=== PATIENT | male | born 1960 | race African-American/Black ===

== ENCOUNTER 2019-05-27 11:55 | Inpatient (IN) | payer MEDICAID ==
[2019-05-27] VITALS (11 sets, daily range): BP systolic 77–121; BP diastolic 50–73
[~2019-05-27] VITALS: Ht 167.6 cm; Wt 67.1 kg
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
--- NOTE | 2019-05-27 12:00 | NUR ---
ERMD AT BEDSIDE EVALUATING PT
[2019-05-27] MEDS ORDERED: DEXAMETHASONE 10 MG/ML VIAL IVP ONE (12:05)
[2019-05-27] MEDS ORDERED: ALBUTEROL 0.083% 2.5 MG/3 ML NEBU INH ONE (12:05)
--- NOTE | 2019-05-27 12:30 | NUR ---
XRAY AT BEDSIDE
[2019-05-27 13:01] LABS: BASOPHILS % (AUTO) 0.1 % (0.0-2.0); EOSINOPHILS # (AUTO) 0.4 K/uL (0-0.4); EOSINOPHILS % (AUTO) 2.3 % (0.0-4.0); HEMATOCRIT 22.3 % (36-52); LYMPHOCYTES # (AUTO) 0.5 K/uL (2.0-11.5); LYMPHOCYTES % (AUTO) 2.9 % (20.5-51.1); MEAN CORPUSCULAR HEMOGLOBIN 29 pg (27-31); MEAN CORPUSCULAR HGB CONC 31 g/dL (33-37); MEAN CORPUSCULAR VOLUME 94.6 fL (80-94); MONOCYTES # (AUTO) 0.6 K/uL (0.8-1.0); MONOCYTES % (AUTO) 3.3 % (1.7-9.3); NEUTROPHILS # (AUTO) 16.2 K/uL (1.8-7.7); NEUTROPHILS % (AUTO) 91.4 % (42.2-75.2); PLATELET COUNT (AUTO) 508 K/uL (140-450); RED BLOOD CELL COUNT(AUTO) 2.35 MIL/uL (4.20-6.10); RED CELL DISTRIBUTION WIDTH 17.6 % (11.6-13.7); WHITE BLOOD COUNT (AUTO) 17.7 K/uL (4.8-10.8)
[2019-05-27 13:03] LABS: APPEARANCE,URINE BLOODY (CLEAR); BILIRUBIN,URINE 1+ (NEGATIVE); BLOOD, URINE 3+ (NEGATIVE); COLOR,URINE RED (YELLOW); LEUKOCYTE ESTERASE ,URINE 2+ (NEGATIVE); NITRITE, URINE POSITIVE (NEGATIVE); UGLUCOSE NEGATIVE (NEGATIVE)
[2019-05-27 13:11] LABS: HEMOGLOBIN 6.8 g/dL (12.0-18.0)
[2019-05-27 13:12] LABS: PROTHROMBIN TIME 9.2 secs (10.8-13.4)
[2019-05-27 13:22] LABS: ALBUMIN 2.1 g/dL (3.4-5.0); ANION GAP 4.3 (8-16); CARBON DIOXIDE 39.3 mmol/L (21-32); CREATININE 0.7 mg/dL (0.7-1.3); POTASSIUM 3.6 mmol/L (3.5-5.1); TOTAL BILIRUBIN 0.1 mg/dL (0.0-1.0)
[2019-05-27 13:29] LABS: RBC,URINE TOO NUMEROUS TO COUN /HPF (0-5)
[2019-05-27] MEDS ORDERED: ONDANSETRON 4 MG/2 ML VIAL IVP PRN (13:55)
[2019-05-27] MEDS ORDERED: HYDROcodone/APAP 7.5/325 MG 1 TAB PO PRN (13:55)
[2019-05-27] MEDS ORDERED: ACETAMINOPHEN 325 MG TAB PO PRN (13:55)
[2019-05-27] MEDS ORDERED: VANCOMYCIN PER PHARMACY MC PRN (14:00)
[2019-05-27] MEDS ORDERED: NACL 0.9% 1,000 ML IV ONE (14:25)
--- NOTE | 2019-05-27 14:25 | NUR ---
PHOTOS OF WOUNDS TAKEN
[2019-05-27] MEDS ORDERED: ALBUTEROL SULFATE/IPRATROPIU 3 ML SOL IH PRN (14:35)
[2019-05-27] MEDS ORDERED: PIPERACILLIN/TAZOBACTAM 3.375 GM in DEXTROSE 5% 50 ML IV SCH (14:40)
--- NOTE | 2019-05-27 14:50 | NUR ---
PT ADMITTED TO ICU FROM ER. REPORT RECEIVED FROM STEPHANIE LEWIS AT BEDSIDE. PT IS AAOX2, COOPERATIVE, FOLLOWS COMMANDS AND MOUTH WORDS. AT BEDSIDE. AFEBRILE. DENIES PAIN. NORMAL SINUS RHYTHM ON MONITOR. S1 +S2 HEARD. PT IS TRACH TO VENT: SIMV VC FIO2 25%, TV 475, PEEP 5, RR 20. LUNGS SOUND COARSE BILATERALLY. BREATHING EVEN AND UNLABORED. ABDOMEN SOFT, FLAT, NONTENDER W/ ACTIVE BOWEL SOUNDS. GT AND COLOSTOMY IN PLACE. PICC LINE TO LEFT UPPER ARM PATENT AND INTACT. BARR CATH IN PLACE DRAINING BLOODY URINE TO GRAVITY. SKIN IS DRY AND WARM TO TOUCH BUT NON INTACT. MULTIPLE WOUNDS IN PLACE (SEE WOUND ASSESSMENT). HOB 30 DEGREES, BED IN LOWEST POSITION AND CALL LIGHT WITHIN REACH. NO SIGNS OF DISTRESS NOTED AT THIS TIME. WILL CONTINUE OT MONITOR.
--- NOTE | 2019-05-27 14:52 | NUR ---
Patient will be admitted to care of DR. BYRD. Admited to ICU. Will go to room 2. Belongings list completed. Report to STEPHANIE GUAJARDO.
[2019-05-27 15:21] LABS: FREE T4 (FREE THYROXINE) 0.93 ng/dL (0.76-1.46); MAGNESIUM 2.2 mg/dL (1.8-2.4); PHOSPHORUS 5.4 mg/dL (2.5-4.9); THYROID STIMULATING HORMONE 1.96 uIU/mL (0.34-3.74)
[2019-05-27] MEDS: VANCOMYCIN 1,000 MG in DEXTROSE 5% 250 ML IV SCH (16:00)
[2019-05-27] MEDS ORDERED: LOV40I SUBQ (16:42)
[2019-05-27] MEDS ORDERED: MULT-1640 GT (16:42)
[2019-05-27] MEDS ORDERED: ZINC220C12 GT (16:42)
[2019-05-27] MEDS ORDERED: HYDR-5122 GT (16:42)
[2019-05-27] MEDS ORDERED: ASCO500T45 GT (16:42)
[2019-05-27] MEDS ORDERED: DOCU-299 GT (16:42)
[2019-05-27] MEDS ORDERED: PRO5 GT (16:42)
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
--- NOTE | 2019-05-27 17:50 | NUR ---
PT SEEN BY DR. BRADFORD. WILL FOLLOW UP ON ORDERS.
--- NOTE | 2019-05-27 18:30 | NUR ---
RESIDENT PHYSICIAN DR. NUNEZ IN THE UNIT, AWARE OF PT'S LOW BP. NO NEW ORDER AT THIS TIME.
--- NOTE | 2019-05-27 18:31 | NUR ---
SPOKE WITH DR BRADFORD AFTER REPEAT ABG, PT TRENDING IN CORRECT DIRECTION, CONTINUE WITH CURRENT SETTING AND REPEAT ABG IN THE AM, WILL INDORSE TO NOC.
[2019-05-27] MEDS ORDERED: CALCIUM ACETATE 667 MG TAB PO SCH (18:40)
[2019-05-27] MEDS: NACL 0.9% 1,000 ML IV SCH (18:44)
[2019-05-27] MEDS: PIPERACILLIN/TAZOBACTAM 3.375 GM in DEXTROSE 5% 50 ML IV SCH (18:49)
--- NOTE | 2019-05-27 19:18 | NUR ---
REPORT GIVEN TO BENCH PATTERNMAKER METAL RN FOR CONTINUITY OF CARE. PT IS IN STABLE CONDITION.
--- NOTE | 2019-05-27 19:20 | NUR ---
RECEIVED REPORT FROM AM SHIFT.PT ALERT AND ORIENTED X2. ABLE TO VERBALIZE NEEDS. RESPONDS TO VERBAL AND TACTILE STIMULI. TRACH TO VENT. SIMV 20 VT 475 FIO2 23 PEEP 5. SR ON MONITOR. G TUBE PATENT. F/C IN PLACE. KAMLA/ RED URINE PRESENT. MULTIPLE WOUNDS THROUGHOUT BACK. QUADRIPELIGIC. NO SIGNS OF ACUTE DISTRESS AT THIS TIME. BED IN LOWEST POSITION. WILL CONTINUE TO MONITOR.
[2019-05-27] MEDS: ALBUTEROL SULFATE/IPRATROPIU 3 ML SOL IH SCH (19:21)
[2019-05-27] MEDS: ACETAMINOPHEN 325 MG TAB PO SCH ×2 (20:00→21:33)
[2019-05-27] MEDS ORDERED: DOCUSATE SODIUM 100 MG GELCAP PO SCH ×2 (21:00)
--- NOTE | 2019-05-27 21:15 | NUR ---
STARTED BLOOD TRANSFUSION AT THIS TIME. TO INFUSE 1 UNIT PRBC.
[2019-05-27] MEDS: DOCUSATE 100 MG/10 ML UDC GT SCH (21:34)
[2019-05-27] MEDS: MIDODRINE 5 MG TAB GT SCH (22:23)
[2019-05-28] VITALS (14 sets, daily range): BP systolic 88–146; BP diastolic 56–81
--- NOTE | 2019-05-28 00:10 | NUR ---
BLOOD TRANSFUSION COMPLETE AT THIS TIME. NO SIGNS OF ACUTE DISTRESS NOTED.
[2019-05-28] MEDS: ACETAMINOPHEN 325 MG TAB PO SCH (00:16)
--- NOTE | 2019-05-28 00:17 | NUR ---
NPO AT THIS TIME
[2019-05-28] MEDS: PIPERACILLIN/TAZOBACTAM 3.375 GM in DEXTROSE 5% 50 ML IV SCH ×4 (00:39→18:14)
[2019-05-28] MEDS: THERAHONEY GEL 42.5 GM TP SCH ×2 (00:40→13:47)
[2019-05-28] MEDS: Z-GUARD PASTE TP SCH ×2 (00:40→17:20)
[2019-05-28 03:43] LABS: MAGNESIUM 1.8 mg/dL (1.8-2.4); PHOSPHORUS 2.6 mg/dL (2.5-4.9)
[2019-05-28 03:44] LABS: ANION GAP 8.4 (8-16); CREATININE 0.6 mg/dL (0.7-1.3); POTASSIUM 3.4 mmol/L (3.5-5.1); TOTAL BILIRUBIN 0.4 mg/dL (0.0-1.0)
[2019-05-28 03:45] LABS: CHOL/HDL RATIO 3.1 (1-4.5)
--- NOTE | 2019-05-28 03:45 | NUR ---
DR. NUNEZ AT BEDSIDE AT THIS TIME UPDATED ON PTS CURRENT CONDITION. NOTIFIED OF JOHANN RED URINE OUTPUT
--- NOTE | 2019-05-28 04:30 | NUR ---
AM CARE PROVIDED AT THIS TIME. PT TURNED AND REPOSITIONED
[2019-05-28 04:36] LABS: BASOPHILS % (AUTO) 0.3 % (0.0-2.0); EOSINOPHILS # (AUTO) 0.3 K/uL (0-0.4); EOSINOPHILS % (AUTO) 1.7 % (0.0-4.0); HEMATOCRIT 25.4 % (36-52); HEMOGLOBIN 8.3 g/dL (12.0-18.0); LYMPHOCYTES # (AUTO) 0.9 K/uL (2.0-11.5); LYMPHOCYTES % (AUTO) 5.9 % (20.5-51.1); MEAN CORPUSCULAR HEMOGLOBIN 30 pg (27-31); MEAN CORPUSCULAR HGB CONC 33 g/dL (33-37); MEAN CORPUSCULAR VOLUME 91.2 fL (80-94); MONOCYTES # (AUTO) 0.4 K/uL (0.8-1.0); MONOCYTES % (AUTO) 2.4 % (1.7-9.3); NEUTROPHILS % (AUTO) 89.7 % (42.2-75.2); PLATELET COUNT (AUTO) 489 K/uL (140-450); RED BLOOD CELL COUNT(AUTO) 2.78 MIL/uL (4.20-6.10); RED CELL DISTRIBUTION WIDTH 17.4 % (11.6-13.7); WHITE BLOOD COUNT (AUTO) 15.7 K/uL (4.8-10.8)
[2019-05-28] MEDS: MIDODRINE 5 MG TAB GT SCH ×3 (05:31→20:10)
[2019-05-28] MEDS: NACL 0.9% 1,000 ML IV SCH ×2 (05:31→14:10)
[2019-05-28] MEDS: VANCOMYCIN 1,000 MG in DEXTROSE 5% 250 ML IV SCH ×2 (05:31→22:45)
[2019-05-28] MEDS: ALBUTEROL SULFATE/IPRATROPIU 3 ML SOL IH SCH ×3 (06:48→19:36)
--- NOTE | 2019-05-28 07:14 | NUR ---
ENDORSED CARE TO INCOMING SHIFT FOR CONTINUITY OF CARE.
--- NOTE | 2019-05-28 07:30 | NUR ---
REPORT RECEIVED FROM CASINO DEALER RN AT BEDSIDE. PT IS AAOX3, FOLLOWS COMMANDS AND MOUTH WORDS. AFEBRILE. DENIES PAIN. NORMAL SINUS RHYTHM ON MONITOR. S1 +S2 HEARD. PT IS TRACH TO VENT: A/C VC FIO2 25%, TV 475, PEEP 5, RR 20. LUNGS SOUND CLEAR BILATERALLY. BREATHING EVEN AND UNLABORED. ABDOMEN SOFT, FLAT, NONTENDER W/ ACTIVE BOWEL SOUNDS. GT AND COLOSTOMY IN PLACE. PERIPHERAL IV G18 TO RIGHT EJ ASYMPTOMATIC, PATENT AND INTACT W/ GOOD BLOOD RETURN. BARR CATH IN PLACE DRAINING URINE TO GRAVITY, HEMATURIA NOTED. SKIN IS DRY AND WARM TO TOUCH BUT NON INTACT. MULTIPLE WOUNDS IN PLACE (SEE WOUND ASSESSMENT). HOB 30 DEGREES, BED IN LOWEST POSITION AND CALL LIGHT WITHIN REACH. NO SIGNS OF DISTRESS NOTED AT THIS TIME. WILL CONTINUE OT MONITOR.
--- NOTE | 2019-05-28 07:48 | NUR ---
DR. BYRD AND RESIDENT GROUP IN TO SEE PT. DR. MARTINEZ MADE AWARE OF K 3.4. WILL FOLLOW UP ON ORDERS.
--- NOTE | 2019-05-28 08:21 | NUR ---
PATIENT HAS BEEN SCREENED AND CATEGORIZED HIGH NUTRITION RISK. PATIENT WILL BE SEEN WITHIN 1-2 DAYS OF ADMISSION. 05/28/19-05/29/[address]
--- NOTE | 2019-05-28 08:25 | NUR ---
PT AWAKE AND ALERT REFUSED ABG RN AWARE
[2019-05-28] MEDS: MULTIVITAMIN/MINERALS 15 ML UDBTL GT SCH (08:30)
[2019-05-28] MEDS: PANTOPRAZOLE 40 MG INJ VIAL IVP SCH (08:30)
[2019-05-28] MEDS: DOCUSATE 100 MG/10 ML UDC GT SCH ×2 (08:30→20:10)
[2019-05-28] MEDS: ZINC SULF 220 MG CAP GT SCH (08:30)
[2019-05-28] MEDS: ASCORBIC ACID 500 MG/5 ML ORASYR GT SCH (08:30)
[2019-05-28] MEDS ORDERED: POTASSIUM CHLORIDE 20% 40 MEQ/15 ML UDC GT SCH (08:30)
--- NOTE | 2019-05-28 08:40 | NUR ---
PT IS NPO AFTER MIDNIGHT. PER JOE BLACK TO GIVE GT MEDS. MEDICATIONS ADMINISTERED ORDERED. PT TOLERATED WELL.
[2019-05-28] MEDS ORDERED: NON-FORMULARY ITEM (Multivitamin-Min/Iron/FA/Vit K (Multi-Day Plus Minerals Tablet) 1 TAB) GT SCH (09:00)
[2019-05-28] MEDS ORDERED: ENOXAPARIN 40 MG/0.4 ML SYR SUBQ SCH (09:00)
--- NOTE | 2019-05-28 11:30 | NUR ---
PT TRANSFERRED TO OR BY SURGICAL TEAM FOR WOUND DEBRIDEMENT. NO SIGNS OF DISTRESS NOTED.
[2019-05-28] MEDS ORDERED: KETAMINE 500 MG/5 ML VIAL ONE (11:31)
[2019-05-28] MEDS ORDERED: LIDOCAINE 1% 500 MG/50 ML VIAL ONE (11:39)
[2019-05-28] MEDS ORDERED: BUPIVACAINE-MPF 0.25% 30 ML VIAL INJ ONE (11:40)
--- NOTE | 2019-05-28 12:00 | NUR ---
PT STILL IN OR FOR WOUND DEBRIDEMENT. SBAR REPORT GIVEN TO STEPHANIE LUX AT [facility].
--- NOTE | 2019-05-28 12:20 | NUR ---
TRANSFERRED PATIENT FROM [facility] FOR DEBRIDEMENT TO LEFT SHOULDER TO [facility]-A AMBU BAY TO TRACHEOSTOMY TUBE WITH SUPPLEMENTAL OXYGEN E-TANK AT 1 5 LPM BAG DEPRESSION EVERY 6 SECONDS TOLERATED TRANSFER WELL WITH INCIDENT SATURATION 100% HR 85
--- NOTE | 2019-05-28 12:35 | NUR ---
PATIENT ARRIVED UNIT AFTER DEBRIDEMENT PROCEDURE FROM OR ACCOMPANIED BY OR NURSE KEANU. PATIENT AWAKE AND RESTING ON BED AT THIS TIME. PATIENT IS AAOX3 TO NAME, PLACE, AND TIME. RESPIRATION EVEN AND UNLABORED ON TRACH TO VENT, FIO2 25%, VT 475 ML, RR 20/MIN, FLOW 40/MIN, PEE 5. DENIED PAIN AND SOB. NO SIGNS OF DISTRESS NOTED. APPLIED TELE MONITOR ON PATIENT. IV ON REJ 18G, CLEAN AND INTACT, INFUSING PER MD ORDER. MULTIPLE WOUNDS BACK AND BUTTOCK AREAS. COLOSTOMY BAG IN PLACE. BARR CATHETER IN PLACE AND DRAINING YELLOW URINE. G-TUBE IN PLACE, AND NOT FEEDING AT THIS TIME. ORIENTED PATIENT TO THE ROOM, AND DEMONSTRATED TO PATIENT HOW TO USE THE CALL LIGHT FOR ANY ASSISTANCE AND PATIENT MOUTH THE WORD "OK." SAFETY MEASURES IN PLACE. BED IN LOW POSITION AND CALL LIGHT WITHIN REACH. BED ALARM ACTIVATED AND WOUND BED ON.
--- NOTE | 2019-05-28 12:52 | NUR ---
ADMINISTERED ZOSYN VIA IVPB PER MD ORDER, PATIENT AWAKE AND RESTING ON BED. OR NURSE KEANU IS BY BEDSIDE AND MONITORING PATIENT. NO SIGNS OF DISTRESS NOTED. SAFETY MEASURES IN PLACE. BED IN LOW POSITION AND CALL LIGHT WITHIN REACH. BED ALARM ACTIVATED AND WOUND BED IS ON.
--- NOTE | 2019-05-28 13:37 | NUR ---
RESTING COMFORTABLY NO NO APPARENT SOB NOTED GOOD CHEST RISE DEEP TRACHEAL SUCTION FOR THICK PALE YELLOW SECRETIONS AIRWAY PATENT
--- NOTE | 2019-05-28 13:46 | NUR ---
05/28/19 RD INITIAL ASSESSMENT COMPLETED PLEASE REFER TO NUTRITION ASSESSMENT UNDER CARE ACTIVITY FOR ESTIMATED NUTRITIONAL NEEDS. 1. WHEN MEDICALLY STABLE CONSIDER TUBE FEEDING WITH OSMOLITE 1.5 AT 55 ML/HR X 24HR WITH PROSOURCE BID -THIS WILL PROVIDE 2100 KCAL AND 112 GM OF PROTEIN WHICH MEETS 100% OF ESTIMATED NEEDS 2. CONSIDER FREE WATER FLUSH 165 ML Q4H 3. CONTINUE VITAMIN C FOR WOUND HEALING 4. RD TO FOLLOW-UP 2-3 DAYS, HIGH RISK TANO BONDS RD
--- NOTE | 2019-05-28 13:47 | NUR ---
CHECKED BP PRIOR TO ADMINISTER MED, BP 101/63, PULSE 73. ADMINISTERED MED PER MD ORDER VIA G-TUBE, FLUSHED BEFORE AND AFTER MED ADMINISTERED, PATIENT TOLERATED WELL. PATIENT AWAKE AND RESTING ON BED AT THIS TIME. TRACH TO VENT, SPO2 AT 100%. DENIED PAIN AND SOB. NO SIGNS OF DISTRESS NOTED. SAFETY MEASURES IN PLACE. BED IN LOW POSITION AND CALL LIGHT WITHIN REACH. WOUND BED ACTIVATED.
--- NOTE | 2019-05-28 13:59 | NUR ---
WITH THE ASSIST FROM DAVID. PERFORMED WOUND CARE. CLEANSED WOUNDS WITH WOUND PLEXIGLAS FORMER AND PAD DRY. PACKED WOUND WITH THERAHONEY GEL AND ADAPTIC DRESSING. APPLIED Z-GUARD ON LINDA AREA AND BONY AREA ON BACK. PATIENT TOLERATED WELL. WOUND EDUCATION PROVIDED TO PATIENT, AND PATIENT MOUTH "OK." NO SIGNS OF DISTRESS NOTED. TELE MONITOR ATTACHED. SAFETY MEASURES IN PLACE. BED IN LOW POSITION AND CALL LIGHT WITHIN REACH.
--- NOTE | 2019-05-28 14:48 | NUR ---
RECEIVED A CALL FROM LAB AND WAS TOLD BY DUMP MOTOR OPERATOR OSEI THAT VANCO TROUGH 19.1. CALLED PHARMACY AND SPOKE TOP PHARMACIST KIRAN, PER KIRAN 19.1 IS HIGH FOR PATIENT AND HE STATED TO HOLD VANCOMYCIN 1600 DOSE AND HE WILL ADMINISTER THE VANCO. WILL NOT ADMINISTER 1600 VANCOMYCIN.
--- NOTE | 2019-05-28 15:00 | NUR ---
STARTED G-TUBE FEEDING, PATIENT TOLERATED WELL. PATIENT AWAKE AND RESTING ON BED AT THIS TIME. RESPIRATION EVEN AND UNLABORED ON TRACH TO VENT, SPO2 AT 99% AT THIS TIME. PATIENT DENIED PAIN AND SOB. NO SIGNS OF DISTRESS NOTED. BARR DRAINING YELLOW URINE WITH GRAVITY. TELE MONITOR ATTACHED. BED IN LOW POSITION AND CALL LIGHT WITHIN REACH. WOUND BED ACTIVATED.
--- NOTE | 2019-05-28 15:59 | NUR ---
STABLE NO PULMONARY DISTRESS NOTED GOOD CHEST RISE AIRWAY PATENT JOSE J/RN AND BASE BRANDER AT BEDSIDE FOR PATIENT PHYSICAL HYGIENE AND REPOSITION
--- NOTE | 2019-05-28 16:25 | NUR ---
PATIENT IS RESTING ON BED AT THIS TIME. AROUSABLE TO VOICE. RESPIRATION EVEN AND UNLABORED ON TRACH TO VENT. DENIED PAIN AND SOB. NO SIGNS OF DISTRESS NOTED. SAFETY MEASURES IN PLACE. TELE MONITOR ATTACHED. BED IN LOW POSITION AND CALL LIGHT WITHIN REACH.
--- NOTE | 2019-05-28 17:18 | NUR ---
PATIENT AWAKE AND RESTING ON BED. AND GRANDSON BY BEDSIDE. NO SIGNS OF DISTRESS NOTED. TELE MONITOR ATTACHED. SAFETY MEASURES IN PLACE. BED IN LOW POSITION AND CALL LIGHT WITHIN REACH.
--- NOTE | 2019-05-28 18:14 | NUR ---
ADMINISTERED ZOSYN VIA IVPB PER MD ORDER, PATIENT AWAKE AND RESTING ON BED AT THIS TIME. DENIED PAIN AND SOB. RESPIRATION EVEN AND UNLABORED ON TRACH TO VENT, SPO2 98% AT THIS TIME. NO SIGNS OF DISTRESS NOTED. SAFETY MEASURES IN PLACE. TELE MONITOR ATTACHED.
--- NOTE | 2019-05-28 19:09 | NUR ---
ENDORSED PATIENT AT BEDSIDE TO DISPLAY MANAGER NURSE FOR CONTINUITY OF CARE. PATIENT IS RESTING ON BED AT THIS TIME. RT IS BY BEDSIDE. NO SIGNS OF DISTRESS NOTED. PATIENT IS IN STABLE CONDITION. SAFETY MEASURES IN PLACE. BED IN LOW POSITION AND CALL LIGHT WITHIN REACH. TELE MONITOR ATTACHED.
--- NOTE | 2019-05-28 19:10 | NUR ---
REPORT RECEIVED FROM AM NURSE AT BEDSIDE. PT IN STABLE CONDITION. AAOX1-2. INTRODUCED SELF TO PT. BOARD UPDATED. NO COMPLAINTS OF PAIN. NO SOB ON TRACH TO VENT. AFEBRILE. PT IS BEDBOUND AND QUADRAPLEGIC. PT HAS BARR. PT IS ON GTUBE FEEDINGS OSMOLITE 1.5@55ML/HR WITH 165ML H2O FLUSH Q4H. IV SITE R EJ 18G RUNNING NS@100ML/HR PATENT AND INTACT. SKIN IS WARM, DRY, AND NOT INTACT DUE TO MULTIPLE WOUNDS AND ULCERS. BED LOCKED IN LOW POSITION. CALL MCINTYRE WITHIN REACH. BED ALARM ON. SAFETY PRECAUTION IN PLACE. ALL NEEDS MET AT THIS TIME.
--- NOTE | 2019-05-28 19:37 | NUR ---
RECEIVED TRACH PT WITH A SHILEY XLT 6 TRACH ON VENT. SETTINGS AC/VC 20, VT 475, PEEP 5 AND FIO2 25%. PT IS AWAKE AT THIS TIME NOT IN ANY DISTRESS. TRACH IS SECURE WITH A PATENT AIRWAY. VENT IS PLUGGED INTO A RED OUTLET WITH ALARMS ON AND FUNCTIONING. AMBU BAG AT BEDSIDE. WILL CONTINUE TO MONITOR.
--- NOTE | 2019-05-28 20:10 | NUR ---
PROATAMINE AND COLACE GIVEN THROUGH GTUBE. PT TOLERATED WELL. PT HAD 0ML OF RESIDUAL THROUGH GTUBE.
--- NOTE | 2019-05-28 21:00 | NUR ---
PHARMACY CALLED TO DOUBLE CHECK IF VANCO IS OK TO GIVE. PHARMACY CONFIRMED DOSE HAS ALREADY BEEN ADJUSTED.
--- NOTE | 2019-05-28 22:45 | NUR ---
KATIE MORELOS AND RUNNING. PT TOLERATING WELL.
[2019-05-29] VITALS: BP 138/95
[2019-05-29] MEDS: PIPERACILLIN/TAZOBACTAM 3.375 GM in DEXTROSE 5% 50 ML IV SCH ×5 (00:10→23:46)
--- NOTE | 2019-05-29 00:10 | NUR ---
PASCUAL HUNG AND RUNNING. PT TOLERATING WELL.
[2019-05-29] MEDS: NACL 0.9% 1,000 ML IV SCH ×3 (00:14→23:08)
--- NOTE | 2019-05-29 01:30 | NUR ---
PT SLEEPING COMFORTABLY BUT AROUSABLE. NO S/S OF DISTRESS NOTED. FLACC 0. NO SOB TRACH TO VENT. AFEBRILE. WILL CONTINUE TO MONITOR.
--- NOTE | 2019-05-29 02:55 | NUR ---
PT SLEEPING COMFORTABLY BUT AROUSABLE. NO S/S OF DISTRESS NOTED. WILL CONTINUE TO MONITOR.
[2019-05-29 04:00] VITALS: BP 88/57
[2019-05-29] MEDS: MIDODRINE 5 MG TAB GT SCH ×3 (04:10→20:13)
--- NOTE | 2019-05-29 04:10 | NUR ---
MIDODRINE GIVEN THROUGH GTUBE. PT TOLERATED WELL. PT TOLERATING FEEDING WELL WITH 0ML RESIDUAL.
--- NOTE | 2019-05-29 05:07 | NUR ---
PASCUAL HUNG AND RUNNING. PT TOLERATING WELL.
--- NOTE | 2019-05-29 06:50 | NUR ---
PT AWAKE AND ALERT IN BED BUT ATTEMPTING TO SLEEP. NO S/S OF DISTRESS NOTED. PT IN STABLE CONDITION.
--- NOTE | 2019-05-29 07:25 | NUR ---
RECEIVED PATIENT FROM NIGHT NURSE. PATIENT IS AAO X2. TRACH TO VENT IN HIGH HAMM WITH BED LOW. TRACH SECURED IN PLACE. VENT SETTINGS; FI02 28%, VT475, RR20, PEEP 5. PATIENT AWAKE AND IN NO DISTRESS. NO COMPLAINTS OF PAIN. SKIN WARM DRY AND INTACT. REVIEWED PLAN OF CARE. REINFORCEMENT NEEDED. CALL MCINTYRE WITHIN REACH. SAFETY PRECAUTIONS IN PLACE. ALL NEEDS MET AT THIS TIME. WILL CONTINUE TO MONITOR.
[2019-05-29] MEDS: ALBUTEROL SULFATE/IPRATROPIU 3 ML SOL IH SCH ×3 (07:38→19:31)
[2019-05-29 08:00] VITALS: BP 124/79
[2019-05-29] MEDS: MULTIVITAMIN/MINERALS 15 ML UDBTL GT SCH (09:00)
[2019-05-29] MEDS: Z-GUARD PASTE TP SCH (09:00)
[2019-05-29] MEDS: ZINC SULF 220 MG CAP GT SCH (10:06)
[2019-05-29] MEDS: ASCORBIC ACID 500 MG/5 ML ORASYR GT SCH (10:06)
[2019-05-29] MEDS: DOCUSATE 100 MG/10 ML UDC GT SCH ×2 (10:06→20:12)
[2019-05-29] MEDS: PANTOPRAZOLE 40 MG INJ VIAL IVP SCH (10:08)
[2019-05-29 10:13] LABS: BASOPHILS # (AUTO) 0.1 K/uL (0.00-0.22); BASOPHILS % (AUTO) 0.5 % (0.0-2.0); EOSINOPHILS # (AUTO) 0.1 K/uL (0-0.4); EOSINOPHILS % (AUTO) 1.1 % (0.0-4.0); HEMATOCRIT 24.9 % (36-52); LYMPHOCYTES # (AUTO) 0.8 K/uL (2.0-11.5); LYMPHOCYTES % (AUTO) 6.7 % (20.5-51.1); MEAN CORPUSCULAR HEMOGLOBIN 29 pg (27-31); MEAN CORPUSCULAR HGB CONC 32 g/dL (33-37); MEAN CORPUSCULAR VOLUME 89.5 fL (80-94); MONOCYTES # (AUTO) 0.8 K/uL (0.8-1.0); MONOCYTES % (AUTO) 6.5 % (1.7-9.3); NEUTROPHILS # (AUTO) 9.9 K/uL (1.8-7.7); NEUTROPHILS % (AUTO) 85.2 % (42.2-75.2); PLATELET COUNT (AUTO) 431 K/uL (140-450); RED BLOOD CELL COUNT(AUTO) 2.79 MIL/uL (4.20-6.10); RED CELL DISTRIBUTION WIDTH 17.3 % (11.6-13.7); WHITE BLOOD COUNT (AUTO) 11.6 K/uL (4.8-10.8)
--- NOTE | 2019-05-29 11:23 | NUR ---
MEDICATIONS GIVEN PER ORDER. TOLERATED WELL. PATIENT REPOSITIONED. WOUNDS CLEANSED AND DRESSING CHANGED. PATIENT IN NO DISTRESS. WILL CONTINUE TO MONITOR.
--- NOTE | 2019-05-29 11:48 | NUR ---
WOUND ASSESSMENT TO RIGHT SHOULDER S/P DEBRIDEMENT AND CHANGE OF SKIN CONDITION TO RIGHT HEEL ASSESSED WITH PRIMARY RN. -RIGHT SHOULDER PRESSURE ULCER STAGE 4, MUSCLE OBSERVED WITH 1T6A9LD UNDERMINING BETWEEN 10-12 O'CLOCK 1CM, WOUND BED 100% GRANULATING TISSUE, MODERATE AMOUNT OF SANGUINOUS DRAINAGE, NO ODOR, WOUND EDGE WELL DEFINED, LINDA WOUND SKIN INTACT WITH SURROUNDING REDNESS OBSERVED. -RIGHT HEEL ON TOP OF HEALING SCAR/REMODELING STAGE UPON ADMISSION WITH PARTIAL THICKNESS SKIN LOSS 2X2CM SUPERFICIAL DEPTH WOUND BED 100% PINK, MOIST NO ODOR, POSSIBLE FROM FRICTION. RECOMMENDATIONS: -CLEANSE RIGHT SHOULDER WITH WOUND CARE SOLUTION. PAT DRY, PACK WOUND BED WITH THERAHONEY GEL WITH ADAPTIC DRESSING AND COVER WITH DRY DRESSING QOD AND PRN IF SOILING -CLEANSE RIGHT HEEL WITH WOUND CARE SOLUTION. PAT DRY, APPLY THERAHONEY GEL WITH FOAM DRESSING AND SECURE WITH TAPE QOD AND PRN IF SOILING -HEEL RAISERS TO BILATERAL HEELS, OFFLOAD HEELS AT ALL TIMES ABOVE RECOMMENDATIONS DISCUSSED WITH PRIMARY RN Addendum: 05/29/19 at 1220 by Jenny Krishnan RN (Grace) PAGED TO DR MARTINEZ [phone] Addendum: 05/29/19 at 1450 by Jenny Krishnan RN (Grace) PLACE A CALL TO ADILENE,, R/T RIGHT HEEL AND RIGHT SHOULDER, MESSAGE LEFT FOR HER TO CALL BACK TO ME OR TALK TO JEANNA RAMACHANDRAN RN
[2019-05-29 12:00] VITALS: BP 85/55
--- NOTE | 2019-05-29 12:04 | NUR ---
PT IN BED NOT IN ANY DISTRESS AT THIS TIME. TOLERATING VENT SETTINGS WELL. WILL CONTINUE TO MONITOR.
[2019-05-29 12:27] LABS: MAGNESIUM 1.5 mg/dL (1.8-2.4); PHOSPHORUS 2.2 mg/dL (2.5-4.9)
[2019-05-29] MEDS: THERAHONEY GEL 42.5 GM TP SCH ×2 (12:30→13:36)
[2019-05-29 13:24] LABS: CARBON DIOXIDE 33.7 mmol/L (21-32); POTASSIUM 2.7 mmol/L (3.5-5.1)
[2019-05-29 13:25] LABS: CREATININE 0.6 mg/dL (0.7-1.3)
[2019-05-29] MEDS ORDERED: POTASSIUM CHLORIDE 20% 40 MEQ/15 ML UDC GT SCH (14:00)
[2019-05-29] MEDS ORDERED: fentaNYL 0.05 MG/ML VIAL ONE (15:27)
[2019-05-29] MEDS ORDERED: diphenhydrAMINE 50 MG/ML VIAL ONE (15:27)
[2019-05-29] MEDS ORDERED: MIDAZOLAM 2 MG/2 ML VIAL ONE (15:27)
--- NOTE | 2019-05-29 15:46 | NUR ---
DR NARANJO AT BEDSIDE GETTING READY TO PERFORM EGD. WILL CONTINUE TO MONITOR.
[2019-05-29 16:00] VITALS: BP 94/64
[2019-05-29] MEDS: KCL 20 MEQ/WATER INJ PREMIX 100 ML IV SCH ×2 (16:14→18:19)
--- NOTE | 2019-05-29 16:34 | NUR ---
MEDICATIONS ADMINISTERED PER ORDER. PATIENT TOLERATED WELL AND IS IN NO DISTRESS. WILL CONTINUE TO MONITOR
[2019-05-29] MEDS ORDERED: MIDAZOLAM 2 MG/2 ML VIAL IVP ONE (16:45)
[2019-05-29] MEDS ORDERED: fentaNYL 0.05 MG/ML VIAL IVP ONE (16:45)
--- NOTE | 2019-05-29 17:59 | NUR ---
PT REMAINS ON DOCUMENTED VENT SETTINGS. TRACH IS SECURE WITH A PATENT AIRWAY. PT NOT IN ANY DISTRESS AT THIS TIME. VENT ALARMS REMAIN ON AND FUNCTIONING.
[2019-05-29] MEDS: VANCOMYCIN 1,000 MG in DEXTROSE 5% 250 ML IV SCH (18:06)
--- NOTE | 2019-05-29 19:16 | NUR ---
GAVE REPORT TO COLLECTION DEVELOPMENT LIBRARIAN NURSE FOR CONTINUITY OF CARE. PATIENT IN STABLE CONDITION.
--- NOTE | 2019-05-29 19:20 | NUR ---
RECEIVED REPORT FROM JEANNA BROWN DAYSHIFT NURSE AT BEDSIDE FOR CONTINUITY OF CARE, PT IN STABLE CONDITION.
[2019-05-29 20:00] VITALS: BP 92/58
--- NOTE | 2019-05-29 20:00 | NUR ---
PT IS AOX3 AWAKE AND ALERT ON A WOUND BED AND IS TRACH TO VENT PT. HIS RESPIRATIONS ARE EVEN AND UNLABORED WITH CURRENT VENT SETTINGS. PT HAS HEEL PROTECTORS ON. BARR CATHETER INTACT NO S/S FO BLEEDING NOTED. PT DRAINED 600MLS OF LIGHT YELLOW URINE. PT ALSO HAS AN ILEOSTOMY THAT DRAINED 50MLS OF DARK LIQUID FECES NO S/S OF BLOOD IN FECAL MATTER. PT ALSO HAS G TUBE THAT IS RUNNING OSMOLITE 1.5, NO RESIDUAL NOTED. PT HAS R EJ 18G RUNNING N/S AT 100MLS/HR. PT REMAINS ON VANCOMYCIN AND ZOSYN IV ABT, NO ADVERSE EFFECTS OF MEDICATION NOTED. LUNGS NOTED WITH RHONCHI, PT DECLINES TO BE SUCTIONS AT THIS TIME. ALL FALLS PRECAUTIONS IN PLACE AND CALL MCINTYRE IN REACH.
--- NOTE | 2019-05-29 20:36 | NUR ---
PATIENT ON DOCUMENTED SETTINGS. TRACH DRY, PATENT AND SECURE. BAGMASK AT BEDSIDE. ALARMS ON AND AUDIBLE. VENT PLUGGED INTO RED OUTLET. TREATMENT GIVEN WITH NO ADVERSE REACTION. VITALS STABLE. BREATH SOUNDS COARSE. PT REFUSED SUCTION AT THIS TIME. WILL CONTINUE TO MONITOR.
--- NOTE | 2019-05-29 21:00 | NUR ---
PT TURNED AND REPOSITIONED ON WOUND BED. DRESSINGS INTACT SOME DRAINAGE NOTED. PT ALSO GIVEN DUE MEDS OF COLACE AND MIDODRINE VIA GT NO RESIDUAL NOTED V/S FOLLOWS: T 97.9 P 96 R 18 B/P 96/58 02 98% WITH CURRENT VENT SETTINGS. PT SUCTIONED AND MOUTH CARE PROVIDED. ALL FALLS PRECAUTIONS IN PLACE.
--- NOTE | 2019-05-29 21:40 | NUR ---
RECEIVED CALL FORM KAREN IN LAB THAT PT IS POSITIVE FOR PSEUDOMONAS AERUGINOSA AND ACINETOBACTER BAUMANNII/HAEMOL IN SPUTUM. PT PLACED ON CONTACT PRECAUTIONS, RESIDENT MD DR NUNEZ MADE AWARE, NO NEW ORDERS NOTED. MD NUNEZ ALSO MADE AWARE THAT PT MAG LEVEL IS LOW AT 1.5 MD NUNEZ ORDERED A MAG RIDER.
[2019-05-29] MEDS ORDERED: MAG SULF 2000 MG/WATER PREMIX 50 ML IV SCH (22:30)
--- NOTE | 2019-05-29 22:30 | NUR ---
MAG DENIS MORELOS AND IS RUNNING AT 25MLS/HR ORDERED.
[2019-05-30] VITALS: BP 96/58
--- NOTE | 2019-05-30 00:11 | NUR ---
PT IN BED, ALL FALLS AND CONTACT PRECAUTIONS IN PLACE. PT IS AWAKE AND HAS NO C/O VOICED AT THIS TIME. V/S FOLLOWS T 98.9 P 100 R 18 B/P 92/58 02 96% WITH ALL CURRENT VENT SETTINGS. PASCUAL MORELOS AND IS RUNNING ORDERED.
[2019-05-30] MEDS: HYDROcodone/APAP 5/325 MG 1 TAB TAB GT PRN ×2 (02:04→15:36)
--- NOTE | 2019-05-30 02:10 | NUR ---
PT WOUND DRESSINGS ON SACRAL AND BUTTOCKS AREA DUE TO DRESSINGS BEING SOILED WITH DRAINAGE. PT GIVEN 1 TAB NORCO FOR SEVERE PAIN IN BACK, VIA GT, PT TURNED AND REPOSITIONED. N/S RUNNING VIA 18G EJ AT 100 MLS/HR PT BREATHING EVEN AND UNLABORED WITH ALL VENT SETTINGS. BARR CATHETER AND OSTOMY IN PLACE. PT SUCTIONED AND ORAL CARE PROVIDED.
--- NOTE | 2019-05-30 04:00 | NUR ---
PT IN BED V/S A FOLLOWS T 98.8 P 102 R 20 B/P 114/74 02 100%.
--- NOTE | 2019-05-30 04:30 | NUR ---
PT TURNED AND RE-POSITIONED IN BED NO S/S OF PAIN OR DISTRESS NOTED BED LOW AND ALL CONTACT AND FALL PRECAUTIONS IN PLACE.
[2019-05-30] MEDS: MIDODRINE 5 MG TAB GT SCH ×3 (04:57→20:39)
[2019-05-30] MEDS: MORPHINE SULFATE 2 MG/ML SYR IVP PRN (05:23)
[2019-05-30] MEDS: PIPERACILLIN/TAZOBACTAM 3.375 GM in DEXTROSE 5% 50 ML IV SCH ×3 (05:29→17:28)
--- NOTE | 2019-05-30 05:30 | NUR ---
SPOKE WITH DR. NUNEZ DUE TO PT SAYING HE IS IN PAIN THAT THE NORCO WAS NOT EFFECTIVE,SPOKE WITH Cirilo GUPTA, WHOM ADDED ANOTHER ORDER FOR SEVERE PAIN (1 MG). TOOK OUT 2MG/1ML VIAL, ASSIGNED NURSE FORGOT TO WASTE 1[facility]. SPOKE WITH CO-WORKER REGARDING WASTING 1MG OF MORPHINE, CO WORKER IRON THOUGHT THAT A NEW VIAL NEEDED TO BE WITHDRAWN AND WASTED AT [facility] INSTEAD OF ORIGINAL VIAL. THIS MIXED UP THE COUNT AND THE [facility] WOULD NOT LET ME RETURN ONE OF THE VIALS WITHOUT THE COUNT BEING OFF. RETURNED THE SECOND VIAL UNUSED BUT THE COUNT IS 1 VIAL HIGHER, [facility]GE [facility] IS AWARE. THE 1/2 THE ORIGINAL VIAL WAS WASTED WITH CO-WORKER ARMAAN Sousa IN SHORT PT WAS GIVEN 1MG/MLS OF MORPHINE FOR SEVERE PAIN.
[2019-05-30 06:00] VITALS: BP 114/74
--- NOTE | 2019-05-30 06:20 | NUR ---
REC'D PT ON [employer] VENT SETTING AC 20 VT 475 PEEP 5 FIO2 28% ALARMS ON AND AUDIBLE AND AMBU BAG IS AT HOB AND VENT IS PLUGGED INTO RED OUTLET, I\L TX GIVEN WITH DUONEB 3ML WITH NO ADVERSE REACTION POST TX B\S ARE RHONCHI BILATERALLY, PT AROUND TRACH THICK YELLOW SECRETIONS, PT IS TRACH WITH SHILEY XLT 6 AND SKIN INTEGRITY IS INTACT. Addendum: 05/30/19 at 0657 by Roopa [place] 0632
[2019-05-30] MEDS: NACL 0.9% 1,000 ML IV SCH ×2 (06:25→16:28)
[2019-05-30] MEDS: ALBUTEROL SULFATE/IPRATROPIU 3 ML SOL IH SCH ×3 (06:32→19:11)
--- NOTE | 2019-05-30 07:20 | NUR ---
RECEIVED PATIENT FROM NIGHT NURSE. PATIENT IS AAO X3. TRACH TO VENT IN FOWLERS WITH BED LOW. TRACH SECURED IN PLACE. VENT SETTINGS; FI02 28%, VT475, RR20, PEEP 5. PATIENT AWAKE AND IN NO DISTRESS. NO COMPLAINTS OF PAIN. SKIN WARM AND DRY. REVIEWED PLAN OF CARE. REINFORCEMENT NEEDED. CALL MCINTYRE WITHIN REACH. SAFETY PRECAUTIONS IN PLACE. ALL NEEDS MET AT THIS TIME. WILL CONTINUE TO MONITOR.
[2019-05-30 08:22] LABS: BASOPHILS # (AUTO) 0.1 K/uL (0.00-0.22); BASOPHILS % (AUTO) 0.6 % (0.0-2.0); EOSINOPHILS # (AUTO) 0.2 K/uL (0-0.4); EOSINOPHILS % (AUTO) 1.2 % (0.0-4.0); HEMATOCRIT 23.5 % (36-52); HEMOGLOBIN 7.4 g/dL (12.0-18.0); LYMPHOCYTES # (AUTO) 0.9 K/uL (2.0-11.5); LYMPHOCYTES % (AUTO) 5.4 % (20.5-51.1); MEAN CORPUSCULAR HEMOGLOBIN 29 pg (27-31); MEAN CORPUSCULAR HGB CONC 32 g/dL (33-37); MEAN CORPUSCULAR VOLUME 90.2 fL (80-94); MONOCYTES % (AUTO) 6.4 % (1.7-9.3); NEUTROPHILS # (AUTO) 13.8 K/uL (1.8-7.7); NEUTROPHILS % (AUTO) 86.4 % (42.2-75.2); PLATELET COUNT (AUTO) 412 K/uL (140-450); RED CELL DISTRIBUTION WIDTH 17.5 % (11.6-13.7); WHITE BLOOD COUNT (AUTO) 15.9 K/uL (4.8-10.8)
[2019-05-30 08:47] LABS: ANION GAP 9.4 (8-16); CARBON DIOXIDE 30.5 mmol/L (21-32); CREATININE 0.5 mg/dL (0.7-1.3)
[2019-05-30 09:12] LABS: MAGNESIUM 1.6 mg/dL (1.8-2.4); PHOSPHORUS 2.5 mg/dL (2.5-4.9)
[2019-05-30] MEDS: PANTOPRAZOLE 40 MG INJ VIAL IVP SCH (09:15)
[2019-05-30] MEDS: DOCUSATE 100 MG/10 ML UDC GT SCH ×2 (09:17→20:39)
[2019-05-30] MEDS: MULTIVITAMIN/MINERALS 15 ML UDBTL GT SCH (09:17)
[2019-05-30] MEDS: ZINC SULF 220 MG CAP GT SCH (09:17)
[2019-05-30] MEDS: ASCORBIC ACID 500 MG/5 ML ORASYR GT SCH (09:17)
[2019-05-30 09:26] LABS: POTASSIUM 2.9 mmol/L (3.5-5.1)
[2019-05-30] MEDS: Z-GUARD PASTE TP SCH (09:48)
--- NOTE | 2019-05-30 09:53 | NUR ---
MEDICATIONS ADMINISTERED PER ORDER. PATIENT TOLERATED WELL AND IS IN NO DISTRESS. SAFETY MEASURES IN PLACE. WILL CONTINUE TO MONITOR.
[2019-05-30] MEDS ORDERED: MAG SULF 2000 MG/WATER PREMIX 50 ML IV SCH (10:15)
--- NOTE | 2019-05-30 11:18 | NUR ---
MEDICATIONS ADMINISTERED PER ORDER. PATIENT TOLERATED WELL AND IS IN NO DISTRESS. SAFETY MEASURES IN PLACE. WILL CONTINUE TO MONITOR.
[2019-05-30 12:00] VITALS: BP 96/63
[2019-05-30] MEDS ORDERED: POTASSIUM CHLORIDE 40 MEQ, LIDOCAINE MPF 1% - 5 mL VIAL 25 MG in NACL 0.9% 250 ML IV SCH (12:30)
[2019-05-30] MEDS: VANCOMYCIN 1,000 MG in DEXTROSE 5% 250 ML IV SCH (13:01)
[2019-05-30] MEDS: THERAHONEY GEL 42.5 GM TP SCH ×2 (13:25→14:32)
--- NOTE | 2019-05-30 13:29 | NUR ---
MEDICATIONS ADMINISTERED PER ORDER. PATIENT TOLERATED WELL AND IN NO DISTRESS. SAFETY MEASURES IN PLACE. WILL CONTINUE TO MONITOR
--- NOTE | 2019-05-30 15:18 | NUR ---
PROVIDED ORAL SUCTION. PATIENT ASLEEP AROUSABLE TO SPEECH. IN NO DISCOMFORT. SAFETY MEASURES IN PLACE. WILL CONTINUE TO MONITOR.
[2019-05-30 16:00] VITALS: BP 104/66
--- NOTE | 2019-05-30 16:49 | NUR ---
Rubber Vulcanizing Machine Operator Note: I called and spoke with patient's Cari Schulz . She stated she would like patient to return to [facility] upon discharge. She reported she is very pleased with the care patient has received both at [facility] and [facility]. She told me [facility] nursing staff has provided excellent wound care.
--- NOTE | 2019-05-30 17:28 | NUR ---
MEDICATIONS ADMINISTERED PER ORDER. PATIENT TOLERATED WELL AND IS IN NO DISTRESS. WILL CONTINUE TO MONITOR.
--- NOTE | 2019-05-30 19:19 | NUR ---
Received pt stable on vent support at documented settings, suctioned small amounts of thin clear white secretions, hhn tx given, tolerated well, no resp distress or SOB noted at this time, Shiley 6 XLT secured/patent/midline, alarms set and audible, ambu bag at bedside, vent plugged into red outlet, ventilator wiped down, cont pulse ox on, will cont to monitor.
--- NOTE | 2019-05-30 19:20 | NUR ---
GAVE REPORT TO NIGHT NURSE FOR CONTINUITY OF CARE. PATIENT IN STABLE CONDITION
--- NOTE | 2019-05-30 19:20 | NUR ---
RECEIVED REPORT FORM JEANNA RN DAYSHIFT NURSE AND LANE BROWN DAYSHIFT NURSE AT BEDSIDE FOR CONTINUITY OF CARE, PT IN STABLE CONDITION.
--- NOTE | 2019-05-30 19:54 | NUR ---
PT ON WOUND BED RESTING WITH EYES CLOSED BUT AROUSABLE TO NAME. NO S/S OF PAIN OR DISTRESS NOTED. ORAL SUCTION PROVIDED TO PT. HOB UP 35 DEGREES. R IJ INTACT AND RUNNING N/S AT 100MLS/HR. TUBE FEEDING OSMOLITE RUNNING AT 55MLS/HR ORDERED. COLOSTOMY BAG AND BARR CATHETER INTACT. PT HAS HEEL PROTECTORS ON AND IS RESTING EVEN AND UNLABORED ON CURRENT TACH TO VENT SETTINGS. ALL FALLS AND CONTACT PRECAUTIONS IN PLACE. V/S FOLLOWS T 98.1 P 98 R 20 B/P 99/59 02 98% WITH ALL CURRENT VENT SETTINGS.
[2019-05-30 20:00] VITALS: BP 99/59
--- NOTE | 2019-05-30 21:00 | NUR ---
PT GIVEN SCHEDULED COLACE AND MIDODRINE VIA GT. GT FEEDING WELL TOLERATED, NO RESIDUAL NOTED. ORAL CARE AND SUCTIONING PROVIDED TO PT AT BEDSIDE.
--- NOTE | 2019-05-30 22:00 | NUR ---
PT PROVIDED BED BATH, WAS TURNED, CHANGED AND REPOSITIONED. 1000MLS OF LIGHT YELLOW URINE DRAINED FORM BARR CATHETER AND 150 MLS OF LIQUID SOMMERS STOOL DRAINED FORM OSTOMY BAG. IV SITE ON R IJ INTACT AND CONTINUE TO RUN NS AT 100MLS/HR. ORAL CARE AND SUCTIONING PROVIDED TO PT. G TUBE FEEDING OSMOLITE CONTINUES TO RUN AT 55MLS/HR. ALL FALLS AND CONTACT PRECAUTIONS IN PLACE.
[2019-05-31] VITALS: BP 90/57
--- NOTE | 2019-05-31 00:10 | NUR ---
PT SLEEPING NO S/S OF PAIN OR DISTRESS NOTED. NIDIAN HUNG AND IS RUNNING AT 100MLS/HR ORDERED. V/S FOLLOWS T 97.6 P 101 R 18 B/P 90/57 02 98% ON ROOM AIR.
[2019-05-31] MEDS: PIPERACILLIN/TAZOBACTAM 3.375 GM in DEXTROSE 5% 50 ML IV SCH ×3 (00:47→11:31)
[2019-05-31] MEDS: NACL 0.9% 1,000 ML IV SCH ×4 (02:31→22:49)
[2019-05-31 04:00] VITALS: BP 87/55
--- NOTE | 2019-05-31 04:00 | NUR ---
PT ON WOUND BED , HE WAS TURNED AND REPOSITIONED, SACRAL AND RIGHT AND LEFT BUTTOCK WOUNDS WERE CHANGED. IV SITE INTACT AND RUNNING N/S AT 100MLS/HR. V/S FOLLOWS T 97.6 P 101 R 20 B/P 90/57 02 95% ON ROOM AIR.
[2019-05-31] MEDS: HYDROcodone/APAP 5/325 MG 1 TAB TAB GT PRN ×2 (04:40→13:31)
[2019-05-31] MEDS: MIDODRINE 5 MG TAB GT SCH ×3 (04:40→20:43)
[2019-05-31] MEDS: VANCOMYCIN 1,000 MG in DEXTROSE 5% 250 ML IV SCH (04:45)
--- NOTE | 2019-05-31 04:45 | NUR ---
PT GIVEN NORCO VIA GT FOR 7/10 PAIN POST WOUND DRESSINGS.
--- NOTE | 2019-05-31 05:00 | NUR ---
PT GIVEN ORDERED MIDODRINE FOR LOW B/P. PHARMACY CALLED TROUGH 18.8 PER PHARMACY OK TO GIVE. VANCOMYCIN HUNG AND RUNNING AT 165 ORDERED. ALL CONTACT AND FALLS PRECAUTIONS IN PLACE.
[2019-05-31] MEDS: ALBUTEROL SULFATE/IPRATROPIU 3 ML SOL IH SCH ×3 (06:16→19:06)
--- NOTE | 2019-05-31 06:16 | NUR ---
RECEIVED PT ON CARESCAPE ON DOCUMENTED SETTINGS , ALARMS ARE ON AND AUDIBLE, PTS TRACH SHILEY 6 XLT I SECURE, PT IN HF ASLEEP, BS CLEAR, HHN GIVEN I\L WITH 3 MG DUONEB, BMV HOB, VENT PLUGGED INTO RED OUTLET, CONT. POX IN PLACE WILL CONTINUE TO MONITOR
[2019-05-31 06:24] LABS: BASOPHILS # (AUTO) 0.1 K/uL (0.00-0.22); BASOPHILS % (AUTO) 0.4 % (0.0-2.0); EOSINOPHILS # (AUTO) 0.3 K/uL (0-0.4); EOSINOPHILS % (AUTO) 1.8 % (0.0-4.0); HEMATOCRIT 23.1 % (36-52); HEMOGLOBIN 7.3 g/dL (12.0-18.0); LYMPHOCYTES # (AUTO) 0.9 K/uL (2.0-11.5); MEAN CORPUSCULAR HEMOGLOBIN 29 pg (27-31); MEAN CORPUSCULAR HGB CONC 32 g/dL (33-37); MONOCYTES # (AUTO) 1.1 K/uL (0.8-1.0); MONOCYTES % (AUTO) 6.1 % (1.7-9.3); NEUTROPHILS # (AUTO) 15.7 K/uL (1.8-7.7); PLATELET COUNT (AUTO) 388 K/uL (140-450); RED BLOOD CELL COUNT(AUTO) 2.54 MIL/uL (4.20-6.10); RED CELL DISTRIBUTION WIDTH 17.8 % (11.6-13.7); WHITE BLOOD COUNT (AUTO) 18.2 K/uL (4.8-10.8)
--- NOTE | 2019-05-31 06:30 | NUR ---
PASCUAL HUNG ORDERED . ALL FALLS AND CONTACT PRECAUTIONS IN PLACE.
[2019-05-31 07:24] LABS: LYMPHOCYTES % (AUTO) 5.2 % (20.5-51.1); NEUTROPHILS % (AUTO) 86.5 % (42.2-75.2)
[2019-05-31 07:43] LABS: ANION GAP 10.3 (8-16); CARBON DIOXIDE 30.3 mmol/L (21-32); CREATININE 0.5 mg/dL (0.7-1.3)
[2019-05-31 07:49] LABS: POTASSIUM 2.6 mmol/L (3.5-5.1)
[2019-05-31 07:52] LABS: MAGNESIUM 1.6 mg/dL (1.8-2.4); PHOSPHORUS 2.5 mg/dL (2.5-4.9)
[2019-05-31 08:00] VITALS: BP 99/61
[2019-05-31] MEDS: PANTOPRAZOLE 40 MG INJ VIAL IVP SCH (09:29)
[2019-05-31] MEDS: Z-GUARD PASTE TP SCH (09:30)
--- NOTE | 2019-05-31 09:31 | NUR ---
MEDICATION ADMINISTERED PER ORDER. PATIENT TOLERATED WELL AND IS IN NO DISTRESS. SAFETY MEASURES IN PLACE. WILL CONTINUE TO MONITOR.
[2019-05-31] MEDS: MULTIVITAMIN/MINERALS 15 ML UDBTL GT SCH (10:24)
[2019-05-31] MEDS: DOCUSATE 100 MG/10 ML UDC GT SCH ×2 (10:25→20:43)
[2019-05-31] MEDS: ZINC SULF 220 MG CAP GT SCH (10:25)
[2019-05-31] MEDS: ASCORBIC ACID 500 MG/5 ML ORASYR GT SCH (10:25)
[2019-05-31] MEDS ORDERED: MAG SULF 2000 MG/WATER PREMIX 100 ML IV SCH (10:30)
[2019-05-31] MEDS ORDERED: POTASSIUM CHLORIDE 10 MEQ TABER PO SCH (10:30)
[2019-05-31] MEDS ORDERED: POTASSIUM CHLORIDE 20% 40 MEQ/15 ML UDC PO SCH (10:40)
--- NOTE | 2019-05-31 11:33 | NUR ---
MEDICATIONS ADMINISTERED PER ORDER. PATIENT TOLERATED WELL AND IN NO DISTRESS. ORAL SUCTIONING PERFORMED. SAFETY MEASURES IN PLACE. WILL CONTINUE TO MONITOR.
[2019-05-31 12:00] VITALS: BP 96/56
--- NOTE | 2019-05-31 12:24 | NUR ---
05/31/19 RD FOLLOW UP COMPLETED PLEASE REFER TO NUTRITION ASSESSMENT UNDER CARE ACTIVITY FOR ESTIMATED NUTRITIONAL NEEDS. 1. CONTINUE G-TUBE FEEDINGS OSMOLITE 1.5 @ GOAL RATE 55 ML/HR WITH 165 ML FWF Q4H ORDERED AND TOLERATED. 3. RD TO FOLLOW-UP 2-3 DAYS, HIGH RISK FELIBERTO HAWKINS, RD
--- NOTE | 2019-05-31 12:36 | NUR ---
MEDICATION ADMINISTERED PER ORDER. PERFORMED TRACH SUCTIONING. SMALL AMOUNT OF WHITE SPUTUM SUCTIONED. WILL CONTINUE TO MONITOR.
[2019-05-31] MEDS: MEROPENEM 1,000 MG in NACL 0.9% 100 ML IV SCH ×2 (13:32→20:43)
[2019-05-31] MEDS ORDERED: NACL 0.9% IV SCH (14:00)
[2019-05-31] MEDS ORDERED: COLISTIMETHATE SODIUM IV SCH (14:00)
--- NOTE | 2019-05-31 14:18 | NUR ---
MEDICATION ADMINISTERED PER ORDER. PATIENT SLEEPING AND IN NO DISTRESS. WILL CONTINUE TO MONITOR.
[2019-05-31] MEDS: THERAHONEY GEL 42.5 GM TP SCH ×2 (14:25→14:32)
[2019-05-31 16:00] VITALS: BP 94/58
[2019-05-31] MEDS ORDERED: POTASSIUM CHLORIDE 40 MEQ, LIDOCAINE MPF 1% - 5 mL VIAL 25 MG in NACL 0.9% 250 ML IV SCH (18:00)
--- NOTE | 2019-05-31 18:01 | NUR ---
MEDICATIONS ADMINISTERED PER ORDER. PATIENT SLEEPING. SAFETY MEASURES IN PLACE. WILL CONTINUE TO MONITOR.
--- NOTE | 2019-05-31 19:15 | NUR ---
GAVE REPORT TO NIGHT NURSE FOR CONTINUITY OF CARE. PATIENT IN STABLE CONDITION
--- NOTE | 2019-05-31 19:20 | NUR ---
Received endorsement from AM shift RN; patient A/Ox3, able to make needs known by simple commands, bedbound. No SOB or distress noted, on trach to vent. Settings FiO2 100%, VT 475, Rate 20, Flow 45, PEEP 5, PMax 60. On contact precautions for Pseudomonas Aeruginosa, MDRO/ASSOCIATE PROGRAMMER wounds; observed and maintained. Iv site on right EJ, double lumen, running IVF at 100mL/hr. G-tube in place, Osmolite 1.5 running at 55mL/hr, water flush 165mL every 4 hours. Skin non-intact. Finley in place, ileostomy in place. Bed in the lowest position, call light within reach. Initial assessment done. Will continue to monitor. Addendum: 06/01/19 at 0238 by Luciano Gaxiola RN FiO2 28%
[2019-05-31 20:00] VITALS: BP 103/60
--- NOTE | 2019-05-31 20:40 | NUR ---
Vitals taken, no distress noted.
--- NOTE | 2019-05-31 21:50 | NUR ---
Due meds given, tolerated well.
[2019-05-31] MEDS: COLISTIMETHATE SODIUM 150 MG in NACL 0.9% 100 ML IV SCH (23:00)
[2019-06-01] VITALS (14 sets, daily range): BP systolic 91–125; BP diastolic 51–74
--- NOTE | 2019-06-01 00:21 | NUR ---
Vitals taken; patient refused wound care and picture taking of wounds at this time; stated he wants it done in the AM.
[2019-06-01] MEDS: MORPHINE SULFATE 2 MG/ML SYR IVP PRN ×2 (00:32→14:57)
--- NOTE | 2019-06-01 02:40 | NUR ---
Rounds done; patient asleep, eyes closed, visible chest rise and fall noted.
[2019-06-01] MEDS: MIDODRINE 5 MG TAB GT SCH ×3 (04:06→20:45)
[2019-06-01] MEDS: MEROPENEM 1,000 MG in NACL 0.9% 100 ML IV SCH ×3 (04:07→20:46)
--- NOTE | 2019-06-01 04:40 | NUR ---
Checks made; patient asleep, visible chest rise and fall noted.
[2019-06-01 06:04] LABS: BASOPHILS # (AUTO) 0.1 K/uL (0.00-0.22); BASOPHILS % (AUTO) 0.4 % (0.0-2.0); EOSINOPHILS # (AUTO) 0.6 K/uL (0-0.4); EOSINOPHILS % (AUTO) 3.9 % (0.0-4.0); HEMATOCRIT 25.2 % (36-52); HEMOGLOBIN 7.9 g/dL (12.0-18.0); LYMPHOCYTES % (AUTO) 6.3 % (20.5-51.1); MEAN CORPUSCULAR HEMOGLOBIN 29 pg (27-31); MEAN CORPUSCULAR HGB CONC 31 g/dL (33-37); MEAN CORPUSCULAR VOLUME 91.6 fL (80-94); MONOCYTES % (AUTO) 5.9 % (1.7-9.3); NEUTROPHILS # (AUTO) 13.4 K/uL (1.8-7.7); NEUTROPHILS % (AUTO) 83.5 % (42.2-75.2); PLATELET COUNT (AUTO) 377 K/uL (140-450); RED BLOOD CELL COUNT(AUTO) 2.75 MIL/uL (4.20-6.10); RED CELL DISTRIBUTION WIDTH 17.9 % (11.6-13.7)
--- NOTE | 2019-06-01 06:05 | NUR ---
Vitals stable, due meds given, repositioned. Will endorse to AM shift RN for continuity of care.
[2019-06-01] MEDS: ALBUTEROL SULFATE/IPRATROPIU 3 ML SOL IH SCH ×3 (06:22→18:56)
--- NOTE | 2019-06-01 06:22 | NUR ---
REC'D PT ON CARESCAPE VENT SETTINGS AC 20 VT 475 PEEP 5 FIO2 28% ALARMS ON AND AUDIBLE AND AMBU BAG AT SIDE OF VENT AND VENT IS PLUGGED INTO RED OUTLET, I\L TX GIVEN WITH DUONEB 3ML WITH NO ADVERSE REACTION POST TX, B\S ARE RHONCHI BILATERALLY, SXN PT SMALL AMT OF CLEAR THICK SECRETIONS AND SXN AROUNG STOMA WITH LARGE AMT OF THICK CLEAR SECRETIONS, PT IS TRACH WITH SHILEY XLT 6, PT IS RESTING
[2019-06-01 06:33] LABS: MAGNESIUM 1.6 mg/dL (1.8-2.4); PHOSPHORUS 2.1 mg/dL (2.5-4.9)
--- NOTE | 2019-06-01 07:16 | NUR ---
RECEIVED REPORT FROM STUDIO MANAGER NURSE. PATIENT LYING DOWN IN BED SLEEPING, AROUSABLE BY VOICE. NO DISTRESS NOTED. DENIES ANY PAIN. FLACC 0. RESPIRATIONS EVEN, UNLABORED, ON TRACH TO VENT WITH VENT SETTINGS:FIO2:28%, VT 475, RATE:20, FLOW:45, PEEP:5, PMAX 60 WITH O2 SAT AT 98%. BARR CATH IN PLACE DRAINING CLEAR YELLOW URINE. ILLEOSTOMY IN PLACE, PATENT. RIGHT EJ IV SITE NOTED, INFUSING IVF PER MD ORDERS. GTUBE SITE IN PLACE, PATENT, AND INFUSING FEEDING PER MD ORDERS. REVIEWED PLAN OF CARE WITH PATIENT. PATIENT VERBALIZED UNDERSTANDING. SAFETY MEASURES IN PLACE, CALL LIGHT WITHIN REACH. WILL CONTINUE TO MONITOR.
[2019-06-01 08:46] LABS: POTASSIUM 3.1 mmol/L (3.5-5.1)
[2019-06-01 08:47] LABS: ANION GAP 12.7 (8-16); CARBON DIOXIDE 30.4 mmol/L (21-32); CREATININE 0.6 mg/dL (0.7-1.3)
[2019-06-01] MEDS: ZINC SULF 220 MG CAP GT SCH (09:00)
[2019-06-01] MEDS: MULTIVITAMIN/MINERALS 15 ML UDBTL GT SCH (09:00)
[2019-06-01] MEDS: DOCUSATE 100 MG/10 ML UDC GT SCH ×2 (09:00→20:46)
[2019-06-01] MEDS: NACL 0.9% 1,000 ML IV SCH ×3 (09:00→23:41)
[2019-06-01] MEDS: PANTOPRAZOLE 40 MG INJ VIAL IVP SCH (09:00)
[2019-06-01] MEDS: Z-GUARD PASTE TP SCH (09:01)
[2019-06-01] MEDS: ASCORBIC ACID 500 MG/5 ML ORASYR GT SCH (09:02)
--- NOTE | 2019-06-01 09:15 | NUR ---
PATIENT LYING DOWN IN BED SLEEPING, AROUSABLE BY VOICE. NO DISTRESS NOTED. DENIES ANY PAIN. SCHEDULED MEDICATIONS DUE GIVEN. WILL CONTINUE TO MONITOR.
[2019-06-01] MEDS ORDERED: MAG SULF 2000 MG/WATER PREMIX 50 ML IV ONE (09:20)
[2019-06-01] MEDS: MAGNESIUM SULFATE 1GM in DEXTROSE 5% 100 ML PREMIX IV SCH ×2 (10:23→11:40)
--- NOTE | 2019-06-01 10:26 | NUR ---
FAXED ALL THE PAPER WORK [place] [facility] [place]ED [place]. SPOKE WITH CAITLYN HOLLIS NOTIFIED HER PT HAS A DC ORDER CM TO FOLLOW
--- NOTE | 2019-06-01 10:36 | NUR ---
PATIENT LYING DOWN IN BED WATCHING TV. NO DISTRESS NOTED. DENIES ANY PAIN. SCHEDULED MEDICATIONS DUE GIVEN. WILL CONTINUE TO MONITOR.
[2019-06-01] MEDS ORDERED: MERO1PDS2 IV ×2 (11:26→11:40)
[2019-06-01] MEDS ORDERED: ZGUARD TP (11:26)
[2019-06-01] MEDS ORDERED: COLI150P4 IJ ×2 (11:26→11:40)
[2019-06-01] MEDS ORDERED: LACT10CA1 PO (11:26)
--- NOTE | 2019-06-01 11:34 | NUR ---
PER CAITLYN PT CAN GO TO ROOM 20A AND ARRANGED TRANSPORT WITH [facility] BLS METAL PATTERN MAKER TIME IS 1500 NOTIFIED JEANNA BROWN
[2019-06-01] MEDS ORDERED: POTASSIUM CHLORIDE 10 MEQ TABER PO SCH (12:00)
[2019-06-01] MEDS ORDERED: POTASSIUM CHLORIDE 20% 40 MEQ/15 ML UDC PO SCH (12:00)
--- NOTE | 2019-06-01 12:00 | NUR ---
PATIENT SITTING IN BED WATCHING TV. COMPLAINED OF ITCHING AROUND BACK OF NECK NEAR TRACH COLLAR. LIGHTLY SCRATCHED AND APPLIED LOTION. ITCHING STOPPED PER PATIENT. WILL CONTINUE TO MONITOR.
[2019-06-01] MEDS: COLISTIMETHATE SODIUM 150 MG in NACL 0.9% 100 ML IV SCH ×2 (12:38→23:41)
[2019-06-01] MEDS: HYDROcodone/APAP 5/325 MG 1 TAB TAB GT PRN (12:48)
--- NOTE | 2019-06-01 13:00 | NUR ---
PATIENT VENT HIGH PRESSURE ALARM SOUNDING OFF. OFFERED SUCTION TO PATIENT, HOWEVER, PATIENT REFUSED AT THIS TIME AND REQUESTED A BREATHING TREATMENT INSTEAD. CALLED RESPIRATORY THERAPIST ALINA RESPIRATORY THERAPIST ON HER WAY.
--- NOTE | 2019-06-01 13:34 | NUR ---
1334 PATIENT'S VENT ALARM, HIGH PRESSURE SOUNDING. PATIENT FOUND TO BE DESATURATING AND HEART RATE DECREASING, BECOMING DIAPHORETIC, AND UNRESPONSIVE, PULSES PRESENT. CODE BLUE WAS CALLED. CODE BLUE TEAM AT BEDSIDE. V/S CHECKED, GLUCOSE CHECKED. 1335 PATIENT O2 SAT STARTED TO INCREASE AND STARTED TO BECOME RESPONSIVE, SMILING AGAIN. PATIENT TO BE TAKEN FOR HEAD CT, AND THEN TRANSFERRED TO ICU BED 1 PER MD ORDERS.
[2019-06-01] MEDS ORDERED: POTASSIUM CHLORIDE 40 MEQ, LIDOCAINE MPF 1% - 5 mL VIAL 25 MG in NACL 0.9% 250 ML IV SCH (14:00)
--- NOTE | 2019-06-01 14:21 | NUR ---
CANCELED [facility] TRANSPORT AND NOTIFIED CAITLYN FROM [facility] THAT DISCHARGE HAS BEEN HELD
--- NOTE | 2019-06-01 14:28 | NUR ---
transferred pt from tele to icu [address] and code blue. ACCOMPANIED WITH RTS AND RN. pt awake, alert. bedside monitor shows ST 113s. TRACH TO VENT WITH SETTING FIO2=28%, JP=787, AC=16 AND PEEP=5. PT HAS IV TO RIGHT EJ RUNNING 0.9 NS AT 100 CC/HR. PT HAS G-TUBE IN PLACE, PT ALSO ILLEOSTOMY BAG IN PLACE. F/C IN PLACE WITH GREENISH CLEAR URINE NOTED. PT HAS MULTIPLE WOUNDS( SEE WOUND ASSESSMENT). INTRODUCED MY SELF. HOB ELEVATED 30 DEGREES WITH LOW BED POSITION. WILL CONTINUE TO MONITOR PT. Addendum: 06/01/19 at 1538 by Daja Sotelo RN PT ON WOUND MATTRESS.
[2019-06-01 14:29] LABS: BASOPHILS # (AUTO) 0.1 K/uL (0.00-0.22); BASOPHILS % (AUTO) 0.5 % (0.0-2.0); EOSINOPHILS # (AUTO) 0.6 K/uL (0-0.4); EOSINOPHILS % (AUTO) 3.9 % (0.0-4.0); HEMATOCRIT 24.8 % (36-52); HEMOGLOBIN 7.8 g/dL (12.0-18.0); LYMPHOCYTES # (AUTO) 1.3 K/uL (2.0-11.5); LYMPHOCYTES % (AUTO) 8.1 % (20.5-51.1); MEAN CORPUSCULAR HEMOGLOBIN 29 pg (27-31); MEAN CORPUSCULAR HGB CONC 31 g/dL (33-37); MEAN CORPUSCULAR VOLUME 92.5 fL (80-94); MONOCYTES # (AUTO) 0.9 K/uL (0.8-1.0); MONOCYTES % (AUTO) 5.8 % (1.7-9.3); NEUTROPHILS # (AUTO) 12.8 K/uL (1.8-7.7); NEUTROPHILS % (AUTO) 81.7 % (42.2-75.2); PLATELET COUNT (AUTO) 372 K/uL (140-450); RED BLOOD CELL COUNT(AUTO) 2.68 MIL/uL (4.20-6.10); RED CELL DISTRIBUTION WIDTH 18.3 % (11.6-13.7); WHITE BLOOD COUNT (AUTO) 15.6 K/uL (4.8-10.8)
--- NOTE | 2019-06-01 14:40 | NUR ---
PATIENT TRANSFERRED TO ICU BED 1, REPORT GIVEN TO STEPHANIE MERCEDES FOR CONTINUITY OF CARE.
--- NOTE | 2019-06-01 14:41 | NUR ---
leave message to laron patient will be back to ICU for close observation, patient HR went down to 33 and patient altered around 1339
--- NOTE | 2019-06-01 14:42 | NUR ---
1335 PT'S HIGH PRESSURE ALARMS WERE SOUNDING ON AND OFF, WENT TO CHECK ON PT AND FOUND PT WAS UNRESPONSIVE HEART WAS DROPPING TO 33 BPM AND I STARTED TO BAGGED PT AT 1339 AND BHUPENDRA MURPHY WAS CALLED, DR. FAUSTIN AT BEDSIDE AFTER BAGGING PT THE O2 SAT CAME BACK UP AND HR RETURNED TO 112 AND PT WAS PLACED BACK ON VENT WITH SAME SETTINGS PT STARTED TO RESPONSE TO VERBAL COMMANDS CODE BLUE ENDED AT 1343 AND WAS TAKEN TO CT FOR SCAN OF HEAD THEN TAKEN TO ICU 1 AND PLACED BACK ON VENT WITH SAME SETTINGS AND ABG WAS DRAWN ON RB WITHOUT INCIDENT AND RESULTS GIVEN TO DR. FERMIN WITH NO CHANGES MADE TO VENT
[2019-06-01 15:04] LABS: ANION GAP 6.8 (8-16); CARBON DIOXIDE 33.7 mmol/L (21-32); POTASSIUM 3.5 mmol/L (3.5-5.1)
[2019-06-01 15:05] LABS: ALBUMIN 1.6 g/dL (3.4-5.0); CREATININE 0.6 mg/dL (0.7-1.3); MAGNESIUM 1.9 mg/dL (1.8-2.4); TOTAL BILIRUBIN 0.3 mg/dL (0.0-1.0)
[2019-06-01] MEDS: THERAHONEY GEL 42.5 GM TP SCH ×2 (15:15)
--- NOTE | 2019-06-01 15:15 | NUR ---
WOUND DRESSING CHANGED. PT TOLERATED WELL. PT RESTING QUIETLY AFTER DRESSING CHANGE. Addendum: 06/01/19 at 1541 by Daja Sotelo RN ONLY DID SACRAL AREA WOUND DRESSING CHANGE. PT REFUSED OTHER PLACE WOUND DRESSING CHANGE.
--- NOTE | 2019-06-01 16:00 | NUR ---
started tube feeding osmolite 1.5 at 55 cc/hr with 165 cc with water flush q4hr.
--- NOTE | 2019-06-01 19:10 | NUR ---
endorsed pt to pm nurse
--- NOTE | 2019-06-01 19:15 | NUR ---
RECEIVED PATIENT TRACH SHILEY 6 XLT TO MECHANICAL VENTILATOR AT SETTINGS: AC/VC 20, 475, +5, 28%. VENT CHECK DONE. VENT PLUGGED INTO CORRECT OUTLET. VENT ALARMS ON AND AUDIBLE. AMBU BAG AT [facility]. AIRWAY SECURE. PATIENT REFUSING TO BE SUCTIONED AT THIS TIME. TRACH DRESSING CHANGED. ORAL CARE PROVIDED. SCHEDULED BREATHING TREATMENT ADMINISTERED. TOLERATED TX WELL WITHOUT ADVERSE SIDE EFFECTS. NO ACUTE RESPIRATORY DISTRESS NOTED AT THIS TIME. WILL CONTINUE TO MONITOR.
--- NOTE | 2019-06-01 19:30 | NUR ---
RECEIVED REPORT FROM MORNING RN, DAREN, FOR CONTINUITY OF CARE. VS STABLE AT THIS TIME. PT AWAKE AND ALERT. ABLE TO MAKE NEEDS KNOWN. AFEBRILE. DENIES PAIN. WHEN ASKED IF HE NEEDS ANYTHING, PT SHAKES HIS HEAD. LUNG SOUNDS CLEAR. CHEST RISE SYMMETRIC. NO SOB NOTED. TRACH TO VENT WITH SETTINGS: AC/VC FIO2 28%, TV 475, RR 20, AND PEEP 5. SR ON MONITOR. PULSES ARE PALPABLE IN ALL EXTREMITIES. GTUBE IN PLACE. DRESSING CLEAN, DRY AND INTACT. ASPIRATED AND NO RESIDUAL NOTED. OSMOLITE RUNNING AT 55ML/HR WITH WATER FLSUH 165ML Q4H. COLOSTOMY IN PLACE WITH YELLOW TO BROWN STOOL THAT IS LIQUID. BS ACTIVE IN ALL QUADRANTS. BARR CATHETER IN PLACE. DRAINING CLEAR AND YELLOW URINE. PT HAS RIGHT EJ [id number] IV ACCESS THAT IS PATENT, INTACT, AND ASYMPTOMATIC. PT HAS NS RUNNING AT 100ML/HR. HOB KEPT AT 30 DEGREES. ALL SAFETY PRECAUTIONS ARE IN PLACE. WILL CONTINUE TO MONITOR PT.
[2019-06-01] MEDS: SODIUM PHOS / POTASSIUM PHOS 1 PKT PDR PO SCH (20:46)
--- NOTE | 2019-06-01 22:31 | NUR ---
DR. SHORE AT BEDSIDE TO SEE PT. UPDATED HIM REGARDING THE CHANGES IN PT'S CONDITION. NO NEW ORDERS RECEIVED.
--- NOTE | 2019-06-01 23:02 | NUR ---
SR ON MONITOR. VS STABLE. NO CHANGE IN PT'S CONDITION. VAP ORAL CARE PROVIDED TO PT. PT TOLERATED WELL. PT DENIES ANY NEEDS AT THIS TIME. NO RESIDUAL ASPIRATED. HOB ELEVATED. ALL SAFETY PRECAUTIONS KEPT IN PLACE. BARR CATHETER EMPTIED AT THIS TIME. WILL CONTINUE TO MONITOR PT.
[2019-06-02] VITALS (15 sets, daily range): BP systolic 77–132; BP diastolic 49–73
--- NOTE | 2019-06-02 01:17 | NUR ---
VS STABLE. RESPIRATIONS EVEN AND UNLABORED. SR ON MONITOR. DENIES PAIN. GTUBE TO FEEDING. PT DENIES ANY DISCOMFORT AT THIS TIME. ALL SAFETY PRECAUTIONS ARE IN PLACE. KEPT HOB AT 30 DEGREES. BED AT A LOW POSSIBLE POSITION. AIR EXPELLED FROM COLOSTOMY BAG. WILL CONTINUE TO MONITOR PT.
--- NOTE | 2019-06-02 02:25 | NUR ---
RESPIRATIONS EVEN AND UNLABORED. PT SUCTIONED. OXYGEN SATURATION WNL. NO SOB NOTED. SR TO ST ON MONITOR. HOB KEPT AT 30 DEGREES. IV ACCESS STILL INTACT. NO CHANGE IN PT'S CONDITION NOTED. ALL SAFETY PRECAUTIONS ARE KEPT IN PLACE. WILL CONTINUE TO MONITOR PT.
[2019-06-02] MEDS: MIDODRINE 5 MG TAB GT SCH ×2 (04:20→12:24)
[2019-06-02] MEDS: MEROPENEM 1,000 MG in NACL 0.9% 100 ML IV SCH ×2 (04:20→13:32)
--- NOTE | 2019-06-02 04:50 | NUR ---
MORNING CARE PROVIDED TO PT. BARR CATHETER CARE PROVIDED. VAP ORAL CARE GIVEN WELL. PT TURNED AND REPOSITIONED. ALL LINENS ARE CHANGED. PT TOLERATED BEING TURNED AND REPOSITIONED FAIRLY. BARR CATHETER EMPTIED. BED AT LOW POSSIBLE POSITION. ALL SAFETY PRECAUTIONS ARE IN PLACE. WILL CONTINUE TO MONITOR PT.
[2019-06-02 06:22] LABS: ANION GAP 7.4 (8-16); CARBON DIOXIDE 31.7 mmol/L (21-32); CREATININE 0.5 mg/dL (0.7-1.3); POTASSIUM 3.1 mmol/L (3.5-5.1)
[2019-06-02] MEDS: ALBUTEROL SULFATE/IPRATROPIU 3 ML SOL IH SCH ×3 (06:23→19:42)
--- NOTE | 2019-06-02 06:23 | NUR ---
REC' D PT ON CARESCAPE VENT SETTINGS AC 20 VT 500 PEEP 5 FIO2 28% ALARMS ON AND AUDIBLE AND AMBU BAG AT HOB VENT IS PLUGGED INTO RED OUTLET, NO HHN GIVEN PT IS SLEEPING WITH NO SIGNS OF DISTRESS NOTED AT THIS TIME, B\S ARE RHONCHI BILATERALLY, SXN PT SMALL AMT OF YELLOW SECRETIONS, PT IS TRACH WITH SHILEY XLT 6 PT IS RESTING
[2019-06-02 06:29] LABS: MAGNESIUM 1.5 mg/dL (1.8-2.4); PHOSPHORUS 3.2 mg/dL (2.5-4.9)
--- NOTE | 2019-06-02 07:15 | NUR ---
RECEIVED REPORT FROM CREDIT RELATIONSHIP MANAGER NURSEDESIRAE. PT HAS EYES CLOSED, AROUSED BY NAME. DENIES PAIN. LUNG SOUNDS CLEAR, RESPIRATIONS EVEN, UNLABORED. NO S/S OF ACUTE REPARATORY DISTRESS. ON TRACH TO VENT WITH VENT SETTINGS:FIO2:28%, VT 475, RATE 20, FLOW 45, PEEP 5. BARR CATH IN PLACE DRAINING CLEAR YELLOW URINE. ILEOSTOMY IN PLACE DRAINING LIQ BROWN STOOL. IV TO RIGHT EJ, INFUSING IVF PER MD ORDERS. G TUBE IN PLACE, BOWELS SOUND ACTIVE, RESIDUAL 0ML, FEEDING RUNNING AT 55ML/HR, H2O FLUSH 165ML Q4H. HOB AT 33 DEG, SAFETY MEASURES IN PLACE, CALL LIGHT WITHIN REACH. WILL CONTINUE TO MONITOR.
[2019-06-02 07:23] LABS: BASOPHILS # (AUTO) 0.1 K/uL (0.00-0.22); BASOPHILS % (AUTO) 0.6 % (0.0-2.0); EOSINOPHILS # (AUTO) 0.7 K/uL (0-0.4); EOSINOPHILS % (AUTO) 5.5 % (0.0-4.0); HEMOGLOBIN 7.8 g/dL (12.0-18.0); LYMPHOCYTES # (AUTO) 1.3 K/uL (2.0-11.5); LYMPHOCYTES % (AUTO) 10.7 % (20.5-51.1); MEAN CORPUSCULAR HEMOGLOBIN 29 pg (27-31); MEAN CORPUSCULAR HGB CONC 31 g/dL (33-37); MEAN CORPUSCULAR VOLUME 92.7 fL (80-94); MONOCYTES # (AUTO) 0.9 K/uL (0.8-1.0); MONOCYTES % (AUTO) 7.2 % (1.7-9.3); NEUTROPHILS # (AUTO) 9.3 K/uL (1.8-7.7); PLATELET COUNT (AUTO) 338 K/uL (140-450); RED BLOOD CELL COUNT(AUTO) 2.69 MIL/uL (4.20-6.10); RED CELL DISTRIBUTION WIDTH 18.3 % (11.6-13.7); WHITE BLOOD COUNT (AUTO) 12.3 K/uL (4.8-10.8)
[2019-06-02] MEDS: ASCORBIC ACID 500 MG/5 ML ORASYR GT SCH (08:45)
[2019-06-02] MEDS: MULTIVITAMIN/MINERALS 15 ML UDBTL GT SCH (08:45)
[2019-06-02] MEDS: ZINC SULF 220 MG CAP GT SCH (08:45)
[2019-06-02] MEDS: DOCUSATE 100 MG/10 ML UDC GT SCH (08:45)
[2019-06-02] MEDS: SODIUM PHOS / POTASSIUM PHOS 1 PKT PDR PO SCH (08:46)
[2019-06-02] MEDS: Z-GUARD PASTE TP SCH (08:46)
[2019-06-02] MEDS: PANTOPRAZOLE 40 MG INJ VIAL IVP SCH (08:46)
[2019-06-02] MEDS ORDERED: POTASSIUM CHLORIDE 20% 40 MEQ/15 ML UDC PO SCH (09:00)
[2019-06-02] MEDS ORDERED: POTASSIUM CHLORIDE 10 MEQ TABER PO SCH (09:00)
[2019-06-02] MEDS ORDERED: MAG SULF 2000 MG/WATER PREMIX 50 ML IV ONE (09:05)
--- NOTE | 2019-06-02 09:36 | NUR ---
CALLED TELE CHARGE NURSE DOUGLAS FOR TRANSFER. DOUGLAS SAID SHE NEEDS TO MOVE PT AROUND TO ARRANGE BED, WILL CALL MED LATER.
[2019-06-02] MEDS: MAGNESIUM SULFATE 1GM in DEXTROSE 5% 100 ML PREMIX IV SCH ×2 (10:07→11:17)
--- NOTE | 2019-06-02 10:30 | NUR ---
DOUGLAS CALLED AND SAID PT ALREADY HAVE DC ORDER, WANTS PT TO BE DC'D FROM ICU INSTEAD OF TRANSFERRING TO TELE.
--- NOTE | 2019-06-02 10:36 | NUR ---
CONTACTED CAITLYN [facility] AT [phone] REGARDING PATIENT'S DC ORDER. PATIENT WILL GO TO ROOM 3A UNDER DR. ROMAN. PER PRIMARY STEPHANIE MONROY, THEY WILL BE RUNNING [employer] AND [employer] PLUS THE [employer] AND IF POSSIBLE TO SET UP TRANSPORT LATER THIS AFTERNOON.. CONTACTED [facility] AT [phone], SPOKE TO LEX. A WILL CALL EEG TECHNOLOGIST WAS SET UP. PRIMARY STEPHANIE MONROY MADE AWARE. CAITLYN [facility] MADE AWARE WELL. Addendum: 06/02/19 at 1045 by Hyacinth Dykes CM DR. NUNEZ MADE AWARE WELL.
[2019-06-02] MEDS: NACL 0.9% 1,000 ML IV SCH (11:17)
[2019-06-02] MEDS: COLISTIMETHATE SODIUM 150 MG in NACL 0.9% 100 ML IV SCH (12:24)
[2019-06-02] MEDS: THERAHONEY GEL 42.5 GM TP SCH ×2 (12:26→12:27)
--- NOTE | 2019-06-02 12:27 | NUR ---
PT REFUSED DRESSING CHANGE AND WOUND PIC BY SHAKING HIS HEAD AT THIS TIME. HOWEVER, WOUND DRESSINGS WERE CHANGED LAST NIGHT BY STEPHANIE MERRILL.
[2019-06-02] MEDS ORDERED: POTASSIUM CHLORIDE 40 MEQ, LIDOCAINE MPF 1% - 5 mL VIAL 25 MG in NACL 0.9% 250 ML IV SCH (13:00)
--- NOTE | 2019-06-02 13:30 | NUR ---
Pt arrived to room 108B from ICU at this time. Report received from ICU nurse Anjum. Pt awake, nonverbal but able to shake head "yes" or "no". Right EJ IV intact with ongoing NS @ 100ml/hr. GT in place with Osmolite @ 55ml/hr. Finley caht in place & draining clear yellow urine. Ileostomy bag intact with small amt loose brown stool, stoma pink & moist. Trach in place with A/C vent, RT at bedside adjusting vent settings. HOB elevated at 30�. Pulse ox in place. Call light within reach.
--- NOTE | 2019-06-02 16:09 | NUR ---
Report given to Paige charge nurse [place] [facility] & confirmed pickup at 1830 by [facility].
--- NOTE | 2019-06-02 16:09 | NUR ---
Called [facility] & confirmed pick-up time at 1830 from rm 108B to [facility] rm 3A.
--- NOTE | 2019-06-02 16:23 | NUR ---
Spoke to Cari (spouse) on the phone & notified of discharge plans [place] [facility] [place]. Verbalized understanding & states she is not able to visit pt today but will see him at [facility] tomorrow. Pt notified & nodded his head in understanding.
--- NOTE | 2019-06-02 18:00 | NUR ---
Received call from [facility] stating that ETA is [phone]. Pt currently resting in bed, awake, watching TV, nods head up and down when asked if he's doing fine. Trach in place with A/C vent, respirations even & nonlabored. GT intact with ongoing Osmolite @ 55ml/hr. Finley cath intact & draining clear yellow urine. Ileostomy bag intact with min amt liquid brown stool. Call light within reach. HOB elevated @ 30�.
--- NOTE | 2019-06-02 19:02 | NUR ---
Report given to pm nurse Sony. Pt alert & awake, stable.
--- NOTE | 2019-06-02 19:03 | NUR ---
REPORT RECEIVED FROM AM NURSE AT BEDSIDE. PT IN STABLE CONDITION. AAOX3. INTRODUCED SELF TO PT. BOARD UPDATED. FLACC 0. NO SOB ON TRACH TO VENT. AFEBRILE. PT IS BEDBOUND. PT HAS BARR. PT HAS COLOSTOMY. IV SITE R EJ 18 RUNNING NS@100ML/HR PATENT AND INTACT. SKIN WARM, DRY, AND NOT INTACT DUE TO MULTIPLE WOUNDS AND PRESSURE ULCERS. BED LOCKED IN LOW POSITION. CALL MCINTYRE WITHIN REACH. SAFETY PRECAUTION IN PLACE. PT IS TO BE TRANSFERRED BACK [place] [facility] [place].
--- NOTE | 2019-06-02 19:56 | NUR ---
RECEIVED PATIENT TRACH SHILEY 6 XLT TO MECHANICAL VENTILATOR AT DOCUMENTED SETTINGS. VENT CHECK DONE. VENT ALARMS ON AND AUDIBLE. VENT PLUGGED INTO CORRECT OUTLET WITH WHEELS LOCKED. AMBU BAG AT BEDSIDE. AIRWAY SECURE AND PATENT. SUCTIONED MODERATE AMOUNT OF THICK, YELLOW SECRETIONS. SCHEDULED BREATHING TREATMENT ADMINISTERED. TOLERATED TX WELL WITHOUT ADVERSE SIDE EFFECTS. TRACH CARE DONE WITHOUT INCIDENT. NO ACUTE RESPIRATORY DISTRESS NOTED AT THIS TIME. WILL CONTINUE TO MONITOR.
--- NOTE | 2019-06-02 20:35 | NUR ---
[facility] PICKUP. REPORT GIVEN TO [facility]. GOING TO [facility] BED 3A RECEIVING MD WILL BE DR. ROMAN. PT IN STABLE CONDITION. PT GOING WITH TRACH, COLOSTOMY, BARR, AND R EJ 18G.
== END 2019-06-02 20:50 | DRG 720 ==
LOC: MED 11:55 → MIC 13:54 → MTU 05-28 12:00 → MIC 06-01 14:00 → MTU 06-02 13:10
PROVIDERS: ADMIT General Practice; ATTEND General Practice
PROC: 5A1955Z Respiratory Ventilation, Greater than 96 Consecutive Hours (ICD-10-PCS; principal; 2019-05-27)
PROC: 30233N1 Transfusion of Nonautologous Red Blood Cells into Peripheral Vein, Percutaneous Approach (ICD-10-PCS; 2019-05-27)
PROC: 0JBD0ZZ Excision of Right Upper Arm Subcutaneous Tissue and Fascia, Open Approach (ICD-10-PCS; 2019-05-28)
PROC: 0DJ08ZZ Inspection of Upper Intestinal Tract, Via Natural or Artificial Opening Endoscopic (ICD-10-PCS; 2019-05-29)
DX: A41.9 Sepsis, unspecified organism (principal); J96.02 Acute respiratory failure with hypercapnia; J69.0 Pneumonitis due to inhalation of food and vomit; R65.21 Severe sepsis with septic shock; G82.50 Quadriplegia, unspecified; E43 Unspecified severe protein-calorie malnutrition; G93.41 Metabolic encephalopathy; L89.114 Pressure ulcer of right upper back, stage 4; E87.2 Acidosis; J96.21 Acute and chronic respiratory failure with hypoxia; Z99.11 Dependence on respirator [ventilator] status; L89.154 Pressure ulcer of sacral region, stage 4; D62 Acute posthemorrhagic anemia; N39.0 Urinary tract infection, site not specified; E83.52 Hypercalcemia; D47.3 Essential (hemorrhagic) thrombocythemia; E83.39 Other disorders of phosphorus metabolism; J43.9 Emphysema, unspecified; S14.109A Unspecified injury at unspecified level of cervical spinal cord, initial encounter; X58.XXXA Exposure to other specified factors, initial encounter; R13.10 Dysphagia, unspecified; J96.22 Acute and chronic respiratory failure with hypercapnia; E87.6 Hypokalemia; E87.8 Other disorders of electrolyte and fluid balance, not elsewhere classified; Z68.25 Body mass index [BMI] 25.0-25.9, adult; Z79.01 Long term (current) use of anticoagulants; Z93.0 Tracheostomy status; Z93.1 Gastrostomy status; Z93.3 Colostomy status; Z68.23 Body mass index [BMI] 23.0-23.9, adult; Y93.89 Activity, other specified; Y92.89 Other specified places as the place of occurrence of the external cause; Y99.8 Other external cause status
CPT/HCPCS: 36415; 36600; 70450; 71045; 76700; 80048; 80053; 80202; 81001; 82150; 82272; 82550; 82553; 82803; 82948; 83036; 83605; 83690; 83735; 83874; 83880; 84100; 84439; 84443; 84484; 85025; 85379; 85610; 85730; 86886; 86900; 86901; 86920; 87040; 87070; 87081; 87086; 87186; 87205; 88304; 93005; 94002; 94003; 94640; 99291; 99292; C9113; J0770; J1100; J1200; J2001; J2185; J2250; J2270; J2543; J3010; J3370; J3475; J3480; J3490; J7030; J7060; J7613; J7620; P9016; Q0092; Q0163

== ENCOUNTER 2019-06-07 16:20 | Inpatient (IN) | payer MEDICAID ==
[~2019-06-07] VITALS: Ht 170.2 cm; Wt 67.1 kg
[2019-06-07 16:20] VITALS: BP 60/37
[~2019-06-07 16:20] MED LIST: ASCO500T45 GT; COLI150P4 IJ; DOCU-299 GT; HYDR-5122 GT; LACT10CA1 PO; LOV40I SUBQ; MERO1PDS2 IV; MULT-1640 GT; PRO5 GT; ZGUARD TP; ZINC220C12 GT
--- NOTE | 2019-06-07 16:20 | NUR ---
JENELLE NUR AT BEDSIDE AND RT TO TRANSFER PT TO BED. DR SANDOVAL AT BEDSIDE TO EVALUATE PT.
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
--- NOTE | 2019-06-07 16:27 | NUR ---
PT BIB [facility] TO ER BED4
[2019-06-07] MEDS ORDERED: NACL 0.9% 1,000 ML IV ONE (16:28)
[2019-06-07] MEDS ORDERED: ACETAMINOPHEN 650 MG SUPP RC ONE (16:30)
[2019-06-07] MEDS ORDERED: PIPERACILLIN/TAZOBACTAM 3.375 GM in DEXTROSE 5% 50 ML IV ONE (17:20)
--- NOTE | 2019-06-07 17:21 | NUR ---
LAB AT BEDSIDE
[2019-06-07] MEDS ORDERED: PIPERACILLIN/TAZOBACTAM 3.375 GM VIAL IV ONE (17:25)
[2019-06-07 17:50] LABS: APPEARANCE,URINE CLOUDY (CLEAR); BILIRUBIN,URINE NEGATIVE (NEGATIVE); BLOOD, URINE 2+ (NEGATIVE); COLOR,URINE YELLOW (YELLOW); LEUKOCYTE ESTERASE ,URINE 3+ (NEGATIVE); NITRITE, URINE NEGATIVE (NEGATIVE); UGLUCOSE TRACE (NEGATIVE)
[2019-06-07 17:59] LABS: RBC,URINE 0-5 /HPF (0-5); WBC,URINE TOO MANY TO COUNT /HPF (0-5)
[2019-06-07 18:13] LABS: BASOPHILS % (AUTO) 0.3 % (0.0-2.0); EOSINOPHILS # (AUTO) 0.1 K/uL (0-0.4); LYMPHOCYTES # (AUTO) 0.6 K/uL (2.0-11.5); MONOCYTES # (AUTO) 0.8 K/uL (0.8-1.0); MONOCYTES % (AUTO) 5.9 % (1.7-9.3); NEUTROPHILS % (AUTO) 88.9 % (42.2-75.2); WHITE BLOOD COUNT (AUTO) 14.2 K/uL (4.8-10.8)
--- NOTE | 2019-06-07 18:16 | NUR ---
LEFT MESSAGE TO CLARK, PT'S .
[2019-06-07 18:18] LABS: EOSINOPHILS % (AUTO) 0.9 % (0.0-4.0); HEMATOCRIT 24.6 % (36-52); HEMOGLOBIN 7.7 g/dL (12.0-18.0); MEAN CORPUSCULAR HEMOGLOBIN 30 pg (27-31); MEAN CORPUSCULAR HGB CONC 31 g/dL (33-37); NEUTROPHILS # (AUTO) 12.6 K/uL (1.8-7.7); PLATELET COUNT (AUTO) 281 K/uL (140-450); RED BLOOD CELL COUNT(AUTO) 2.59 MIL/uL (4.20-6.10); RED CELL DISTRIBUTION WIDTH 17.8 % (11.6-13.7)
[2019-06-07 18:44] LABS: PROTHROMBIN TIME 9.9 secs (10.8-13.4)
[2019-06-07 19:15] LABS: ANION GAP 5.2 (8-16); CARBON DIOXIDE 33.7 mmol/L (21-32); POTASSIUM 2.9 mmol/L (3.5-5.1)
--- NOTE | 2019-06-07 19:15 | NUR ---
Pt report given to ROBY BROWN. Transfer of care at this time.
[2019-06-07 19:16] LABS: ALBUMIN 1.9 g/dL (3.4-5.0); CREATININE 0.8 mg/dL (0.7-1.3)
--- NOTE | 2019-06-07 19:52 | NUR ---
PT IS RESTING IN BED. NO SIGNS OF DISTRESS. ALERT. VSS. AND VERBALIZES UNDERSTANDING. STATES NO PAIN AT THIS TIME. WILL CONTINUE TO MONITOR.
[2019-06-07] MEDS ORDERED: POTASSIUM CHLORIDE 20% 40 MEQ/15 ML UDC PO ONE (20:10)
[2019-06-07 20:15] LABS: TOTAL BILIRUBIN 0.2 mg/dL (0.0-1.0)
[2019-06-07 20:41] VITALS: BP 122/66
--- NOTE | 2019-06-07 22:05 | NUR ---
BARR OUTPUT 1000 CC. VSS.
--- NOTE | 2019-06-07 22:28 | NUR ---
PATIENT TRANSFERRED FROM ED VIA [facility]
--- NOTE | 2019-06-07 22:30 | NUR ---
Patient will be admitted to care of [facility]. Admited to [facility]. Will go to room 123B. Belongings list completed. Report to EMORY BROWN. PT STABLE FOR ADMIT. VSS.
--- NOTE | 2019-06-07 22:32 | NUR ---
RECEIVED REPORT FROM ED NURSE AT PATIENTS BEDSIDE, FOR CONTINUITY OF CARE. PATIENT OPENS EYES TO NAME/VOICE. ANOx1. WILL FOLLOWUP CARE
--- NOTE | 2019-06-07 23:00 | NUR ---
PATIENT IN BED EYES CLOSED, OPENS EYES TO VOICE. ANOx1, RESPONDS TO NAME, CANNOT MAKE NEEDS KNOWN OR FOLLOW SIMPLE COMMANDS. SKIN IS DIAPHORETIC, TEMPERATURE 97.9. PATIENT IS CHRONIC TRACT TO VENT DEPENDENT, ACVC SETTINGS: FI02 40%, TV 450, RATE 20 PEEP 5. CURRENT 02SATURATION READING IS 100%. RESPIRATIONS 40 ON VENT MONITOR, HEART RATE 98, BP 91/60. LEFT WRIST 22G, SALINE LOCKED, FLUSHED, PATENT, AND ASYMPTOMATIC. LUNG SOUNDS RHONCHI HEARD IN UPPER LOBES. S1S2 BORDERLINE SINUS TACH ON MONITOR. PATIENT HAS GTUBE IN PLACE, AND COLOSTOMY. BROWN SEMISOLID STOOL NOTED IN BAG. BARR CATHETER IN PLACE, CLEAR YELLOW URINE NOTED. SKIN IS NOT INTACT, RIGHT LEG/HEEL HAS PRESSURE WOUNDS, ONE LARGE OPEN WOUND ON CALF, 13X3CM, DRESSING REPLACED. RIGHT HEEL HAS CLOSED WOUND AND RIGHT LOWER LEG HAS SUPERFICIAL PRESSURE WOUND, ALL DRESSINGS REPLACED. LEFT AND RIGHT SHOULDER PRESSURE WOUNDS-OPEN. SACRUM HAS MULTIPLE OPEN VERY LARGE PRESSURE INJURIES, DEEP AND DRAINING SEROSANGUINEOUS FLUIDS. SEE WOUND ASSESSMENT. SPECIAL MATTRESS IN PLACE. HOB 30 DEGREES, SIDERAILS UP, SAFETY CHECKS IN PLACE. WILL CONTINUE CLOSE MONITORING
[2019-06-07 23:24] VITALS: BP 125/68
--- NOTE | 2019-06-07 23:55 | NUR ---
SPOKE WITH REGARDING ADMISSION ORDERS. DOCTOR MADE AWARE OF PATIENTS CONSECUTIVE LOW BLOOD PRESSURE READINGS. WILL CARRY OUT NEW ORDERS, WILL REPORT TO IF BLOOD PRESSURE DOES NOT IMPROVE.
[2019-06-08] VITALS (13 sets, daily range): BP systolic 91–124; BP diastolic 52–78
--- NOTE | 2019-06-08 00:03 | NUR ---
SPOKE WITH ADILENE-PATIENTS , UPDATED ON PATIENT STATUS AND TREATMENT PLAN. WILL INFORM PATIENT THAT WILL BE THERE TO VISIT IN THE MORNING.
--- NOTE | 2019-06-08 01:00 | NUR ---
AFTER 1L NS BOLUS, PATIENTS BLOOD PRESSURE WITHIN NORMAL LIMITS, WILL FLUCTUATE TO BORDERLINE LOW-SBP-80'S. WILL CARRY OUT SECOND BOLUS ORDERED. ALL OTHER VITAL SIGNS WITHIN NORMAL LIMITS
[2019-06-08] MEDS: NACL 0.9% 1,000 ML IV SCH ×3 (01:15→21:10)
[2019-06-08] MEDS ORDERED: NACL 0.9% 1,000 ML IV ONE ×2 (01:15)
[2019-06-08] MEDS ORDERED: ACETAMINOPHEN 325 MG TAB GT PRN (01:15)
--- NOTE | 2019-06-08 02:45 | NUR ---
SECOND ORDER OF NS BOLUS COMPLETE, MAINTENANCE DOSE STARTED, NS @100ML/HR, PATIENT HAS CONSECUTIVE STABLE BLOOD PRESSURE MEASUREMENTS, SBP 100-120'S.
--- NOTE | 2019-06-08 03:15 | NUR ---
PATIENT TURNED AND REPOSITIONED, REPLACED DRESSINGS TO THE RIGHT LEG-HEEL, CALF AND LOWER LEG. REPLACED DRESSING TO SACRUM. PATIENT AWAKE, COMMUNICATES BY CLICKING SOUND OF THE MOUTH, ABLE TO MOUTH WORDS SLOWLY. PATIENT ANOx2. VAP ORAL CARE PROVIDED, PATIENT STATES HE CANNOT RECALL LAST TIME HE HAD ORAL CLEANING . TOLERATED FAIRLY
--- NOTE | 2019-06-08 05:30 | NUR ---
VAP ORAL CARE PROVIDED, WILL ENDORSE TO AM NURSE THAT PATIENT HAS FREQUENT SPITTING EPISODES, CANNOT USE CALL LIGHT DUE TO QUADRIPLEGIA. MUST CHECK ON PATIENT FREQUENTLY, TO PREVENT SECRETIONS POOLING IN AND AROUND MOUTH. CLEAR/ CREAMISH SECRETIONS NOTED. PROVIDED SKIN CARE TO FACE AND NECK, PATIENT TOLERATED WELL. PATIENT AWAKE AND ALERT ABLE TO MOUTH WORDS. VSS.
[2019-06-08] MEDS ORDERED: PIPERACILLIN/TAZOBACTAM 3.375 GM VIAL IV ONE (06:47)
[2019-06-08] MEDS: PIPERACILLIN/TAZOBACTAM 3.375 GM in DEXTROSE 5% 50 ML IV SCH ×3 (06:50→17:32)
--- NOTE | 2019-06-08 06:50 | NUR ---
WILL ENDORSE TO A.M NURSE THAT PATIENTS ADMISSIONS PAPERS WERE NOT SIGNED DUE TO PATIENTS CONDITION AT THE TIME, PATIENTS WILL VISIT IN THE A.M
--- NOTE | 2019-06-08 07:25 | NUR ---
RECEIVED PT FROM SHUTTLE FILLER NURSEEMORY, PT IS AWAKE AND ON A TRACH TO VENT AT FI02 AT 40%, TIDAL VOLUME AT 450, RATE AT 20 AND PEEP AT 5, PT HAS COLOSTOMY AND AND BARR CATHETER IN PLACE, PERIPHERAL LINE ON THE LEFT WRIST G. 22 WITH NS AT 100ML/HR INFUSING, BILATERAL SHOULDER AND SACRAL PRESSURE ULCER NOTED, WOUND CONSULT PLACED, PT WAS SUCTIONED IN THE MOUTH, NO SIGN OF DISTRESS NOTED AND WILL MONITOR PT.
--- NOTE | 2019-06-08 07:57 | NUR ---
RECEIVED ON A GE CARESCAPE R860 PLUGGED INTO RED OUTLET TOLERATING WELL WITHUT INCIDENT TO A PRIMITIVO XLT #6 AIRWAY SECURED WITH A RAMESH TRACH TIE CUFF PRESSURE CHECKED NOTED AMBU BAG NOTED AT BEDSIDE BEDSIDE PULSE OXIMETER/BP ON AND FUNCTIONING WELL LOC ASLEEP EASILY AWAKENS WITH VOICE COMMAND BREATH SOUNDS COARSE RHONCHI BILATERAL WITH EQUAL CHEST RISE DEEP TRACHEAL SUCTION FOR LARGE THIN PALE YELLOW SECRETIONS AIRWAY PATENT
--- NOTE | 2019-06-08 08:19 | NUR ---
PATIENT HAS BEEN SCREENED AND CATEGORIZED HIGH NUTRITION RISK. PATIENT WILL BE SEEN WITHIN 1-2 DAYS OF ADMISSION. 06/08/19-06/09/[address]
--- NOTE | 2019-06-08 09:10 | NUR ---
RESTING COMFORTABLY NO EVIDENCE OF SOB NOTED GOOD CHEST RISE DEEP TRACHEAL SUCTION FOR LARGE THICK PALE YELLOW SECRETIONS AIRWAY PATENT OROPHARYNGEAL SUCTION FOR LARGE THIN TO FROTHY CLEAR SECRETIONS
--- NOTE | 2019-06-08 09:11 | NUR ---
USING IDEAL BODY WEIGHT FORMULA 7CC = 462.7 L INCREASED VT TO 475 L SATURATION 100% ON FIO2 OF 40% TITRATED FIO2 TO 30% JUAREZ/STEPHANIE NOTIFIED
--- NOTE | 2019-06-08 09:54 | NUR ---
PT IS RESTING COMFORTABLY ON THE BED, NO SIGN OF DISTRESS NOTED. WILL MONITOR PT.
--- NOTE | 2019-06-08 11:00 | NUR ---
WOUND CARE ASSESSMENT AND MANAGEMENT DONE TO PT NOW WITH WOUND CARE NURSEFORREST, PICTURES TAKEN AND ATTACHED TO CHART.
[2019-06-08] MEDS ORDERED: THERAHONEY GEL 42.5 GM TP PRN (11:55)
--- NOTE | 2019-06-08 11:55 | NUR ---
EQUAL CHEST RISE DEEP TRACHEAL SUCTION FOR SMALL THIN PALE YELLOW SECRETIONS AIRWAY PATENT OROPHARYNGEAL SUCTION FOR LARGE CLEAR TO FROTHY SECRETIONS
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
--- NOTE | 2019-06-08 13:53 | NUR ---
STABLE GOOD CHEST RISE DEEP TRACHEAL SUCTION FOR SMALL THIN PALE YELLOW SECRETIONS AIRWAY PATENT
[2019-06-08] MEDS: THERAHONEY GEL 42.5 GM TP SCH (13:57)
--- NOTE | 2019-06-08 13:57 | NUR ---
IV ZOSYN WAS GIVEN TO PT NOW AND PT WAS SUCTIONED, NO SIGN OF DISTRESS NOTED, WILL MONITOR PT.
--- NOTE | 2019-06-08 15:25 | NUR ---
06/08/19 RD INITIAL ASSESSMENT COMPLETED PLEASE REFER TO NUTRITION ASSESSMENT UNDER CARE ACTIVITY FOR ESTIMATED NUTRITIONAL NEEDS. 1. RECOMMEND OSOMOLITE 1.5 AT 55 ML/HR X 24 HR WITH PROSOURCE BID 2. RECOMMEND FREE WATER FLUSH 180 ML Q4H 3. RECOMMEND VITAMIN C 500 MG BID, MVI ONCE DAILY 4. RD TO FOLLOW-UP 2-3 DAYS, HIGH RISK TANO BONDS, RD
[2019-06-08] MEDS ORDERED: ALBUTEROL SULFATE/IPRATROPIU 3 ML SOL IH PRN (15:40)
[2019-06-08] MEDS ORDERED: ACETAMINOPHEN 650 MG/20.3 ML UDC GT PRN (15:42)
--- NOTE | 2019-06-08 16:02 | NUR ---
Casket Trimmer Note: I provided Josephine from [facility] with printed patient's medical information.
--- NOTE | 2019-06-08 16:08 | NUR ---
RESIGN COMFORTABLY NO DISTRESS NOTED GOOD CHEST RISE NO SUCTIONING AT THIS TIME MAGISTERIAL DISTRICT JUDGE TO MONITOR Addendum: 06/08/19 at 1617 by Gokul Ortiz RT RESIGN = RESTING
--- NOTE | 2019-06-08 17:35 | NUR ---
PT IS AWAKE AND IV ZOSYN WAS GIVEN, SENIOR ELECTRICAL ESTIMATOR ON THE BEDSIDE, DRAWING BLOOD FROM PT.
--- NOTE | 2019-06-08 19:05 | NUR ---
ENDORSED PT TO OPEN TENTER OPERATOR NURSE, SUMMER FOR CONTINUITY OF CARE.
[2019-06-08] MEDS: ALBUTEROL SULFATE/IPRATROPIU 3 ML SOL IH SCH (19:22)
--- NOTE | 2019-06-08 19:30 | NUR ---
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 PATIENT TRACH TO VENT, SHILEY SIZE 6, AC/VC FIO2 30% VT 475, RR 20, FLOW 45, PEEP 5, PMAX 50. V/S STABLE, FLACC-6 WILL MEDICATE WITH NORCO. PATIENT AAOX1 TO PERSON ABLE TO MOUTH WORDS AND MAKE SIMPLE NEEDS KNOWN. PERRLA SIZE 3 BILATERALLY. SYMMETRICAL CHEST RISE AND FALL, WHEEZING BILATERALLY IN UPPER LOBES. S1 AND S2 HEARD. CAP RILL LESS THEN 3 SECONDS. ABDOMEN IS SOFT, NONTENDER WITH COLOSTOMY BAG IN PLACE DRAINING SOFT BROWN STOOL. G-TUBE IN PLACE INFUSING OSMOLITE 1.5 AT 55 ML/HR WITH 300 ML WATER FLUSH Q6H, 10 RESIDUALS NOTED. LEFT WRIST 22 G INFUSING NS AT 100 ML/HR. MULTIPLE WOUNDS NOTED. ON WOUND BED. BED IN LOWEST POSITION, HOB ELEVATED. WILL CONTINUE TO FREQUENTLY MONITOR.
--- NOTE | 2019-06-08 19:32 | NUR ---
RECEIVED PATIENT TRACH SHILEY 6 XLT TO MECHANICAL VENTILATOR ON DOCUMENTED SETTINGS, FIO2 TITRATED TO 28%, PULSE OX SAT REMAINS 100%. VENT CHECK DONE. VENT ALARMS ON AND AUDIBLE. VENT PLUGGED INTO CORRECT OUTLET WITH WHEELS LOCKED. AMBU BAG PLACED AT BEDSIDE. AIRWAY SECURE AND PATENT. SUCTIONED - NO SECRETIONS AT THIS TIME. SCHEDULED BREATHING TREATMENT ADMINISTERED. TOLERATED TX WELL WITHOUT ADVERSE SIDE EFFECTS. NO ACUTE RESPIRATORY DISTRESS NOTED AT THIS TIME. WILL CONTINUE TO MONITOR.
[2019-06-08] MEDS: HYDROcodone/APAP 5/325 MG 1 TAB TAB GT PRN (21:09)
[2019-06-08] MEDS: ASCORBIC ACID 500 MG/5 ML ORASYR GT SCH (21:09)
[2019-06-08] MEDS: MIDODRINE 5 MG TAB GT SCH (21:09)
--- NOTE | 2019-06-08 21:09 | NUR ---
DUE MEDICATIONS GIVEN EDUCATION REGARDING SIDE EFFECT NOTED. GAVE NORCO FOR PAIN.
[2019-06-08] MEDS: DOCUSATE 100 MG/10 ML UDC PO SCH (21:10)
--- NOTE | 2019-06-08 23:30 | NUR ---
SUCTIONED PATIENT X 2, THICK FOAMY SECRETIONS NOTED. O2 SAT 100% NO SIGNS OF SOB AT THIS TIME
[2019-06-09] VITALS (12 sets, daily range): BP systolic 88–127; BP diastolic 51–72
[2019-06-09] MEDS: PIPERACILLIN/TAZOBACTAM 3.375 GM in DEXTROSE 5% 50 ML IV SCH ×4 (00:08→18:00)
--- NOTE | 2019-06-09 00:10 | NUR ---
WAITING FOR BLOOD BANK TO CALL AND NOTIFY BLOOD IS READY. WILL GIVE BLOOD WHEN AVAILABLE
--- NOTE | 2019-06-09 00:30 | NUR ---
PT CONTINUES ON BLOOD TRANSFUSION, NO ADVERSE EFFECTS OF MEDS NOTED. V/S FOLLOWS T 98.2 P 85 R 20 B/P 112/72 02 98% WITH ALL VENT SETTINGS. Addendum: 06/10/19 at 0324 by Vita Coronel RN CORRECT DATE IS 06/10/19 0030
--- NOTE | 2019-06-09 01:45 | NUR ---
PATIENT RESTING IN BED, V/S STABLE, NO SIGNS OF SOB, WILL CONTINUE TO FREQUENTLY MONITOR
[2019-06-09] MEDS: ALBUTEROL SULFATE/IPRATROPIU 3 ML SOL IH SCH ×3 (03:25→19:52)
--- NOTE | 2019-06-09 04:00 | NUR ---
REPOSITIONED PATIENT FOR COMFORT, ORAL CARE PROVIDED. PATIENT C/O PAIN FLACC-6 WILL GIVE NORCO
[2019-06-09] MEDS: HYDROcodone/APAP 5/325 MG 1 TAB TAB GT PRN ×2 (04:18→16:52)
[2019-06-09] MEDS: MIDODRINE 5 MG TAB GT SCH ×3 (04:18→21:30)
--- NOTE | 2019-06-09 06:15 | NUR ---
REPOSITIONED PATIENT FOR COMFORT, NO SIGNS OF PAIN OR SOB WILL CONTINUE TO MONITOR
[2019-06-09 06:53] LABS: BASOPHILS # (AUTO) 0.1 K/uL (0.00-0.22); BASOPHILS % (AUTO) 0.7 % (0.0-2.0); EOSINOPHILS # (AUTO) 0.7 K/uL (0-0.4); EOSINOPHILS % (AUTO) 4.8 % (0.0-4.0); HEMATOCRIT 24.1 % (36-52); HEMOGLOBIN 7.5 g/dL (12.0-18.0); LYMPHOCYTES # (AUTO) 1.3 K/uL (2.0-11.5); LYMPHOCYTES % (AUTO) 9.9 % (20.5-51.1); MEAN CORPUSCULAR HEMOGLOBIN 29 pg (27-31); MEAN CORPUSCULAR HGB CONC 31 g/dL (33-37); MEAN CORPUSCULAR VOLUME 93.7 fL (80-94); MONOCYTES # (AUTO) 1.5 K/uL (0.8-1.0); MONOCYTES % (AUTO) 10.8 % (1.7-9.3); NEUTROPHILS % (AUTO) 73.8 % (42.2-75.2); PLATELET COUNT (AUTO) 308 K/uL (140-450); RED BLOOD CELL COUNT(AUTO) 2.57 MIL/uL (4.20-6.10); RED CELL DISTRIBUTION WIDTH 18.1 % (11.6-13.7); WHITE BLOOD COUNT (AUTO) 13.5 K/uL (4.8-10.8)
--- NOTE | 2019-06-09 07:05 | NUR ---
RECEIVED PT FROM BUSINESS EXCELLENCE MANAGER NURSE, SUMMER, PT IS AWAKE AND ON A TRACH TO VENT WITH RATE AT 20, FIO2 AT 28%,TIDAL VOLUME IS AT 475 AND PEEP IS 5, BARR AND COLOSTOMY BAG WERE IN PLACE, SIDE RAILS ARE UP AND CALL LIGHT WITHIN REACH, SAFETY AND FALL PRECAUTION INITIATED, IV LINE ON THE LEFT WRIST G. 22 WITH NS INFUSING AT 100ML/HR, NO SIGN OF DISTRESS NOTED AND WILL MONITOR PT.
[2019-06-09 07:07] LABS: ANION GAP 12.1 (8-16); CARBON DIOXIDE 28.3 mmol/L (21-32); CREATININE 0.6 mg/dL (0.7-1.3)
[2019-06-09 07:14] LABS: MAGNESIUM 1.2 mg/dL (1.8-2.4); PHOSPHORUS 2.2 mg/dL (2.5-4.9)
[2019-06-09] MEDS: NACL 0.9% 1,000 ML IV SCH ×2 (07:15→17:15)
[2019-06-09] MEDS ORDERED: WATER STERILE 10 ML MC ONE (07:40)
[2019-06-09 07:43] LABS: POTASSIUM 2.4 mmol/L (3.5-5.1)
[2019-06-09] MEDS: COLISTIMETHATE SODIUM 150 MG VIAL IH SCH ×2 (08:09→19:51)
--- NOTE | 2019-06-09 08:11 | NUR ---
RECEIVED ON A GE CARESCAPE R860 VENTILAOTR PLUGGED INTO RED OUTLET TOLERATING WELL WITHOUT ADVERSE REACTIONS NOTED TO PRIMITIVO XLT #6 AIRWAY SECURED WITH RAMESH TRACH TIE CUFF PRESSURE CHECKED NOTED AMBU BAG AT BEDSIDE RESTING COMFORTABLY WITH NO EVIDENCE OF PULMONARY DISTRESS NOTED EQUAL CHEST RISE DEEP TRACHEAL SUCTIONING WITH NO RETURN AIRWAY PATENT
[2019-06-09] MEDS ORDERED: ASCORBIC ACID 500 MG TAB GT SCH (09:00)
[2019-06-09] MEDS ORDERED: NON-FORMULARY ITEM (Lactobacillus Rhamnosus GG (Culturelle) 10 Billion) PO SCH (09:00)
[2019-06-09] MEDS ORDERED: NON-FORMULARY ITEM (Multivitamin-Min/Iron/FA/Vit K (Multi-Day Plus Minerals Tablet) 1 TAB) GT SCH (09:00)
[2019-06-09] MEDS ORDERED: Z-GUARD PASTE TP SCH (09:00)
[2019-06-09] MEDS ORDERED: MULTIVITAMIN/MINERALS 15 ML UDBTL GT SCH (09:00)
--- NOTE | 2019-06-09 09:43 | NUR ---
PATIENT STATES THAT THE IS HAVING PAIN JUAREZ/RN ENTERING ROOM GOOD CHEST RISE DEEP TRACHEAL SUCTIONING WITH NO RETURN AIRWAY PATENT
[2019-06-09] MEDS: ZINC SULF 220 MG CAP GT SCH (09:46)
[2019-06-09] MEDS: LACTOBACILLUS RHAMNOSUS GG 1 EACH CAP PO SCH (09:46)
[2019-06-09] MEDS: DOCUSATE 100 MG/10 ML UDC PO SCH ×2 (09:46→21:30)
[2019-06-09] MEDS: ASCORBIC ACID 500 MG/5 ML ORASYR GT SCH ×2 (09:47→21:30)
--- NOTE | 2019-06-09 09:47 | NUR ---
PT IS AWAKE AND FACE WAS CLEANED, RT ON THE BEDSIDE, MEDICATIONS WERE GIVEN VIA G-TUBE, NO RESIDUAL NOTED, TOLERATED IT, WILL MONITOR PT.
[2019-06-09] MEDS: ENOXAPARIN 40 MG/0.4 ML SYR SUBQ SCH (09:49)
[2019-06-09] MEDS ORDERED: POTASSIUM CHLORIDE 10 MEQ TABER PO SCH ×2 (11:15→12:00)
--- NOTE | 2019-06-09 11:16 | NUR ---
PT WAS GIVEN IV ZOSYN NOW VIA PIGGYBACK, WILL MONITOR PT.
[2019-06-09] MEDS ORDERED: MAG SULF 2000 MG/WATER PREMIX 50 ML IV SCH (11:30)
[2019-06-09] MEDS: POTASSIUM CHLORIDE 20% 40 MEQ/15 ML UDC GT SCH ×3 (12:19→21:29)
--- NOTE | 2019-06-09 12:19 | NUR ---
PT IS AWAKE AND MAGNESIUM IV WAS STARTED FOR MG LEVEL OF 1.2, MEDICATIONS WERE GIVEN VIA G-TUBE AND NO RESIDUAL NOTED. WILL MONITOR PT.
[2019-06-09] MEDS: THERAHONEY GEL 42.5 GM TP SCH (12:34)
--- NOTE | 2019-06-09 15:01 | NUR ---
RESTING WELL NO RESPIRATORY DISTRESS NOTED GOOD CHEST RISE AIRWAY PATENT
--- NOTE | 2019-06-09 15:12 | NUR ---
POTASSIUM SUPPLEMENT WAS GIVEN TO PT NOW VIA G-TUBE. WILL MONITOR PT.
--- NOTE | 2019-06-09 16:52 | NUR ---
PT WAS GIVEN PAIN MEDICATION NOW VIA G-TUBE, NO RESIDUAL NOTED. WILL MONITOR PT.
--- NOTE | 2019-06-09 17:30 | NUR ---
NO DISTRESS NOTED GOOD EQUAL CHEST RISE DEEP TRACHEAL SUCTION FOR NO RETURN AIRWAY PATENT
--- NOTE | 2019-06-09 19:20 | NUR ---
ENDORSED PT TO GAS COMPRESSOR TURBINE OPERATORCRICKET FOR CONTINUITY OF CARE.
--- NOTE | 2019-06-09 19:20 | NUR ---
RECEIVED REPORT FROM JUAREZ BROWN DAYSHIFT NURSE AT BEDSIDE FOR CONTINUITY OF CARE, PT IN STABLE CONDITION.
--- NOTE | 2019-06-09 19:30 | NUR ---
PT AOX3 ON WOUND BED. NO S/S OF PAIN OR DISTRESS. PT CONTINUES ON VENT WITH CURRENT SETTINGS. IV SITE ON LEFT HAND 22G INTACT AND RUNNING BLOOD AT 100MLS/HR. NO S/S OF ADVERSE REACTION NOTED. V/S FOLLOWS T 98.3 P 88 R 18 B/P 92/58 02 98% WITH ALL VENT SETTINGS. ALL FALLS , ASPIRATIONS AND PRESSURE ULCER PRECAUTIONS IN PLACE.
--- NOTE | 2019-06-09 20:08 | NUR ---
Received pt stable on vent support at documented settings, hhn tx given, tolerated well, no resp distress or SOB noted at this time, Shiley 6 XLT secured/patent/midline, alarms set and audible, ambu bag at bedside, vent plugged into red outlet, cont pulse ox on, ventilator wiped down, will cont to monitor.
--- NOTE | 2019-06-09 21:20 | NUR ---
BLOOD TRANSFUSION CONTINUES T 98.3 P 85 R 20 B/P 94/60 02 100 WITH ALL CURRENT VENT SETTINGS. NO ADVERSE REACTIONS NOTED.
--- NOTE | 2019-06-09 21:45 | NUR ---
TRANSFUSION OF FIRST UNIT IS COMPLETED. POST TRANSFUSION V/S FOLLOWS T 98.5 P 88 R 20 B/P 117/70 02 99% WITH ALL VENT SETTINGS.
--- NOTE | 2019-06-09 22:00 | NUR ---
PT TURNED AND REPOSITED.
--- NOTE | 2019-06-09 22:45 | NUR ---
PRE-TRANSFUSION VITAL SIGNS FOR PT ARE FOLLOWS T 98.5 P 94 R 20 B/P 92/58 02 99% ON ROOM AIR.
--- NOTE | 2019-06-09 23:00 | NUR ---
2ND UNIT OF BLOOD HUNG AND IS RUNNING AT 100MLS/HR. NO ADVERSE EFFECTS NOTED. V/S FOLLOWS T 98.5 P 94 R 20 B/P 92/58 02 99% ON ROOM AIR.
--- NOTE | 2019-06-09 23:30 | NUR ---
BLOOD TRANSFUSION CONTINUES NO ADVERSE EFFECTS NOTED V/S FOLLOWS T 98.9 P 94 R 20 B/P 92/57 02 100% ON ALL TRACH TO VENT SETTINGS.
[2019-06-10] VITALS (7 sets, daily range): BP systolic 92–128; BP diastolic 56–83
[2019-06-10] MEDS: HYDROcodone/APAP 5/325 MG 1 TAB TAB GT PRN ×3 (00:38→12:43)
--- NOTE | 2019-06-10 01:00 | NUR ---
PT DECLINES TO BE TURNED AT THIS TIME.
--- NOTE | 2019-06-10 01:30 | NUR ---
TRANSFUSION ALMOST COMPLETED NO ADVERSE EFFECTS NOTED. V/S FOLLOWS T 98.8 P 90 R 20 B/P 112/72 02 99% ON ROOM AIR.
--- NOTE | 2019-06-10 01:50 | NUR ---
POST TRANSFUSION V/S FOLLOWS T 99.0 P 94 R 20 B/P 102/61 02 99% WITH ALL VENT SETTINGS.
[2019-06-10] MEDS: PIPERACILLIN/TAZOBACTAM 3.375 GM in DEXTROSE 5% 50 ML IV SCH ×5 (02:15→23:08)
[2019-06-10] MEDS: NACL 0.9% 1,000 ML IV SCH ×3 (03:15→23:15)
--- NOTE | 2019-06-10 04:00 | NUR ---
PT TURNED, CHANGED AND REPOSITIONED, WOUND CARE PROVIDED TO PT. V/S FOLLOWS T 97.6 P 87 R 20 B/P 110/62 02 99% WITH ALL VENT SETTINGS.
[2019-06-10] MEDS: MIDODRINE 5 MG TAB GT SCH ×3 (05:58→20:27)
--- NOTE | 2019-06-10 06:00 | NUR ---
DUE MEDS OF MIDRONIN AND ZOSYN IV ABT HUNG AND RUNNING ORDER. PT C/O OF PAIN AND WAS GIVEN 1 TAB NORCO VIA GT FEED. G TUBE IN PLACE NO RESIDUAL NOTED.
[2019-06-10 06:37] LABS: BASOPHILS # (AUTO) 0.1 K/uL (0.00-0.22); EOSINOPHILS % (AUTO) 8.1 % (0.0-4.0); HEMOGLOBIN 8.7 g/dL (12.0-18.0); LYMPHOCYTES # (AUTO) 1.3 K/uL (2.0-11.5); LYMPHOCYTES % (AUTO) 11.1 % (20.5-51.1); MEAN CORPUSCULAR HEMOGLOBIN 29 pg (27-31); MEAN CORPUSCULAR HGB CONC 31 g/dL (33-37); MONOCYTES # (AUTO) 1.2 K/uL (0.8-1.0); MONOCYTES % (AUTO) 9.8 % (1.7-9.3); NEUTROPHILS # (AUTO) 8.4 K/uL (1.8-7.7); PLATELET COUNT (AUTO) 298 K/uL (140-450); RED BLOOD CELL COUNT(AUTO) 3.02 MIL/uL (4.20-6.10); RED CELL DISTRIBUTION WIDTH 17.2 % (11.6-13.7)
--- NOTE | 2019-06-10 07:10 | NUR ---
RECEIVED REPORT FROM NUTRITIONISTS NURSE CRICKET. PT IS TRACH TO VENT SETTINGS FIO2 28%, VT 475, RR 20, FLOW 45 L/MIN. SATTING 100% AT THIS TIME. PT IS ASLEEP, BEDBOUND, FALL PRECAUTIONS ARE IN PLACE. NO S/S ACUTE DISTRESS NOTED AT THIS TIME. IV SITE IS NOTED IN THE L HAND 22 G, INFUSING NS 100 ML/HR. G TUBE IS RUNNING OSMOLITE 55 ML/HR, WITH WATER FLUSHES 300 ML Q6H. PT HAS A COLOSTOMY, AND A BARR CATHETER DRAINING CLEAR YELLOW URINE. CONTACT ISOLATION IS IN PLACE, CALL LIGHT IS WITHIN REACH. WILL CONTINUE TO MONITOR.
[2019-06-10 07:19] LABS: MAGNESIUM 1.4 mg/dL (1.8-2.4); PHOSPHORUS 1.9 mg/dL (2.5-4.9)
[2019-06-10 07:34] LABS: ANION GAP 9.6 (8-16); CREATININE 0.6 mg/dL (0.7-1.3); POTASSIUM 3.6 mmol/L (3.5-5.1)
[2019-06-10] MEDS: ALBUTEROL SULFATE/IPRATROPIU 3 ML SOL IH SCH ×3 (07:57→20:13)
[2019-06-10] MEDS: COLISTIMETHATE SODIUM 150 MG VIAL IH SCH ×2 (07:57→20:12)
--- NOTE | 2019-06-10 07:57 | NUR ---
RECEIVED PATIENT ON CURRENT SETTINGS: AC 475 RATE 20 PEEP 5 FIO2 28%. PATIENT IS TRACH'D WITH A SHILEY 6 XLT THAT IS SECURE WITH TRACH TIES. STOMA AREA IS CLEAN, DRY AND INTACT. PATIENT IS SLEEPING. B/S: RHONCHI IN THE UPPER LOBES AND DIMINISHED IN THE BASES. SUCTION PATIENT AND RECEIVED SCANT, CLEAR, THIN SECRETIONS. DUONEB TREATMENT AND COLY-MICIN GIVEN INLINE WITH NO ADVERSE EFFECTS. VENT AND ALARM SETTINGS VERIFIED. WILL CONTINUE TO MONITOR.
--- NOTE | 2019-06-10 08:06 | NUR ---
PT GETTING A BREATHING TX AT THIS TIME.
[2019-06-10] MEDS: ZINC SULF 220 MG CAP GT SCH (11:02)
[2019-06-10] MEDS: DOCUSATE 100 MG/10 ML UDC PO SCH ×2 (11:02→20:27)
[2019-06-10] MEDS: LACTOBACILLUS RHAMNOSUS GG 1 EACH CAP PO SCH (11:02)
[2019-06-10] MEDS: MULTIVITAMIN/MINERALS 1 TAB GT SCH (11:02)
[2019-06-10] MEDS: ENOXAPARIN 40 MG/0.4 ML SYR SUBQ SCH (11:03)
[2019-06-10] MEDS: ASCORBIC ACID 500 MG/5 ML ORASYR GT SCH ×2 (11:07→20:27)
--- NOTE | 2019-06-10 11:19 | NUR ---
NO RESIDUAL FROM GT NOTED, ORDERED MEDS ADMINISTERED, PT TOLERATED WELL. EMPTIED PT'S COLOSTOMY, ABOUT 40 ML LIQUID BROWN STOOL.
--- NOTE | 2019-06-10 11:40 | NUR ---
ROUTINE VENT CHECK AND PATIENT ASSESSMENT. SUCTIONED PATIENT AND RECEIVED SCANT WHITE THIN SECRETIONS. ORALLY SUCTIONED PATIENT AND RECEIVED SMALL, THIN WHITE SECRETIONS. AIRWAY IS PATENT. WILL CONTINUE TO MONITOR.
[2019-06-10] MEDS ORDERED: MAG SULF 2000 MG/WATER PREMIX 50 ML IV SCH (11:50)
[2019-06-10] MEDS ORDERED: POTASSIUM CHLORIDE 20% 40 MEQ/15 ML UDC GT SCH (11:51)
[2019-06-10] MEDS: THERAHONEY GEL 42.5 GM TP SCH (13:00)
--- NOTE | 2019-06-10 14:22 | NUR ---
PT GETTING A BREATHING TX
--- NOTE | 2019-06-10 17:36 | NUR ---
COMPLETED TRACH CARE WITH NO INCIDENT. PATIENT HAS COPIOUS AMOUNTS OF WHITE AND PALE YELLOW SECRETIONS COMING FROM STOMA. CHANGED INNER CANNULA, GAUZE, AND HME. CHECKED CUFF IS AT 28-30 CM H2O. PATIENT WAS AWAKE AND ALERT DURING PROCEDURE. SPO2 98.
--- NOTE | 2019-06-10 19:25 | NUR ---
ENDORSED PT TO STRETCHER DRIER OPERATOR NURSE IN STABLE CONDITION
--- NOTE | 2019-06-10 19:26 | NUR ---
REPORT RECEIVED FROM AM NURSE AT BEDSIDE. PT IN STABLE CONDITION. AAOX4. INTRODUCED SELF TO PT. BOARD UPDATED. FLACC 0. NO SOB TRACH TO VENT. AFEBRILE@98.7. PT IS BEDBOUND. PT HAS BARR. PT HAS COLOSTOMY. TUBE FEEDING OSMOLITE 1.5@55ML/HR WITH 300ML H20 FLUSH Q6H PATENT AND INTACT. FLUSHES WELL. IV SITE L WRIST 22G RUNNING NS@100ML/HR PATENT AND INTACT. SKIN WARM, DRY, AND NOT INTACT WITH MULTIPLE WOUNDS. SEE WOUND NOTES. BED LOCKED IN LOW POSITION. CALL MCINTYRE WITHIN REACH. SAFETY PRECAUTION IN PLACE. ALL NEEDS MET AT THIS TIME. WOUND BED.
--- NOTE | 2019-06-10 20:27 | NUR ---
PROATAMINE, VIT C, AND COLACE GIVEN THROUGH GTUBE. PT TOLERATED WELL. RESIDUAL OF 10ML.
--- NOTE | 2019-06-10 21:45 | NUR ---
PT LAYING IN BED BUT AROUSABLE. NO S/S OF DISTRESS NOTED. WILL CONTINUE TO MONITOR.
--- NOTE | 2019-06-10 23:08 | NUR ---
PASCUAL HUNG AND RUNNING. PT TOLERATING WELL.
[2019-06-11] VITALS: BP 158/92
--- NOTE | 2019-06-11 01:00 | NUR ---
PT SLEEPING COMFORTABLY BUT AROUSABLE. NO S/S OF DISTRESS NOTED. RESPIRATIONS EVEN, UNLABORED, AND WNL. WILL CONTINUE TO MONITOR.
--- NOTE | 2019-06-11 02:25 | NUR ---
PT SLEEPING COMFORTABLY BUT AROUSABLE. NO S/S OF DISTRESS NOTED. NO COMPLAINTS OF PAIN. NO SOB. AFEBRILE. WILL CONTINUE TO MONITOR.
--- NOTE | 2019-06-11 03:55 | NUR ---
PT SLEEPING COMFORTABLY BUT AROUSABLE. NO S/S OF DISTRESS NOTED. NO COMPLAINTS OF PAIN. NO SOB. AFEBRILE. WILL CONTINUE TO MONITOR.
[2019-06-11 04:00] VITALS: BP 139/82
[2019-06-11] MEDS: PIPERACILLIN/TAZOBACTAM 3.375 GM in DEXTROSE 5% 50 ML IV SCH ×2 (05:20→12:31)
--- NOTE | 2019-06-11 05:20 | NUR ---
PROATAMINE GIVEN THROUGH GTUBE. PT TOLERATED WELL. ZOSYN HUNG AND RUNNING.
[2019-06-11] MEDS: MIDODRINE 5 MG TAB GT SCH ×2 (05:21→12:31)
[2019-06-11] MEDS: HYDROcodone/APAP 5/325 MG 1 TAB TAB GT PRN ×2 (05:54→10:13)
--- NOTE | 2019-06-11 05:54 | NUR ---
NORCO GIVEN FOR 8/10 PAIN. PT TOLERATED WELL.
--- NOTE | 2019-06-11 06:45 | NUR ---
PT IN BED TRYING TO SLEEP. NO S/S OF DISTRESS NOTED. PT IN STABLE CONDITION.
[2019-06-11] MEDS ORDERED: WATER STERILE 10 ML MC ONE (07:14)
--- NOTE | 2019-06-11 07:15 | NUR ---
RECEIVED BEDSIDE REPORT FROM PEDIATRICIAN/MEDICAL DOCTOR NURSE. PT IS ASLEEP, NO DISTRESS NOTED. IV NS INFUSING AT 100 ML/HR, OSMOLITE GT FEEDING INFUSING 55 ML/HR. PT IS STABLE, WILL CONTINUE TO MONITOR.
[2019-06-11 07:30] LABS: BASOPHILS # (AUTO) 0.2 K/uL (0.00-0.22); BASOPHILS % (AUTO) 1.2 % (0.0-2.0); EOSINOPHILS % (AUTO) 6.9 % (0.0-4.0); HEMATOCRIT 28.4 % (36-52); HEMOGLOBIN 8.9 g/dL (12.0-18.0); LYMPHOCYTES # (AUTO) 1.6 K/uL (2.0-11.5); LYMPHOCYTES % (AUTO) 11.4 % (20.5-51.1); MEAN CORPUSCULAR HEMOGLOBIN 29 pg (27-31); MEAN CORPUSCULAR HGB CONC 31 g/dL (33-37); MEAN CORPUSCULAR VOLUME 92.6 fL (80-94); MONOCYTES # (AUTO) 1.1 K/uL (0.8-1.0); MONOCYTES % (AUTO) 7.9 % (1.7-9.3); NEUTROPHILS # (AUTO) 10.4 K/uL (1.8-7.7); NEUTROPHILS % (AUTO) 72.6 % (42.2-75.2); PLATELET COUNT (AUTO) 335 K/uL (140-450); RED BLOOD CELL COUNT(AUTO) 3.06 MIL/uL (4.20-6.10); RED CELL DISTRIBUTION WIDTH 16.7 % (11.6-13.7); WHITE BLOOD COUNT (AUTO) 14.3 K/uL (4.8-10.8)
[2019-06-11 07:50] LABS: ANION GAP 14.1 (8-16); CARBON DIOXIDE 25.6 mmol/L (21-32); CREATININE 0.5 mg/dL (0.7-1.3)
[2019-06-11 07:59] VITALS: BP 144/91
[2019-06-11] MEDS: COLISTIMETHATE SODIUM 150 MG VIAL IH SCH (07:59)
[2019-06-11] MEDS: ALBUTEROL SULFATE/IPRATROPIU 3 ML SOL IH SCH ×2 (07:59→14:07)
--- NOTE | 2019-06-11 07:59 | NUR ---
RECEIVED ON A [employer] CARESCAPE R860 VENTILATOR PLUGGED INTO REDOUTLET TOLERATING WELL WITHOUT INCIDENT TO A SHILEY XLT #6 AIRWAY SECURED WITH A RAMESH TRACH TIE CUFF PRESSURE CHECKED NOTED AMBU BAG NOTED AT BEDSIDE NO PULMONARY DISTRESS NOTED EQUAL CHEST RISE ORAL AIRWAY PATENT PATIENT PRESENTING WITH COPIOUS AMOUNTS OF ORAL SECRETIONS DESCENDING AND POOLING AT LEFT SHOULDER AND BED SUCTIONING FOR MODERATE FROTHY SECRETIONS STOMA SITE SUCTIONING FOR SMALL THICK PALE YELLOW SECRETIONS
[2019-06-11 08:00] VITALS: BP 144/91
[2019-06-11 08:03] LABS: MAGNESIUM 1.5 mg/dL (1.8-2.4); PHOSPHORUS 2.1 mg/dL (2.5-4.9)
--- NOTE | 2019-06-11 08:06 | NUR ---
PT IS GETTING A BREATHING TX AT THIS TIME
[2019-06-11 08:50] LABS: POTASSIUM 2.7 mmol/L (3.5-5.1)
--- NOTE | 2019-06-11 08:55 | NUR ---
GOT A CALL FROM [facility], PT'S POTASSIUM IS 2.7. PAGED DR CARRION TO NOTIFY. AWAITING HIS CALL. Addendum: 06/11/19 at 0935 by Nivia Temple RN DR CARRION CALLED BACK, TORB 40 MEQ POTASSIUM GT Q4H X2 DOSES
[2019-06-11] MEDS: NACL 0.9% 1,000 ML IV SCH (09:15)
--- NOTE | 2019-06-11 09:43 | NUR ---
RESTING WELL NO WITH APPARENT SOB NOTED EQUAL CHEST RISE DEEP TRACHEAL SUCTION WITH NO RETURN ORAL SUCTION FOR MODERATE THIN TO FROTHY CLEAR SECRETIONS STOMA SITE SUCTION FOR SMALL THI PALE YELLOW SECRETIONS
[2019-06-11] MEDS: POTASSIUM CHLORIDE 20% 40 MEQ/15 ML UDC GT SCH ×2 (10:12→14:03)
[2019-06-11] MEDS: ASCORBIC ACID 500 MG/5 ML ORASYR GT SCH (10:12)
[2019-06-11] MEDS: LACTOBACILLUS RHAMNOSUS GG 1 EACH CAP PO SCH (10:13)
[2019-06-11] MEDS: DOCUSATE 100 MG/10 ML UDC PO SCH (10:13)
[2019-06-11] MEDS: MULTIVITAMIN/MINERALS 1 TAB GT SCH (10:13)
[2019-06-11] MEDS: ZINC SULF 220 MG CAP GT SCH (10:13)
[2019-06-11] MEDS: ENOXAPARIN 40 MG/0.4 ML SYR SUBQ SCH (10:14)
--- NOTE | 2019-06-11 10:32 | NUR ---
AM MEDS ADMINISTERED, PT TOLERATED WELL.
--- NOTE | 2019-06-11 10:56 | NUR ---
FAXED ALL PAPERWORK TO [facility] [place] , SPOKE WITH DELFINA AWAITING FOR THE BED
[2019-06-11 12:00] VITALS: BP 101/58
--- NOTE | 2019-06-11 12:39 | NUR ---
NO DISTRESS NOTED GOOD CHEST RISE STOMA SITE SUCTION FOR SMALL THIN PALE YELLOW SECRETIONS ORAL SUCTION FOR SMALL FROTHY CLEAR SECRETIONS AIRWAY PATENT
--- NOTE | 2019-06-11 12:50 | NUR ---
PULMONARY V. STOMA/OROPHARYNGEAL SUCTIONING PREVIOUSLY DOCUMENTED REVIEWED WITH DR. JYOTHI DILLARD AND IS AWARE
[2019-06-11] MEDS: THERAHONEY GEL 42.5 GM TP SCH (13:00)
--- NOTE | 2019-06-11 13:50 | NUR ---
CALLED [facility] TO GIVE REPORT FOR PT'S TRANSFER, THE NURSE ASKED IF WE CAN PUSH THE TRANSFER TO 6 - 6:30 PM ANDREZ. I TALKED TO GENESIS ABOUT THIS, SHE WILL CALL ME BACK.
[2019-06-11] MEDS ORDERED: LOV40I SUBQ (13:58)
[2019-06-11] MEDS ORDERED: PIPE1PDS26 IV (13:58)
[2019-06-11] MEDS ORDERED: ASCO-672 GT (13:58)
--- NOTE | 2019-06-11 14:07 | NUR ---
NO EVIDENCE OF PULMONARY DISTRESS NOTED EQUAL CHEST RISE DEEP TRACHEAL SUCTION FOR MODERATE THIN PALE YELLOW SECRETIONS AIRWAY PATENT STOMA SITE SUCTIONING FOR MODERATE THICK PALE YELLOW SECRETIONS ORAL SUCTIONING FOR MODERATE CLEAR FROTHY SECRETIONS
--- NOTE | 2019-06-11 14:19 | NUR ---
CALLED AND GAVE PHONE REPORT TO STEPHANIE TORREZ, AT THE [facility] [place].
[2019-06-11] MEDS ORDERED: MAG SULF 2000 MG/WATER PREMIX 50 ML IV SCH (14:30)
--- NOTE | 2019-06-11 15:05 | NUR ---
STABLE GOOD EQUAL CHEST RISE DEEP TRACHEAL SUCTIONING FOR MODERATE THIN PALE YELLOW SECRETIONS AIRWAY PATENT ORAL SUCTIONING FOR MIXED LARGE THIN PALE YELLOW TO CLEAR FROTHY SECRETIONS
--- NOTE | 2019-06-11 15:27 | NUR ---
WHILE GETTING PT READY FOR TRANSFER, NOTICED THAT HIS COLOSTOMY STOMA APPEARS TO HAVE PROLAPSED, AND IS OUT ABOUT 7-[address] CARRION, HE SAID THAT THIS IS AN KNOWN SYMPTOM FOR THE PT, AND THAT LONG THERE IS NO STOOL OBSTRUCTION, IT IS OK TO PROCEED WITH THE DISCHARGE. THERE ARE NO S/S OF STOOL OBSTRUCTION, THE COLOSTOMY IS LONGTERM FULL OF LIQUID STOOL.
--- NOTE | 2019-06-11 15:50 | NUR ---
DISCHARGE PHOTOS TAKEN OF PRESSURE WOUNDS FOR DOCUMENTATION.
--- NOTE | 2019-06-11 16:03 | NUR ---
PT WAS PICKED UP BY [facility] TO TRANSFER BACK TO THE [facility] [place]. PT'S IV WAS LEFT IN FOR CONTINUED IV ABX. PT'S BELONGINGS WERE ALL TAKEN ALONG. THE WRIST BAND WAS REMOVED. PT LEFT IN STABLE CONDITION.
--- NOTE | 2019-06-11 16:11 | NUR ---
PT'S ADILENE NOTIFIED THAT PT WENT BACK TO [facility] [place].
== END 2019-06-11 16:05 | DRG 720 ==
LOC: MED 16:20 → EDBEDREQSVC 17:44 → MTU 21:38
PROVIDERS: ADMIT Internal Medicine Pulmonary Disease; ATTEND Internal Medicine Pulmonary Disease
PROC: 5A1945Z Respiratory Ventilation, 24-96 Consecutive Hours (ICD-10-PCS; principal; 2019-06-07)
PROC: 30233N1 Transfusion of Nonautologous Red Blood Cells into Peripheral Vein, Percutaneous Approach (ICD-10-PCS; 2019-06-09)
DX: A41.9 Sepsis, unspecified organism (principal); J96.21 Acute and chronic respiratory failure with hypoxia; J69.0 Pneumonitis due to inhalation of food and vomit; G82.50 Quadriplegia, unspecified; L89.159 Pressure ulcer of sacral region, unspecified stage; E43 Unspecified severe protein-calorie malnutrition; Z99.11 Dependence on respirator [ventilator] status; Z93.0 Tracheostomy status; R13.10 Dysphagia, unspecified; Z68.23 Body mass index [BMI] 23.0-23.9, adult; J96.22 Acute and chronic respiratory failure with hypercapnia; E87.6 Hypokalemia; J44.9 Chronic obstructive pulmonary disease, unspecified; D64.9 Anemia, unspecified; K21.9 Gastro-esophageal reflux disease without esophagitis; N39.0 Urinary tract infection, site not specified; B96.5 Pseudomonas (aeruginosa) (mallei) (pseudomallei) as the cause of diseases classified elsewhere; Z87.891 Personal history of nicotine dependence; Z93.3 Colostomy status; Z79.899 Other long term (current) drug therapy; Z93.1 Gastrostomy status
CPT/HCPCS: 36415; 71045; 80048; 80053; 81001; 82272; 83605; 83690; 83735; 83880; 84100; 84484; 85025; 85610; 86886; 86900; 86901; 86920; 87040; 87070; 87081; 87086; 87186; 87205; 93005; 94002; 94003; 94640; 96361; 96365; 99291; J0770; J1650; J2543; J3475; J7030; J7060; J7620; P9016; Q0092

== ENCOUNTER 2019-07-07 10:45 | Inpatient (IN) | payer MEDICAID, OTHER ==
[~2019-07-07] VITALS: Ht 177.8 cm; Wt 65.8 kg
[2019-07-07] VITALS (10 sets, daily range): BP systolic 71–111; BP diastolic 50–76
[~2019-07-07 10:45] MED LIST changes: +ASCO-672 GT; -MERO1PDS2 IV; +PIPE1PDS26 IV
--- NOTE | 2019-07-07 10:45 | NUR ---
PLACED PT ON CARESCAPE ON DOCUMENTED SETTINGS, PTS TRACH SHILEY 6 XLT IS SECURE , PT IN HF AWAKE BS RHONCHI SX LG WHITE SECRETIONS,BMV HOB, VENT PLUGGED INTO RED OUTLET
--- NOTE | 2019-07-07 10:45 | NUR ---
Patient BIBA [facility] from [facility] [place], transferred to bed 10. RN and RT evaluating patient at bedside.
--- NOTE | 2019-07-07 10:49 | NUR ---
SENT VIA BLS FROM [facility] [place] FOR ABNORMAL LABS (HGB-6.9, K+-2.6, PER FACILITY)
--- NOTE | 2019-07-07 10:55 | NUR ---
RT AT BEDSIDE.
--- NOTE | 2019-07-07 11:14 | NUR ---
Dr. Arndt evaluating patient at bedside.
[2019-07-07] MEDS ORDERED: NACL 0.9% 500 ML IV SCH (11:26)
[2019-07-07 11:57] LABS: HEMATOCRIT 25.9 % (36-52); HEMOGLOBIN 8.1 g/dL (12.0-18.0); MEAN CORPUSCULAR HEMOGLOBIN 30 pg (27-31); MEAN CORPUSCULAR HGB CONC 31 g/dL (33-37); MEAN CORPUSCULAR VOLUME 93.8 fL (80-94); PLATELET COUNT (AUTO) 366 K/uL (140-450); RED BLOOD CELL COUNT(AUTO) 2.76 MIL/uL (4.20-6.10); WHITE BLOOD COUNT (AUTO) 15.9 K/uL (4.8-10.8)
[2019-07-07] MEDS ORDERED: MORPHINE SULFATE 4 MG/ML SYR IVP PRN (12:00)
--- NOTE | 2019-07-07 12:18 | NUR ---
RADIOLOGY AT BEDSIDE.
--- NOTE | 2019-07-07 12:30 | NUR ---
OSTOMY BAG REPLACED. SITE INTACT.
[2019-07-07 12:32] LABS: APPEARANCE,URINE HAZY (CLEAR); BILIRUBIN,URINE NEGATIVE (NEGATIVE); BLOOD, URINE 1+ (NEGATIVE); COLOR,URINE YELLOW (YELLOW); LEUKOCYTE ESTERASE ,URINE 3+ (NEGATIVE); NITRITE, URINE NEGATIVE (NEGATIVE); UGLUCOSE 1+ (NEGATIVE)
[2019-07-07 12:39] LABS: POTASSIUM 3.3 mmol/L (3.5-5.1)
[2019-07-07 12:40] LABS: ANION GAP 11.1 (8-16); CARBON DIOXIDE 32.2 mmol/L (21-32); CREATININE 0.8 mg/dL (0.7-1.3); TOTAL BILIRUBIN 0.3 mg/dL (0.0-1.0)
[2019-07-07 12:41] LABS: ALBUMIN 1.6 g/dL (3.4-5.0)
[2019-07-07 12:44] LABS: EOSINOPHILS % (MANUAL) 4 % (0-4); LYMPHOCYTES % (MANUAL) 5 % (20-46); MONOCYTES % (MANUAL) 5 % (5-12)
[2019-07-07 12:48] LABS: WBC,URINE 80-100 /HPF (0-5); YEAST,URINE Moderate /HPF (None Seen)
[2019-07-07] MEDS ORDERED: FLUCONAZOLE 100 MG TAB GT ONE (13:15)
--- NOTE | 2019-07-07 13:32 | NUR ---
MD AWARE OF BP
[2019-07-07] MEDS: IPRATROPIUM 0.02% 0.5 MG/2.5 ML NEBU IH SCH ×2 (13:48→19:04)
[2019-07-07] MEDS ORDERED: cefTRIAXone 1,000 MG VIAL ONE (13:48)
[2019-07-07] MEDS: ALBUTEROL 0.083% 2.5 MG/3 ML NEBU IH SCH ×2 (13:48→19:04)
--- NOTE | 2019-07-07 13:50 | NUR ---
RT AT BEDSIDE FOR BREATHING TX.
--- NOTE | 2019-07-07 14:00 | NUR ---
PT AWARE OF PT STATUS, PT AWAKE AND ALERT NO NEW NEEDS AT THIS TIME.
--- NOTE | 2019-07-07 14:26 | NUR ---
PATIENT HAS BEEN SCREENED AND CATEGORIZED HIGH NUTRITION RISK. PATIENT WILL BE SEEN WITHIN 1-2 DAYS OF ADMISSION. 07/08/19-07/09/[address]
--- NOTE | 2019-07-07 14:48 | NUR ---
RECEIVED REPORT FROM ANA FLYNN RN, FOR CONTINUITY OF CARE. PATIENT IS AAOX4, ABLE TO MAKE NEEDS KNOWN, FOLLOWS COMMANDS. PATIENT SKIN IS WARM, DRY, NOT INTACT. HE HAS PRESSURE INJURY TO L. BUTTOCKS, R. BUTTOCKS, R. HEEL, L. ELBOW, L. LOWER BACK. PATIENT IS TRACH TO VENT, BREATHING EVEN AND UNLABORED. ST ON MONITOR, COMPLAINS OF 9/10 SHOULDER PAIN. PATIENT HAS GTUBE IN PLACE, COLOSTOMY BAG TO RLQ. BARR CATHETER IN PLACE TO CLOUDY YELLOW URINE. HOB IS 35 DEGREES, SIDE RAILS UP 3X, BED LOCKED IN LOW POSITION. CALL LIGHT WITHIN REACH. WILL CONTINUE TO MONITOR
--- NOTE | 2019-07-07 14:51 | NUR ---
Patient will be admitted to care of DR. BRADFORD. Admited to ICU . Will go to room 1. Belongings list completed. Report to STEPHANIE SOLIZ.
[2019-07-07] MEDS ORDERED: THERAHONEY GEL 42.5 GM TP PRN (15:30)
--- NOTE | 2019-07-07 17:36 | NUR ---
CHANGED PATIENT'S COLOSTOMY BAG, PATIENT TOLERATED WELL.
[2019-07-07] MEDS: MIDODRINE 5 MG TAB GT SCH (17:50)
--- NOTE | 2019-07-07 19:16 | NUR ---
ENDORSED CONTINUITY OF CARE TO EMORY, NO SIGNS OF DISTRESS NOTED
--- NOTE | 2019-07-07 19:19 | NUR ---
Received pt stable on vent support at documented settings, suctioned large amounts of thick white yellowish secretions, hhn tx given, tolerated well, no resp distress or SOB noted at this time, Shiley 6 XLT trach secured/patent/midline, alarms set and audible, ambu bag at bedside, vent plugged into red outlet, vent wiped down, cont pulse ox on, will cont to monitor.
--- NOTE | 2019-07-07 19:20 | NUR ---
RECEIVED REPORT FROM DAYSHIFT NURSE AT PATIENTS BEDSIDE, NO COMPLAINTS AT THIS TIME, WILL FOLLOWUP CARE.
--- NOTE | 2019-07-07 20:00 | NUR ---
RECEIVED PATIENT RESTING WELL, CURRENTLY RECEIVING A BREATHING TREATMENT. PATIENT AWAKE AND ALERT, TRACH DEPENDENT BUT ABLE TO MOUTH WORDS, MAKES NEEDS KNOWN, UNABLE TO FOLLOW SIMPLE COMMANDS, PATIENT IS QUADRIPLEGIC. UNABLE TO SQUEEZE HANDS OR PUSH CALL LIGHT BUTTON, PATIENT ORIENTED ON HOW TO ALERT RN FOR NEEDS, USES CLICKING SOUND OF THE MOUTH, RN CAREFUL TO LISTEN FOR SOUNDS. VENT SETTINGS ACVC 20 FI02 35%, TV 475, PEEP 5. LUNG SOUNDS CLEAR, EQUAL CHEST RISE, UNLABORED BREATHING, LARGE AMOUNT OF CREAMY WHITE SECRETIONS NOTED FROM ORAL AND TRACH. S1S2, PATIENT IS SINUS TACHYCARDIC ON MONITOR. LEFT EJ PERIPHERAL IV IN PLACE, FLUSHED AND PATENT WITH NO SYMPTOMS. SALINE LOCKED. ABDOMEN SOFT AND NONTENDER, GTUBE PLACED ON UPPER LEFT SIDE, COLOSTOMY ON RIGHT SIDE WITH VISUAL OF PROTRUDING STOMA/PROLAPSE. BAG IS SECURED, CLEAN AND DRY. BARR CATHETER IN PLACE, CLEAR YELLOW URINE NOTED. AFEBRILE, SKIN WARM AND DRY NOT INTACT. MULTIPLE OPEN WOUNDS TO SACRUM AND BACK. OPEN WOUNDS TO BILATERAL SHOULDERS. CLOSED WOUNDS TO BILATERAL CALVES. WOUNDS DRESSED AND APPLIED WITH THERAHONEY GEL. BED IS LOCKED AND IN LOW POSITION, SIDERAILS UP, HOB 30 DEGREES, PATIENT IS UPDATED ON PLAN OF CARE. WILL CONTINUE TO MONITOR Addendum: 07/08/19 at 0319 by Janet Roberts RN CORRECTION: OPEN WOUND TO POSTERIOR RIGHT LOWER EXTREMITY (CALF) . LEFT CALF, NO WOUND
--- NOTE | 2019-07-07 20:08 | NUR ---
PATIENTS RECORD/CHART REPORTS HISTORY OF MDRO OF THE SHOULDER WOUNDS AND HISTORY OF MDRO SPUTUM. WILL PLACE PATIENT ON CONTACT ISOLATION PRECAUTIONS.
[2019-07-07] MEDS: FERROUS SULFATE 300 MG/5 ML UDC GT SCH (20:20)
[2019-07-07] MEDS: ASCORBIC ACID 500 MG/5 ML ORASYR GT SCH (20:20)
[2019-07-07] MEDS: HYDROcodone/APAP 5/325 MG 1 TAB TAB GT PRN (20:21)
--- NOTE | 2019-07-07 21:00 | NUR ---
VAP ORAL CARE PROVIDED, LARGE AMOUNT OF SECRETIONS SUCTIONED. PATIENT TOLERATED WELL. PATIENT IS ANOx4, ABLE TO MAKE NEEDS KNOWN, MOUTHS WORDS SLOWLY. WILL CONTINUE FREQUENT ROUNDS
--- NOTE | 2019-07-07 22:40 | NUR ---
PATIENT RESTING WELL, EYES CLOSED, EQUAL CHEST RISE, VENT SETTINGS THE SAME START OF SHIFT, FLACC 0, HOB 30 DEGREES.
[2019-07-08] VITALS (17 sets, daily range): BP systolic 82–109; BP diastolic 49–79
[2019-07-08] MEDS: MIDODRINE 5 MG TAB GT SCH ×4 (00:02→17:12)
--- NOTE | 2019-07-08 00:05 | NUR ---
PATIENT TURNED AND REPOSITIONED TO OFFLOAD PRESSURE AREAS, MULTIPLE OPEN WOUNDS NOTED. DRESSINGS INTACT. VAP ORAL CARE PROVIDED, LARGE AMOUNT OF SECRETIONS SUCTIONED. PATIENT ANOx4, ABLE TO MAKE NEEDS KNOWN
--- NOTE | 2019-07-08 00:15 | NUR ---
PATIENT ASKING FOR MORE PAIN MEDS BUT REFUSES MORPHINE, STATES MORPHINE IS TOO STRONG.PAIN 7/10 AT RIGHT SHOULDER AND BACK. PRN NORCO GIVEN. WILL REASSESS
[2019-07-08] MEDS: HYDROcodone/APAP 5/325 MG 1 TAB TAB GT PRN ×2 (00:21→08:27)
[2019-07-08] MEDS: IPRATROPIUM 0.02% 0.5 MG/2.5 ML NEBU IH SCH ×4 (00:50→20:06)
[2019-07-08] MEDS: ALBUTEROL 0.083% 2.5 MG/3 ML NEBU IH SCH ×4 (00:50→20:05)
--- NOTE | 2019-07-08 02:00 | NUR ---
BLOOD PRESSURE TRENDING LOW, SYSTOLIC IN 80'S, MAP IN 60'S OR LOWER. CHANGED BLOOD PRESSURE CUFF AND SITE, BP BACK TO NORMAL RANGE.
--- NOTE | 2019-07-08 03:00 | NUR ---
RT AT BEDSIDE. PATIENT SUCTIONED. NO COMPLAINTS AT THIS TIME
--- NOTE | 2019-07-08 04:45 | NUR ---
SPONGE BATH, BARR CATHETER AND SKIN CARE PROVIDED. VSP ORAL CARE PROVIDED, PATIENT TOLERATED FAIRLY. MULTIPLE WOUNDS, RIGHT CALF OPEN WOUND AND LEFT AND RIGHT BUTTOCKS LARGE OPEN WOUNDS. CLEANED, DRIED, APPLIED THERAHONEY AND PACKED WITH GAUZE AND USED COMPOSITE DRESSINGS. CHANGED GTUBE DRESSING. OSTOMY BAG INTACT. ZGUARD APPLIED TO PERINEAL AREA-SCROTOM AND IN BETWEEN FOLDS, REDNESS NOTED. ZGAURD APPLIED TO LEFT HEEL, SCD IN PLACE.
[2019-07-08] MEDS ORDERED: Z-GUARD PASTE TP ONE (05:23)
--- NOTE | 2019-07-08 06:47 | NUR ---
RECEIVED PT ON CARESCAPE ON DOCUMENTED SETTINGS, ALARMS ARE ON AND AUDIBLE, PTS TRACH SHILEY 6 XLT IS SECURE PT IN HF, AWAKE, I\L SX LG YELLOW, BS MICHAEL, HHN GVIEN I\L WITH 2.5 MG ALBUTEROL AND 0.5 MG ATROVENT, BMV HOB, VENT PLUGGED INTO RED OUTLET
--- NOTE | 2019-07-08 07:30 | NUR ---
RECEIVED BEDSIDE REPORT FROM QA AUDITOR RN. PT IS AWAKE, AAOX4, ABLE TO MAKE NEEDS KNOWN BY MOUTH WORDING AND FOLLOWS COMMANDS. PT IS QUADRIPLEGIC, UNABLE TO MOVE ALL EXTREMITIES. AFEBRILE. C/O PAIN 3/10 TO RIGHT SHOULDER. SINUS TACHYCARDIA ON MONITOR. S1 S2 HEARD. PULSES PALPABLE TO ALL EXTREMITIES. CAP REFILL < 3 SEC. TRACH TO VENT W/ SETTINGS A/C VC 20, FIO2 30%, VT 475, PEEP 5. LUNGS SOUND CLEAR BILATERALLY. BREATHING EVEN AND UNLABORED. NO SOB OR SIGNS OF RESPIRATORY DISTRESS NOTED. PERIPHERAL IV G20 TO LEFT EJ PATENT AND INTACT, SALINE LOCKED. GT IN PLACE, 40 ML GASTRIC RESIDUALS NOTED. ABDOMEN SOFT, FLAT, NONTENDER W/ ACTIVE BOWEL SOUNDS. COLOSTOMY BAG IN PLACE. BARR CATH IN PLACE DRAINING YELLOW URINE TO GRAVITY. SKIN IS NON INTACT (SEE WOUND ASSESSMENT). MULTIPLE WOUNDS IN PLACE, DRESSINGS CLEAN, DRY AND INTACT. TURNED AND REPOSITIONED. HOB 30 DEGREES. BED IN LOWEST POSITION LOCKED. CALL LIGHT WITHIN REACH. NO SIGNS OF DISTRESS NOTED AT THIS TIME. WILL CONTINUE TO MONITOR.
[2019-07-08] MEDS: ZINC SULF 220 MG CAP GT SCH (08:28)
[2019-07-08] MEDS: PANTOPRAZOLE 40 MG INJ VIAL IVP SCH (08:28)
[2019-07-08] MEDS: ASCORBIC ACID 500 MG/5 ML ORASYR GT SCH ×2 (08:28→21:17)
[2019-07-08] MEDS: FERROUS SULFATE 300 MG/5 ML UDC GT SCH ×2 (08:28→21:17)
--- NOTE | 2019-07-08 08:45 | NUR ---
MEDICATIONS ADMINISTERED ORDERED. PT TOLERATED WELL.
[2019-07-08] MEDS ORDERED: Z-GUARD PASTE TP SCH (09:00)
[2019-07-08 11:11] LABS: HEMATOCRIT 28.6 % (36-52); HEMOGLOBIN 8.8 g/dL (12.0-18.0); MEAN CORPUSCULAR HEMOGLOBIN 29 pg (27-31); MEAN CORPUSCULAR HGB CONC 31 g/dL (33-37); MEAN CORPUSCULAR VOLUME 94.8 fL (80-94); PLATELET COUNT (AUTO) 379 K/uL (140-450); RED BLOOD CELL COUNT(AUTO) 3.01 MIL/uL (4.20-6.10); RED CELL DISTRIBUTION WIDTH 15.2 % (11.6-13.7); WHITE BLOOD COUNT (AUTO) 20.5 K/uL (4.8-10.8)
--- NOTE | 2019-07-08 11:30 | NUR ---
DR. BRADFORD IN TO SEE AND EXAMINE PT. WILL FOLLOW UP ON ORDERS.
[2019-07-08 11:33] LABS: ALBUMIN 1.8 g/dL (3.4-5.0); ANION GAP 10.6 (8-16); CARBON DIOXIDE 33.3 mmol/L (21-32); CREATININE 0.9 mg/dL (0.7-1.3); TOTAL BILIRUBIN 0.4 mg/dL (0.0-1.0)
[2019-07-08] MEDS ORDERED: VANCOMYCIN PER PHARMACY MC PRN (11:35)
--- NOTE | 2019-07-08 11:35 | NUR ---
DR. BRADFORD MADE AWARE OF LOW POTASSIUM LEVEL 2.9, TACHYCARDIA- HR IN 110'S AT THIS TIME, AND RD RECOMMENDATION FOR TF. PER DR. BRADFORD, DO NOT START TUBE FEEDING UNTIL PT IS SEEN BY GI DOCTOR. WILL FOLLOW UP ON OTHER NEW ORDERS.
[2019-07-08 11:36] LABS: POTASSIUM 2.9 mmol/L (3.5-5.1)
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
[2019-07-08] MEDS: PIPERACILLIN/TAZOBACTAM 3.375 GM in DEXTROSE 5% 50 ML IV SCH ×2 (12:11→17:12)
[2019-07-08] MEDS: POTASSIUM CHLORIDE 10 MEQ TABER PO SCH ×3 (12:11→21:17)
[2019-07-08 12:14] LABS: EOSINOPHILS % (MANUAL) 2 % (0-4); LYMPHOCYTES % (MANUAL) 7 % (20-46); MONOCYTES % (MANUAL) 5 % (5-12)
[2019-07-08] MEDS: THERAHONEY GEL 42.5 GM TP SCH (12:28)
--- NOTE | 2019-07-08 13:02 | NUR ---
07/08/19 RD INITIAL ASSESSMENT COMPLETED PLEASE REFER TO NUTRITION ASSESSMENT UNDER CARE ACTIVITY FOR ESTIMATED NUTRITIONAL NEEDS. 1. RECOMMEND VITAL 1.2 AF @ 65 ML/HR X 24 HR WITH FREE WATER FLUSH OF 100 ML Q4H -THIS WILL PROVIDE 1560 ML OF VOLUME, 1872 KCAL, 117 GM OF PROTEIN WHICH MEETS 100% OF ESTIMATED NEEDS 2. CONTINUE VITAMIN C AND ZINC FOR WOUND HEALING 3. RD TO FOLLOW-UP 2-3 DAYS, HIGH RISK TANO BONDS, RD
[2019-07-08] MEDS: VANCOMYCIN 1,000 MG in DEXTROSE 5% 250 ML IV SCH (13:27)
--- NOTE | 2019-07-08 14:20 | NUR ---
PT'S AT BEDSIDE. UPDATES GIVEN ON PT'S CONDITION.
--- NOTE | 2019-07-08 16:00 | NUR ---
VAP ORAL CARE GIVEN. TURNED AND REPOSITIONED FOR COMFORT AND PRESSURE OFF LOADING. PT TOLERATED WELL.
--- NOTE | 2019-07-08 18:05 | NUR ---
NO CHANGE IN CONDITION AT THIS TIME. PT TAKING A NAP. VSS. FLACC 0. NO S/SX OF DISTRESS NOTED. SAFETY PRECAUTIONS IN PLACE.
--- NOTE | 2019-07-08 19:00 | NUR ---
PT AT BED EYES CLOSED, PT LETHARGIC, RESPONDS TO NAME, PERRL 3MM, BRISK, PT TRACH TO VENT, AT AC/VC FIO2 30%, TV 475, RR 20, PEEP 5, HEART RATE REGULAR, SINUS TACHYCARDIA AT MONITOR, S1S2 PRESENT, CAP REFILL <3S, PULSES 2+ BILATERAL UPPER AND LOWER EXTREMITIES, PT ABDOMEN, SOFT, ROUND, NONDISTENDED, NONTENDER, PT HAS COLOSTOMY APPLIANCE IN PLACE DRAINING DARK BROWN STOOL, PT HAS GTUBE IN PLACE, NO RESIDUAL IN PLACE, PT HAS BARR IN PLACE, DRAINING CLEAR, YELLOW, URINE, PT HAS GENERALIZED WEAKNESS, PT SKIN NON INTACT, RIGHT SHOULDER WOUND, DRESSING IN PLACE, DRY AND INTACT, SACROCOCCYX WOUND, OPTIFOAM IN PLACE, DRY AND INTACT, PT HAS OPEN WOUND ON LEFT AND RIGHT BUTTOCK, DRESSING IN PLACE, DRY AND INTACT, PT HAS RIGHT HEEL WOUND, DRESSING IN PLACE, DRY AND INTACT, GT SITE HAS SKIN DISCOLORATION, CLEANED WITH NORMAL SALINE, PT HAS LEFT EJ IN PLACE AT 20 GAUGE, RUNNING NS AT 5 ML/HR. HOB 30 DEGREES, SIDE RAILS UP X2, BED AT LOWEST POSITION.
--- NOTE | 2019-07-08 19:26 | NUR ---
REPORT GIVEN TO TUBE CLOSING MACHINE OPERATOR RN FOR CONTINUITY OF CARE. PT IS IN STABLE CONDITION.
--- NOTE | 2019-07-08 20:10 | NUR ---
RECEIVED PT ON CARESCAPE WITH SETTINGS OF AC: TIDAL VOLUME 475, RATE OF 20, FIO2 30%, PEEP OF 5. PT TOLERATING SETTINGS WELL. ALARMS ARE ON AND AUDIBLE, PTS TRACH SHILEY 6 XLT IS SECURED & PATENT. PT AWAKE IN NO RESP DISTRESS. ,AMBU BAG AT [facility], VENT PLUGGED INTO RED OUTLET. WILL CONTINUE TO MONITOR PT
--- NOTE | 2019-07-08 21:25 | NUR ---
MEDICATIONS GIVEN. SUCTIONED PT TWICE, SUCTIONED MODERATE AMOUNT OF WHITE MUCOUS. PT TOLERATED PROCEDURE WELL.
--- NOTE | 2019-07-08 23:38 | NUR ---
CALLED DR. JOHNSTON REGARDING PT NUTRITIONAL STATUS, AND IF POSSIBLE TO CHANGE IV FLUIDS RUNNING. PER MD, FOLLOW UP ON DAY SHIFT, FOR NEW ORDERS REGARDING NUTRITIONAL AND IV FLUID ORDERS.
[2019-07-09] VITALS (9 sets, daily range): BP systolic 89–121; BP diastolic 53–78
[2019-07-09] MEDS: PIPERACILLIN/TAZOBACTAM 3.375 GM in DEXTROSE 5% 50 ML IV SCH ×4 (00:12→17:36)
[2019-07-09] MEDS: MIDODRINE 5 MG TAB GT SCH ×4 (00:12→17:36)
[2019-07-09] MEDS: VANCOMYCIN 1,000 MG in DEXTROSE 5% 250 ML IV SCH (01:58)
--- NOTE | 2019-07-09 02:08 | NUR ---
SUCTIONED PT TWICE. SUCTIONED MODERATE AMOUNT OF WHITE MUCOUS. PT TOLERATED PROCEDURE WELL.
[2019-07-09] MEDS: IPRATROPIUM 0.02% 0.5 MG/2.5 ML NEBU IH SCH ×4 (02:27→19:58)
[2019-07-09] MEDS: ALBUTEROL 0.083% 2.5 MG/3 ML NEBU IH SCH ×4 (02:27→19:58)
--- NOTE | 2019-07-09 04:15 | NUR ---
ADL PERFORMED, COLOSTOMY BAG EMPTIED, SUCTIONED PT WITH WHITE, SCANT AMOUNT OF MUCOUS. PT TOLERATED PROCEDURE WELL. HOB 30 DEGREES, SIDE RAILS UP X2, BED AT LOWEST POSITION.
--- NOTE | 2019-07-09 06:24 | NUR ---
SUCTIONED PT WITH SCANT WHITE MUCOUS, PT TOLERATED PROCEDURE WELL, HOB 30 DEGREES, SIDE RAILS UP X2, BED AT LOWEST POSITION.
--- NOTE | 2019-07-09 07:15 | NUR ---
PATIENT TRANSFERRED TO [place] [id number] REMOVED FROM VENTILATOR PLACED ON SUPPLEMENTAL OXYGENT AT 15 LPM VIA E-TANK TO TRACHEOSTOMA/IN . Addendum: 07/09/19 at 0737 by Gokul Ortiz RT INLINE SUCTION CATHETER BAG DEPRESSION EVERY 6-8 SECONDS SATURATION 100% HR 68 TOLERATED TRANSFER WELL WITHOUT INCIDENT
--- NOTE | 2019-07-09 07:30 | NUR ---
PT TRANSFERRED TO [facility]. REPORT GIVEN TO EDYTA BROWN. PT AT STABLE CONDITION AT THIS TIME.
--- NOTE | 2019-07-09 07:31 | NUR ---
Received report from ER nurse Rey. Pt is in his room with trach to vent, F/C in place, G-tube in place, intact and patent, SCD to L lower leg. Performed morning oral care. Oral suctioning. No distress. Call light in reach. [id number]
[2019-07-09] MEDS: FERROUS SULFATE 300 MG/5 ML UDC GT SCH ×2 (08:04→20:50)
[2019-07-09] MEDS: HYDROcodone/APAP 5/325 MG 1 TAB TAB GT PRN ×2 (08:04→21:02)
[2019-07-09] MEDS: PANTOPRAZOLE 40 MG INJ VIAL IVP SCH (08:05)
[2019-07-09] MEDS: ZINC SULF 220 MG CAP GT SCH (08:09)
[2019-07-09 09:19] LABS: HEMATOCRIT 26.7 % (36-52); HEMOGLOBIN 8.4 g/dL (12.0-18.0); MEAN CORPUSCULAR HEMOGLOBIN 30 pg (27-31); MEAN CORPUSCULAR HGB CONC 31 g/dL (33-37); MEAN CORPUSCULAR VOLUME 94.5 fL (80-94); PLATELET COUNT (AUTO) 390 K/uL (140-450); RED BLOOD CELL COUNT(AUTO) 2.83 MIL/uL (4.20-6.10); RED CELL DISTRIBUTION WIDTH 14.9 % (11.6-13.7); WHITE BLOOD COUNT (AUTO) 17.7 K/uL (4.8-10.8)
--- NOTE | 2019-07-09 09:30 | NUR ---
Left EJ IV infiltrated & leaking. Attempted to insert peripheral IV x2 but unsuccesful. Per charge nurse, will find ER or ICU nurse to help with insertion.
[2019-07-09] MEDS: ASCORBIC ACID 500 MG/5 ML ORASYR GT SCH ×2 (09:35→20:50)
[2019-07-09 09:50] LABS: ANION GAP 13.8 (8-16); CREATININE 0.9 mg/dL (0.7-1.3); POTASSIUM 3.8 mmol/L (3.5-5.1); TOTAL BILIRUBIN 0.4 mg/dL (0.0-1.0)
[2019-07-09 09:57] LABS: LYMPHOCYTES % (MANUAL) 8 % (20-46); MONOCYTES % (MANUAL) 6 % (5-12)
[2019-07-09 09:58] LABS: EOSINOPHILS % (MANUAL) 4 % (0-4)
--- NOTE | 2019-07-09 11:00 | NUR ---
Pt resting in be with no signs of distress. Trach to vent in place, G-tube intact, F/C in place, No C/O pain. Call light in reach. [id number]
--- NOTE | 2019-07-09 12:00 | NUR ---
IV insertion attempted x4 by different nurses; unable to establish peripheral IV access. Dr Santos notified, received order for PICC insertion.
--- NOTE | 2019-07-09 12:14 | NUR ---
Called Cari @ [phone] to obtain PICC insertion consent, but it goes straight to voicemail. Also unable to leave voicemail d/t inbox full. Called 4times but unsuccessful. Called pt's brother Corey @ [phone] but also went to voicemail. Message left for Corey.
--- NOTE | 2019-07-09 12:30 | NUR ---
IV Yaya held. Pt with no IV access.
--- NOTE | 2019-07-09 12:38 | NUR ---
Received call back from Corey Walton (brother). Obtained verbal consent for PICC insertion via 2-nurse telephone verification. Per Corey, he will also try to contact Cari re: PICC insertion order. Charge nurse to call PICC nurse for ETA.
--- NOTE | 2019-07-09 12:49 | NUR ---
SPOKE WITH CINDY FROM [facility] AND NOTIFIED HER THAT PT'S CONSENT WAS ALREADY OBTAINED. PER RUBY WHITE -PICC LINE RN WILL CALL FOR ETA. EDYTA-STEPHANIE MADE AWARE.
[2019-07-09] MEDS: THERAHONEY GEL 42.5 GM TP SCH (13:00)
--- NOTE | 2019-07-09 14:30 | NUR ---
PICC nurse Jakob arrived for PICC insertion.
--- NOTE | 2019-07-09 15:33 | NUR ---
Per Jakob PICC nurse, unable to fully advance guidewire d/t coiling even after multiple attempts. Able to place FEDE midline IV, ok to use per Jakob. Dr Santos notified and ok to use FEDE midline IV.
--- NOTE | 2019-07-09 15:45 | NUR ---
Cari called back, notified of midline IV insertion & that Corey (brother) has given consent. Verbalized understanding & agree with POC.
--- NOTE | 2019-07-09 19:00 | NUR ---
Pt resting in bed. No signs of distress. Call light in reach. [id number]
--- NOTE | 2019-07-09 19:28 | NUR ---
Shift report given to shingle inspector nurse. Pt in bed resting. Call light in reach. [email or web address]
--- NOTE | 2019-07-09 19:29 | NUR ---
RECEIVED BEDSIDE REPORT FROM DAY SHIFT NURSE EDYTA/OLEGARIO RN, PT STABLE, NO DISTRESS NOTED, R UA MIDLINE PATENT, INTACT, INFUSING WELL PT ON TRACH TO VENT, NO SOB NOTED, BARR CATH IN PLACE DRAINING YELLOW URINE, G TUBE IN PLACE, COLOSTOMY BAG IN PLACE, PT RESTING, NO DISTRESS NOTED, INITIAL ASSESSMENT DONE, ALL SAFETY IN PLACE, CALL LIGHT WITHIN REACH, WILL CONTINUE TO MONITOR.
--- NOTE | 2019-07-09 21:10 | NUR ---
DUE MEDICATION ADMINISTERED, PT TOLERATED WELL, PT REQUESTED NORCO, WHEN ASK IF PT IN PAIN, HE NODDED, AND MOUTHED YES, MEDICATION ADMINISTERED, PT TOLERATED WELL, NO DISTRESS NOTED, CALL LIGHT WITHIN REACH, WILL CONTINUE TO MONITOR.
--- NOTE | 2019-07-09 22:53 | NUR ---
TALKED TO DR. BRADFORD REGARDING PT HAS NO FNS ORDER AND NO FLUIDS ORDER, PER DR BRADFORD JUST WAIT FOR DR. GUILLEN TO SEE THE PT FIRST. NO ORDERS AT THIS TIME.
[2019-07-10] VITALS: BP 94/60
[2019-07-10] MEDS: MIDODRINE 5 MG TAB GT SCH ×5 (00:50→23:24)
[2019-07-10] MEDS: PIPERACILLIN/TAZOBACTAM 3.375 GM in DEXTROSE 5% 50 ML IV SCH ×4 (00:50→17:08)
--- NOTE | 2019-07-10 00:50 | NUR ---
DUE MEDICATION ADMINISTERED, PT TOLERATED WELL, DRESSINGS CHANGED, CLEANED PT, PT TOLERATED WELL, NO DISTRESS NOTED, CALL LIGHT WITHIN REACH, WILL CONTINUE TO MONITOR.
[2019-07-10] MEDS: IPRATROPIUM 0.02% 0.5 MG/2.5 ML NEBU IH SCH ×4 (01:00→19:49)
[2019-07-10] MEDS: ALBUTEROL 0.083% 2.5 MG/3 ML NEBU IH SCH ×4 (01:00→19:49)
--- NOTE | 2019-07-10 02:22 | NUR ---
PT SLEEPING, NO DISTRESS NOTED, CALL LIGHT WITHIN REACH, WILL CONTINUE TO MONITOR.
[2019-07-10 04:00] VITALS: BP 88/54
--- NOTE | 2019-07-10 04:06 | NUR ---
PT SLEEPING, NO DISTRESS NOTED, V/S TAKEN, WITHIN PT BASELINE, CALL LIGHT WITHIN REACH WILL CONTINUE TO MONITOR.
--- NOTE | 2019-07-10 05:49 | NUR ---
DUE MEDICATION ADMINISTERED, PT TOLERATED WELL, NO DISTRESS NOTED, CALL LIGHT WITHIN REACH WILL CONTINUE TO MONITOR,
[2019-07-10 06:48] LABS: HEMATOCRIT 25.7 % (36-52); MEAN CORPUSCULAR HEMOGLOBIN 30 pg (27-31); MEAN CORPUSCULAR HGB CONC 31 g/dL (33-37); MEAN CORPUSCULAR VOLUME 94.6 fL (80-94); PLATELET COUNT (AUTO) 376 K/uL (140-450); RED BLOOD CELL COUNT(AUTO) 2.71 MIL/uL (4.20-6.10); RED CELL DISTRIBUTION WIDTH 14.9 % (11.6-13.7); WHITE BLOOD COUNT (AUTO) 23.4 K/uL (4.8-10.8)
--- NOTE | 2019-07-10 07:25 | NUR ---
ENDORSED PT TO DAY SHIFT NURSE NAHUN RN, PT STABLE, NO DISTRESS NOTED, CALL LIGHT WITHIN REACH.
--- NOTE | 2019-07-10 07:26 | NUR ---
REPORT RECEIVED FROM LUBE TECHNICIAN NURSE, PT SLEEPING QUIETLY IN NAD, RESP EVEN UNLABORED TRACH TO VENT AT 30%FIO2, PT ON CONTINUOUS PULSE OX AND DIGITAL DESIGNER, SKIN WARM DRY, AROUSES EASILY, MOUTHES NEEDS, DENIES PAIN OR DISCOMFORT, POC DISCUSSED, NO IMMEDIATE NEEDS AT THIS TIME, WILL CONTINUE TO MONITOR.
[2019-07-10 07:57] LABS: ALBUMIN 1.9 g/dL (3.4-5.0); ANION GAP 17.5 (8-16); CARBON DIOXIDE 25.5 mmol/L (21-32); TOTAL BILIRUBIN 0.4 mg/dL (0.0-1.0)
[2019-07-10 08:00] VITALS: BP 93/57
--- NOTE | 2019-07-10 08:46 | NUR ---
RECEIVED TRACH PT ON VENT WITH A [employer] 6XLT TRACH. SETTINGS AC/VC 20, VT 475, PEEP 5 AND FIO2 30%. PT IS APHASIC BUT NOT IN ANY DISTRESS AT THIS TIME. TRACH IS SECURE WITH A PATENT AIRWAY. VENT IS PLUGGED INTO A RED OUTLET WITH ALARMS ON AND FUNCTIONING. WILL CONTINUE TO MONITOR.
[2019-07-10] MEDS: PANTOPRAZOLE 40 MG INJ VIAL IVP SCH (09:09)
[2019-07-10] MEDS: ASCORBIC ACID 500 MG/5 ML ORASYR GT SCH ×2 (09:09→22:00)
[2019-07-10] MEDS: FERROUS SULFATE 300 MG/5 ML UDC GT SCH ×2 (09:09→22:00)
--- NOTE | 2019-07-10 09:20 | NUR ---
PT POSITION CHANGED TO RIGHT SIDE, AM MEDS GIVEN VIA G TUBE, GT SITE CLEANED AND DRESSING CHANGED, ORAL CARE DONE, PT MAGY WELL.
[2019-07-10] MEDS: ZINC SULF 220 MG CAP GT SCH (09:36)
--- NOTE | 2019-07-10 10:45 | NUR ---
COLOSTOMY SITE APPEARS NORMAL, NO PROLAPSED STOMA AT THIS TIME, DR BRADFORD MADE AWARE, DR GUILLEN CONSULT CANCELD, OK TO START FEEDING PER DR BRADFORD.
[2019-07-10 10:52] LABS: EOSINOPHILS % (MANUAL) 2 % (0-4); LYMPHOCYTES % (MANUAL) 5 % (20-46); MONOCYTES % (MANUAL) 5 % (5-12)
[2019-07-10] MEDS: Z-GUARD PASTE TP SCH (11:35)
--- NOTE | 2019-07-10 11:50 | NUR ---
BED BATH GIVEN, POSITION CHANGED, PT MAGY WELL.
[2019-07-10 12:00] VITALS: BP 92/55
[2019-07-10] MEDS: THERAHONEY GEL 42.5 GM TP SCH (13:00)
--- NOTE | 2019-07-10 14:10 | NUR ---
POSITION CHANGED, WOUND CARE DONE, PT MAGY WELL. PT WITH COPIOUS ORAL SECRETION, NO SECRETION IN TRACH AT THIS TIME.
--- NOTE | 2019-07-10 15:02 | NUR ---
07/10/19 RD FOLLOW UP COMPLETED PLEASE REFER TO NUTRITION ASSESSMENT UNDER CARE ACTIVITY FOR ESTIMATED NUTRITIONAL NEEDS. 1. CONTINUE VITAL 1.2 AF @ 65 ML/HR X 24 HR WITH FREE WATER FLUSH OF 100 ML Q4H -THIS WILL PROVIDE 1560 ML OF VOLUME, 1872 KCAL, 117 GM OF PROTEIN WHICH MEETS 100% OF ESTIMATED NEEDS 2. CONTINUE VITAMIN C AND ZINC FOR WOUND HEALING 3. RD TO FOLLOW-UP 2-3 DAYS, HIGH RISK TANO BONDS RD
[2019-07-10 16:00] VITALS: BP 91/54
[2019-07-10] MEDS: MORPHINE SULFATE 2 MG/ML SYR IVP PRN (17:08)
--- NOTE | 2019-07-10 17:20 | NUR ---
PT'S ADILENE [phone]
--- NOTE | 2019-07-10 18:00 | NUR ---
GT FEED STARTED AT 30ML/HR
[2019-07-10] MEDS: VANCOMYCIN 750 MG in DEXTROSE 5% 250 ML IV SCH (18:31)
[2019-07-10] MEDS ORDERED: POTASSIUM CHLORIDE 20% 40 MEQ/15 ML UDC GT SCH (18:37)
--- NOTE | 2019-07-10 19:30 | NUR ---
RECEIVED REPORT FORM AZALEA RN DAYSHIFT NURSE AT BEDSIDE FOR CONTINUITY OF CARE, PT IN STABLE CONDITION.
--- NOTE | 2019-07-10 19:35 | NUR ---
CRITICAL LAB REPORT, SPUTUM CULTURE + PSEUDOMONAS MDRO, PARTS ROOM CLERK, DR. DURAN STRONG NITRIC OPERATOR FOR DR SANCHEZ MEADOWS.
--- NOTE | 2019-07-10 19:35 | NUR ---
REPORT GIVEN TO ORTHOPEDIC PHYSICIAN ASSISTANT NURSE ALEX HARLEY IN STABLE CONDITION.
--- NOTE | 2019-07-10 19:45 | NUR ---
RECEIVED CALL BACK FROM DR. COFFMAN WHO IS CLINIC RECEPTIONIST FOR DR. BRADFORD. MADE AWARE OF CRITICAL LABS OF SPUTUM. NEW ORDERS TO D/C ZOSYN, CONTINUE WITH VANCOMYCIN AND START FORTAZ 1GM Q 8HRS. Addendum: 07/10/19 at 2108 by Vita Coronel RN CLINIC RECEPTIONIST MD IS DR. PALMER NOT DR. COFFMAN
[2019-07-10 20:00] VITALS: BP 89/56
--- NOTE | 2019-07-10 20:52 | NUR ---
RECEIVED CALL BACK FROM PHARMACY, ORDERED FORTAZ IS NOT SUSCEPTIBLE TO PSEUDOMONAS, MDRO ,TMH TEACHER. WILL CALL BACK. VEE OVERNIGHT PHARMACIST SAID THAT THE ONLY ABT THAT IS SUSCEPTIBLE TO THE ORGANISMS IN HIS SPUTUM IS AMIKACIN WILL CALL BACK MD COFFMAN FOR A NEW ORDER.
--- NOTE | 2019-07-10 21:06 | NUR ---
DR PALMER CALLED BACK WITH NEW ORDER FOR AMIKACIN PHARMACY TO DOSE.
[2019-07-10] MEDS ORDERED: AMIKACIN PER PHARMACY MC PRN (21:10)
[2019-07-10] MEDS ORDERED: AMIKACIN 1,000 MG in DEXTROSE 5% 100 ML IV SCH (23:00)
[2019-07-10] MEDS: HYDROcodone/APAP 5/325 MG 1 TAB TAB GT PRN (23:24)
--- NOTE | 2019-07-10 23:25 | NUR ---
PT C/O SEVERE PAIN GENERALIZED PAIN, GIVEN REQUESTED NORCO VIA GT. V/S FOLLOWS T 98.4 P 107 R 20 B/P 89/56 02 99% ON ALL VENT SETTINGS. PT ON WOUND BED AND ALL FALLS PRECAUTIONSIN PLACE.
--- NOTE | 2019-07-10 23:30 | NUR ---
PT ALSO GIVEN ZOFRAN FOR BELCHING AND INCREASED SECRETIONS.
[2019-07-10] MEDS: ONDANSETRON 4 MG/2 ML VIAL IVP PRN (23:36)
[2019-07-11] VITALS: BP 84/51
--- NOTE | 2019-07-11 00:38 | NUR ---
AMIKACIN IV NOT IN EITHER PIXIS, CALLED [facility] TO HELP FIND MEDICATION.
[2019-07-11] MEDS ORDERED: AMIKACIN 500 MG/2 ML VIAL IV ONE (01:11)
[2019-07-11] MEDS: ALBUTEROL 0.083% 2.5 MG/3 ML NEBU IH SCH ×4 (01:26→19:06)
[2019-07-11] MEDS: IPRATROPIUM 0.02% 0.5 MG/2.5 ML NEBU IH SCH ×4 (01:27→19:06)
[2019-07-11] MEDS ORDERED: AMIKACIN 1,000 MG in DEXTROSE 5% 100 ML IV SCH (01:45)
--- NOTE | 2019-07-11 02:45 | NUR ---
PHARMACY CALLED AND PUT MEDICATION BACK ON EMAR. PLANER FEEDER WAS ABLE TO FIND MEDICATION. MEDICATION RECONSTITUTED AND HUNG ORDERED.
[2019-07-11 04:00] VITALS: BP 78/46
--- NOTE | 2019-07-11 04:00 | NUR ---
PT IN BED ALL FALLS AND CONTACT PRECAUTIONS IN PLACE, V/S FOLLOWS T 98.2 P 1074 R 18 B/P 78/46 02 98% WITH ALL VENT SETTINGS IN PLACE.
--- NOTE | 2019-07-11 04:30 | NUR ---
POT TURNED, CHANGED AND REPOSITIONED, WOUND CARE PROVIDED. RT WAS HERE TO SUCTION PT AT BEDSIDE. ALL FALLS AND CONTACT PRECAUTIONS IN PLACE.
[2019-07-11] MEDS: MIDODRINE 5 MG TAB GT SCH ×4 (05:42→23:59)
[2019-07-11] MEDS: HYDROcodone/APAP 5/325 MG 1 TAB TAB GT PRN ×2 (05:43→11:25)
[2019-07-11] MEDS: VANCOMYCIN 750 MG in DEXTROSE 5% 250 ML IV SCH ×2 (05:44→18:02)
[2019-07-11] MEDS: ONDANSETRON 4 MG/2 ML VIAL IVP PRN ×2 (06:02→20:38)
--- NOTE | 2019-07-11 06:07 | NUR ---
PROMATININE GIVEN VIA GT TO HELP INCREASED B/P LAST B/P WAS 78/46. PT ALSO REQUESTED ANOTHER NORCO FOR PAIN AFTER WOUND CARE. PT ALSO GIVEN ZOFRAN FOR BELCHING AND INCREASED SECRETIONS. COLOSTOMY BAG WAS CHANGED AND ALL FALLS, ANCD CONTACT PRECAUTIONS IN PLACE.
[2019-07-11 07:00] LABS: HEMATOCRIT 25.5 % (36-52); MEAN CORPUSCULAR HEMOGLOBIN 30 pg (27-31); MEAN CORPUSCULAR HGB CONC 32 g/dL (33-37); MEAN CORPUSCULAR VOLUME 94.7 fL (80-94); PLATELET COUNT (AUTO) 359 K/uL (140-450); RED BLOOD CELL COUNT(AUTO) 2.69 MIL/uL (4.20-6.10); RED CELL DISTRIBUTION WIDTH 14.9 % (11.6-13.7); WHITE BLOOD COUNT (AUTO) 19.4 K/uL (4.8-10.8)
--- NOTE | 2019-07-11 07:17 | NUR ---
RECEIVED PT ON CARESCAPE ON DOCUMENTED SETTINGS, ALARMS ARE ON AND AUDIBLE, PTS TRACH PRIMITIVO 6 XLT IS SECURE, BS MICHAEL HHN GIVEN I\L , PT IN HF ASLEEP, CONT. POX IN PLACE, VENT PLUGGED INTO RED OUTLET, BMV HOB
--- NOTE | 2019-07-11 07:30 | NUR ---
RECEIVED REPORT FROM VAMP STITCHER NURSE. PATIENT IN BED WITH TRACH TO VENT. NO ACUTE DISTRESS NOTED.
[2019-07-11 07:52] LABS: BASOPHILS % (MANUAL) 0 % (0-2); EOSINOPHILS % (MANUAL) 2 % (0-4); LYMPHOCYTES % (MANUAL) 10 % (20-46); MONOCYTES % (MANUAL) 5 % (5-12)
[2019-07-11 08:00] VITALS: BP 98/63
[2019-07-11] MEDS ORDERED: POTASSIUM CHLORIDE 20% 40 MEQ/15 ML UDC GT SCH (09:00)
[2019-07-11] MEDS: ASCORBIC ACID 500 MG/5 ML ORASYR GT SCH ×2 (09:41→20:32)
[2019-07-11] MEDS: FERROUS SULFATE 300 MG/5 ML UDC GT SCH ×2 (09:41→20:31)
[2019-07-11] MEDS: ZINC SULF 220 MG CAP GT SCH (09:41)
[2019-07-11] MEDS: Z-GUARD PASTE TP SCH (09:42)
[2019-07-11] MEDS: PANTOPRAZOLE 40 MG INJ VIAL IVP SCH (09:42)
--- NOTE | 2019-07-11 09:45 | NUR ---
PATIENT IS AWAKE AND ALERT WITH TRACH TO VENT. PT POSITION CHANGED TO RIGHT SIDE, AM MEDS GIVEN VIA G TUBE, GT SITE CLEANED AND DRESSING CHANGED, ORAL CARE DONE, PT MAGY WELL.
[2019-07-11 09:49] LABS: ALBUMIN 1.9 g/dL (3.4-5.0); ANION GAP 13.5 (8-16); CARBON DIOXIDE 27.2 mmol/L (21-32); CREATININE 1.1 mg/dL (0.7-1.3); TOTAL BILIRUBIN 0.3 mg/dL (0.0-1.0)
[2019-07-11 11:04] LABS: POTASSIUM 2.7 mmol/L (3.5-5.1)
--- NOTE | 2019-07-11 11:04 | NUR ---
RECEIVED CRITICAL LAB: PATIENT'S POTASSIUM 2.7 PER DELORES ALICEA (LAB STAFF). WILL NOTIFY DR. BRADFORD.
--- NOTE | 2019-07-11 11:15 | NUR ---
DR. GAGNON COVERING DR. MEADOWS IN REGARDS TO PATIENT'S ABNORMAL POTASSIUM LEVEL.
--- NOTE | 2019-07-11 11:25 | NUR ---
PATIENT C/O PAIN 03/25. MEDICATED WITH NORCO 5/325 ORDERED PRN FOR PAIN. TOLERATED WELL.
--- NOTE | 2019-07-11 11:40 | NUR ---
DR. GAGNON CALLED BACK WITH ORDERS TO GIVE K RIDER 40MEQ X1 NOW. REPEAT CHEM 7 AND MAGNESIUM LEVEL TOMORROW AM.
[2019-07-11 12:00] VITALS: BP 86/46
[2019-07-11] MEDS: KCL 20 MEQ/WATER INJ PREMIX 100 ML IV SCH ×2 (13:00→15:06)
[2019-07-11] MEDS: THERAHONEY GEL 42.5 GM TP SCH (13:02)
--- NOTE | 2019-07-11 14:30 | NUR ---
PATIENT TRANSFERRED TO ANOTHER THERAPEUTIC AIR MATTRESS. PATIENT IS AWAKE AND ALERT. REPOSITIONED Q2HRS. ORAL CARE PROVIDED. TRACH TO VENT INTACT. SUCTIONED ORALLY NEEDED. IV K RIDER STILL INFUSING VIA MIDLINE TO FEDE. F/C INTACT AND DRAINING. NO ACUTE DISTRESS NOTED. DRESSINGS TO MULTIPLE PRESSURE AREAS INTACT AND DRY. CALL LIGHT WITHIN REACH.
--- NOTE | 2019-07-11 16:00 | NUR ---
PATIENT IS REPOSITIONED FOR COMFORT. NO ACUTE DISTRESS.
--- NOTE | 2019-07-11 18:00 | NUR ---
VANCOMYCIN INFUSING AT 165ML/HR ORDERED VIA MIDLINE FEDE.
--- NOTE | 2019-07-11 19:10 | NUR ---
REPORT GIVEN TO STEPHANIE HARLEY. PATIENT IN STABLE CONDITION.
--- NOTE | 2019-07-11 19:10 | NUR ---
RECEIVED REPORT FROM ZAIRE BROWN DAYSHIFT NURSE AT BEDSIDE FOR CONTINUITY OF CARE, PT IN STABLE CONDITION.
--- NOTE | 2019-07-11 19:23 | NUR ---
RECEIVED PATIENT TRACH SHILEY 6 XLT TO MECHANICAL VENTILATOR AT DOCUMENTED SETTINGS. FAMILY AT BEDSIDE. VENT CHECK DONE. VENT PLUGGED INTO RED OUTLET WITH WHEELS LOCKED. VENT ALARMS ON AND AUDIBLE. AMBU BAG AT HOB. PATIENT ON CONTINUOUS PULSE OX; ON AND FUNCTIONING, ALARMS ON AND AUDIBLE. AIRWAY SECURE AND PATENT. SUCTIONED MODERATE AMOUNT OF THICK, PALE YELLOW SECRETIONS. SCHEDULED BREATHING TREATMENTS ADMINISTERED. TOLERATED TREATMENTS WELL WITHOUT ADVERSE SIDE EFFECTS. NO ACUTE RESPIRATORY DISTRESS NOTED AT THIS TIME. WILL CONTINUE TO MONITOR.
[2019-07-11 20:00] VITALS: BP 91/59
--- NOTE | 2019-07-11 20:00 | NUR ---
PT ON WOUND BED, AND BREATHING WITH EVEN AND UNLABORED RESPIRATIONS ON THE CURRENT VENT SETTINGS. RIGHT UPPER MIDLINE IN TACT AND RUNNING NS TO KVO. V/S FOLLOWS T 98.2 P 108 R 18 B/P 91/59 02 99% AND RR 20 WITH ALL CURRENT VENT SETTINGS. ALL FALLS AND CONTACT PRECAUTIONS IN PLACE.
--- NOTE | 2019-07-11 21:00 | NUR ---
PT GIVEN ORDERED FERROUS SULFATE AND VITAMIN C LIQUIDS VIA GT. GT RUNNING AT 65MLS/HR ORDERED. NO RESIDUAL NOTED.PT NOTED WITH A LOT OF BELCHING. GIVEN IVP/PRN ZOFRAN FOR NAUSEA. WILL ZULEMA THERAPY ADMINISTRATIVE ASSISTANT MD FOR ANY NEW ORDERS.
--- NOTE | 2019-07-11 21:30 | NUR ---
SPOKE WITH MD LATHAM WHOM IS EXCEPTIONAL STUDENT EDUCATION AIDE FOR MD BRADFORD, REGARDING PT CONSTANT BELCHING. NEW ORDERS NOTED. PHARMACY ALSO CALLED REGARDING RESULT OF RANDOM AMIKACIN LEVEL. WHICH IS STILL PENDING. PHARMACIST SAID THAT MORE AMIKACIN CAN BE ORDERED, ONCE THEY HAVE THE PENDING RESULT OF THE RANDOM DRAW. THEY CAN DOSE MEDICATION PROPERLY.
--- NOTE | 2019-07-11 22:15 | NUR ---
PT WAS TURNED AND REPOSITIONED OMN WOUND BED. PT ALSO SUCTIONED X2. ALL CONTACTS, ASPIRATION AND FALLS PRECAUTIONS IN PLACE.
[2019-07-11] MEDS: SIMETHICONE 80 MG TAB.CHEW PO SCH (23:59)
[2019-07-12] VITALS: BP 95/58
[2019-07-12] MEDS: HYDROcodone/APAP 5/325 MG 1 TAB TAB GT PRN ×2 (00:04→06:21)
--- NOTE | 2019-07-12 00:30 | NUR ---
PT ON WOUND BED. PT GIVEN ORDERED PROAMATINE WELL SIMETHICONE FOR GAS AND NORCO FOR PAIN. PT V/S FOLLOWS T 98.7 P 109 R 20 B/P 95/58 02 100% WITH ALL VENT SETTINGS. ALL FALLS, ASPIRATION ANDS CONTACT PRECAUTIONS IN PLACE.
[2019-07-12] MEDS: ONDANSETRON 4 MG/2 ML VIAL IVP PRN (00:54)
[2019-07-12] MEDS: IPRATROPIUM 0.02% 0.5 MG/2.5 ML NEBU IH SCH ×4 (01:28→19:55)
[2019-07-12] MEDS: ALBUTEROL 0.083% 2.5 MG/3 ML NEBU IH SCH ×4 (01:28→19:56)
--- NOTE | 2019-07-12 01:40 | NUR ---
VENT CHECK DONE. SCHEDULED BREATHING TREATMENT ADMINISTERED, TOLERATED WELL WITHOUT ADVERSE SIDE EFFECTS. SUCTIONED MODERATE AMOUNT OF THIN, CLEAR/THICK YELLOW SECRETIONS. NO DISTRESS NOTED AT THIS TIME. WILL CONTINUE TO MONITOR.
[2019-07-12 04:00] VITALS: BP 84/55
--- NOTE | 2019-07-12 04:10 | NUR ---
PT WAS TURNED, CHANGED AND WOUND CARE PROVIDED. V/S FOLLOWS T 99.8 P 109 R 20 B/P 84/55 02 100% WITH ALL CURRENT VENT SETTINGS. ALL ASPIRATION, FALLS AND CONTACT PRECAUTIONS OBSERVED.
--- NOTE | 2019-07-12 06:15 | NUR ---
LABS DRAWN VIA MIDLINE, TROUGH FOR VANCO WAS DONE AT THIS TIME. PT ALSO GIVEN ORDERED MEDS, WELL NORCO FOR PAIN CONTROL. POSITIVE EFFECT FOR SIMETHICONE TABS VANCO WAS HELD DUE TO TO TROUGH LEVEL NOT PROCESSED. WILL ENDORSE TO DAY TO FOLLOW TROUGH LEVEL. OF VANCOMYCIN. ALL FALLS AND CONTACT PRECAUTIONS IN PLACE.
--- NOTE | 2019-07-12 06:16 | NUR ---
REC'D PT ON CARESCAPE VENT SETTING AC20 VT 475 PEEP 5 FIO2 30% ALARMS ON AND AUDIBLE AND AMBU BAG AT SIDE OF VENT AND VENT IS PLUGGED INTO RED OUTLET, I\L TX GIVEN WITH DUONEB 3ML WITH NO ADVERSE REACTION POST TX B\S ARE RHONCHI BILATERALLY, SXN PT SMALL AMT OF WHITE THICK SECRETIONS, PT IS TRACH WITH SHILEY 6XLT AND PT IS SLEEPING Addendum: 07/14/19 at 0908 by Roopa Pate RT I\L TX WAS GIVEN WITH ALBUTEROL 2.5MG AND ATROVENT 0.5MG NOT DUONEB 3ML
[2019-07-12] MEDS: SIMETHICONE 80 MG TAB.CHEW PO SCH ×3 (06:19→18:14)
[2019-07-12] MEDS: MIDODRINE 5 MG TAB GT SCH ×3 (06:19→18:15)
--- NOTE | 2019-07-12 07:33 | NUR ---
RECEIVED REPORT FROM CRICKET/LINE INSTALLER NURSE. PT AROUSABLE TO NAME, ORIENTED X3, PT IS APHASIC, FLACC 0. PT ON DRY CLEANING COUNTER CLERK. NOTED RT UA PICC LINE RUNNING IVF PER ORDER. RESPIRATIONS EVEN AND UNLABORED, PT ON TRACH TO VENT WITH FOLLOWING SETTINGS: TIDAL VOLUME 200-900 AND FiO2 24-36%, O2 SAT AT 100%. ABD SOFT, ACTIVE BS, NOTED EMPTY COLOSTOMY BAG. TUBE FEEDING VITAL AF RUNNING AT 65 ML/HR WITH 100 ML FLUSHES EVERY 4 HOURS[address] F/C IN PLACE, DRAINING CLEAR AND YELLOW URINE. MULTIPLE WOUNDS NOTED WITH DRESSINGS CLEAN, DRY AND INTACT, PT ON WOUND BED. PT ON FALL RISK PRECAUTIONS, SAFETY MEASURES IN PLACE, CALL LIGHT WITHIN REACH. REVIEWED POC WITH PT, WILL CONTINUE TO REINFORCE FOR PT UNDERSTANDING. PER CRICKET, ABX TROUGHS PENDING AT THIS TIME, WILL CONTINUE TO FOLLOW-UP AND MONITOR.
[2019-07-12 07:43] LABS: ALBUMIN 1.9 g/dL (3.4-5.0); ANION GAP 14.7 (8-16); CARBON DIOXIDE 25.5 mmol/L (21-32); CREATININE 0.9 mg/dL (0.7-1.3); POTASSIUM 3.2 mmol/L (3.5-5.1); TOTAL BILIRUBIN 0.2 mg/dL (0.0-1.0)
[2019-07-12 08:00] VITALS: BP 101/63
[2019-07-12] MEDS: Z-GUARD PASTE TP SCH (09:09)
--- NOTE | 2019-07-12 09:20 | NUR ---
REPORTED VANCO TROUGH LEVEL TO PHARMACY. PER PHARMACY, HOLD VANCO AT THIS TIME AND TROUGH WILL BE DRAWN TOMORROW AM.
[2019-07-12] MEDS: ASCORBIC ACID 500 MG/5 ML ORASYR GT SCH ×2 (09:40→20:54)
[2019-07-12] MEDS: FERROUS SULFATE 300 MG/5 ML UDC GT SCH ×2 (09:40→20:54)
[2019-07-12] MEDS: ZINC SULF 220 MG CAP GT SCH (09:40)
[2019-07-12] MEDS: PANTOPRAZOLE 40 MG INJ VIAL IVP SCH (09:40)
--- NOTE | 2019-07-12 09:40 | NUR ---
ADMINISTERED MEDICATIONS PER ORDER, REVIEWED INDICATIONS AND POTENTIAL SIDE EFFECTS OF EACH. LINENS AND COLOSTOMY BAG CHANGED. EMPTIED BAG, NOTED MODERATE AMOUNT OF BROWN, LIQUID STOOL. APPLIED Z-GUARD TO REDDENED AREAS. WOUND DRESSINGS CLEAN, DRY AND INTACT.
--- NOTE | 2019-07-12 11:42 | NUR ---
PT RESTING IN BED. RESPIRATIONS EVEN AND UNLABORED, ON TRACH TO VENT.
[2019-07-12 12:00] VITALS: BP 102/71
[2019-07-12 12:25] LABS: BASOPHILS # (AUTO) 0.2 K/uL (0.00-0.22); BASOPHILS % (AUTO) 1.2 % (0.0-2.0); EOSINOPHILS # (AUTO) 0.3 K/uL (0-0.4); EOSINOPHILS % (AUTO) 1.7 % (0.0-4.0); HEMATOCRIT 26.1 % (36-52); HEMOGLOBIN 7.8 g/dL (12.0-18.0); LYMPHOCYTES # (AUTO) 1.5 K/uL (2.0-11.5); MEAN CORPUSCULAR HEMOGLOBIN 29 pg (27-31); MEAN CORPUSCULAR HGB CONC 30 g/dL (33-37); MONOCYTES # (AUTO) 0.7 K/uL (0.8-1.0); MONOCYTES % (AUTO) 3.8 % (1.7-9.3); NEUTROPHILS # (AUTO) 16.8 K/uL (1.8-7.7); PLATELET COUNT (AUTO) 377 K/uL (140-450); RED BLOOD CELL COUNT(AUTO) 2.71 MIL/uL (4.20-6.10); RED CELL DISTRIBUTION WIDTH 15.1 % (11.6-13.7); WHITE BLOOD COUNT (AUTO) 19.5 K/uL (4.8-10.8)
[2019-07-12] MEDS: THERAHONEY GEL 42.5 GM TP SCH (13:10)
--- NOTE | 2019-07-12 13:10 | NUR ---
PT AWAKE, REVIEWED MEDICATIONS, PT NODS TO SHOW UNDERSTANDING OF INDICATIONS AND POTENTIAL SIDE EFFECTS. PER JOE BRANHAM TO GIVE MIDODRINE FOR CURRENT BP OF 103/75.
[2019-07-12 13:13] LABS: LYMPHOCYTES % (AUTO) 7.5 % (20.5-51.1); NEUTROPHILS % (AUTO) 85.8 % (42.2-75.2)
--- NOTE | 2019-07-12 15:21 | NUR ---
CALLED PT'S /ADILENE. PER PT, "CALL MY , I WANT TO SEE HER." PER ADILENE, "TELL HIM I WILL GET TO THE HOSPITAL AROUND 9PM." NOTIFIED PT.
--- NOTE | 2019-07-12 15:37 | NUR ---
PAGED DR. GAGNON TO REPORT PT'S ORAL TEMPERATURE OF 100.5. COOLING MEASURES IN PLACE. AWAITING CALL BACK.
[2019-07-12] MEDS: ACETAMINOPHEN 650 MG/20.3 ML UDC PO PRN (15:58)
--- NOTE | 2019-07-12 17:30 | NUR ---
DR. SHORE AWARE OF CONSULT FOR FEVER. PER PHYSICIAN, HE WILL BE COMING LATER.
[2019-07-12] MEDS ORDERED: POTASSIUM CHLORIDE 20% 40 MEQ/15 ML UDC GT SCH (18:00)
[2019-07-12] MEDS: MORPHINE SULFATE 2 MG/ML SYR IVP PRN (18:11)
--- NOTE | 2019-07-12 18:11 | NUR ---
FLACC 5, ADMINISTERED MORPHINE PER ORDER. WILL REASSESS WITHIN 1 HOUR.
--- NOTE | 2019-07-12 19:05 | NUR ---
ENDORSED PT TO EMBOSSING CLERK NURSE. PT HAS NO SIGNS OF DISTRESS AT THIS TIME.
--- NOTE | 2019-07-12 19:06 | NUR ---
Received report from AM shift Nurse for continuity of care. Patient alert and awake, aphasic. FLACC 0/. On panel monitor. Noted with Right upper arm Midline running IVF per order. No respiratory distress noted. Respirations even and unlabored. Patient on trach to vent. O2 sat at 100%. Abdomen soft with active BS. Colostomy bag in place. Tube feeding Vital running at 65mL/hr with 100ml flush every 4hrs. F/C in place, draining clear and yellow urine. Fall risk precautions observed, safety measures in place, call light within reach. Will continue to monitor.
[2019-07-12 20:00] VITALS: BP 120/73
--- NOTE | 2019-07-12 20:09 | NUR ---
Received pt stable on vent support at documented settings, suctioned moderated amounts of thin white secretions orally and through the trach, hhn tx given, tolerated well, no resp distress or SOB noted at this time, Shiley 6 XLT trach secured/patent/midline, alarms set and audible, vent plugged into red outlet, ambu bag at bedside, cont pulse ox on, vent wiped down, will cont to monitor.
--- NOTE | 2019-07-12 21:00 | NUR ---
Due medications given as ordered. Patient comfortable at this time. No respiratory distress. Suctioned oral and trach secretions. Will continue to monitor.
--- NOTE | 2019-07-12 22:25 | NUR ---
PATIENT ASLEEP IN BED. VISIBLE CHEST RISE AND FALL NOTED. NO RESPIRATORY DISTRESS NOTED. WILL CONTINUE TO MONITOR.
[2019-07-13] VITALS: BP 98/64
--- NOTE | 2019-07-13 00:15 | NUR ---
ROUNDS DONE. PATIENT ASLEEP AT THIS TIME. NOTED WITH VISIBLE CHEST RISE AND FALL. SAFETY ENSURED. WILL CONTINUE TO MONITOR.
[2019-07-13] MEDS: MIDODRINE 5 MG TAB GT SCH ×5 (00:44→18:16)
[2019-07-13] MEDS: ACETAMINOPHEN 650 MG/20.3 ML UDC PO PRN ×4 (00:44→22:18)
[2019-07-13] MEDS: SIMETHICONE 80 MG TAB.CHEW PO SCH (00:44)
[2019-07-13] MEDS: PIPERACILLIN/TAZOBACTAM 3.375 GM in DEXTROSE 5% 50 ML IV SCH ×4 (00:46→17:14)
[2019-07-13] MEDS: HYDROcodone/APAP 5/325 MG 1 TAB TAB GT PRN ×2 (00:51→22:17)
[2019-07-13] MEDS: ALBUTEROL 0.083% 2.5 MG/3 ML NEBU IH SCH ×4 (01:51→20:33)
[2019-07-13] MEDS: IPRATROPIUM 0.02% 0.5 MG/2.5 ML NEBU IH SCH ×4 (01:51→20:33)
--- NOTE | 2019-07-13 02:00 | NUR ---
Wound care done on all sites. Patient cooperative. Medicated with pain medication per pain scale. Patient refused repositioning. No respiratory distress noted. Will continue to monitor.
--- NOTE | 2019-07-13 03:44 | NUR ---
Rounds done. Patient asleep in bed. No respiratory distress noted. Safety ensured. Call light within reach. Will continue to monitor.
[2019-07-13 04:00] VITALS: BP 91/60
--- NOTE | 2019-07-13 05:20 | NUR ---
Due medications given. No respiratory distress noted. Will continue to monitor.
[2019-07-13] MEDS ORDERED: PIPERACILLIN/TAZOBACTAM 3.375 GM VIAL IV ONE ×2 (05:44)
--- NOTE | 2019-07-13 06:15 | NUR ---
Chest xray taken by tech. No respiratory distress noted. Will continue to monitor. Will endorse to AM shift RN for continuity of care.
--- NOTE | 2019-07-13 06:38 | NUR ---
RECEIVED PT ON CARESCAPE ON DOCUMENTED SETTINGS, ALARMS ARE ON AND AUDIBLE, PT IN HF AWAKE BS RHONCHI , PTS TRACH SHILEY 6 XLT IS SECURE, HHN GIVEN I\L , BMV HOB, VENT PLUGGED INTO RED OUTLET, CONT. POIX IN PLACE, WILL CONTINUE TO MONITOR
--- NOTE | 2019-07-13 07:15 | NUR ---
RECEIVED REPORT FROM FLEECE TIER NURSE. PT IS ORIENTED, PT IS APHASIC, BUT ABLE TO MOUTH WORDS AND MAKES NEEDS KNOWN. FLACC 0. PT ON CARD CLEANER. NOTED RT UA PICC LINE RUNNING IVF TO KEEP VEIN OPEN. RESPIRATIONS EVEN AND UNLABORED, PT ON TRACH TO VENT WITH FOLLOWING SETTINGS: TIDAL VOLUME 200-900 AND FiO2 24-36%, O2 SAT AT 100%. ABD SOFT, ACTIVE BS, NOTED EMPTY COLOSTOMY BAG. TUBE FEEDING VITAL AF RUNNING AT 65 ML/HR WITH 100 ML FLUSHES EVERY 4 HOURS[address] F/C IN PLACE, DRAINING CLEAR AND YELLOW URINE. MULTIPLE WOUNDS NOTED WITH DRESSINGS CLEAN, DRY AND INTACT, PT ON WOUND BED. PT ON FALL RISK PRECAUTIONS, SAFETY MEASURES IN PLACE, CALL LIGHT WITHIN REACH. REVIEWED POC WITH PT, WILL CONTINUE TO REINFORCE FOR PT UNDERSTANDING.
[2019-07-13 07:57] LABS: BASOPHILS # (AUTO) 0.1 K/uL (0.00-0.22); BASOPHILS % (AUTO) 0.5 % (0.0-2.0); EOSINOPHILS # (AUTO) 0.5 K/uL (0-0.4); EOSINOPHILS % (AUTO) 3.2 % (0.0-4.0); HEMATOCRIT 24.9 % (36-52); HEMOGLOBIN 7.8 g/dL (12.0-18.0); LYMPHOCYTES # (AUTO) 1.7 K/uL (2.0-11.5); MEAN CORPUSCULAR HEMOGLOBIN 30 pg (27-31); MEAN CORPUSCULAR HGB CONC 31 g/dL (33-37); MEAN CORPUSCULAR VOLUME 95.2 fL (80-94); MONOCYTES % (AUTO) 6.3 % (1.7-9.3); NEUTROPHILS # (AUTO) 12.2 K/uL (1.8-7.7); PLATELET COUNT (AUTO) 326 K/uL (140-450); RED BLOOD CELL COUNT(AUTO) 2.62 MIL/uL (4.20-6.10); WHITE BLOOD COUNT (AUTO) 15.5 K/uL (4.8-10.8)
[2019-07-13 08:00] VITALS: BP 105/67
[2019-07-13 08:01] LABS: ALBUMIN 1.9 g/dL (3.4-5.0); ANION GAP 14.5 (8-16); CARBON DIOXIDE 25.6 mmol/L (21-32); CREATININE 0.9 mg/dL (0.7-1.3); POTASSIUM 3.1 mmol/L (3.5-5.1); TOTAL BILIRUBIN 0.3 mg/dL (0.0-1.0)
[2019-07-13] MEDS: ZINC SULF 220 MG CAP GT SCH (08:27)
[2019-07-13] MEDS: ASCORBIC ACID 500 MG/5 ML ORASYR GT SCH ×2 (08:27→20:38)
[2019-07-13] MEDS: FERROUS SULFATE 300 MG/5 ML UDC GT SCH ×2 (08:27→20:38)
--- NOTE | 2019-07-13 08:27 | NUR ---
ADMINISTERED MORNING MEDICATIONS PER ORDER, PT NODS TO SHOW UNDERSTANDING OF INDICATIONS AND POTENTIAL SIDE EFFECTS OF MEDICATIONS. ALSO GIVEN TYLENOL FOR ORAL TEMP 100.0. WILL REASSESS WITHIN 1 HOUR.
[2019-07-13] MEDS: PANTOPRAZOLE 40 MG INJ VIAL IVP SCH (08:32)
[2019-07-13] MEDS: Z-GUARD PASTE TP SCH (08:33)
--- NOTE | 2019-07-13 09:30 | NUR ---
NOTED 1 BROWN, LIQUID STOOL IN COLOSTOMY BAG. CHANGED COLOSTOMY BAG D/T LEAKING. LINENS AND GOWN CHANGED, SPONGE BATH GIVEN IN BED. CHANGED WOUND DRESSING TO RT AND LEFT SHOULDERS, PT HAS NO SIGNS OF DISTRESS, FLACC 0.
--- NOTE | 2019-07-13 11:18 | NUR ---
LEFT VOICEMAIL AT DR. GUILLEN'S OFFICE. AWAITING CALL BACK.
[2019-07-13] MEDS: AMIKACIN 450 MG in DEXTROSE 5% 100 ML IV SCH (11:24)
[2019-07-13] MEDS ORDERED: POTASSIUM CHL 40 MEQ/ D5-1/2NS 1,000 ML IV SCH (11:45)
[2019-07-13 12:00] VITALS: BP 104/70
[2019-07-13] MEDS ORDERED: ALTEPLASE 2 MG VIAL MC SCH (12:00)
--- NOTE | 2019-07-13 12:10 | NUR ---
LEFT SECOND VOICEMAIL WITH DR. GUILLEN TO GIVE UPDATE ON PT'S LEAKING G-TUBE. AWAITING CALL BACK.
--- NOTE | 2019-07-13 12:15 | NUR ---
NOTIFIED DR. VILA OF LEAKING G-TUBE, PER PHYSICIAN CONTINUE TO CALL DR. GUILLEN. REPORTED LOW POTASSIUM LEVEL OF 3.1 AND 1 CLOTTED PORT/LUMEN ON MIDLINE. ORDERS RECEIVED, CARRIED OUT ORDERS.
--- NOTE | 2019-07-13 13:00 | NUR ---
ORAL TEMPERATURE AT 98.7, WILL CONTINUE TO GIVE COOLING MEASURES.
[2019-07-13] MEDS: THERAHONEY GEL 42.5 GM TP SCH (13:11)
--- NOTE | 2019-07-13 13:31 | NUR ---
UNABLE TO DRAW BLOOD FROM PORT AFTER 30 MINUTES OF ADMINISTRATION OF ALTEPLASE. WILL REASSESS AT A LATER TIME PER INSTRUCTION.
--- NOTE | 2019-07-13 13:56 | NUR ---
Discharge planning. Clinicals faxed to [facility] .
--- NOTE | 2019-07-13 15:31 | NUR ---
MIDLINE DOUBLE LUMEN PORTS FLUSHING WITH NO RESISTANCE, DRESSING CLEAN, DRY AND INTACT.
[2019-07-13 16:00] VITALS: BP 91/56
--- NOTE | 2019-07-13 17:14 | NUR ---
ADMINISTERED IV ZOSYN PER ORDER, PT NODS FOR UNDERSTANDING OF MEDICATION'S INDICATION AND POTENTIAL SIDE EFFECTS.
[2019-07-13] MEDS ORDERED: POTASSIUM CHLORIDE 40 MEQ, LIDOCAINE MPF 1% 25 MG in NACL 0.9% 250 ML IV SCH (18:00)
--- NOTE | 2019-07-13 18:16 | NUR ---
TYLENOL ADMINISTERED FOR ORAL TEMP AT 100.2, CONTINUED WITH COOLING MEASURES.
--- NOTE | 2019-07-13 19:05 | NUR ---
ENDORSED PT TO BUSINESS DEAN NURSE. PT HAS NO SIGNS OF DISTRESS AT THIS TIME.
--- NOTE | 2019-07-13 19:06 | NUR ---
RECEIVED REPORT FROM AM SHIFT NURSE FOR CONTINUITY OF CARE. PATIENT ALERT AND AWAKE. ABLE TO MOUTH WORDS. DENIES PAIN AT THIS TIME. ON PROP AND SCENERY MAKER. NO RESPIRATORY DISTRESS NOTED. ON VENT TO TRACH. O2 SAT AT 100%. ABDOMEN SOFT AND NONTENDER. COLOSTOMY ON RIGHT ABDOMEN. INTACT. GT ON LEFT ABDOMEN RUNNING VITAL AF AT 65ML/HR WITH 100ML WATER FLUSH EVERY 4 HRS. BARR CATHETER INTACT AND IN PLACE WITH YELLOW OUTPUT. FALL PRECAUTIONS OBSERVED. BED IN LOW POSITION. CALL LIGHT WITHIN REACH. WILL CONTINUE TO MONITOR.
[2019-07-13 20:00] VITALS: BP 92/60
--- NOTE | 2019-07-13 20:20 | NUR ---
PATIENT NOTED WITH 100.7 TEMPERATURE. ADDITIONAL INTERVENTIONS RENDERED. ICE PACKS PLACED ON PATIENT. SPONGE BATH RENDERED. COLD WET TOWEL PLACED ON FOREHEAD. WILL CONTINUE TO MONITOR.
[2019-07-13] MEDS ORDERED: MAG SULF 2000 MG/WATER PREMIX 100 ML IV SCH (21:00)
--- NOTE | 2019-07-13 22:18 | NUR ---
PRN TYLENOL GIVEN FOR FEVER GREATER THAN 100. LATEST TEMP IS 100.4. COOLING MEASURES STILL IN PLACE. GIVEN PRN NORCO FOR PAIN. WILL CONTINUE TO MONITOR.
[2019-07-14] VITALS (7 sets, daily range): BP systolic 82–132; BP diastolic 48–77
[2019-07-14] MEDS: MIDODRINE 5 MG TAB GT SCH ×5 (00:03→23:47)
[2019-07-14] MEDS: PIPERACILLIN/TAZOBACTAM 3.375 GM in DEXTROSE 5% 50 ML IV SCH ×5 (00:05→23:48)
--- NOTE | 2019-07-14 00:15 | NUR ---
RECHECKED TEMPERATURE. NOTED WITH 98.9 TEMP. COOLING MEASURES KEPT IN PLACE. WILL CONTINUE TO MONITOR.
[2019-07-14] MEDS: ALBUTEROL 0.083% 2.5 MG/3 ML NEBU IH SCH ×4 (01:35→20:50)
[2019-07-14] MEDS: IPRATROPIUM 0.02% 0.5 MG/2.5 ML NEBU IH SCH ×4 (01:35→20:50)
--- NOTE | 2019-07-14 01:45 | NUR ---
ROUNDS DONE. PATIENT AWAKE IN BED, WATCHING TV. NO RESPIRATORY DISTRESS NOTED. REFUSED REPOSITIONING.
--- NOTE | 2019-07-14 02:10 | NUR ---
ROUNDS DONE. PATIENT ASLEEP IN BED. NOTED WITH VISIBLE CHEST RISE AND FALL. ON TRACH TO VENT. NO DISTRESS NOTED. SAFETY ENSURED. WILL CONTINUE TO MONITOR.
[2019-07-14] MEDS: ACETAMINOPHEN 650 MG/20.3 ML UDC PO PRN (02:21)
--- NOTE | 2019-07-14 04:02 | NUR ---
CHECKS DONE. PATIENT ASLEEP AT THIS TIME. NOTED WITH VISIBLE CHEST RISE AND FALL. NO DISTRESS NOTED. SAFETY ENSURED. BED IN LOW POSITION. BED ALARM ON. WILL CONTINUE TO MONITOR.
--- NOTE | 2019-07-14 04:37 | NUR ---
0430 TRACH CARE DONE ON PATIENT
--- NOTE | 2019-07-14 05:56 | NUR ---
DUE MEDICATIONS GIVEN ORDERED. PATIENT ASLEEP IN BED. AROUSABLE TO . DENIES PAIN AT THIS TIME. NO DISTRESS NOTED. SAFETY ENSURED. BED ALARM ON. BED IN LOW POSITION. CALL LIGHT WITHIN REACH.
--- NOTE | 2019-07-14 06:15 | NUR ---
ROUNDS DONE. PATIENT ASLEEP. VISIBLE CHEST RISE AND FALL NOTED. NO DISTRESS NOTED. SAFETY ENSURED. BED IN LOW POSITION. BED ALARM ON. WILL ENDORSE TO NEXT LN FOR CONTINUITY OF CARE.
--- NOTE | 2019-07-14 06:53 | NUR ---
REC'D PT ON CARESCAPE VENT SETTINGS AC20 VT 475 PEEP 5 FIO2 28% ALARMS ON AND AUDIBLE AND AMBU BAG AT SIDE OF VENT AND VENT IS PLUGGED INTO RED OUTLET I\L TX GIVEN WITH ALBUTEROL 2.5MG AND ATROVENT O.5MG WITH NO ADVERSE REACTIONS POST TX B\S ARE RHONCHI BILATERALLY, SXN PT MODERATE AMT OF CREAMY COLOR SECRETIONS PT IS TRACH WITH SHILEY 6 XLT PT IS SLEEPING
--- NOTE | 2019-07-14 07:27 | NUR ---
RECEIVED REPORT FROM MATZO FORMING MACHINE OPERATOR NURSE. PATIENT LYING DOWN IN BED SLEEPING, AROUSABLE BY VOICE. NO DISTRESS NOTED. DENIES ANY PAIN. AAOX2, CALM, COOPERATIVE, SKIN COLOR APPROPRIATE TO ETHNICITY, WARM TO TOUCH. HAS SACRAL, RIGHT SHOULDER, LLE AND B/L HEELS WOUNDS. DRESSINGS DRY AND INTACT. RESPIRATIONS EVEN, UNLABORED, ON TRACH TO VENT WITH VENT SETTINGS: FIO02:30, VT475, RATE:20, FLOW:40, PEEP:5, PMAX:50, SPO02:98%. HAS RIGHT UPPER ARM MIDLINE, INFUSING IVF PER MD ORDERS. REVIEWED PLAN OF CARE WITH PATIENT. PATIENT VERBALIZED UNDERSTANDING. REINFORCEMENT NEEDED. SAFETY MEASURES IN PLACE, CALL LIGHT WITHIN REACH. WILL CONTINUE TO MONITOR.
[2019-07-14 07:45] LABS: BASOPHILS # (AUTO) 0.1 K/uL (0.00-0.22); BASOPHILS % (AUTO) 0.8 % (0.0-2.0); EOSINOPHILS # (AUTO) 0.9 K/uL (0-0.4); EOSINOPHILS % (AUTO) 5.1 % (0.0-4.0); HEMATOCRIT 23.4 % (36-52); HEMOGLOBIN 7.5 g/dL (12.0-18.0); LYMPHOCYTES # (AUTO) 1.8 K/uL (2.0-11.5); MEAN CORPUSCULAR HEMOGLOBIN 30 pg (27-31); MEAN CORPUSCULAR HGB CONC 32 g/dL (33-37); MEAN CORPUSCULAR VOLUME 94.1 fL (80-94); MONOCYTES # (AUTO) 1.1 K/uL (0.8-1.0); MONOCYTES % (AUTO) 6.2 % (1.7-9.3); NEUTROPHILS # (AUTO) 13.9 K/uL (1.8-7.7); NEUTROPHILS % (AUTO) 77.9 % (42.2-75.2); PLATELET COUNT (AUTO) 360 K/uL (140-450); RED BLOOD CELL COUNT(AUTO) 2.49 MIL/uL (4.20-6.10); RED CELL DISTRIBUTION WIDTH 14.7 % (11.6-13.7); WHITE BLOOD COUNT (AUTO) 17.8 K/uL (4.8-10.8)
[2019-07-14 08:08] LABS: ALBUMIN 1.9 g/dL (3.4-5.0); ANION GAP 14.6 (8-16); CARBON DIOXIDE 24.5 mmol/L (21-32); CREATININE 0.8 mg/dL (0.7-1.3); POTASSIUM 3.1 mmol/L (3.5-5.1); TOTAL BILIRUBIN 0.2 mg/dL (0.0-1.0)
[2019-07-14] MEDS: PANTOPRAZOLE 40 MG INJ VIAL IVP SCH (09:48)
[2019-07-14] MEDS: ASCORBIC ACID 500 MG/5 ML ORASYR GT SCH ×2 (09:48→20:24)
[2019-07-14] MEDS: FERROUS SULFATE 300 MG/5 ML UDC GT SCH ×2 (09:48→20:24)
[2019-07-14] MEDS: ZINC SULF 220 MG CAP GT SCH (09:49)
[2019-07-14] MEDS: Z-GUARD PASTE TP SCH (09:49)
--- NOTE | 2019-07-14 10:01 | NUR ---
PATIENT LYING DOWN IN BED SLEEPING, AROUSABLE BY VOICE. NO DISTRESS NOTED. DENIES ANY PAIN. SCHEDULED MEDICATIONS DUE GIVEN. WILL CONTINUE TO MONITOR.
[2019-07-14] MEDS: AMIKACIN 450 MG in DEXTROSE 5% 100 ML IV SCH (11:41)
--- NOTE | 2019-07-14 12:06 | NUR ---
ASSISTED METER AND REGULATOR SHOP SUPERVISOR IN CLEANING AND REPOSITIONING PATIENT. COLOSTOMY SITE LEAKING, COLOSTOMY SITE AND BAG CHANGED. PATIENT TOLERATED WELL. WOUND DRESSINGS CHANGED ON SACRAL AND BACK PER MD ORDERS. SCHEDULED MEDICATIONS DUE GIVEN. WILL CONTINUE TO MONITOR.
[2019-07-14] MEDS: THERAHONEY GEL 42.5 GM TP SCH (13:05)
--- NOTE | 2019-07-14 13:17 | NUR ---
PATIENT LYING DOWN IN BED. NO DISTRESS NOTED. SUCTIONING PERFORMED. SCHEDULED MEDICATIONS DUE GIVEN. WILL CONTINUE TO MONITOR.
--- NOTE | 2019-07-14 13:56 | NUR ---
1356: Received patient from STEPHANIE Cook. Patient in isolation. In stable condition.
--- NOTE | 2019-07-14 14:07 | NUR ---
GAVE REPORT TO STEPHANIE JONES FOR CONTINUITY OF CARE. PATIENT IN STABLE CONDITION.
[2019-07-14] MEDS ORDERED: HYDROcodone/APAP 5/325 MG 1 TAB TAB PO PRN (17:35)
[2019-07-14] MEDS ORDERED: MAGNESIUM OXIDE 400 MG TAB PO PRN (17:35)
[2019-07-14] MEDS ORDERED: MAG SULF 2000 MG/WATER PREMIX 50 ML IV PRN (17:35)
[2019-07-14] MEDS ORDERED: ALUMINUM HYD/MAG/SIMETHICONE 30 ML UDC PO PRN (17:35)
[2019-07-14] MEDS ORDERED: POTASSIUM CHLORIDE 10 MEQ TABER PO PRN (17:35)
[2019-07-14] MEDS ORDERED: ACETAMINOPHEN 325 MG TAB PO PRN (17:35)
[2019-07-14] MEDS ORDERED: guaiFENesin DM 200/20 MG-10 ML 10 ML UDC PO PRN (17:35)
[2019-07-14] MEDS ORDERED: MAGNESIUM OXIDE 400 MG TAB GT PRN (17:39)
[2019-07-14] MEDS ORDERED: guaiFENesin DM 200/20 MG-10 ML 10 ML UDC GT PRN (17:39)
[2019-07-14] MEDS: POTASSIUM CHLORIDE 20% 40 MEQ/15 ML UDC GT PRN (17:57)
[2019-07-14] MEDS: ACETAMINOPHEN 650 MG/20.3 ML UDC GT PRN (17:58)
--- NOTE | 2019-07-14 19:25 | NUR ---
RECEIVED BEDSIDE REPORT FROM DAY SHIFT NURSE. PATIENT LYING DOWN IN BED.NO DISTRESS NOTED. DENIES ANY PAIN. CALM, COOPERATIVE, SKIN WARM AND DRY TO TOUCH. HAS SACRAL, RIGHT SHOULDER, LLE AND B/L HEELS WOUNDS. DRESSINGS DRY AND INTACT. RESPIRATIONS EVEN, UNLABORED, ON TRACH TO VENT WITH VENT SETTINGS: FIO02:30, VT475, RATE:20, FLOW:40, PEEP:5, PMAX:50, SPO02:98%. RIGHT UPPER ARM MIDLINE NOTED, INTACT, PATENT, AND ASYMPTOMATIC. SAFETY MEASURES IN PLACE, CALL LIGHT WITHIN REACH. WILL CONTINUE TO MONITOR.
--- NOTE | 2019-07-14 20:24 | NUR ---
GIVEN FERROUS SULFATE AND VITAMIN C MD ORDERED. PT TOLERATED WELL. Addendum: 07/15/19 at 0416 by Addy Nguyen RN 5ML OF RESIDUAL NOTED.
--- NOTE | 2019-07-14 21:20 | NUR ---
RECEIVED TRACH PT WITH SHILEY 6 XLT ON VENT SETTINGS ORDERED. SUCTION: MOD CLEAR WHITE THIN. VENT PLUGGED IN RED OUTLET. BVM ON BEDSIDE. NO RESPIRATORY DISTRESS NOTED AT THIS TIME. TX GIVEN ORDERED. NO ADVERSE REACTION. WILL CONTINUE TO MONITOR PT
--- NOTE | 2019-07-14 22:05 | NUR ---
PROVIDE 2TIMES OF SUCTION. PT TOLERATED WELL.
--- NOTE | 2019-07-14 23:47 | NUR ---
GIVEN PROAMATINE AND ZOSYN MD ORDERED. PT TOLERATED WELL. VS CHECKED, BP 100.2. WILL MEDICATE. Addendum: 07/15/19 at 0416 by Addy Nguyen RN 5ML OF RESIDUAL NOTED.
[2019-07-15] VITALS (10 sets, daily range): BP systolic 95–124; BP diastolic 55–90
[2019-07-15] MEDS: ACETAMINOPHEN 650 MG/20.3 ML UDC GT PRN (00:21)
--- NOTE | 2019-07-15 00:21 | NUR ---
GIVEN TYLENOL FOR BT 100.2 MD ORDERED. PROVIDE COLD TOWEL ON FOREHEAD. PT TOLERATED WELL. WILL CONTINUE TO MONITOR.
--- NOTE | 2019-07-15 01:20 | NUR ---
BT CHECKED, 98.8. PT SLEEPING IN BED. NO ACUTE DISTRESS NOTED.
[2019-07-15] MEDS: HYDROcodone/APAP 5/325 MG 1 TAB TAB GT PRN ×2 (01:54→23:47)
--- NOTE | 2019-07-15 01:54 | NUR ---
PT C/O PAIN, 6/10. 5ML OF RESIDUAL NOTED. GIVEN NORCO MD ORDERED. PT TOLERATED WELL.
[2019-07-15] MEDS: ALBUTEROL 0.083% 2.5 MG/3 ML NEBU IH SCH ×4 (01:59→19:35)
[2019-07-15] MEDS: IPRATROPIUM 0.02% 0.5 MG/2.5 ML NEBU IH SCH ×4 (01:59→19:35)
--- NOTE | 2019-07-15 03:01 | NUR ---
SUCTION PROVIDED. PT TOLERATED WELL.
--- NOTE | 2019-07-15 04:02 | NUR ---
VS CHECKED, WITHIN PT'S BASELINE. WILL CONTINUE TO MONITOR.
[2019-07-15] MEDS: PIPERACILLIN/TAZOBACTAM 3.375 GM in DEXTROSE 5% 50 ML IV SCH ×3 (05:46→18:38)
[2019-07-15] MEDS: MIDODRINE 5 MG TAB GT SCH ×4 (05:46→23:47)
--- NOTE | 2019-07-15 05:46 | NUR ---
GIVEN PROAMATINE AND ZOSYN MD ORDERED. EMPTY COLOSTOMY BAG, 200ML. PT TOLERATED WELL. Addendum: 07/15/19 at 0604 by Addy Nguyen RN 5ML OF RESIDUAL NOTED.
--- NOTE | 2019-07-15 06:39 | NUR ---
PT SLEEPING IN BED. NO ACUTE DISTRESS NOTED.
--- NOTE | 2019-07-15 07:25 | NUR ---
RECEIVED REPORT FROM HUMAN RESOURCES RECORDS CLERK NURSE. PATIENT LYING DOWN IN BED SLEEPING, AROUSABLE BY VOICE. NO DISTRESS NOTED. DENIES ANY PAIN. AAOX2, CALM, COOPERATIVE, SKIN COLOR APPROPRIATE TO ETHNICITY, WARM TO TOUCH. HAS SACRAL, RIGHT SHOULDER, LLE AND B/L HEELS WOUNDS. DRESSINGS DRY AND INTACT. RESPIRATIONS EVEN, UNLABORED, ON TRACH TO VENT WITH VENT SETTINGS: FIO02:30, VT475, RATE:20, FLOW:40, PEEP:5, PMAX:50, SPO02:98%. HAS RIGHT UPPER ARM MIDLINE, INFUSING IVF PER MD ORDERS. REVIEWED PLAN OF CARE WITH PATIENT. PATIENT VERBALIZED UNDERSTANDING. REINFORCEMENT NEEDED. SAFETY MEASURES IN PLACE, CALL LIGHT WITHIN REACH. WILL CONTINUE TO MONITOR.
[2019-07-15 07:49] LABS: BASOPHILS # (AUTO) 0.1 K/uL (0.00-0.22); BASOPHILS % (AUTO) 0.9 % (0.0-2.0); EOSINOPHILS # (AUTO) 0.7 K/uL (0-0.4); EOSINOPHILS % (AUTO) 4.5 % (0.0-4.0); HEMATOCRIT 28.6 % (36-52); LYMPHOCYTES # (AUTO) 1.6 K/uL (2.0-11.5); LYMPHOCYTES % (AUTO) 11.1 % (20.5-51.1); MEAN CORPUSCULAR HEMOGLOBIN 30 pg (27-31); MEAN CORPUSCULAR HGB CONC 32 g/dL (33-37); MEAN CORPUSCULAR VOLUME 95.2 fL (80-94); MONOCYTES # (AUTO) 1.1 K/uL (0.8-1.0); MONOCYTES % (AUTO) 7.5 % (1.7-9.3); NEUTROPHILS # (AUTO) 11.1 K/uL (1.8-7.7); PLATELET COUNT (AUTO) 347 K/uL (140-450); WHITE BLOOD COUNT (AUTO) 14.6 K/uL (4.8-10.8)
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
[2019-07-15 08:44] LABS: ANION GAP 16.6 (8-16); CARBON DIOXIDE 22.1 mmol/L (21-32); POTASSIUM 3.7 mmol/L (3.5-5.1)
[2019-07-15 08:45] LABS: ALBUMIN 2.1 g/dL (3.4-5.0); CREATININE 0.9 mg/dL (0.7-1.3); TOTAL BILIRUBIN 0.2 mg/dL (0.0-1.0)
[2019-07-15] MEDS: FERROUS SULFATE 300 MG/5 ML UDC GT SCH ×2 (09:39→21:09)
[2019-07-15] MEDS: PANTOPRAZOLE 40 MG INJ VIAL IVP SCH (09:39)
[2019-07-15] MEDS: ZINC SULF 220 MG CAP GT SCH (09:40)
[2019-07-15] MEDS: ASCORBIC ACID 500 MG/5 ML ORASYR GT SCH ×2 (09:40→21:10)
[2019-07-15] MEDS: Z-GUARD PASTE TP SCH (09:40)
--- NOTE | 2019-07-15 09:53 | NUR ---
PATIENT LYING DOWN IN BED SLEEPING, AROUSABLE BY VOICE. NO DISTRESS NOTED. DENIES ANY PAIN. SCHEDULED MEDICATIONS DUE GIVEN. WILL CONTINUE TO MONITOR.
--- NOTE | 2019-07-15 10:00 | NUR ---
WOUND CARE RE-EVALUATION, MULTIPLE WOUNDS RESPONDING TO CURRENT TREATMENT PLAN, WILL CONTINUE THE SAME.
--- NOTE | 2019-07-15 10:51 | NUR ---
RESTING WELL WITHOUT PULMONARY DISTRESS NOTED GOOD CHEST RISE AIRWAY PATENT
[2019-07-15] MEDS: AMIKACIN 450 MG in DEXTROSE 5% 100 ML IV SCH (11:13)
--- NOTE | 2019-07-15 11:20 | NUR ---
PATIENT LYING DOWN IN BED SLEEPING, AROUSABLE BY VOICE. NO DISTRESS NOTED. FLACC 0. SCHEDULED MEDICATIONS DUE GIVEN. WILL CONTINUE TO MONITOR.
--- NOTE | 2019-07-15 13:00 | NUR ---
ASSISTED SENIOR ADVISORY IN CLEANING AND REPOSITIONING PATIENT. WOUND DRESSINGS CHANGED. TUBE FEEDING CHANGED. WILL CONTINUE TO MONITOR.
[2019-07-15] MEDS: THERAHONEY GEL 42.5 GM TP SCH (13:06)
--- NOTE | 2019-07-15 13:14 | NUR ---
Called [facility] [place] and informed admissions that pt will be discharge tomorrow. Pt will be going to room 3C per Josephine.
--- NOTE | 2019-07-15 13:54 | NUR ---
RESTING WELL NO EVIDENCE OF RESPIRATORY DISTRESS NOTED EQUAL CHEST RISE NO DEEP TRACHEAL SUCTIONING REQUIRED AT THIS TIME AIRWAY PATENT OROPHARYNGEAL SUCTION FOR MODERATE FROTHY CLEAR SECRETIONS
--- NOTE | 2019-07-15 16:22 | NUR ---
RN AT BEDSIDE FOR PATIENT PHYSICAL HYGIENE AND REPOSITION NO SOB NOTED INFUSION RN TO ASSESS AT A LATER TIME
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
--- NOTE | 2019-07-15 18:58 | NUR ---
SCHEDULED MEDICATIONS DUE GIVEN. WILL CONTINUE TO MONITOR.
--- NOTE | 2019-07-15 19:14 | NUR ---
GAVE REPORT TO CUT OUT PRESS OPERATOR NURSE FOR CONTINUITY OF CARE. PATIENT IN STABLE CONDITION.
--- NOTE | 2019-07-15 19:22 | NUR ---
RECEIVED REPORT FORM JEANNA BROWN DAYSHIFT NURSE AT BEDSIDE FOR CONTINUITY OF CARE, PT IN STABLE CONDITION.
--- NOTE | 2019-07-15 20:00 | NUR ---
PT ON WOUND BED, HE WAS REPOSITIONED AND MADE COMFORTABLE. PICC LINE INTACT AND RUNNING NS TO KVO. GT TUBE FEEDING AF 1.2 RUNNING AT 65MLS/HR, NO RESIDUAL NOTED. COLOSTOMY BAG INTACT AND DRAINING LIQUID STOOL. BARR CATHETER INTACT AND DRAINING YELLOW URINE. PT REMAINS TRACH TO VENT AND IS STATING 100%. PT REMAINS ON TRACH TO VENT AND IS STATING AT 100%. PT RECEIVED NEB TX AT BEDSIDE. V/S FOLLOWS T 98.0 P 100 R 20 WITH ALL CURRENT VENT SETTINGS, B/P 98/55. ORAL CARE PROVIDED TO PT. ALL CONTACT, ASPIRATIONS AND CONTACT PRECAUTIONS IN PLACE. ALL REQUESTED NEEDS ATTENDED BY STAFF.
--- NOTE | 2019-07-15 21:00 | NUR ---
PT GIVEN SCHEDULED MEDS OF FERROUS SULFATE AND VITAMIN C VIA GT. EDUCATION REGARDING MEDICATION PROVIDED. ALL REQUESTED NEEDS ATTENDED BY STAFF. ALL FALLS, CONTACT AND ASPIRATION PRECAUTIONS IN PLACE.
--- NOTE | 2019-07-15 23:45 | NUR ---
PT ON WOUND BED WAS TURNED AND REPOSITIONED. PT SUCTIONED X2 AND ORAL CARE PROVIDED. PT GIVEN NORCO VIA GT FOR GENERALIZED PAIN. PT ALSO GIVEN SCHEDULED MIDODRINE FOR LOW B/P AND MAALOX FOR UPSET STOMACH.V/S FOLLOWS T 98.1 P 82 R 20 B/P 80/53 02 100% ON ALL VENT SETTINGS. ALL FALLS, CONTACT AND ASPIRATIONS PRECAUTIONS IN PLACE.
[2019-07-15] MEDS: ALUMINUM HYD/MAG/SIMETHICONE 30 ML UDC GT PRN (23:59)
[2019-07-16] VITALS (9 sets, daily range): BP systolic 80–128; BP diastolic 53–92
--- NOTE | 2019-07-16 | NUR ---
PT ON WOUND BED, HE WAS TURNED AND REPOSITIONED IN BED, V/S FOLLOWS T 98.1 P 82 R 20 B/P 80/53 02 100% ON CURRENT VENT SETTINGS. ORAL CARE PROVIDED. ALL FALLS, CONTACT AND ASPIRATION PRECAUTIONS IN PLACE.
[2019-07-16] MEDS: PIPERACILLIN/TAZOBACTAM 3.375 GM in DEXTROSE 5% 50 ML IV SCH ×4 (00:01→17:37)
[2019-07-16] MEDS: IPRATROPIUM 0.02% 0.5 MG/2.5 ML NEBU IH SCH ×4 (00:50→19:13)
[2019-07-16] MEDS: ALBUTEROL 0.083% 2.5 MG/3 ML NEBU IH SCH ×4 (00:50→19:12)
--- NOTE | 2019-07-16 04:00 | NUR ---
PT IN BED WOUND CARE PROVIDED AND ALL WOUNDS DRESSINGS CHANGED. PT WAS TURNED AND REPOSITIONED. V/S FOLLOWS T 98.6 P 102 R 18 B/P 89/58 02 100% ON ALL VENT SETTINGS.
--- NOTE | 2019-07-16 06:00 | NUR ---
PT GIVEN ORDERED MEDS OF MIDODRINE VIA GT AND ZOSYN IV ABT HUNG AND RUNNING ORDERED. AT 100MLS/HR. PT SUCTIONED AND ORAL CARE PROVIDED. PT IN STABLE CONDITION.
[2019-07-16] MEDS: MIDODRINE 5 MG TAB GT SCH ×3 (06:14→17:35)
--- NOTE | 2019-07-16 07:28 | NUR ---
REPORT RECEIVED FROM BUSINESS PROCESS MANAGER NURSE, PT SLEEPING QUIETLY IN NO ACUTE DISTRESS, TRACH TO VENT, BARR TO GRAVITY, GT FEED ONGOING, COLOSTOMY IN PLACE, AROUSABLE, POC REVIEWED, NO IMMEDIATE NEEDS AT THIS TIME, ALL SAFETY MEASURES IN PLACE, WILL CONTINUE TO MONITOR
[2019-07-16 07:43] LABS: BASOPHILS # (AUTO) 0.1 K/uL (0.00-0.22); BASOPHILS % (AUTO) 0.8 % (0.0-2.0); EOSINOPHILS # (AUTO) 0.9 K/uL (0-0.4); EOSINOPHILS % (AUTO) 6.1 % (0.0-4.0); HEMATOCRIT 22.7 % (36-52); HEMOGLOBIN 7.2 g/dL (12.0-18.0); LYMPHOCYTES # (AUTO) 1.1 K/uL (2.0-11.5); LYMPHOCYTES % (AUTO) 7.5 % (20.5-51.1); MEAN CORPUSCULAR HEMOGLOBIN 30 pg (27-31); MEAN CORPUSCULAR HGB CONC 32 g/dL (33-37); MEAN CORPUSCULAR VOLUME 94.1 fL (80-94); MONOCYTES % (AUTO) 6.5 % (1.7-9.3); NEUTROPHILS # (AUTO) 11.6 K/uL (1.8-7.7); NEUTROPHILS % (AUTO) 79.1 % (42.2-75.2); PLATELET COUNT (AUTO) 408 K/uL (140-450); RED BLOOD CELL COUNT(AUTO) 2.41 MIL/uL (4.20-6.10); RED CELL DISTRIBUTION WIDTH 15.1 % (11.6-13.7); WHITE BLOOD COUNT (AUTO) 14.7 K/uL (4.8-10.8)
--- NOTE | 2019-07-16 08:09 | NUR ---
RECEIVED ON A [employer] R860 VENTILATOR PLUGGED INTO RED OUTLET TOLERATING WELL WITHOUT ADVERSE RECATIONS NOTED TO A Ryan SHILEY XLT #6 AIRWAY SECURED WITH A RAMESH TRACH TIE CUFF PRESSURE CHECKED NOTED AMBU BAG NOTED AT BEDSIDE RSTING COMFORTABLY WITHOUT PULMONARY DISTRESS NOTED EQUAL CHEST RISE DEEP TRACHEAL SUCTION FOR MODERATE THIN SOMMERS SECRETIONS AIRWAY PATENT
[2019-07-16 08:11] LABS: ANION GAP 16.8 (8-16); CARBON DIOXIDE 22.2 mmol/L (21-32); CREATININE 0.7 mg/dL (0.7-1.3); TOTAL BILIRUBIN 0.2 mg/dL (0.0-1.0)
[2019-07-16] MEDS: ASCORBIC ACID 500 MG/5 ML ORASYR GT SCH ×2 (09:21→21:01)
[2019-07-16] MEDS: PANTOPRAZOLE 40 MG INJ VIAL IVP SCH (09:21)
[2019-07-16] MEDS: ZINC SULF 220 MG CAP GT SCH (09:22)
[2019-07-16] MEDS: FERROUS SULFATE 300 MG/5 ML UDC GT SCH ×2 (09:22→21:01)
[2019-07-16] MEDS: Z-GUARD PASTE TP SCH (09:22)
--- NOTE | 2019-07-16 09:59 | NUR ---
RESTING WELL WITHOUT SOB NOTED GOOD CHEST RISE DEEP TRACHEAL SUCTION FOR MODERATE THICK YELLOW SECRETIONS AIRWAY PATENT
--- NOTE | 2019-07-16 10:05 | NUR ---
AM TRACH CARE DONE
[2019-07-16] MEDS ORDERED: KCL 20 MEQ/WATER INJ PREMIX 200 ML IV SCH (11:00)
--- NOTE | 2019-07-16 11:20 | NUR ---
NO RESPIRATORY DISTRESS NOTED GOOD CHEAT RISE DEEP TRACHEAL SUCTION WITH NO SPUTUM RETURN AIRWAY PATENT OROPHARYNX SUCTION FOR SMALL THIN TO FROTY CLEAR SECRETIONS
--- NOTE | 2019-07-16 11:20 | NUR ---
POSITION CHANGED, BED BATH GIVEN PT MAGY WELL.
--- NOTE | 2019-07-16 11:51 | NUR ---
Fish Packer Note: I received a call from Tu at [facility] , she stated they cannot accept patient today if discharged because of MOLD BURNER and MDRO, Electrical Products Sales Engineer Elenita made aware.
[2019-07-16] MEDS: AMIKACIN 450 MG in DEXTROSE 5% 100 ML IV SCH ×2 (11:53→12:04)
--- NOTE | 2019-07-16 13:02 | NUR ---
WOUND CARE DONE, PHOTOS TAKEN, PT MAGY WELL, SEE WOUND DOCUMENTATION.
[2019-07-16] MEDS: THERAHONEY GEL 42.5 GM TP SCH (13:03)
--- NOTE | 2019-07-16 13:19 | NUR ---
NO SOB NOTED GOOD CHEST RISE AIRWAY PATENT OROPHARYNX SUCTION FOR SMALL FROTHY SECRETIONS
--- NOTE | 2019-07-16 13:48 | NUR ---
07/16/19 RD FOLLOW UP COMPLETED PLEASE REFER TO NUTRITION ASSESSMENT UNDER CARE ACTIVITY FOR ESTIMATED NUTRITIONAL NEEDS. 1. CONTINUE VITAL 1.2 AF @ 65 ML/HR X 24 HR WITH FREE WATER FLUSH OF 100ML Q4H -THIS WILL PROVIDE 1560 ML OF VOLUME, 1872 KCAL, 117 GM OF PROTEIN WHICH MEETS 100% OF ESTIMATED NEEDS 2. CONTINUE VITAMIN C AND ZINC FOR WOUND HEALING 3. RD TO FOLLOW-UP 2-3 DAYS, HIGH RISK TANO BONDS RD
[2019-07-16] MEDS: SIMETHICONE 80 MG TAB.CHEW GT PRN (15:44)
--- NOTE | 2019-07-16 15:44 | NUR ---
PT WITH INCREASED BURPING, GAS RELEASING FROM GT SITE, ALSO C/O NAUSEA, ZOFRAN AND SIMETHICONE GIVEN PER PRN ORDER, WILL NOTIFY .
--- NOTE | 2019-07-16 18:30 | NUR ---
REPORTED INCREASED BURPING AND GAS, NAUSEA, SLIGHTLY DISTENDED ABD TO DR VILA ON THE PHONE, KUB ORDERED.
[2019-07-16] MEDS ORDERED: KCL 20 MEQ/WATER INJ PREMIX 100 ML IV SCH (18:45)
--- NOTE | 2019-07-16 19:13 | NUR ---
RECEIVED TRACH PT WITH SHILEY 6 XLT ON VENT SETTINGS ORDERED. VENT PLUGGED IN RED OUTLET, BVM AT BEDSIDE, ALARMS; SET AND AUDIBLE. NO RESPIRATORY DISTRESS NOTED AT THIS TIME. SUCTION: SMALL SOMMERS THIN SECRETIONS. TX GIVEN ORDERED. WILL CONTINUE TO MONITOR PT
--- NOTE | 2019-07-16 19:15 | NUR ---
RT AT BEDSIDE, PT SLEEPING IN NO ACUTE DISTRESS.
--- NOTE | 2019-07-16 19:24 | NUR ---
REPORT GIVEN TO SUPERVISOR NETWORK CONTROL OPERATORS NURSE, PT IN STABLE CONDITION.
--- NOTE | 2019-07-16 19:25 | NUR ---
RECEIVED REPORT FROM AZALEA RN DAYSHIFT NURSE AT BEDSIDE FOR CONTINUITY OF CARE, PT INSTABLE CONDITION.
--- NOTE | 2019-07-16 20:00 | NUR ---
PT ON WOUND BED, PICC LINE ON R UPPER ARM INTACT AND RUNNING N/S AT 10MLS/HR TO KEEP VEIN OPEN, PT COLOSTOMY BAG INTACT AND DRAINING LIQUID STOOL AND BARR CATHETER INTACT AND DRAINING LIGHT YELLOW URINE. PT HOB UP WITH ASPIRATION PRECAUTIONS IN PLACE. ORAL CARE PROVIDED. LUNGS SOUNDS DIMINISHED V/S FOLLOWS T 98.9 P 88 R 20 B/P 101/68 02 100% ON VENT SETTINGS. ALL CONTACT, ASPIRATION AND FALLS PRECAUTIONS IN PLACE.
--- NOTE | 2019-07-16 21:00 | NUR ---
PT GIVEN ALL DUE MEDS VIA GT. WHICH IS INTACT WITH NO RESIDUAL NOTED. G TUBE FEEDING RUNNING AT 65MLS/HR. PT GETTING X-RAY FOR KUB AT BEDSIDE, ORAL CARE PROVIDED. PT DECLINED TO BE TURNED AT THIS TIME. ALL CONTACTS, ASPIRATION AND FALLS PRECAUTIONS IN PLACE.
--- NOTE | 2019-07-16 23:30 | NUR ---
RT AT BEDSIDE PROVIDING NEB TREATMENT. PT V/S FOLLOWS T 98.6 P 92 R 20 B/P 84/54 02 100% ON ALL VENT SETTINGS. PT GIVEN DUE MEDS OF PROAMATINE FOR LOW B/P VIA GT WELL IV ABT ZOSYN. PT GIVEN PRN PRN MAALOX FOR GAS AND BELCHING. PT ALSO GIVEN NORCO FOR GENERALIZED PAIN VIA GT. NO RESIDUAL NOTED FROM GT. ORAL CARE PROVIDED AND PT DECLINED TO BE REPOSITIONED AT THIS TIME. ALL FALLS, ASPIRATION AND CONTACT PRECAUTIONS IN PLACE.
[2019-07-17] VITALS: BP 84/54
[2019-07-17] MEDS: MIDODRINE 5 MG TAB GT SCH ×4 (00:12→17:38)
[2019-07-17] MEDS: ALUMINUM HYD/MAG/SIMETHICONE 30 ML UDC GT PRN ×2 (00:13→22:11)
[2019-07-17] MEDS: HYDROcodone/APAP 5/325 MG 1 TAB TAB GT PRN ×4 (00:15→22:12)
[2019-07-17] MEDS: PIPERACILLIN/TAZOBACTAM 3.375 GM in DEXTROSE 5% 50 ML IV SCH ×4 (00:30→17:38)
[2019-07-17] MEDS: ALBUTEROL 0.083% 2.5 MG/3 ML NEBU IH SCH ×4 (00:45→20:09)
[2019-07-17] MEDS: IPRATROPIUM 0.02% 0.5 MG/2.5 ML NEBU IH SCH ×4 (00:45→20:09)
--- NOTE | 2019-07-17 03:45 | NUR ---
PT WAS TURNED, CHANGED AND REPOSITIONED. WOUND CARE AND ORAL CARE PROVIDED. PT REMAINS ON WOUND BED. PT LINENS CHANGED. ALL FALLS CONTACT AND ASPIRATION PRECAUTIONS IN PLACE. V/S FOLLOWS T 98.9 P 100 R 20 B/P 90/68 02 100%.
[2019-07-17 04:00] VITALS: BP 90/68
--- NOTE | 2019-07-17 04:40 | NUR ---
PT SUCTIONED AND ORAL CARE PROVIDED, PT C/O MODERATE AND GENERALIZED PAIN, PT GIVEN 1 TAB NORCO 5/325MG VIA GT.
--- NOTE | 2019-07-17 05:50 | NUR ---
HME, CATHETER CLOSED SUCTION, AND DRESSING CHANGED AT THIS TIME. NOTICED SMALL AMOUNT OF THICK YELLOW SECRETIONS ON DRESSING. SUCTION: SMALL CLEAR THIN SECRETIONS. PT TOLERATED PROCEDURE WELL. NO RESPIRATORY DISTRESS NOTICE DURING AND AFTER PROCEDURE. WILL CONTINUE TO MONITOR.
--- NOTE | 2019-07-17 06:30 | NUR ---
PT RECEIVED ORDERED AND SCHEDULED PROAMATINE GT WELL IV ABT ORDERED AND SCHEDULED ZOSYN. NEW FEEDING HUNG AND IS RUNNING AT 65MLS/HR ORDERED.
--- NOTE | 2019-07-17 07:09 | NUR ---
RECEIVED TRACH PT WITH A SHILEY 6 XLT ON VENT. SETTINGS AC/VC 20, VT 475, PEEP 5 AND FIO2 30%. PT OPENS HIS EYES AND IS NOT IN ANY DISTRESS. PT SUCTIONED OBTAINED SMALL AMOUNT OF PALE YELLOW SECRETIONS, AIRWAY IS PATENT AND TRCH IS SECURE. VENT IS PLUGGED INTO A RED OUTLET WITH ALARMS ON AND FUNCTIONING. WILL CONTINUE TO MONITOR.
--- NOTE | 2019-07-17 07:20 | NUR ---
RECEIVED PT FROM JOB DEVELOPER FOR DEAF ADULTS NURSE, CRICKET, PT IS ON A TRACH TO VENT WITH FI02 AT 30%, TIDAL VOLUME FOR 475, RATE IS 20 AND PEEP IS 5,PT IS BEDBOUND, BARR CATHETER IN PLACE, HAS A MIDLINE DOUBLE LUMEN, WITH NS INFUSING AT 10ML/HR, PT HAS A COLOSTOMY IN PLACE, HAS G-TUBE AND ON CONTINUOUS FEEDING OF VITAL AF 1.2 AT 65ML/HR AND WATER FLUSHING OF 100ML Q4H, SIDE RAILS ARE UP AND CALL LIGHT WITHIN REACH, FALL PRECAUTION INITIATED, BED ALARM ACTIVATED, NO SIGN OF DISTRESS NOTED AND WILL CONTINUE TO MONITOR PT.
[2019-07-17 07:35] LABS: ALBUMIN 2.1 g/dL (3.4-5.0); ANION GAP 18.3 (8-16); CARBON DIOXIDE 21.6 mmol/L (21-32); CREATININE 0.7 mg/dL (0.7-1.3); POTASSIUM 3.9 mmol/L (3.5-5.1); TOTAL BILIRUBIN 0.2 mg/dL (0.0-1.0)
--- NOTE | 2019-07-17 07:55 | NUR ---
BOBBI FROM LAB CALLED AND INFORMED ABOUT THE PT'S CA LEVEL OF 12.3.
[2019-07-17 08:00] VITALS: BP 103/76
--- NOTE | 2019-07-17 09:01 | NUR ---
DR. VILA CALLED AND INFORMED ABOUT THE PT'S CA LEVEL OF 12.3, MD MADE A TELEPHONE ORDER FOR AN IONIZED CA TEST, READ BACK AND VERIFIED AND WILL CARRY OUT ORDERS.
[2019-07-17 09:24] LABS: BASOPHILS # (AUTO) 0.1 K/uL (0.00-0.22); BASOPHILS % (AUTO) 0.9 % (0.0-2.0); EOSINOPHILS # (AUTO) 0.8 K/uL (0-0.4); EOSINOPHILS % (AUTO) 4.9 % (0.0-4.0); HEMATOCRIT 25.1 % (36-52); HEMOGLOBIN 7.8 g/dL (12.0-18.0); LYMPHOCYTES # (AUTO) 1.3 K/uL (2.0-11.5); LYMPHOCYTES % (AUTO) 7.8 % (20.5-51.1); MEAN CORPUSCULAR HEMOGLOBIN 29 pg (27-31); MEAN CORPUSCULAR HGB CONC 31 g/dL (33-37); MEAN CORPUSCULAR VOLUME 94.2 fL (80-94); MONOCYTES # (AUTO) 1.2 K/uL (0.8-1.0); MONOCYTES % (AUTO) 7.4 % (1.7-9.3); NEUTROPHILS # (AUTO) 13.1 K/uL (1.8-7.7); PLATELET COUNT (AUTO) 438 K/uL (140-450); RED BLOOD CELL COUNT(AUTO) 2.66 MIL/uL (4.20-6.10); RED CELL DISTRIBUTION WIDTH 15.3 % (11.6-13.7); WHITE BLOOD COUNT (AUTO) 16.6 K/uL (4.8-10.8)
[2019-07-17] MEDS: ZINC SULF 220 MG CAP GT SCH (09:55)
[2019-07-17] MEDS: PANTOPRAZOLE 40 MG INJ VIAL IVP SCH (09:55)
[2019-07-17] MEDS: ASCORBIC ACID 500 MG/5 ML ORASYR GT SCH ×2 (09:56→22:11)
[2019-07-17] MEDS: FERROUS SULFATE 300 MG/5 ML UDC GT SCH ×2 (09:56→22:10)
--- NOTE | 2019-07-17 09:56 | NUR ---
PT IS AWAKE AND NO SIGN OF DISTRESS NOTED, MEDICATIONS WERE GIVEN VIA G-TUBE AND NO RESIDUAL NOTED, WILL MONITOR PT.
[2019-07-17] MEDS: Z-GUARD PASTE TP SCH (10:00)
--- NOTE | 2019-07-17 10:26 | NUR ---
Transportation AUTH # [id number] from [facility].
--- NOTE | 2019-07-17 10:30 | NUR ---
PT WAS REPOSITIONED AND CLEANED NOW.
--- NOTE | 2019-07-17 11:03 | NUR ---
Transportation arranged with [facility] (will call). Pt will be transported to [facility].
--- NOTE | 2019-07-17 11:48 | NUR ---
FIO2 TITRATED TO 24%. PT NOT IN ANY DISTRESS. WILL CONTINUE TO MONITOR.
[2019-07-17 12:00] VITALS: BP 104/66
--- NOTE | 2019-07-17 13:00 | NUR ---
PT IS AWAKE AND BP IS 85/48, PULSE IS 88, MEDICATIONS WERE GIVEN VIA G-TUBE AND NO RESIDUAL NOTED, TOLERATED AND WILL CONTINUE TO MONITOR PT.
[2019-07-17] MEDS: THERAHONEY GEL 42.5 GM TP SCH (13:07)
--- NOTE | 2019-07-17 14:11 | NUR ---
Spoke with Gil from [facility] pt will be going back to room 3C with no isolation and the accepting MD is Dr. Monroe.
[2019-07-17 16:00] VITALS: BP 94/62
--- NOTE | 2019-07-17 17:24 | NUR ---
VENT CHECK COMPLETED. PT NOT IN ANY DISTRESS AT THIS TIME. TRACH REMAINS SECURE WITH A PATENT AIRWAY. VENT ALARMS REMAINS ON AND FUNCTIONING.
--- NOTE | 2019-07-17 17:38 | NUR ---
PT IS AWAKE AND BP IS 94/62, PULSE IS 88, MEDICATIONS WERE GIVEN VIA G-TUBE AND NO RESIDUAL NOTED, TOLERATED IT, WILL CONTINUE TO MONITOR PT.
--- NOTE | 2019-07-17 19:05 | NUR ---
ENDORSED PT TO CREDIT CARD CLERK NURSECRICKET FOR CONTINUITY OF CARE.
--- NOTE | 2019-07-17 19:10 | NUR ---
RECEIVED REPORT FORM JUAREZ RN DAYSHIFT NURSE AT BEDSIDE FOR CONTINUITY OF CARE, PT INSTABLE CONDITION.
[2019-07-17 20:00] VITALS: BP 97/64
--- NOTE | 2019-07-17 20:00 | NUR ---
PT ON WOUND BED RESTING WITH EYES CLOSED BUT AROUSABLE TO NAME, RESPIRATIONS EVEN AND UNLABORED AT 20 WITH ALL VENT SETTINGS. ORAL CARE PROVIDED. GT INTACT AND RUNNING VITAL AF 1.2 AT 65 MLS/HR. COLOSTOMY BAG INTACT AND DRAINING LIQUID BROWN STOOL. BARR CATHETER IN PLACE AND DRAINING YELLOW URINE. PT HAS NO S/S OF PAIN OR DISTRESS NOTED. V/S FOLLOWS T 98.7 P 87 R 20 B/P 97/64 02 98% TRACH TO VENT WITH ALL CURRENT VENT SETTINGS. ALL CONTACT , ASPIRATIONS AND FALLS PRECAUTIONS IN PLACE.
--- NOTE | 2019-07-17 21:00 | NUR ---
PT REPOSITIONED PER REQUEST AND ORAL CARE PROVIDED. PT GIVEN DUE MEDS OF FERROUS SULFATE AND VITAMIN C VIA GT. NO RESIDUAL NOTED. ALL CONTACT, ASPIRATION AND FALLS PROTOCOL IN PLACE. ALL REQUESTED NEEDS ATTENDED.
--- NOTE | 2019-07-17 21:45 | NUR ---
DR. ROSEMARY RANGEL FOR INFECTIOUS DISEASE AT BEDSIDE FOR CONSULT WITH PT.
--- NOTE | 2019-07-17 22:15 | NUR ---
PT C/O 02/23 GENERALIZED BODY ACHES, PT GIVEN 1 TAB NORCO VIA GT. WILL MONITOR FOR PAIN REIELF.
[2019-07-18] VITALS (7 sets, daily range): BP systolic 85–129; BP diastolic 46–79
[2019-07-18] MEDS: MIDODRINE 5 MG TAB GT SCH ×5 (00:18→23:46)
[2019-07-18] MEDS: PIPERACILLIN/TAZOBACTAM 3.375 GM in DEXTROSE 5% 50 ML IV SCH ×5 (00:19→23:46)
--- NOTE | 2019-07-18 00:30 | NUR ---
PT ON WOUND BED, HE WAS TURNED, GOWN WAS CHANGED DUE TO SECRETIONS, HE WAS REPOSITIONED AND ORAL CARE PROVIDED. PT GIVEN SCHEDULED MIDODRINE FOR HYPOTENSION. PT V/S FOLLOWS T 98.3 P 94 R 18 B/P 87/46 02 99% TRACH TO VENT, WITH ALL CURRENT VENT SETTINGS. ALL ASPIRATION, CONTACT AND FALLS PRECAUTIONS IN PLACE.
[2019-07-18] MEDS: IPRATROPIUM 0.02% 0.5 MG/2.5 ML NEBU IH SCH ×4 (00:45→19:28)
[2019-07-18] MEDS: ALBUTEROL 0.083% 2.5 MG/3 ML NEBU IH SCH ×4 (00:46→19:29)
--- NOTE | 2019-07-18 02:30 | NUR ---
PT TUBE FEEDING VITAL AF COMPLETED, NEW BOTTLE HUNG AND IS RUNNING ORDERED. PT WAS SUCTIONED X3 AND ORAL CARE PROVIDED, PT DECLINES TO TURN AT THIS TIME, PT C/O GENERALIZED PAIN WELL PAIN IN WOUNDS ON SHOULDERS, PT GIVEN 1 TAB OF NORCO VIA GT FOR MODERATE PAIN. ALL ASPIRATION, CONTACT AND FALLS PRECAUTIONS IN PLACE. ALL REQUESTED NEEDS ATTENDED BY STAFF AND CALL MCINTYRE IN REACH.
[2019-07-18] MEDS: HYDROcodone/APAP 5/325 MG 1 TAB TAB GT PRN ×2 (02:32→10:20)
--- NOTE | 2019-07-18 04:00 | NUR ---
PT WAS TURNED, CHANGE AND REPOSITIONED. WOUND CARE PROVIDED TO PT. V/S FOLLOWS T 98.8 P 96 R 20 B/P 85/55 02 98% ON ROOM AIR.
--- NOTE | 2019-07-18 06:30 | NUR ---
PT GIVEN DUE MEDS OF MIDODRINE FOR LOW BLOOD PRESSURE. PT ALSO GIVEN IV ABT ZOSYN HUNG AND RUNNING AT 100MLS/HR ORDERED. ALL REQUESTED NEEDS ATTENDED BY STAFF. ALL ASPIRATIONS, CONTACT AND FALLS PRECAUTIONS IN PLACE.
--- NOTE | 2019-07-18 07:30 | NUR ---
REPORT RECEIVED FROM EXERCISER NURSE, PT SLEEPING QUIETLY IN NO ACUTE DISTRESS, RESP EVEN UNLABORED ON TRACH TO VENT, SKIN WARM DRY COLOR WNL, AROUSES EASILY, DENIES PAIN OR DISCOMFORT, BARR TO GRAVITY, GT FEED ONGOING, COLOSTOMY BAG IN PLACEMIDLINE TO FEDE, SITE WNL, POC REVIEWED, ALL SAFETY MEASURES IN PLACE, NO IMMEDIATE NEEDS AT THIS TIME, RT AT BEDSIDE, WILL CONTINUE TO MONITOR.
--- NOTE | 2019-07-18 07:30 | NUR ---
RECEIVED TRACH PT WITH A SHILEY 6 XLT ON VENT. SETTINGS AC/VC 20, VT 475, PEEP 5 AND FIO2 24%. PT OPENS HIS EYES AND IS NOT IN ANY DISTRESS. PT SUCTIONED OBTAINED SMALL AMOUNT OF YELLOW SECRETIONS, AIRWAY IS PATENT AND TRACH IS SECURE. VENT IS PLUGGED INTO A RED OUTLET WITH ALARMS ON AND FUNCTIONING. WILL CONTINUE TO MONITOR.
[2019-07-18 07:45] LABS: ALBUMIN 2.1 g/dL (3.4-5.0); ANION GAP 15.1 (8-16); CARBON DIOXIDE 24.1 mmol/L (21-32); CREATININE 0.7 mg/dL (0.7-1.3); POTASSIUM 3.2 mmol/L (3.5-5.1); TOTAL BILIRUBIN 0.2 mg/dL (0.0-1.0)
[2019-07-18 07:47] LABS: BASOPHILS # (AUTO) 0.2 K/uL (0.00-0.22); BASOPHILS % (AUTO) 1.1 % (0.0-2.0); EOSINOPHILS # (AUTO) 0.9 K/uL (0-0.4); EOSINOPHILS % (AUTO) 6.3 % (0.0-4.0); HEMATOCRIT 23.9 % (36-52); HEMOGLOBIN 7.5 g/dL (12.0-18.0); LYMPHOCYTES # (AUTO) 1.6 K/uL (2.0-11.5); LYMPHOCYTES % (AUTO) 11.1 % (20.5-51.1); MEAN CORPUSCULAR HEMOGLOBIN 30 pg (27-31); MEAN CORPUSCULAR HGB CONC 32 g/dL (33-37); MEAN CORPUSCULAR VOLUME 94.4 fL (80-94); MONOCYTES # (AUTO) 1.1 K/uL (0.8-1.0); MONOCYTES % (AUTO) 8.2 % (1.7-9.3); NEUTROPHILS # (AUTO) 10.3 K/uL (1.8-7.7); NEUTROPHILS % (AUTO) 73.3 % (42.2-75.2); PLATELET COUNT (AUTO) 462 K/uL (140-450); RED BLOOD CELL COUNT(AUTO) 2.53 MIL/uL (4.20-6.10); RED CELL DISTRIBUTION WIDTH 15.4 % (11.6-13.7)
[2019-07-18] MEDS ORDERED: POTASSIUM CHLORIDE 20% 40 MEQ/15 ML UDC ONE (08:07)
[2019-07-18] MEDS: FERROUS SULFATE 300 MG/5 ML UDC GT SCH ×2 (08:18→21:27)
[2019-07-18] MEDS: ZINC SULF 220 MG CAP GT SCH (08:18)
[2019-07-18] MEDS: PANTOPRAZOLE 40 MG INJ VIAL IVP SCH (08:18)
[2019-07-18] MEDS: ASCORBIC ACID 500 MG/5 ML ORASYR GT SCH ×2 (08:18→21:27)
[2019-07-18] MEDS: POTASSIUM CHLORIDE 20% 40 MEQ/15 ML UDC GT PRN (08:19)
[2019-07-18] MEDS: SIMETHICONE 80 MG TAB.CHEW GT PRN ×2 (08:19→17:56)
[2019-07-18] MEDS: Z-GUARD PASTE TP SCH (08:20)
--- NOTE | 2019-07-18 08:40 | NUR ---
AM MEDS GIVEN, PT MAGY WELL, ORAL CARE DONE, SML AMT SECRETION FROM MOUTH SUCTIONED, K AND MAG GIVEN PER GT PER PRN ORDER, GAS RELEASING FROM GT WHEN OPENED, SIMETHICONE GIVEN PER PRN, ABD SLIGHTLY DISTENDED BUT SOFT, COLOSTOMY BAG FILLED WITH GAS, EMPTIED, PT DENIES ANY IMMEDIATE NEEDS WILL CONTINUE TO MONITOR.
--- NOTE | 2019-07-18 10:05 | NUR ---
BEDBATH GIVEN, PT TURNED, COLOSTOMY BAG CHANGED, WOUND DRESSINGS ALL CLEAN DRY INTACT. PT C/O RIGHT SHOULDER PAIN, WILL MEDICATE WITH NORCO.
[2019-07-18] MEDS: AMIKACIN 450 MG in DEXTROSE 5% 100 ML IV SCH (11:51)
--- NOTE | 2019-07-18 11:51 | NUR ---
VENT CHECK COMPLETED. PT ASLEEP AT THIS TIME NOT IN ANY DISTRESS. WILL CONTINUE TO MONITOR.
--- NOTE | 2019-07-18 12:25 | NUR ---
PT SLEEPING QUIETLY IN NO ACUTE DISTRESS. APPEARS IN NO PAIN AT THIS TIME.
[2019-07-18] MEDS: THERAHONEY GEL 42.5 GM TP SCH (13:00)
--- NOTE | 2019-07-18 14:07 | NUR ---
RIGHT SHOULDER DRESSING CHANGED, POSITION CHANGED, PT MAGY WELL, RT AT BEDSIDE, PT WITH COPIOUS ORAL SECRETION, SUCTIONED.
--- NOTE | 2019-07-18 16:15 | NUR ---
PT'S ON THE PHONE, PHONE BROUGHT TO PT'S EAR.
--- NOTE | 2019-07-18 17:02 | NUR ---
PT WITH FACIAL GRIMACE, MOUTHES THAT HE WANTS "MORPHINE" FOR RIGHT SHOULDER PAIN, PRN MORPHINE ORDER , DR JOHNSTON PAGED FOR RENEWAL.
[2019-07-18] MEDS ORDERED: MORPHINE SULFATE 2 MG/ML SYR ONE (17:03)
--- NOTE | 2019-07-18 17:33 | NUR ---
PT SUCTIONED OBTAINED SMALL AMOUNT OF THICK YELLOW SECRETIONS, AIRWAY IS PATENT AND TRACH IS SECURE. PT AWAKE IN BED NOT IN ANY DISTRESS. VENT ALARMS ON AND FUNCTIONING.
--- NOTE | 2019-07-18 18:00 | NUR ---
LARGE AMT OF AIR RELEASED WHEN GT OPENED, SYMETHICONE GIVEN PER PRN ORDER.
--- NOTE | 2019-07-18 18:09 | NUR ---
PT RESTING WITH EYES CLOSED, APPEARS IN NO ACUTE DISTRESS.
--- NOTE | 2019-07-18 19:05 | NUR ---
RECEIVED REPORT FROM DAY SHIFT NURSE. PT RESTING IN BED WITH EYES CLOSED, EASILY AROUSABLE. TRACH TO VENT. NO S/S OF RESP DISTRESS. PT HAS G-TUBE WITH FEEDING VITAL AF 1.2 AT 65 ML/HR. BARR CATH IN PLACE, DRAINING LIGHT YELLOW URINE. COLOSTOMY BAG INTACT WITH LIQUID BROWN STOOL. PT HAS MULTIPLE PRESSURE ULCERS, DRESSING CLEAN, DRY AND INTACT. FALL, ASPIRATION, CONTACT ISOLATION PRECAUTIONS IN PLACE. CALL LIGHT WITHIN REACH.
--- NOTE | 2019-07-18 19:30 | NUR ---
RECEIVED TRACH PT WITH SHILEY 6 XLT ON VENT SETTINGS ORDERED. VENT PLUGGED IN RED OUTLET, BVM AT BEDSIDE, ALARMS; SET AND AUDIBLE. NO RESPIRATORY DISTRESS NOTED AT THIS TIME. SP02 99%, BREATH SOUNDS; COARSE. SUCTION: SMALL WHITE THIN SECRETIONS. TX GIVEN ORDERED. WILL CONTINUE TO MONITOR PT
--- NOTE | 2019-07-18 21:39 | NUR ---
GT RESIDUAL 5 ML. DUE MEDS GIVEN VIA G-TUBE. PT TOLERATED WELL. ASPIRATION PRECAUTION IN PLACE.
--- NOTE | 2019-07-18 22:03 | NUR ---
HUNG NEW BOTTLE OF VITAL AF 1.2 GT RESIDUAL 5 ML. ASPIRATION PRECAUTION IN PLACE.
--- NOTE | 2019-07-18 23:30 | NUR ---
PT ABLE TO MAKE NEEDS KNOWN. ALL NEEDS ATTENDED AT THIS TIME. SUCTIONED MOUTH SECRETIONS.
[2019-07-19] VITALS (7 sets, daily range): BP systolic 90–114; BP diastolic 50–75
--- NOTE | 2019-07-19 00:07 | NUR ---
PT REFUSED TO BE REPOSITIONED. C/O SHOULDER PAIN, PAIN MEDS GIVEN.
[2019-07-19] MEDS: IPRATROPIUM 0.02% 0.5 MG/2.5 ML NEBU IH SCH ×4 (01:05→19:33)
[2019-07-19] MEDS: ALBUTEROL 0.083% 2.5 MG/3 ML NEBU IH SCH ×4 (01:06→19:33)
--- NOTE | 2019-07-19 01:20 | NUR ---
PT WAS SUCTIONED AT THIS TIME; SMALL YELLOW THIN SECRETIONS.
--- NOTE | 2019-07-19 03:30 | NUR ---
PT RESTING IN BED WITH EYES CLOSED. NO S/S OF PAIN OR SOB. PT TOLERATING FEEDING WELL. PT KEPT CLEAN, DRY AND COMFORTABLE.
[2019-07-19] MEDS: HYDROcodone/APAP 5/325 MG 1 TAB TAB GT PRN ×4 (05:01→20:58)
--- NOTE | 2019-07-19 05:15 | NUR ---
SUCTIONED MOUTH SECRETIONS. LINEN CHANGED. PT WAS CLEANSED AND REPOSITIONED.PT KEPT CLEAN, DRY AND COMFORTABLE. SAFETY AND ASPIRATION PRECAUTIONS IN PLACE.
[2019-07-19] MEDS: MIDODRINE 5 MG TAB GT SCH ×3 (05:40→18:31)
[2019-07-19] MEDS: PIPERACILLIN/TAZOBACTAM 3.375 GM in DEXTROSE 5% 50 ML IV SCH ×3 (05:41→18:31)
--- NOTE | 2019-07-19 07:13 | NUR ---
ENDORSED PT TO DAY SHIFT NURSE. PT IN STABLE CONDITION.
--- NOTE | 2019-07-19 07:20 | NUR ---
REPORT RECEIVED FROM FAMILY RESOURCE MANAGEMENT SPECIALIST NURSE, PT SLEEPING, AROUSES EASILY, RESP EVEN UNLABORED, TRACH TO VNT, SKIN WARM DRY COLOR WNL, APPEARS IN NO ANY PAIN OR DISCOMFORT, POC REVIEWED, ALL SAFETY MEASURES IN PLACE, NO IMMEDIATE NEEDS AT THIS TIME, RT AT BEDSIDE, WILL CONTINUE TO MONITOR.
--- NOTE | 2019-07-19 07:35 | NUR ---
RECEIVED TRACH PT WITH A SHILEY 6 XLT ON VENT. SETTINGS AC/VC 20, VT 475, PEEP 5 AND FIO2 24%. PT OPENS HIS EYES AND IS NOT IN ANY DISTRESS. PT SUCTIONED OBTAINED SMALL AMOUNT OF WHITE SECRETIONS, AIRWAY IS PATENT AND TRACH IS SECURE. VENT IS PLUGGED INTO A RED OUTLET WITH ALARMS ON AND FUNCTIONING. WILL CONTINUE TO MONITOR.
[2019-07-19] MEDS: ASCORBIC ACID 500 MG/5 ML ORASYR GT SCH ×2 (08:43→20:58)
--- NOTE | 2019-07-19 08:43 | NUR ---
AM MEDS GIVEN, ORAL CARE DONE, POSITION CHANGED,
[2019-07-19] MEDS: FERROUS SULFATE 300 MG/5 ML UDC GT SCH ×2 (08:45→20:57)
[2019-07-19] MEDS: ZINC SULF 220 MG CAP GT SCH (08:45)
[2019-07-19] MEDS: PANTOPRAZOLE 40 MG INJ VIAL IVP SCH (08:46)
[2019-07-19] MEDS: Z-GUARD PASTE TP SCH (08:47)
--- NOTE | 2019-07-19 11:00 | NUR ---
REPOSITION PT, AMIKACIN STARTED, COLOSTOMY BAG VENTED, ON PHONE WITH PT.
--- NOTE | 2019-07-19 11:41 | NUR ---
PT ASLEEP AT THIS TIME NOT IN ANY DISTRESS. WILL CONTINUE TO MONITOR.
[2019-07-19] MEDS: AMIKACIN 450 MG in DEXTROSE 5% 100 ML IV SCH (11:45)
[2019-07-19] MEDS: SIMETHICONE 80 MG TAB.CHEW GT PRN (12:15)
--- NOTE | 2019-07-19 12:30 | NUR ---
07/19/19 RD FOLLOW UP COMPLETED PLEASE REFER TO NUTRITION PROGRESS NOTE UNDER CARE ACTIVITY FOR ESTIMATED NUTRITION NEEDS. RD RECOMMENDATIONS: 1. CONTINUE VITAL 1.2 AF @ 65 ML/HR X 24 HR WITH FREE WATER FLUSH OF 100 ML [id number] WILL PROVIDE 1560 ML OF VOLUME, 1872 KCAL, 117 GM OF PROTEIN WHICHMEETS 100% OF ESTIMATED NEEDS 2. CONTINUE VITAMIN C AND ZINC FOR WOUND HEALING 3. RD TO FOLLOW-UP 2-3 DAYS, HIGH RISK JC MOHR RD
[2019-07-19] MEDS: THERAHONEY GEL 42.5 GM TP SCH (13:09)
--- NOTE | 2019-07-19 13:15 | NUR ---
PT RECEIVED NORCO FOR SHOULDER PAIN, PT IS NOW RESTING. SCHEDULE DOSING STARTED, MIDLINE TO RIGHT UPPER ARM, SITE WNL, RT AT [facility] FOR NEB TREATMENT.
[2019-07-19] MEDS ORDERED: AMIKACIN PER PHARMACY MC PRN (15:55)
--- NOTE | 2019-07-19 16:05 | NUR ---
BEDBATH GIVEN, BARR CARE DONE, POSITION CHANGED, VITALS TAKEN, ORAL CARE DONE, PT'S ON THE PHONE.
--- NOTE | 2019-07-19 17:19 | NUR ---
VENT CHECK COMPLETED. PT AWAKE IN BED NOT IN ANY DISTRESS. VENT ALARMS REMAIN ON AND FUNCTIONING. TRACH IS SECURE WITH A PATENT AIRWAY.
--- NOTE | 2019-07-19 19:25 | NUR ---
REPORT GIVEN TO POLICE COMMUNICATIONS OPERATOR NURSE, CRICKET, PT IN STABLE CONDITION,
--- NOTE | 2019-07-19 19:25 | NUR ---
RECEIVED REPORT FROM AZALEA BROWN DAYSHIFT NURSE AT BEDSIDE FOR CONTINUITY OF CARE, PT IN STABLE CONDITION.
--- NOTE | 2019-07-19 19:34 | NUR ---
RECEIVED TRACH PT WITH A SHILEY 6 XLT ON VENT WITH SETTINGS ORDERED. TRACH SECURED. AIRWAY PATENT. VENT IS PLUGGED INTO A RED OUTLET WITH ALARMS SET AND AUDIBLE. BVM AT BEDSIDE. NO RESPIRATORY DISTRESS NOTED AT THIS TIME. TX GIVEN ORDERED. NO ADVERSE REACTION. SUCTIONED MODERATE SOMMERS THIN SECRETIONS. WILL CONTINUE TO MONITOR
--- NOTE | 2019-07-19 20:00 | NUR ---
PT ON WOUND BED GT IN PLACE NO RESIDUAL NOTED AND VITAL AF RUNNING AT 65MLS/HR ORDERED. PICC LINE INTACT AND RUNNING N/S AT 10MLS AN HR TO KVO. PT PROVIDED ORAL CARE COLOSTOMY BAG IN PLACE AND 100MLS OF LIQUID BROWN STOOL DRAINED FROM BAG. BARR CATHETER INTACT AND DRAINED 700MLS OF LIGHT YELLOW URINE. V/S FOLLOWS T 99.2 P 84 R 18 B/P 113/68 02 100% ON ALL CURRENT VENT TO TRACH SETTINGS. COOLING MEASURE OF ICE PACKS APPLIED FOR INCREASED TEMP. ALL FALLS , ASPIRATION AND CONTACT PRECAUTIONS IN PLACE.
--- NOTE | 2019-07-19 21:00 | NUR ---
PT GIVEN DUE MEDS OF FERROUS SULFATE AND VITAMIN C VIA G-TUBE NO RESIDUAL NOTED. EDUCATION REGARDING MEDICATION PROVIDED, PT CONFIRMED UNDERSTANDING. PT ALSO REQUESTED NORCO FOR GENERALIZED MODERATE PAIN 6/10, GIVEN 1 TAB 5/325MG NORCO VIA GT. ORAL CARE PROVIDED. ALL FALLS, ASPIRATION AND CONTACT PRECAUTIONS IN PLACE.
--- NOTE | 2019-07-19 22:00 | NUR ---
PT DECLINED TO TURN AT THIS TIME. NO S/S OF PAIN OR DISTRESS NOTED.ALL FALL AND CONTACT PRECAUTIONS IN PLACE.
--- NOTE | 2019-07-19 23:20 | NUR ---
SUCTIONED MODERATE AMOUNT OF SOMMERS THICK SECRETIONS.
[2019-07-20] VITALS (7 sets, daily range): BP systolic 94–125; BP diastolic 60–89
--- NOTE | 2019-07-20 | NUR ---
PT IN BED TURNED AND REPOSITIONED V/S FOLLOWS; T 99.0 P 90 R 20 (WITH ALL CURRENT VENT SETTINGS) B/P 106/63 02 100% WITH ALL CURRENT VENT SETTINGS. NO S/S OF PAIN OR DISTRESS NOTED. ALL FALLS AND CONTACT PROTOCOLS IN PLACE.
[2019-07-20] MEDS: MIDODRINE 5 MG TAB GT SCH ×5 (01:11→23:15)
[2019-07-20] MEDS: PIPERACILLIN/TAZOBACTAM 3.375 GM in DEXTROSE 5% 50 ML IV SCH ×4 (01:11→23:16)
[2019-07-20] MEDS: ALBUTEROL 0.083% 2.5 MG/3 ML NEBU IH SCH ×4 (01:20→19:16)
[2019-07-20] MEDS: IPRATROPIUM 0.02% 0.5 MG/2.5 ML NEBU IH SCH ×4 (01:21→19:16)
--- NOTE | 2019-07-20 01:35 | NUR ---
SUCTIONED SMALL AMOUNT OF CLEAR WHITE THIN SECRETIONS
--- NOTE | 2019-07-20 02:00 | NUR ---
WOUND CARE PROVIDED WOUNDS MEASURED, PICTURES TAKEN OF ALL WOUNDS AND WOUNDS CLEANED AND DRESSED. PT TOLERATED WELL. SEE WOUND ASSESSMENTS FOR DETAILS.
[2019-07-20] MEDS: MORPHINE SULFATE 2 MG/ML SYR IVP PRN (04:07)
--- NOTE | 2019-07-20 04:10 | NUR ---
PT C/O SEVERE PAIN IN SHOULDER WOUNDS, PT GIVEN MORPHINE IVP. V/S A FOLLOWS T 99.0 P 90 R 20 B/P 106/63 02 100% ON ROOM AIR. ALL FALLS AND CONTACT PRECAUTIONS IN PLACE.
--- NOTE | 2019-07-20 05:27 | NUR ---
SUCTIONED COPIOUS AMOUNT WHITE SECRETIONS AT THIS TIME. TRACH CARE DONE. NO RESPIRATORY DISTRESS NOTED. AIRWAY PATENT. WILL CONTINUE TO MONITOR PT
--- NOTE | 2019-07-20 07:20 | NUR ---
RECEIVED PATIENT AT BED SIDE REPORT FROM BLOOD DONOR RECRUITER NURSE, PATIENT LYING IN BED, PLAN: TRANSFER TO [facility] [place], PENDING ISOLATION ROOM FOR PATIENT. WILL CONTINUE TO MONITOR
--- NOTE | 2019-07-20 07:21 | NUR ---
TRACH TO VENT, BARR CATH IN PLACE, OSTOMY IN PLACE, MULTIPLE WOUNDS ON BODY NOTED. DRESSINGS DRY AND IN TACT, RIGHT UPPER ARM MIDLINE NOTED, INTACT AND PATENT. REVIEWED PLAN OF CARE WITH PATIENT, PATIENT NODDED IN UNDERSTANDING. SAFETY MEASURES IN PLACE, CALL LIGHT WITHIN REACH WILL CONTINUE TO MONITOR.
[2019-07-20] MEDS: ASCORBIC ACID 500 MG/5 ML ORASYR GT SCH ×2 (09:59→20:49)
[2019-07-20] MEDS: PANTOPRAZOLE 40 MG INJ VIAL IVP SCH (10:00)
[2019-07-20] MEDS: HYDROcodone/APAP 5/325 MG 1 TAB TAB GT PRN ×3 (10:00→22:55)
[2019-07-20] MEDS: ZINC SULF 220 MG CAP GT SCH (10:01)
[2019-07-20] MEDS: FERROUS SULFATE 300 MG/5 ML UDC GT SCH ×2 (10:01→20:49)
--- NOTE | 2019-07-20 10:08 | NUR ---
Sp[place] Lisa [place] [facility] [place] Gil still no isolation room today.
[2019-07-20 10:19] LABS: CARBON DIOXIDE 25.2 mmol/L (21-32); CREATININE 0.7 mg/dL (0.7-1.3); POTASSIUM 3.2 mmol/L (3.5-5.1)
[2019-07-20] MEDS: Z-GUARD PASTE TP SCH (10:20)
[2019-07-20 10:46] LABS: BASOPHILS # (AUTO) 0.2 K/uL (0.00-0.22); BASOPHILS % (AUTO) 1.1 % (0.0-2.0); EOSINOPHILS # (AUTO) 0.8 K/uL (0-0.4); EOSINOPHILS % (AUTO) 5.2 % (0.0-4.0); HEMATOCRIT 23.2 % (36-52); HEMOGLOBIN 7.4 g/dL (12.0-18.0); LYMPHOCYTES # (AUTO) 1.4 K/uL (2.0-11.5); LYMPHOCYTES % (AUTO) 8.9 % (20.5-51.1); MEAN CORPUSCULAR HEMOGLOBIN 30 pg (27-31); MEAN CORPUSCULAR HGB CONC 32 g/dL (33-37); MEAN CORPUSCULAR VOLUME 93.5 fL (80-94); MONOCYTES # (AUTO) 1.2 K/uL (0.8-1.0); MONOCYTES % (AUTO) 7.6 % (1.7-9.3); NEUTROPHILS % (AUTO) 77.2 % (42.2-75.2); PLATELET COUNT (AUTO) 470 K/uL (140-450); RED BLOOD CELL COUNT(AUTO) 2.48 MIL/uL (4.20-6.10); RED CELL DISTRIBUTION WIDTH 15.5 % (11.6-13.7); WHITE BLOOD COUNT (AUTO) 15.6 K/uL (4.8-10.8)
--- NOTE | 2019-07-20 11:10 | NUR ---
PT BEING CHANGED AT THIS TIME NOT IN ANY DISTRESS. NURSE BEDSIDE. VENT CHECK COMPLETED. WILL CONTINUE TO MONITOR.
[2019-07-20] MEDS: THERAHONEY GEL 42.5 GM TP SCH (12:11)
[2019-07-20] MEDS: AMIKACIN 450 MG in DEXTROSE 5% 100 ML IV SCH (12:11)
[2019-07-20] MEDS ORDERED: POTASSIUM CHLORIDE 20% 40 MEQ/15 ML UDC ONE (12:39)
[2019-07-20] MEDS: POTASSIUM CHLORIDE 20% 40 MEQ/15 ML UDC GT PRN (12:42)
--- NOTE | 2019-07-20 13:27 | NUR ---
[place] [facility] [place] Gil [place] [facility] [place] informed her that pt doesn't need an isolation. room. Pt will be going back to room 3 C per Gil.
--- NOTE | 2019-07-20 13:49 | NUR ---
Spoke with Gil from [facility] [place] pt is still going to room 3C. [facility] transportation is still on will call.
--- NOTE | 2019-07-20 13:52 | NUR ---
Silvia Dotson CM from [facility] pt is still here and will be going back to [facility] [place] today. Per Nila we can still use the same AUTH for transportation. Addendum: 07/22/19 at 1523 by Kristina Mosley CM Spoke with Nila from [facility] . Transportation AUTH # is still [id number]. Pt plan to be transferred to [facility] [place] tomorrow.
--- NOTE | 2019-07-20 14:03 | NUR ---
PT SUCTIONED OBTAINED SMALL AMOUNT OF THICK WHITE SECRETIONS, AIRWAY IS PATENT AND TRACH IS SECURE. PT NOT IN ANY DISTRESS AT THIS TIME. WILL CONTINUE TO MONITOR.
--- NOTE | 2019-07-20 14:04 | NUR ---
SPOKE WITH DR. DURAN REGARDING PT'S DISCHARGE BACK TO [facility] TODAY. PER DR. DURAN, HE SPOKE WITH DR. MTZ, DR MTZ SAID THAT PT'S CALCIUM LEVELS ARE WAY TOO HIGH FOR PT TO BE DISCHARGED TODAY. DR. MTZ CALLED BACK, STATED SHE WANTS THE PT TO STAY FOR 2-3 DAYS UNTIL PT'S CALCIUM LEVELS WILL GO DOWN. SPOKE WITH JOSE MARIA FROM LAB, REGARDING IONIZED CALCIUM RESULT IS STILL PENDING, PER JOSE MARIA, IT WAS SENT OUT TO [facility] AND TAKES ABOUT 7 DAYS FOR THE RESULTS. DORY HURTADO NOTIFIED.
[2019-07-20] MEDS ORDERED: AMIKACIN PER PHARMACY MC PRN (14:35)
--- NOTE | 2019-07-20 14:36 | NUR ---
PATIENT RESTING IN BED, SUCTIONED COPIOUS AMOUNT WHITE SECRETIONS AT THIS TIME, NO RESPIRATORY DISTRESS NOTED, WILL CONTINUE TO MONITOR.
--- NOTE | 2019-07-20 17:28 | NUR ---
PATIENT LYING DOWN IN BED SLEEPING, AROUSABLE BY VOICE. NO DISTRESS NOTED. DENIES ANY PAIN. SCHEDULED MEDICATIONS DUE GIVEN. WILL CONTINUE TO MONITOR.
--- NOTE | 2019-07-20 17:30 | NUR ---
PT AWAKE IN BED WATCHING TV NOT IN ANY DISTRESS. VENT CHECK COMPLETED. PT SUCTIONED OBTAINED SMALL AMOUNT OF THICK WHITE SECRETIONS, AIRWAY IS PATENT AND TRACH IS SECURE. VENT ALARMS REMAIN ON AND FUNCTIONING.
--- NOTE | 2019-07-20 17:47 | NUR ---
PATIENT LYING IN BED, SUCTIONED AT THIS TIME, MEDICATION GIVEN FOR SHOULDER PAIN, WILL CONTINUE TO MONITOR
--- NOTE | 2019-07-20 19:00 | NUR ---
RECEIVED BEDSIDE REPORT FROM DAY SHIFT NURSE. PATIENT IS SLEEPING AROUSABLE BY TOUCH. RESPIRATION EVEN UNLABORED ON TRACH TO VENT. NO DISTRESS NOTED. SKIN IS WARM AND DRY. MULTIPLE WOUND NOTED. RIGHT UPPER MIDLINE NOTED PATENT AND INTACT. BARR CATHETER DRAINING YELLOW URINE. COLOSTOMY BAG IN PLACE AND INTACT. G-TUBE FEEDING NOTED RUNNING AT 65CC. PLAN OF CARE WAS DISCUSSED. ALL SAFETY MEASURES IN PLACE. BED IS AT LOW POSITION. CONTACT PRECAUTION MAINTAINED. CALL LIGHT WITHIN REACH. WILL CONTINUE TO MONITOR.
--- NOTE | 2019-07-20 19:12 | NUR ---
GAVE END OF SHIFT REPORT TO DENITRATOR OPERATOR NURSE, PATIENT IN STABLE CONDITION. NO DISTRESS NOTED.
--- NOTE | 2019-07-20 20:20 | NUR ---
INITIAL ASSESSMENT DONE. VITALS WERE TAKEN. CHECKED G-TUBE RESIDUAL. OBTAINED 10CC. NO DISTRESS NOTED. WILL CONTINUE TO MONITOR.
--- NOTE | 2019-07-20 20:45 | NUR ---
ALL SCHEDULED MEDS WERE GIVEN PER ORDER. NO ASE NOTED. WILL CONTINUE TO MONITOR.
--- NOTE | 2019-07-20 22:45 | NUR ---
PROVIDED GOOD PERICARE AND CATHETER CARE. SUCTIONED PATIENT. OBTAINED MODERATE AMOUNT OF WHITE CREAMY SECRETION. WILL CONTINUE TO MONITOR.
--- NOTE | 2019-07-20 23:00 | NUR ---
PATIENT COMPLAINED OF PAIN. PRN PAIN MED ADMINISTERED PER ORDER. WILL CONTINUE TO MONITOR.
[2019-07-21] VITALS: BP 108/69
--- NOTE | 2019-07-21 | NUR ---
PATIENT IS AWAKE, WATCHING TV RESPIRATION EVEN UNLABORED ON TRACH TO VENT.
[2019-07-21] MEDS: ALBUTEROL SULFATE/IPRATROPIU 3 ML SOL IH SCH ×4 (01:24→18:58)
--- NOTE | 2019-07-21 01:24 | NUR ---
CHECKED PATIENT. PATIENT SLEEPING RESPIRATION EVEN UNLABORED ON TRACH TO VENT. NO DISTRESS NOTED. WILL CONTINUE TO MONITOR.
--- NOTE | 2019-07-21 02:57 | NUR ---
PATIENT IS AWAKE, WATCHING TV NO DISTRESS NOTED. SUCTIONED COUPLED OF TIMES. WILL CONTINUE TO MONITOR.
[2019-07-21 04:00] VITALS: BP 112/51
--- NOTE | 2019-07-21 04:10 | NUR ---
VITALS WERE TAKEN. PATIENT IN STABLE CONDITION. NO DISTRESS NOTED. WILL CONTINUE TO MONITOR.
[2019-07-21] MEDS: MIDODRINE 5 MG TAB GT SCH ×4 (05:07→23:41)
[2019-07-21] MEDS: PIPERACILLIN/TAZOBACTAM 3.375 GM in DEXTROSE 5% 50 ML IV SCH ×4 (05:08→23:41)
--- NOTE | 2019-07-21 06:35 | NUR ---
RECEIVED PT ON CARESCAPE ON DOCUMENTED SETTINGS, ALARMS ARE ON DOCUMENTED , PTS TRACH SHILEY 6 XLT IS SECURE, PT IN HF ASLEEP BS ARE CLEAR, HHN GIVEN I\L WITH 3 MG DUONEB, CONT. POX IN PLACE, BMV HOB, VENT PLUGGED INTO RED OUTLET
--- NOTE | 2019-07-21 07:15 | NUR ---
ENDORSED PATIENT TO DAY SHIFT NURSE. PATIENT IN STABLE CONDITION.
--- NOTE | 2019-07-21 07:15 | NUR ---
RECEIVED REPORT FROM MAINTENANCE MGR NURSE, PATIENT CALM, RESTING IN BED. NO RESPIRATORY DISTRESS NOTED.
[2019-07-21 07:34] LABS: BASOPHILS # (AUTO) 0.2 K/uL (0.00-0.22); BASOPHILS % (AUTO) 1.4 % (0.0-2.0); EOSINOPHILS % (AUTO) 7.8 % (0.0-4.0); HEMATOCRIT 24.8 % (36-52); HEMOGLOBIN 7.9 g/dL (12.0-18.0); LYMPHOCYTES # (AUTO) 1.7 K/uL (2.0-11.5); LYMPHOCYTES % (AUTO) 13.7 % (20.5-51.1); MEAN CORPUSCULAR HEMOGLOBIN 30 pg (27-31); MEAN CORPUSCULAR HGB CONC 32 g/dL (33-37); MEAN CORPUSCULAR VOLUME 93.9 fL (80-94); MONOCYTES # (AUTO) 1.3 K/uL (0.8-1.0); MONOCYTES % (AUTO) 10.7 % (1.7-9.3); NEUTROPHILS # (AUTO) 8.1 K/uL (1.8-7.7); NEUTROPHILS % (AUTO) 66.4 % (42.2-75.2); PLATELET COUNT (AUTO) 487 K/uL (140-450); RED BLOOD CELL COUNT(AUTO) 2.64 MIL/uL (4.20-6.10); RED CELL DISTRIBUTION WIDTH 15.2 % (11.6-13.7); WHITE BLOOD COUNT (AUTO) 12.2 K/uL (4.8-10.8)
[2019-07-21 08:48] VITALS: BP 110/73
[2019-07-21 09:56] LABS: CREATININE 0.6 mg/dL (0.7-1.3); POTASSIUM 3.6 mmol/L (3.5-5.1)
--- NOTE | 2019-07-21 10:33 | NUR ---
SCHEDULED MEDS GIVEN, WOUND DRESSING CHANGED, PATIENT TOLERATED WELL, WILL CONTINUE TO MONITOR.
[2019-07-21] MEDS: FERROUS SULFATE 300 MG/5 ML UDC GT SCH ×2 (10:37→20:47)
[2019-07-21] MEDS: ZINC SULF 220 MG CAP GT SCH (10:38)
[2019-07-21] MEDS: ASCORBIC ACID 500 MG/5 ML ORASYR GT SCH ×2 (10:38→20:47)
[2019-07-21] MEDS: PANTOPRAZOLE 40 MG INJ VIAL IVP SCH (10:39)
[2019-07-21] MEDS: Z-GUARD PASTE TP SCH (10:39)
[2019-07-21] MEDS: HYDROcodone/APAP 5/325 MG 1 TAB TAB GT PRN ×2 (10:40→22:53)
[2019-07-21] MEDS: AMIKACIN 450 MG in DEXTROSE 5% 100 ML IV SCH (11:34)
[2019-07-21] MEDS: MORPHINE SULFATE 2 MG/ML SYR IVP PRN (11:35)
--- NOTE | 2019-07-21 11:45 | NUR ---
SCHEDULED MEDICATIONS GIVEN, PAIN MEDS GIVEN DUE TO PAIN, WILL CONTINUE TO MONITOR
[2019-07-21 11:51] LABS: FREE T4 (FREE THYROXINE) 0.98 ng/dL (0.76-1.46); THYROID STIMULATING HORMONE 1.55 uIU/mL (0.34-3.74)
[2019-07-21 12:01] LABS: ANION GAP 19.9 (8-16); CARBON DIOXIDE 20.7 mmol/L (21-32)
--- NOTE | 2019-07-21 12:39 | NUR ---
SCHEDULED MEDICATIONS DUE GIVEN. WILL CONTINUE TO MONITOR.
[2019-07-21] MEDS: THERAHONEY GEL 42.5 GM TP SCH (12:40)
[2019-07-21 12:46] VITALS: BP 93/57
--- NOTE | 2019-07-21 13:05 | NUR ---
PATIENT RESTING IN BED, SUCTIONED COPIOUS AMOUNT WHITE SECRETIONS AT THIS TIME, NO RESPIRATORY DISTRESS NOTED, WILL CONTINUE TO MONITOR.
--- NOTE | 2019-07-21 13:48 | NUR ---
DR. MTZ AT BEDSIDE REVIEWING PLAN OF CARE WITH PATIENT. WILL CONTINUE TO MONITOR.
[2019-07-21 16:00] VITALS: BP 90/57
--- NOTE | 2019-07-21 16:16 | NUR ---
PATIENT LYING IN BED, G-TUBING FEEDING CHANGED, SUCTION CANISTER CHANGED. NO RESPIRATORY DISTRESS NOTED. WILL CONTINUE TO MONITOR.
--- NOTE | 2019-07-21 16:42 | NUR ---
PATIENT LYING DOWN IN BED WATCHING TV. NO DISTRESS NOTED. DENIES ANY PAIN. SCHEDULED MEDICATIONS DUE GIVEN. WILL CONTINUE TO MONITOR.
--- NOTE | 2019-07-21 17:00 | NUR ---
PAGED DR. MTZ TO CLARIFY PAMINDRONATE ORDER IN HER NOTES DR. MTZ DID NOT ORDER THE MEDICATION. WILL CONTINUE TO MONITOR.
--- NOTE | 2019-07-21 17:47 | NUR ---
SCHEDULED MEDS GIVEN TO PATIENT, ORAL RINSE WITH SUCTION TOOTHBRUSH KIT WITH CHG, NO RESPIRATORY DISTRESS NOTED.PATIENT IS STABLE.
--- NOTE | 2019-07-21 19:06 | NUR ---
Received pt stable on vent support at documented settings, suctioned small amounts of thin creamy white secretions, hhn tx given, tolerated well, no resp distress or SOB noted, at the bedside at this time, Shiley 6 XLT trach secured/patent/midline, alarms set and audible, ambu bag at bedside, vent plugged into red outlet, cont pulse ox on, vent wiped down, will cont to monitor.
--- NOTE | 2019-07-21 19:08 | NUR ---
NO RETURN CALL FROM DR. MTZ. PAGED DR. DURAN. DR. DURAN RETURNED CALL AND PER DR. DURAN START PAMONDRINATE PER PHARMACY DOSE.
[2019-07-21] MEDS ORDERED: PAMIDRONATE 60 MG in NACL 0.9% 1,000 ML IV ONE (19:10)
--- NOTE | 2019-07-21 19:27 | NUR ---
END OF SHIFT REPORT GIVEN TO ROUTE JUMPER NURSE, PATIENT IS IN STABLE CONDITION, NO DISTRESS NOTED.
--- NOTE | 2019-07-21 19:30 | NUR ---
RECEIVED BEDSIDE REPORT FROM DAY SHIFT NURSE. PATIENT IS SLEEPING AROUSABLE BY NAME AND TOUCH. RESPIRATION EVEN UNLABORED ON TRACH TO VENT. NO DISTRESS NOTED. SKIN IS WARM AND DRY. MULTIPLE WOUND NOTED. RIGHT UPPER MIDLINE NOTED PATENT AND INTACT. BARR CATHETER DRAINING YELLOW URINE. COLOSTOMY BAG IN PLACE AND INTACT. G-TUBE FEEDING NOTED RUNNING AT 65CC. AT BEDSIDE. PLAN OF CARE WAS DISCUSSED. ALL SAFETY MEASURES IN PLACE. BED IS AT LOW POSITION. CONTACT PRECAUTION MAINTAINED. CALL LIGHT WITHIN REACH. WILL CONTINUE TO MONITOR.
[2019-07-21 20:00] VITALS: BP 106/70
--- NOTE | 2019-07-21 20:19 | NUR ---
INITIAL ASSESSMENT DONE. VITALS WERE TAKEN. CHECKED G-TUBE RESIDUAL. OBTAINED 20CC. COLOSTOMY BAG / FULL. AT BEDSIDE. INSTRUCT TO WEAR GOWN FOR CONTACT PRECAUTION. REFUSED. EDUCATED THE RISK AND BENEFITS X2 STILL REFUSED. WILL CONTINUE TO MONITOR
--- NOTE | 2019-07-21 20:50 | NUR ---
ALL SCHEDULED MEDS WERE GIVEN PER ORDER. NO ASE NOTED. WILL CONTINUE TO MONITOR
--- NOTE | 2019-07-21 22:06 | NUR ---
CHECKED PATIENT. PATIENT SLEEPING RESPIRATION EVEN UNLABORED ON TRACH TO VENT. NO DISTRESS NOTED. AT BEDSIDE. WILL CONTINUE TO MONITOR.
--- NOTE | 2019-07-21 22:50 | NUR ---
SUCTIONED PATIENT. OBTAINED MODERATE AMOUNT OF CREAMY SECRETION. REPOSITIONED PATIENT. PATIENT ASKED FOR PAIN MEDS. COMPLAINING OF PAIN 03/25. PRN PAIN MED ADMINISTERED PER ORDER. WILL CONTINUE TO MONITOR.
--- NOTE | 2019-07-21 23:51 | NUR ---
VITALS WERE TAKEN. PATIENT IN STABLE CONDITION. MIDNIGHT MEDICATION GIVEN PER ORDER. WILL CONTINUE TO MONITOR.
[2019-07-22] VITALS: BP 103/65
[2019-07-22] MEDS: ALBUTEROL SULFATE/IPRATROPIU 3 ML SOL IH SCH ×4 (01:11→19:17)
--- NOTE | 2019-07-22 02:08 | NUR ---
CHECKED PATIENT. PATIENT SLEEPING. RESPIRATION EVEN UNLABORED ON TRACH TO VENT. NO DISTRESS NOTED. AT BEDSIDE. WILL CONTINUE TO MONITOR.
[2019-07-22 04:00] VITALS: BP 114/79
--- NOTE | 2019-07-22 04:00 | NUR ---
VITALS WERE TAKEN. PROVIDED GOOD LINDA CARE AND CATHETER CARE. SUCTIONED PATIENT. WILL CONTINUE TO MONITOR.
--- NOTE | 2019-07-22 04:54 | NUR ---
PATIENT COMPLAINED OF PAIN. PRN PAIN MED ADMINISTERED PER ORDER. WILL CONTINUE TO MONITOR.
[2019-07-22] MEDS: PIPERACILLIN/TAZOBACTAM 3.375 GM in DEXTROSE 5% 50 ML IV SCH ×4 (05:18→23:15)
[2019-07-22] MEDS: MIDODRINE 5 MG TAB GT SCH ×4 (05:18→23:16)
[2019-07-22] MEDS: HYDROcodone/APAP 5/325 MG 1 TAB TAB GT PRN (05:19)
--- NOTE | 2019-07-22 06:32 | NUR ---
REC'D PT ON CARESCAPE VENT SETTINGS AC 20 VT 475 PEEP 5 FIO2 24% ALARMS ON AND AUDIBLE AND AMBU BAG AT SIDE OF VENT AND VENT IS PLUGGED INTO RED OUTLET I\L TX GIVEN WITH DUONEB 3ML WITH NO ADVERSE REACTION POST TX, B\S CLEAR BILATERALLY SNX PT SMALL AMT WHITE PT IS TRACH WITH SHILEY XLT 6 AND PT'S IF AT BEDSIDE .
[2019-07-22 07:18] LABS: BASOPHILS # (AUTO) 0.1 K/uL (0.00-0.22); BASOPHILS % (AUTO) 1.2 % (0.0-2.0); EOSINOPHILS # (AUTO) 0.9 K/uL (0-0.4); EOSINOPHILS % (AUTO) 8.2 % (0.0-4.0); HEMATOCRIT 25.5 % (36-52); HEMOGLOBIN 8.2 g/dL (12.0-18.0); LYMPHOCYTES # (AUTO) 1.2 K/uL (2.0-11.5); LYMPHOCYTES % (AUTO) 10.9 % (20.5-51.1); MEAN CORPUSCULAR HEMOGLOBIN 30 pg (27-31); MEAN CORPUSCULAR HGB CONC 32 g/dL (33-37); MONOCYTES # (AUTO) 0.9 K/uL (0.8-1.0); MONOCYTES % (AUTO) 7.7 % (1.7-9.3); NEUTROPHILS # (AUTO) 8.1 K/uL (1.8-7.7); PLATELET COUNT (AUTO) 454 K/uL (140-450); RED BLOOD CELL COUNT(AUTO) 2.71 MIL/uL (4.20-6.10); RED CELL DISTRIBUTION WIDTH 15.8 % (11.6-13.7); WHITE BLOOD COUNT (AUTO) 11.2 K/uL (4.8-10.8)
[2019-07-22 07:29] LABS: ANION GAP 16.1 (8-16); CARBON DIOXIDE 22.7 mmol/L (21-32); CREATININE 0.6 mg/dL (0.7-1.3); TOTAL BILIRUBIN 0.2 mg/dL (0.0-1.0)
--- NOTE | 2019-07-22 07:29 | NUR ---
endorsed patient to day shift nurse. patient in stable condition.
[2019-07-22 07:40] LABS: POTASSIUM 2.8 mmol/L (3.5-5.1)
--- NOTE | 2019-07-22 07:43 | NUR ---
RECEIVED PT FROM DOLL WIG HACKLER RN FOR CONTINUITY OF CARE. PT IS AAOX4, NOT ABLE TO TALK BUT MOUTHS EVERYTHING AND IS COOPERATIVE. PT HAS MULTIPLE WOUNDS THROUGHOUT BODY. SEE WOUND CARE ORDERS FOR WOUND DETAILS. PT HAS RIGHT UPPER ARM PICC WITH 2 LUMENS. PT UNABLE TO WALK. PARALYZED FROM NECK DOWN. PT HAS G-TUBE. TRACH TO VENT. PT SIGNIFICANT OTHER AT BEDSIDE. EXPLAINED POC TO PT AND PT VERBALIZED UNDERSTANDING. ALL NEEDS MET AND WILL CONTINUE TO ROUND FREQUENTLY ON PT. BED IN LOW POSITION, CALL LIGHT WITHIN REACH.
[2019-07-22 08:00] VITALS: BP 114/70
[2019-07-22] MEDS ORDERED: POTASSIUM CHLORIDE 20% 40 MEQ/15 ML UDC GT SCH (09:30)
--- NOTE | 2019-07-22 09:38 | NUR ---
PT MORNING SCHEDULED MEDS ADMINISTERED. PT TOLERATED WELL. RESIDUALS AT 50. PT TOLERATED WELL. ALL NEEDS MET. WILL CONTINUE TO ROUND FREQUENTLY ON PT. BED IN LOW POSITION, CALL LIGHT WITHIN REACH.
[2019-07-22] MEDS: PANTOPRAZOLE 40 MG INJ VIAL IVP SCH (10:06)
[2019-07-22] MEDS: ASCORBIC ACID 500 MG/5 ML ORASYR GT SCH ×2 (10:06→20:15)
[2019-07-22] MEDS: FERROUS SULFATE 300 MG/5 ML UDC GT SCH ×2 (10:06→20:15)
[2019-07-22] MEDS: ZINC SULF 220 MG CAP GT SCH (10:06)
[2019-07-22] MEDS: Z-GUARD PASTE TP SCH (10:07)
[2019-07-22] MEDS: AMIKACIN 450 MG in DEXTROSE 5% 100 ML IV SCH (11:12)
--- NOTE | 2019-07-22 11:28 | NUR ---
PT SLEEPING. WILL CONTINUE TO ROUND FREQUENTLY ON PT. BED IN LOW POSITION, CALL LIGHT WITHIN REACH.
[2019-07-22 12:00] VITALS: BP 114/68
[2019-07-22] MEDS: THERAHONEY GEL 42.5 GM TP SCH (13:07)
--- NOTE | 2019-07-22 13:40 | NUR ---
PT RESTING IN BED. ALL NEEDS MET. WILL CONTINUE TO ROUND FREQUENTLY ON PT. BED IN LOW POSITION, CALL LIGHT WITHIN REACH.
[2019-07-22] MEDS: MORPHINE SULFATE 2 MG/ML SYR IVP PRN ×2 (13:45→20:15)
--- NOTE | 2019-07-22 14:56 | NUR ---
07/22/19 RD FOLLOW UP COMPLETED PLEASE REFER TO NUTRITION ASSESSMENT UNDER CARE ACTIVITY FOR ESTIMATED NUTRITIONAL NEEDS. 1. CONTINUE VITAL 1.2 AF @ 65 ML/HR X 24 HR -THIS WILL PROVIDE 1872KCAL & 117G OF PROTEIN 2. RECOMMEND FWF TO 100ML Q4H 3. CONTINUE VITAMIN C AND ZINC FOR WOUND HEALING 4. RD TO FOLLOW-UP 2-3 DAYS, HIGH RISK TANO [address]ONDS RD
--- NOTE | 2019-07-22 15:47 | NUR ---
PT RESTING IN BED. ALL NEEDS MET. WILL CONTINUE TO ROUND FREQUENTLY ON PT.
[2019-07-22 16:00] VITALS: BP 100/64
--- NOTE | 2019-07-22 17:06 | NUR ---
PT SLEEPING. WILL CONTINUE TO ROUND FREQUENTLY ON PT. BED IN LOW POSITION, CALL LIGHT WITHIN REACH.
--- NOTE | 2019-07-22 17:12 | NUR ---
PAGED TO NOTIFY OF PT BARR LEAKING. AWAITING CALLBACK FROM DR. JOHNSON IN STABLE CONDITION, CALL LIGHT WITHIN REACH.
--- NOTE | 2019-07-22 19:12 | NUR ---
RECEIVED PATIENT ON VENTILATOR SETTINGS: AC/VC 475 RATE 20 PEEP 5 FIO2 24%. PATIENT IS TRACH'D WITH A SHILEY 6 XLT. PROTECTIVE GAUZE IS IN PLACE. OBSERVED NO SKIN BREAKDOWN OR EXCESSIVE REDNESS OF THE STOMA. B/S: CLEAR BILATERALLY. PATIENT HAS AN EFFECTIVE COUGH AND IS ABLE TO MOBILIZE SECRETIONS AND BE SUCTIONED ORALLY. RECEIVED MODERATE, THIN, WHITE AND PALE YELLOW SECRETIONS. TREATMENT GIVEN INLINE WITH NO INCIDENT. VENT AND ALARM SETTINGS VERIFIED. WILL CONTINUE TO MONITOR.
--- NOTE | 2019-07-22 19:26 | NUR ---
RECEIVED BEDSIDE REPORT FROM DAY RN. PT IS SLEEPING COMFORTABLY IN BED CHEST RISE AND FALL. PT IS TRACH TO VENT ON SETTING: A/C VC FIO2 24% VT 475 RR 20 PEEP 5 RR 20 SAT 98%. PT WITH MID LINE ON FEDE DOUBLE LUMEN SL RECEIVING ANTIBIOTICS PER ORDERS. GTUBE VITAL AF AT 65M/H FWF 200ML/Q4H. COLOSTOMY BAG. HAS BARR DRAINING YELLOW URINE. PER DAY RN BARR BEEN LEAKING DORI RANGEL AWAITING CALL BACK. WITH MX WOUNDS ON SACRAL,BUTTOCKS R LEG,HALEIGH HEELS, HALEIGH SHOULDER. ON CONTACT ISOLATION. ON FALL AND ASPIRATION PRECAUTION. HOB ELEVATED. SAFETY MEASURES ARE IN PLACE. RT IS AT BEDSIDE. WILL ROUND FREQUENTLY.
--- NOTE | 2019-07-22 19:28 | NUR ---
ENDORSED PT TO MACHINE WORKER FOR CONTINUITY OF CARE. PT IN STABLE CONDITION AT THIS TIME.
--- NOTE | 2019-07-22 19:51 | NUR ---
RECEIVED PAGED BACK FROM MD CARRION ORDER TO REPLACE LEAKING BARR.
[2019-07-22 20:00] VITALS: BP 94/59
--- NOTE | 2019-07-22 20:15 | NUR ---
VITAL SIGNS ARE WITHIN NORMAL LIMITS. NEVILLE MEDICATIONS GIVEN VIA GTUBE. PT NODS WHEN ASKED IF HAS PAIN. ADMINISTERED PRN MORPHINE. ATTEMPT TO PROVIDE ORAL CARE PT REFUSED. ONLY SUCTION MOUTH. EDUCATED PT ON IMPORTANCE TO PREVENT PNA WILL TRY AGAIN LATER. REMOVED BARR CATH WITH 8CC OF STERILE WATER PULLED OUT FROM BALLOON. EMPTY 400CC OF URINE. NEW BARR CATH INSERTED WITH STERILE TECHNIQUE AND INFLATED BALLOON WITH 10CC OF STERILE WATER. BARR SECURED TO R THIGH. DRAINING YELLOW URINE APPROX 40CC. LABELED WITH TIME/DATE AND INITIAL. PT TOLERATED WELL. ALL NEEDS MET AT THIS TIME. WILL CONTINUE TO MONITOR.
--- NOTE | 2019-07-22 22:00 | NUR ---
PATIENT IS SLEEPING COMFORTABLY IN BED. CHEST RISE AND FALL. NO S/S OF RESPIRATORY DISTRESS. BARR DRAINING YELLOW URINE. SAFETY MEASURES ARE IN PLACE. HOB ELEVATED. WILL CONTINUE TO MONITOR.
--- NOTE | 2019-07-22 23:09 | NUR ---
ROUTINE VENT CHECK. PATIENT AWAKE AND COUGHED/MOBILIZED SECRETIONS TO BE ORALLY SUCTIONED, RECEIVED MODERATE THIN WHITE/PALE YELLOW SECRETIONS. PT AGREED TO SUCTION TRACH RECEIVED SCANT TO NO SECRETIONS. CHANGED HME.
--- NOTE | 2019-07-22 23:15 | NUR ---
VITAL SIGNS ARE WITHIN NORMAL LIMITS.110/74 HR 80 ADMINISTER NEVILLE MEDICATIONS PER ORDERS. ZOSYN NOW INFUSING PER AND PROAMATINE FOR B/P GIVEN. RT SUCTION PT TRACH SMALL AMOUNTS OF THICK WHITE SECRETIONS. SUCTION PT MOUTH STILL REFUSING ORAL CARE WILL TRY AGAIN LATER. Addendum: 07/23/19 at 0650 by Debra Springer RN PATIENT REFUSED TO BE TURN. EXPLAINED PROS AND CONS STILL REFUSED.
[2019-07-23] VITALS: BP 110/74
--- NOTE | 2019-07-23 01:00 | NUR ---
DRESSINGS ARE C/D/I. PT STILL REFUSING ORAL CARE. SUCTION MOUTH AND TRACH. PT TOLERATED WELL. WILL CONTINUE TO MONITOR.
[2019-07-23] MEDS: ALBUTEROL SULFATE/IPRATROPIU 3 ML SOL IH SCH ×3 (01:27→14:15)
--- NOTE | 2019-07-23 02:50 | NUR ---
SUCTIONED PATIENT. OBTAINED MODERATE AMOUNT OF CREAMY SECRETION. REPOSITIONED PATIENT. WILL CONTINUE TO MONITOR.
[2019-07-23] MEDS: ONDANSETRON 4 MG/2 ML VIAL IVP PRN ×2 (03:17→09:24)
--- NOTE | 2019-07-23 03:17 | NUR ---
VENT ALARM WENT OFF CHECKED ON PATIENT TRYING TO COUGH UP SECRETIONS. SUCTION MOUTH AND TRACH. NO SECRETIONS FROM TRACH. ASKED IF HE FELT NAUSEAS PT NOD YES. PRN ZOFRAN GIVEN IVP. STOPPED FEEDING. CHECKED PT WITH 40CC RESIDUAL. WILL RESUME ONCE PT NO LONGER NAUSEAS. Addendum: 07/23/19 at 0651 by Debra Springer RN PATIENT REFUSED TO BE TURN. EXPLAINED PROS AND CONS STILL REFUSED.
[2019-07-23 04:00] VITALS: BP 104/65
--- NOTE | 2019-07-23 04:15 | NUR ---
VITAL SIGNS ARE WITHIN NORMAL LIMITS. NO RESPIRATORY DISTRESS PT REMAINS TRACH TO VENT.
--- NOTE | 2019-07-23 05:20 | NUR ---
ROUTINE VENT CHECK AND COMPLETED TRACH CARE ALONG WITH ALICJA STRINGER. SUCTIONED PATIENT AND RECEIVED SMALL, SOMMERS, THIN SECRETIONS. CHANGED TRACH TIES, PROTECTIVE GAUZE, SUCTION HAYES, AND HME WITH NO INCIDENT. STOMA IS HEALTHY AND INTACT WITH LIGHT SOMMERS DRAINAGE.
[2019-07-23] MEDS: PIPERACILLIN/TAZOBACTAM 3.375 GM in DEXTROSE 5% 50 ML IV SCH ×3 (05:22→18:00)
[2019-07-23] MEDS: MIDODRINE 5 MG TAB GT SCH ×3 (05:23→18:00)
[2019-07-23] MEDS: SIMETHICONE 80 MG TAB.CHEW GT PRN (05:23)
[2019-07-23] MEDS: ACETAMINOPHEN 650 MG/20.3 ML UDC GT PRN (05:51)
[2019-07-23 07:13] LABS: BASOPHILS # (AUTO) 0.1 K/uL (0.00-0.22); BASOPHILS % (AUTO) 0.8 % (0.0-2.0); EOSINOPHILS # (AUTO) 0.8 K/uL (0-0.4); EOSINOPHILS % (AUTO) 7.2 % (0.0-4.0); HEMATOCRIT 28.2 % (36-52); LYMPHOCYTES # (AUTO) 1.2 K/uL (2.0-11.5); LYMPHOCYTES % (AUTO) 10.3 % (20.5-51.1); MEAN CORPUSCULAR HEMOGLOBIN 30 pg (27-31); MEAN CORPUSCULAR HGB CONC 32 g/dL (33-37); MEAN CORPUSCULAR VOLUME 94.6 fL (80-94); MONOCYTES # (AUTO) 0.9 K/uL (0.8-1.0); MONOCYTES % (AUTO) 7.2 % (1.7-9.3); NEUTROPHILS # (AUTO) 8.8 K/uL (1.8-7.7); NEUTROPHILS % (AUTO) 74.5 % (42.2-75.2); PLATELET COUNT (AUTO) 465 K/uL (140-450); RED BLOOD CELL COUNT(AUTO) 2.98 MIL/uL (4.20-6.10); RED CELL DISTRIBUTION WIDTH 16.2 % (11.6-13.7); WHITE BLOOD COUNT (AUTO) 11.8 K/uL (4.8-10.8)
[2019-07-23 07:15] LABS: ANION GAP 16.3 (8-16); CARBON DIOXIDE 23.7 mmol/L (21-32); CREATININE 0.7 mg/dL (0.7-1.3)
--- NOTE | 2019-07-23 07:15 | NUR ---
GAVE BEDSIDE REPORT TO DAY RN. PT ENDORSED IN STABLE CONDITION.
--- NOTE | 2019-07-23 07:20 | NUR ---
RECEIVED PT FROM AUTOMOBILE MECHANIC NURSE, PT IS AWAKE AND ON A TRACH TO ALYCIA AT A RATE OF 20, FIO2 AT 24, TIDAL VOLUME OF 475, PEEP OF 5 AND FLOW RATE OF 40L/MIN, SIDE RAILS UP AND CALL LIGHT WITHIN REACH, BED ALARM ACTIVATED, BARR CATHETER AND COLOSTOMY BAG IN PLACE, BILATERAL SACRAL, SHOULDERS AND HEEL ULCERS PRESENT REINFORCED WITH DRESSINGS, G- TUBE IN PLACE WITH CONTINUOS FEEDING OF VITAL AF 1.2 AT 65ML/HR AND WATER FLUSH OF 200ML Q4H, NO SIGN OF DISTRESS NOTED ANDS WILL CONTINUE TO MONITOR PT.
--- NOTE | 2019-07-23 07:21 | NUR ---
RECEIVED ON A CARESCAPE R860 VENTILATOR PLUGGED INTO RED OUTLET TOLERATING WELL WITHOUT ADVERSE REACTIONS NOTED TO PRIMITIVO XLT #6 AIRWAY SECURED WITH A RAMESH TRACH TIE CUFF PRESSURE CHECKED NOTED AMBU BAG NOTED AT BEDSIDE LOC AWAKE AND ALERT RESPONSIVE EQUAL CHEST RISE BREATH SOUNDS RALES BILATERAL DEEP TRACHEAL SUCTION FOR SMALL THIN PALE WHITE SECRETIONS AIRWAY PATENT OROPHARYNX SUCTION FOR MODERATE CLEAR THIN TO FROTH SECRETIONS
[2019-07-23 07:29] LABS: ALBUMIN 2.3 g/dL (3.4-5.0); ANION GAP 16.5 (8-16); CARBON DIOXIDE 23.6 mmol/L (21-32); CREATININE 0.7 mg/dL (0.7-1.3); POTASSIUM 4.1 mmol/L (3.5-5.1); TOTAL BILIRUBIN 0.2 mg/dL (0.0-1.0)
[2019-07-23 08:00] VITALS: BP 91/62
[2019-07-23] MEDS: ZINC SULF 220 MG CAP GT SCH (09:07)
[2019-07-23] MEDS: FERROUS SULFATE 300 MG/5 ML UDC GT SCH (09:07)
[2019-07-23] MEDS: PANTOPRAZOLE 40 MG INJ VIAL IVP SCH (09:07)
[2019-07-23] MEDS: ASCORBIC ACID 500 MG/5 ML ORASYR GT SCH (09:07)
[2019-07-23] MEDS: Z-GUARD PASTE TP SCH (09:08)
--- NOTE | 2019-07-23 09:45 | NUR ---
RESTING WELL NO EVIDENCE OF PULMONARY DISTRESS NOTED GOOD CHEST RISE DEEP TRACHEAL SUCTION FOR SMALL THI PALE WHITE SECRETIONS AIRWAY PATENT OROPHARYNX SUCTION FOR MODERATE FROTHY CLEAR SECRETIONS
--- NOTE | 2019-07-23 11:30 | NUR ---
WOUNDS ASSESSMENT WAS DONE TO PT NOW AND PICTURES WERE TAKEN.
--- NOTE | 2019-07-23 11:55 | NUR ---
NO DISTRESS NOTED GOOD CHEST RISE RN AND PHYSICIAN GENERAL INTERNAL MEDICINE'S AT BEDSIDE FOR WOUND CARE PHYSICAL HYGIENE AND REPOSITION
[2019-07-23 12:00] VITALS: BP 95/50
[2019-07-23] MEDS: AMIKACIN 450 MG in DEXTROSE 5% 100 ML IV SCH (12:08)
--- NOTE | 2019-07-23 12:08 | NUR ---
PT IS AWAKE AND MEDICATIONS WERE GIVEN VIA G-TUBE AND IVPB, WILL CONTINUE TO MONITOR PT.
--- NOTE | 2019-07-23 12:59 | NUR ---
PT WAS GIVEN IVPB ZOSYN NOW. WILL MONITOR PT.
[2019-07-23] MEDS: THERAHONEY GEL 42.5 GM TP SCH (13:00)
--- NOTE | 2019-07-23 14:15 | NUR ---
NO APPARENT RESPIRATORY DISTRESS NOTED GOOD CHEST AND AERATION THROUGHOUT BILATERAL LUNG WHEELER AIRWAY PATENT
--- NOTE | 2019-07-23 14:51 | NUR ---
DC PLANNING : PT GOING BACK TO [facility] [place] NO ISO BED NEEDED ROOM 3C # TO GIVE REPORT [phone] , ARRANGED TRANSPORT WITH [facility] TEACHER TIME 1700 NOTIFIED JUAREZ BROWN.
--- NOTE | 2019-07-23 15:41 | NUR ---
NO SOB NOTED EQUAL CHEST RISE DEEP TRACHEAL SUCTION FOR SMALL THICK YELLOW SECRETIONS AIRWAY PATENT
[2019-07-23 16:00] VITALS: BP 110/58
--- NOTE | 2019-07-23 16:11 | NUR ---
CALLED [facility] AT [phone], AND GAVE REPORT TO ALIYAH BROWN REGARDING THE DISCHARGED INSTRUCTIONS AND MEDICATIONS FOR THE PT AND ALIYAH BROWN VERBALIZED UNDERSTANDING. PT WILL BE PLACE TO 3-C AND MAHSA WILL EXTRUDER TENDER THE PT AT 1700.
[2019-07-23] MEDS ORDERED: PIPE1PDS20 IV (16:33)
[2019-07-23] MEDS ORDERED: AMIK500I IV (16:34)
--- NOTE | 2019-07-23 17:41 | NUR ---
RESTING COMFORTABLY WITHOUT DISTRESS NOTED GOOD CHEST RISE AIRWAY PATENT
--- NOTE | 2019-07-23 17:50 | NUR ---
DISCHARGED PT TO [facility], VIA [facility]ORT WITH PERSONNEL, MIDLINE DOUBLE LUMEN INTACT, G- TUBE AND COLOSTOMY BAG WERE IN PLACE, V/S IS BP 116/69, PULSE IS 83 AND O2 SATURATION IS 100%, PT DENIES PAIN AND NO SIGN OF DISTRESS NOTED. TEACHINGS AND INSTRUCTIONS WERE GIVEN BUT PT NEEDS REINFORCEMENT. PT IS STABLE AT THIS TIME.
== END 2019-07-23 17:50 | DRG 130 ==
LOC: MED 10:45 → MIC 12:57 → MTU 07-09 07:32
PROVIDERS: ADMIT Internal Medicine Pulmonary Disease; ATTEND Internal Medicine Pulmonary Disease
PROC: 5A1955Z Respiratory Ventilation, Greater than 96 Consecutive Hours (ICD-10-PCS; principal; 2019-07-07)
PROC: 30233N1 Transfusion of Nonautologous Red Blood Cells into Peripheral Vein, Percutaneous Approach (ICD-10-PCS; 2019-07-07)
PROC: 05HY33Z Insertion of Infusion Device into Upper Vein, Percutaneous Approach (ICD-10-PCS; 2019-07-09)
PROC: B54MZZA Ultrasonography of Right Upper Extremity Veins, Guidance (ICD-10-PCS; 2019-07-09)
DX: J15.1 Pneumonia due to Pseudomonas (principal); R65.11 Systemic inflammatory response syndrome (SIRS) of non-infectious origin with acute organ dysfunction; E43 Unspecified severe protein-calorie malnutrition; G82.50 Quadriplegia, unspecified; L89.154 Pressure ulcer of sacral region, stage 4; J96.11 Chronic respiratory failure with hypoxia; I95.9 Hypotension, unspecified; Z99.11 Dependence on respirator [ventilator] status; E83.52 Hypercalcemia; J44.0 Chronic obstructive pulmonary disease with (acute) lower respiratory infection; D64.9 Anemia, unspecified; I10 Essential (primary) hypertension; K21.9 Gastro-esophageal reflux disease without esophagitis; N39.0 Urinary tract infection, site not specified; K63.4 Enteroptosis; Z68.20 Body mass index [BMI] 20.0-20.9, adult; Z93.3 Colostomy status
CPT/HCPCS: 36415; 36600; 51702; 71045; 74018; 80048; 80053; 80150; 80202; 81001; 82306; 82330; 82533; 82803; 83605; 83735; 83880; 83970; 84439; 84443; 84484; 85025; 85610; 85730; 86886; 86900; 86901; 86920; 87040; 87070; 87081; 87086; 87186; 87205; 89220; 93005; 94003; 94640; 96360; 99291; C1751; C9113; J0278; J0696; J2001; J2270; J2405; J2430; J2543; J2997; J3370; J3475; J3480; J7030; J7060; J7613; J7620; J7644; Q0092

== ENCOUNTER 2019-08-13 16:41 | Inpatient (IN) | payer OTHER ==
[~2019-08-13] VITALS: Ht 165.1 cm; Wt 84.8 kg
[~2019-08-13 16:41] MED LIST changes: +AMIK500I IV; +PIPE1PDS20 IV; -PIPE1PDS26 IV
--- NOTE | 2019-08-13 16:41 | NUR ---
Patient BIBA ALS from [facility], transferred to bed 10. RN evaluating patient at bedside.
[2019-08-13 16:42] VITALS: BP 99/62
--- NOTE | 2019-08-13 16:42 | NUR ---
Dr. Stearns is evaluating the patient at bedside.
[2019-08-13] MEDS ORDERED: NACL 0.9% 2,000 ML IV ONE (16:44)
[2019-08-13] MEDS ORDERED: MEROPENEM 1,000 MG in NACL 0.9% 100 ML IV ONE (16:45)
[2019-08-13] MEDS ORDERED: VANCOMYCIN 1,000 MG in DEXTROSE 5% 250 ML IV ONE (16:45)
--- NOTE | 2019-08-13 16:49 | NUR ---
UNABLE TO OBTAIN IV ACCESS. DR. SHETTY AWARE AND WILL ORDER FOR MIDLINE PLACEMENT. DELAY IN MED ADMINISTRATION --DR. SHETTY AWARE.
[2019-08-13 16:50] VITALS: BP 99/62
--- NOTE | 2019-08-13 16:50 | NUR ---
DR SHETTY REQUESTING MIDLINE ACCESS. SURGERY MANAGER CALLED TO CALL PAGE PICC LINE NURSE AT THIS TIME BY DEISI ROUSE.
--- NOTE | 2019-08-13 16:54 | NUR ---
RECEIVED PT FROM EMT. PT PLACED ON VENT SETTING FROM EMT AT 20,475,60%,+5 SAT 100%. VENT PLUGGED INTO RED OUTLET WITH BMV AT BEDSIDE.
--- NOTE | 2019-08-13 16:55 | NUR ---
58/M BIBA FROM [facility] C/O HAVING FEVER 100.5 AT THE FACILITY (PER PAPERWORK FROM FACILITY). PER ALS, PT STARTED HAVING LOW BLOOD PRESSURE AND FEVER 102 TODAY. PT HAS TRACHEOSTOMY TUBE, BARR CATHETHER, GASTROSTOMY TUBE IN PLACE. PT ALSO HAS PRESSURE ULCERS ON SACRAL REGION, BUTTOCKS BILATERAL, RIGHT POSTERIOR LOWER LEG, RIGHT UPPER AND LOWER BACK, LEFT ELBOW, AND HEELS BILATERAL. RT CONNECTED PT TRACH TO VENT. 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
--- NOTE | 2019-08-13 17:07 | NUR ---
# 14 FR Finley catheter with 10 ml utilizing sterile technique. Immediate return of 20 ml BLOODY urine noted. Bedside drainage bag placed below level of bladder. Urine sample collected and sent to lab. Pt tolerated procedure WELL.
--- NOTE | 2019-08-13 17:30 | NUR ---
PHLEB AT BEDSIDE FOR BLOOD DRAW.
[2019-08-13 18:03] LABS: BASOPHILS # (AUTO) 0.5 K/uL (0.00-0.22); BASOPHILS % (AUTO) 2.2 % (0.0-2.0); EOSINOPHILS # (AUTO) 0.9 K/uL (0-0.4); EOSINOPHILS % (AUTO) 4.1 % (0.0-4.0); HEMATOCRIT 20.6 % (36-52); LYMPHOCYTES # (AUTO) 0.9 K/uL (2.0-11.5); LYMPHOCYTES % (AUTO) 4.2 % (20.5-51.1); MEAN CORPUSCULAR HEMOGLOBIN 29 pg (27-31); MEAN CORPUSCULAR HGB CONC 32 g/dL (33-37); MEAN CORPUSCULAR VOLUME 92.2 fL (80-94); MONOCYTES # (AUTO) 1.2 K/uL (0.8-1.0); MONOCYTES % (AUTO) 5.9 % (1.7-9.3); NEUTROPHILS # (AUTO) 17.5 K/uL (1.8-7.7); NEUTROPHILS % (AUTO) 83.6 % (42.2-75.2); PLATELET COUNT (AUTO) 546 K/uL (140-450); RED BLOOD CELL COUNT(AUTO) 2.23 MIL/uL (4.20-6.10); RED CELL DISTRIBUTION WIDTH 15.7 % (11.6-13.7); WHITE BLOOD COUNT (AUTO) 20.9 K/uL (4.8-10.8)
[2019-08-13 18:06] LABS: APPEARANCE,URINE BLOODY (CLEAR); BILIRUBIN,URINE NEGATIVE (NEGATIVE); BLOOD, URINE 3+ (NEGATIVE); COLOR,URINE RED (YELLOW); LEUKOCYTE ESTERASE ,URINE 3+ (NEGATIVE); NITRITE, URINE NEGATIVE (NEGATIVE); PH,URINE 6.5 (5.0-9.0); UGLUCOSE NEGATIVE (NEGATIVE)
--- NOTE | 2019-08-13 18:09 | NUR ---
PRESSURE ULCER ON SACROCOCCYX AREA, RT FOOT/HEEL, RT SHOULDER TAKEN WITH MADISON BROWN.
[2019-08-13 18:12] LABS: RBC,URINE TOO NUMEROUS TO COUN /HPF (0-5); WBC,URINE 20-60 /HPF (0-5)
--- NOTE | 2019-08-13 18:17 | NUR ---
PICC line nurse at bedside for midline cathether insertion.
[2019-08-13 18:19] LABS: ANION GAP 17.5 (8-16); CARBON DIOXIDE 25.5 mmol/L (21-32); CREATININE 1.8 mg/dL (0.7-1.3)
[2019-08-13 18:21] LABS: PROTHROMBIN TIME 9.8 secs (10.8-13.4)
[2019-08-13 18:23] LABS: HEMOGLOBIN 6.5 g/dL (12.0-18.0)
--- NOTE | 2019-08-13 18:26 | NUR ---
SPOKE WITH CHARGE NURSE AT [facility] REGARDING NO POLST IN PATIENT PACKET. [facility] STAFF TO BRING POLST TO [facility] ED.
[2019-08-13 18:34] LABS: ALBUMIN 1.3 g/dL (3.4-5.0); TOTAL BILIRUBIN 0.2 mg/dL (0.0-1.0)
[2019-08-13] MEDS ORDERED: VANCOMYCIN 1,000 MG VIAL ONE (18:42)
[2019-08-13] MEDS ORDERED: MEROPENEM 1,000 MG VIAL IV ONE (18:42)
--- NOTE | 2019-08-13 18:48 | NUR ---
[facility] REGARDING NO POLST IN PATIENT PACKET. INSTRUCTED [facility] STAFF TO BRING POLST TO [facility] ED. NURSE STATED "I WILL BRING IT WHEN IT STOPS RAINING"
--- NOTE | 2019-08-13 19:00 | NUR ---
INFUSING VANCO AND MERREM IN SEPARATE LUMENS OF RT UA MIDLINE. WILL MONITOR CLOSELY FOR DRUG REACTIONS.
--- NOTE | 2019-08-13 19:02 | NUR ---
OBTAINED WOUND CULTURE WITH MADISON BROWN.
--- NOTE | 2019-08-13 19:10 | NUR ---
REPORT TO STEPHANIE PLASCENCIA. TRANSFER OF CARE AT THIS TIME.
--- NOTE | 2019-08-13 19:17 | NUR ---
CALLED RT REGARDING INDUCED SPUTUM CULTURE--RT WILL DOUBLE CHECK TO MAKE SURE IT WAS COLLECTED. THAIS BROWN NOTIFIED.
[2019-08-13 20:00] VITALS: BP 75/41
--- NOTE | 2019-08-13 20:00 | NUR ---
RECEIVED PT FROM DAY SHIFT NURSE. PT CAME IN [facility]. PT ON VENTILATOR, G-TUBE, COLOSTOMY BAG, BARR CATHETER. MID LINE DOUBLE LUMENS ON RIGHT UPPER ARM, PATENT, INTACT, AND ASYMPTOMATIC. SEVERE WOUND NOTED ON RIGHT HEEL, R LEG, R SHOULDER, AND SACRAL AREA. CHANGED DRESSING. UPDATED BOARD. BED IN LOW POSITION, CALL LIGHT WITHIN REACH.
--- NOTE | 2019-08-13 20:05 | NUR ---
PT ADMITTED TO [facility], RM 123B. TRANSFERRED VIA [facility] WITH FRANSISCO RT, CURRY EMT, MADISON RN. REPORT GIVEN TO MARCIN BROWN. PT CARE TRANSFERRED TO RECEIVING RN.
[2019-08-13 20:09] VITALS: BP 135/80
--- NOTE | 2019-08-13 20:09 | NUR ---
RECEIVED TRACH PT WITH SHILEY SIZE 6 XLT SECURED WITH TRACH TIE. PT WAS SUCCESSFUL TRANSFER FROM ED TO [facility]. PT ON VENT SETTINGS ORDERED. VENT PLUGGED INTO RED OUTLET; ALARMS FUNCTIONING AND AUDIBLE; BVM AT BEDSIDE; HOB>30; AND COARSE BREATH SOUNDS. SPUTUM COLLECTED AND SENT TO LAB. SX HAYES, DRESSING, TRACH TIE, AND HME WERE CHANGED. NO RESPIRATORY DISTRESS NOTED. WILL CONTINUE TO MONITOR PT.
--- NOTE | 2019-08-13 21:05 | NUR ---
CALLED AT [phone] AND [phone], NOT ANSWERING, LEFT [facility] FOR BLOOD TRANSFUSION CONSENT.
--- NOTE | 2019-08-13 21:15 | NUR ---
CALLED BROTHER, WILLY US FOR BLOOD TRANSFUSION, RN CONFIRMED HE IS ALSO THE PERSON CAN CONSENT FOR PT. BROTHER CONFIRM AND AGREED FOR PT TO HAVE BLOOD TRANSFUSION.
--- NOTE | 2019-08-13 22:05 | NUR ---
LAB CALLED AND BLOOD IS READY. BP 75/45 NOTED. CALL JOE GUADARRAMA TO GIVE PT BLOOD AND RECEIVED ORDER OF 500ML NS BOLUS. ALSO RECEIVED ORDER OF CBC, PRN ACETAMINOPHEN, AND PRN BENADRYL. TORB.
--- NOTE | 2019-08-13 22:15 | NUR ---
PICKED THE BLOOD UP. VERIFIED INFORMATION WITH CHARGE NURSE, GIORGIO. STARTED BLOOD TRANSFUSION. PT TOLERATED WELL.
--- NOTE | 2019-08-13 22:30 | NUR ---
VS CHECKED, WITHIN PT'S BASELINE. WILL CONTINUE TO MONITOR.
--- NOTE | 2019-08-13 22:45 | NUR ---
VS CHECKED, WITHIN PT'S BASELINE. WILL CONTINUE TO MONITOR.
[2019-08-13] MEDS ORDERED: NACL 0.9% 500 ML IV ONE (22:55)
[2019-08-14] VITALS (87 sets, daily range): BP systolic 74–147; BP diastolic 44–90
[2019-08-14] MEDS ORDERED: NACL 0.9% 500 ML IV ONE ×2 (00:15→18:25)
--- NOTE | 2019-08-14 00:45 | NUR ---
VS CHECKED, BP 70/41 NOTED, REPORTED TO DR. VILA, RECEIVED ORDER TO TRANSFER TO ICU AND 500ML NS BOLUS.
--- NOTE | 2019-08-14 00:50 | NUR ---
RECEIVED REPORT FROM [facility] NURSE MARCIN, PT AT BED AWAKE, OPEN EYES SPONTANEOUSLY, PERRL 3MM, BRISK, HEART RATE REGULAR S1S2 PRESENT, SR ON MONITOR, CAP REFILL <3S, PULSES 2+ BILATERAL UPPER AND LOWER EXTREMITIES, PT TRACH TO VENT, AC/VC FIO2 40%, FLOW 475, RR 20 FLOW 40, LUNG SOUNDS CLEAR THROUGHOUT, DIMINISHED AT BASES, ABDOMEN, SOFT, ROUND, NONDISTENDED, NONTENDER, COLOSTOMY APPLIANCE IN PLACE, PROLAPSE COLON NOTED, BLADDER, SOFT, ROUND, NONDISTENDED, NONTENDER, BARR CATHETER IN PLACE, DRAINING CLEAR, YELLOW, URINE, PT IS QUADRIPLEGIC, SKIN, WARM, DRY, PT SKIN NON INTACT, PT HAS OPTIFOAM DRESSING ON SACRAL AREA, BILATERAL DRESSING ON LEFT AND RIGHT BUTTOCKS, DRY AND INTACT, RIGHT SHOULDER DRESSING IN PLACE, DRY AND INTACT, PT HAS DRESSING ON LEFT LEG, DRY AND INTACT, PT HAS RIGHT UPPER ARM MIDLINE, PICC, RUNNING NS BOLUS AND O POSITIVE BLOOD AT 100 ML/HR, HOB 30 DEGREES, SIDE RAILS UP X2, BED AT LOWEST POSITION.
--- NOTE | 2019-08-14 01:00 | NUR ---
TRANSFERRED PT TO ICU, ENDORSED PT TO ICU NURSE, CELY, 1ST BLOOD TRANSFUSION DONE. PT IN STABLE CONDITION.
--- NOTE | 2019-08-14 01:25 | NUR ---
STARTED SECOND UNIT OF O POSITIVE BLOOD.
--- NOTE | 2019-08-14 01:55 | NUR ---
PAGED DR JULITO GALVAN [phone]
--- NOTE | 2019-08-14 02:53 | NUR ---
DR JULITO MEADOWS. [phone] Addendum: 08/14/19 at 0316 by Rey Meza RN NO CALL BACK FROM PREVIOUS PAGE
--- NOTE | 2019-08-14 03:28 | NUR ---
PAGED COLE GUADARRAMA. RECEIVED NEW ORDERS FOR LEVOPHED DRIP AND 1L BOLUS NS.
--- NOTE | 2019-08-14 03:30 | NUR ---
ADMINISTERED 1L NS BOLUS.
[2019-08-14] MEDS ORDERED: NACL 0.9% 1,000 ML IV ONE (03:45)
[2019-08-14] MEDS ORDERED: NOREPINEPHRINE 4 MG/4 ML VIAL IV ONE ×2 (04:53→18:48)
--- NOTE | 2019-08-14 05:00 | NUR ---
LEVOPHED DRIP STARTED, HR 93 78/48, RR 21. 100 % O2 SAT Addendum: 08/14/19 at 0648 by Rey Meza RN 5 MCG/MIN
[2019-08-14] MEDS: NOREPINEPHRINE 4 MG in DEXTROSE 5% 250 ML IV PRN ×2 (06:01→19:00)
--- NOTE | 2019-08-14 06:29 | NUR ---
PERFORMED AM CARE, EMPTIED COLOSTOMY BAG, NOTED PURULENT DISCHARGE ON PENILE URINARY MEATUS.
--- NOTE | 2019-08-14 07:00 | NUR ---
CHANGE OF SHIFT REPORT GIVEN TO AM NURSE.
--- NOTE | 2019-08-14 07:10 | NUR ---
RECEIVED PT REPORT FROM GENERAL OFFICE ASSOCIATE NURSE. PT OPENS EYES TO NAME, TRACK TO VENTILATOR, FIO2 40%. MIDLINE TO RIGHT UPPER ARM RUNNING LEVOPHED 5MCG/MIN, PATENT, INTACT, AND ASYMPTOMATIC. LUNG SOUNDS COARSE AND RHONCHI. G-TUBE TO LUQ, CLAMPED. NPO EX MEDS. COLOSTOMY BAG TO RIGHT LOWER ABD, WITH COLON PROTRUDING OUT, BAG LEAKING, WILL CHANGE IT. BARR CATHETER IN PLACE DRAINING CLOUDY YELLOW URINE. PT HAS MULTIPLE PRESSURE WOUND, WILL DO WOUND ASSESSMENT. BED IN LOWEST POSITION, CALL LIGHT WITHIN REACH. SR/ST ON MONITOR. Addendum: 08/14/19 at 1548 by Anjum Laughlin RN TRACH TO VENT, FIO2 40%, VT 475, RR20 PEEP 5.
--- NOTE | 2019-08-14 07:32 | NUR ---
PT RECEIVED ON AC 20,475,+5, 40%. VENT PLUGGED INTO RED OUTLET AND BMV AT BEDSIDE. PT SAT 99%. CUFF PRESSURE CHECKED AND IS AT 30 CMH20. SX SMALL AMOUNT OF THIN WHITE SECRETIONS. PT TIDAL VOLUME IS ABOUT 300-500.
--- NOTE | 2019-08-14 07:35 | NUR ---
CHANGED COLOSTOMY DRESSING AND BAG. AND CONNECTED TO DRAINAGE BAG.
--- NOTE | 2019-08-14 08:00 | NUR ---
G TUBE RESIDUAL 15ML.
[2019-08-14 08:01] LABS: BASOPHILS # (AUTO) 0.1 K/uL (0.00-0.22); BASOPHILS % (AUTO) 0.5 % (0.0-2.0); EOSINOPHILS # (AUTO) 0.6 K/uL (0-0.4); EOSINOPHILS % (AUTO) 3.1 % (0.0-4.0); HEMATOCRIT 26.3 % (36-52); HEMOGLOBIN 8.3 g/dL (12.0-18.0); LYMPHOCYTES # (AUTO) 0.8 K/uL (2.0-11.5); LYMPHOCYTES % (AUTO) 4.2 % (20.5-51.1); MEAN CORPUSCULAR HEMOGLOBIN 29 pg (27-31); MEAN CORPUSCULAR HGB CONC 32 g/dL (33-37); MEAN CORPUSCULAR VOLUME 91.6 fL (80-94); MONOCYTES # (AUTO) 1.2 K/uL (0.8-1.0); MONOCYTES % (AUTO) 6.4 % (1.7-9.3); NEUTROPHILS # (AUTO) 16.8 K/uL (1.8-7.7); NEUTROPHILS % (AUTO) 85.8 % (42.2-75.2); PLATELET COUNT (AUTO) 511 K/uL (140-450); RED BLOOD CELL COUNT(AUTO) 2.87 MIL/uL (4.20-6.10); RED CELL DISTRIBUTION WIDTH 15.2 % (11.6-13.7); WHITE BLOOD COUNT (AUTO) 19.5 K/uL (4.8-10.8)
[2019-08-14] MEDS ORDERED: THERAHONEY GEL 42.5 GM TP PRN (08:15)
[2019-08-14] MEDS: FOAM DRESSING TP SCH (09:00)
[2019-08-14] MEDS ORDERED: FOAM DRESSING TP SCH (09:00)
[2019-08-14] MEDS: THERAHONEY GEL 42.5 GM TP SCH (09:00)
--- NOTE | 2019-08-14 10:00 | NUR ---
WOUND CARE DONE TO ALL WOUNDS. WOUNDS WERE RINSED WITH CLEANSE SOLUTION, PATTED DRY. THERAHONEY, ADAPTICS, AND FOAM DRESSINGS APPLIED.
[2019-08-14] MEDS: NACL 0.9% IRR 250 ML BOTTLE IR SCH (10:14)
[2019-08-14] MEDS ORDERED: NACL 0.9% 1,000 ML IV SCH ×2 (11:00→11:10)
[2019-08-14] MEDS ORDERED: VANCOMYCIN PER PHARMACY MC PRN (11:00)
[2019-08-14] MEDS: NACL 0.9% 1,000 ML IV SCH (11:19)
[2019-08-14] MEDS ORDERED: ASCORBIC ACID 500 MG TAB GT SCH (11:30)
[2019-08-14] MEDS ORDERED: MEROPENEM 1,000 MG in NACL 0.9% 100 ML IV SCH (11:30)
[2019-08-14] MEDS: MIDODRINE 5 MG TAB GT SCH ×2 (13:30→20:32)
--- NOTE | 2019-08-14 14:00 | NUR ---
STARTED G TUBE FEEDING AT 15ML/HR AND WATER FLUSH 300ML Q8H.
--- NOTE | 2019-08-14 14:40 | NUR ---
DR MENDOZA CAME AND ASSESSED PT. MADE DR MENDOZA AWARE OF G TUBE SITE LEAKING AND PROTRUSION OF COLON IN THE COLOSTOMY BAG.
--- NOTE | 2019-08-14 15:00 | NUR ---
CALLED DR CRUZ, MADE HIM AWARE PT'S G TUBE IS LEAKING FROM THE SITE.
[2019-08-14] MEDS ORDERED: DEXT 5% /NACL 0.9% 1,000 ML IV SCH (18:25)
[2019-08-14] MEDS: VANCOMYCIN 1,000 MG in DEXTROSE 5% 250 ML IV SCH (18:43)
--- NOTE | 2019-08-14 19:20 | NUR ---
RECEIVED REPORT FROM DAYSHIFT NURSE AT PATIENTS BEDSIDE. PATIENT IS ALERT TO NAME, OPENS EYES SPONTANEOUSLY, ABLE TO MOUTH SOME WORDS AND NOD HEAD. CANNOT FOLLOW SIMPLE COMMANDS, QUADRIPLEGIC. TRACH TO VENT, ACVC 20, FI02 40, TV 475, PEEP 5. LUNG SOUNDS RHONCHI AT BILATERAL UPPER LOBES, AND DIMINISHED AT BASES. ON ROOM COOLER INSTALLER, S1S2 PRESENT, SINUS TACH ON MONITOR. RIGHT UPPER ARM MIDLINE IN PLACE, DOUBLE LUMEN, FLUSHED AND PATENT, DRESSING DRY AND INTACT. INFUSING NS @ 100ML/HR AND LEVOPHED 5 MCG/KG/MIN. COLOSTOMY IN PLACE TO RIGHT LOWER QUADRANT, SEVERE PROLAPSE NOTED. LEFT UPPER QUADRANT GTUBE IN PLACE. NPO EXCEPT MEDS. BOWEL SOUNDS ACTIVE. SKIN NOT INTACT, PRESSURE INJURIES TO SACRUM, BILATERAL BUTTOCKS, RIGHT SHOULDER, RIGHT HEEL AND LOWER LEG. DRESSINGS ARE DRY AND INTACT. HEEL PROTECTORS IN PLACE. BARR CATHETER IN PLACE, YELLOW CLOUDY URINE NOTED. BED IS LOCKED AND IN LOWEST POSITION, SIDERAILS UPx3, HOB 30 DEGREES, WILL CONTINUE TO MONITOR.
--- NOTE | 2019-08-14 20:08 | NUR ---
PATIENTS BLOOD PRESSURE IN THE LOW 80'S. INCREASED LEVOPHED TO 8MCG. PATIENTS BLOOD PRESSURE BACK TO NORMAL LIMITS, 93/64.
[2019-08-14] MEDS: PANTOPRAZOLE 40 MG INJ VIAL IVP SCH (20:32)
[2019-08-14] MEDS: MEROPENEM 1,000 MG in NACL 0.9% 100 ML IV SCH (20:33)
[2019-08-14] MEDS: DOCUSATE SODIUM 100 MG GELCAP PO SCH (20:33)
[2019-08-14] MEDS ORDERED: ASCORBIC ACID 500 MG/5 ML ORASYR GT SCH (21:00)
--- NOTE | 2019-08-14 21:00 | NUR ---
VAP ORAL CARE PROVIDED, PATIENT TURNED AND REPOSITIONED. REMOVED BLANKET PER PATIENTS REQUEST. TEMPERATURE 99.3.
--- NOTE | 2019-08-14 22:30 | NUR ---
PATIENT RESTING WELL IN BED, EYES CLOSED, FLACC 0. ST ON MONITOR, BLOOD PRESSURE WNL, LEVOPHED INFUSING AT 8 MCG.
[2019-08-15] VITALS (105 sets, daily range): BP systolic 70–130; BP diastolic 39–80
--- NOTE | 2019-08-15 00:10 | NUR ---
PATIENT TURNED AND REPOSITIONED. PROVIDED ORAL CARE. EYES OPEN, ABLE TO NOD NO WHEN ASKED IF IN PAIN. TEMPERATURE WNL.
[2019-08-15] MEDS: NACL 0.9% IRR 250 ML BOTTLE IR SCH (01:00)
--- NOTE | 2019-08-15 02:35 | NUR ---
BLOOD PRESSURE TRENDING LOW IN 70'S, READJUSTED CUFF, REPOSITIONED PATIENT AND BLOOD PRESSURE STILL LOW, MAP< 65, INCREASED LEVOPHED TO 10MCG/MIN. BLOOD PRESSURE BACK IN 90'S.
[2019-08-15] MEDS ORDERED: NACL 0.9% 1,000 ML IV ONE ×2 (03:45→07:31)
[2019-08-15] MEDS ORDERED: NOREPINEPHRINE 4 MG/4 ML VIAL IV ONE (03:55)
[2019-08-15] MEDS: NOREPINEPHRINE 4 MG in DEXTROSE 5% 250 ML IV PRN ×5 (04:00→20:57)
--- NOTE | 2019-08-15 04:10 | NUR ---
SPONGE BATH, BARR CARE, AND VAP ORAL CARE PROVIDED. PATIENT TOLERATED FAIRLY. DRESSINGS TO RIGHT SHOULDER, RIGHT LOWER LEG, AND SACRUM DRY AND INTACT. SECRETIONS ARE EXPECTORATED SLIGHTLY THROUGH TRACH, SUCTIONED, CREAMY SECRETIONS NOTED. RIGHT LOWER QUADRANT COLOSTOMY EMPTIED, 1900 ML OF LIQUID BROWN STOOL NOTED, BARR CATHETER EMPTIED, CLOUDY URINE NOTED, OUTPUT 1,000 ML. BED LOCKED AND IN LOW POSITION, HOB 30 DEGREES.
[2019-08-15] MEDS: MIDODRINE 5 MG TAB GT SCH ×3 (05:30→20:27)
--- NOTE | 2019-08-15 05:35 | NUR ---
PATIENT TAKEN TO CT WITH RN AND RT AND RADIOLOGIST. LEVOPHED IN PLACE AND TRACH TO AMBU BAG.
--- NOTE | 2019-08-15 06:15 | NUR ---
PATIENT BACK FROM CT WITHOUT ANY INCIDENTS, CONNECTED TO BRISTLE MACHINE OPERATOR AND VENT, SETTINGS THE SAME START OF SHIFT.
[2019-08-15] MEDS: NACL 0.9% 1,000 ML IV SCH ×3 (06:32→16:38)
--- NOTE | 2019-08-15 06:37 | NUR ---
PATIENT HAS BEEN SCREENED AND CATEGORIZED HIGH NUTRITION RISK. PATIENT WILL BE SEEN WITHIN 1-2 DAYS OF ADMISSION. 08/15/19-08/16/19 MARRY WEAVER MS, RDN
--- NOTE | 2019-08-15 07:00 | NUR ---
SPOKE WITH PATIENTS FOR UPDATE.
--- NOTE | 2019-08-15 07:25 | NUR ---
RECEIVED PT REPORT FROM FRUIT PICKER NURSE, EMORY. PT OPENS EYES TO NAME, ABLE TO FOLLOW SOME SIMPLE COMMANDS. TRACH TO VENTILATOR, VENT SETTING: FIO2 40%, VT 475, RR 20, PEEP 5. MIDLINE TO RIGHT UPPER ARM RUNNING LEVOPHED 13MCG/MIN, AND NS AT 100ML/HR, PATENT, INTACT, AND ASYMPTOMATIC, WITH POSITIVE BLOOD RETURN. LUNG SOUNDS COARSE AND RHONCHI. G-TUBE TO LUQ, 0ML RESIDUAL, LEAKING AND GAS COMING OUT OF THE SITE. COLOSTOMY BAG TO RIGHT LOWER ABD, WITH COLON PROTRUDING OUT, DRAINING BROWN LIQUID. BARR CATHETER IN PLACE DRAINING CLOUDY YELLOW URINE. PT HAS MULTIPLE PRESSURE WOUND, DRESSING CLEAN AND INTACT. BED IN LOWEST POSITION, CALL LIGHT WITHIN REACH. ST ON MONITOR.
[2019-08-15 08:11] LABS: HEMATOCRIT 30.7 % (36-52); HEMOGLOBIN 9.5 g/dL (12.0-18.0); MEAN CORPUSCULAR HEMOGLOBIN 29 pg (27-31); MEAN CORPUSCULAR HGB CONC 31 g/dL (33-37); MEAN CORPUSCULAR VOLUME 93.9 fL (80-94); PLATELET COUNT (AUTO) 644 K/uL (140-450); RED BLOOD CELL COUNT(AUTO) 3.27 MIL/uL (4.20-6.10); RED CELL DISTRIBUTION WIDTH 15.4 % (11.6-13.7); WHITE BLOOD COUNT (AUTO) 22.8 K/uL (4.8-10.8)
[2019-08-15] MEDS: ZINC SULF 220 MG CAP GT SCH (08:41)
[2019-08-15] MEDS: ASCORBIC ACID 500 MG TAB GT SCH (08:41)
[2019-08-15] MEDS: PANTOPRAZOLE 40 MG INJ VIAL IVP SCH ×2 (08:41→20:29)
[2019-08-15] MEDS: DOCUSATE SODIUM 100 MG GELCAP PO SCH ×2 (08:42→20:27)
[2019-08-15] MEDS: Z-GUARD PASTE TP SCH (08:42)
[2019-08-15] MEDS: MEROPENEM 1,000 MG in NACL 0.9% 100 ML IV SCH ×2 (08:43→20:29)
[2019-08-15] MEDS: ENOXAPARIN 40 MG/0.4 ML SYR SUBQ SCH (08:50)
[2019-08-15 09:09] LABS: ALBUMIN 1.5 g/dL (3.4-5.0); ANION GAP 19.2 (8-16); CARBON DIOXIDE 21.7 mmol/L (21-32); CREATININE 1.5 mg/dL (0.7-1.3); LYMPHOCYTES % (MANUAL) 6 % (20-46); MAGNESIUM 1.4 mg/dL (1.8-2.4); MONOCYTES % (MANUAL) 4 % (5-12); TOTAL BILIRUBIN 0.3 mg/dL (0.0-1.0)
[2019-08-15 09:14] LABS: POTASSIUM 2.9 mmol/L (3.5-5.1)
[2019-08-15] MEDS: KCL 20 MEQ/WATER INJ PREMIX 100 ML IV SCH ×2 (10:15→12:19)
--- NOTE | 2019-08-15 11:32 | NUR ---
(08/15/19) RD INITIAL ASSESSMENT COMPLETED PLEASE REFER TO NUTRITION ASSESSMENT UNDER CARE ACTIVITY FOR ESTIMATED NUTRITIONAL NEEDS. RD RECOMMENDATIONS: 1. IF/WHEN MEDICALLY APPROPRIATE, INITIATE TUBE FEEDINGS: OSMOLITE 1.2 AT 70 ML/HR X 24 HOURS WITH 160 ML FREE WATER FLUSH Q4H. THIS PROVIDES 1680 ML TOTAL VOLUME, 2016 KCAL, 84 GM PROTEIN, 1378 ML TOTAL FREE WATER. THIS WILL MEET 100% ESTIMATED KCAL NEEDS AND 84% ESTIMATED PROTEIN NEEDS; ADEQUATE. 2. CONSULT RDN PRN. 3. RD WILL F/U 2-3 DAYS; HIGH RISK. MARRY WEAVER, , RDN
[2019-08-15] MEDS ORDERED: ALBUMIN HUMAN 25% 50 ML IV SCH ×2 (13:34→21:00)
--- NOTE | 2019-08-15 13:36 | NUR ---
PT IN BED AWAKE NOT IN ANY DISTRESS. PT SUCTIONED OBTAINED SMALL AMOUNT OF THICK WHITE SECRETIONS, AIRWAY IS PATENT AND TRACH IS SECURE. WILL CONTINUE TO MONITOR.
--- NOTE | 2019-08-15 13:48 | NUR ---
DR GAGNON SEEN PT. C DIFF SENT TO LAB. WILL START ALBUMIN ORDERED.
[2019-08-15] MEDS ORDERED: MAG SULF 2000 MG/WATER PREMIX 50 ML IV SCH (14:00)
--- NOTE | 2019-08-15 15:33 | NUR ---
PT SUCTIONED OBTAINED SMALL AMOUNT OF THIN WHITE SECRETIONS, AIRWAY IS PATENT AND TRACH IS SECURE. PT NOT IN ANY DISTRESS WILL CONTINUE TO MONITOR.
--- NOTE | 2019-08-15 15:40 | NUR ---
DR CRUZ SEEN PT, MADE HIM AWARE OF G TUBE SITE LEAKING.
[2019-08-15] MEDS: METOCLOPRAMIDE 10 MG/2 ML INJ VIAL IVP SCH (16:10)
[2019-08-15] MEDS ORDERED: METOCLOPRAMIDE 10 MG/10 ML SYRP UDC GT SCH (16:30)
--- NOTE | 2019-08-15 17:18 | NUR ---
PT REMAINS ON DOCUMENTED VENT SETTINGS. PT NOT IN ANY DISTRESS AT THIS TIME. TRACH IS SECURE WITH A PATENT AIRWAY. VENT ALARMS REMAIN ON AND FUNCTIONING.
[2019-08-15] MEDS: VANCOMYCIN 1,000 MG in DEXTROSE 5% 250 ML IV SCH (18:39)
--- NOTE | 2019-08-15 19:45 | NUR ---
PT AWAKE AND ABLE TO FOLLOW SIMPLE COMMANDS. PT TRACH TO VENT ON ACVC SETTINGS. FIO2 40% TV 450 RATE 20 PEEP 5. NOTED LEAKING ON TRACHEOSTOMY. LUNG SOUNDS RHONCHI. PT ON LEVOPHED 13MCG/MIN. NS ON 100ML/MIN. IV SITE ON FEDE MIDLINE, DOUBLE LUMEN. INTACT, PATENT, GOOD BLOOD RETURN. NPO EXCEPT MEDS. COLOSTOMY ON R ABDOMEN. GTUBE IN PLACE L ABDOMEN. NOTED GTUBE LEAKING. BARR CATHETER IN PLACE. PT ON CONTACT PRECAUTIONS. SKIN NON INTACT. MULTIPLE WOUNDS NOTED, SEE WOUND ASSESSMENT. FLACC 0. HOB 30 DEGREES. BED LOCKED IN LOWEST POSITION.
--- NOTE | 2019-08-15 20:00 | NUR ---
DR. Simms IN MD JENNIFER MADE AWARE GTUBE IS LEAKING. NEW ORDERS RECEIVED. Addendum: 08/16/19 at 0045 by Sunny Flores RN DR BARTLETT
[2019-08-15] MEDS: ALBUTEROL SULFATE/IPRATROPIU 3 ML SOL IH PRN (20:18)
[2019-08-15] MEDS: ACETYLCYSTEINE 10% (100 MG/ML) 100 MG/ML VIAL INH SCH (20:20)
--- NOTE | 2019-08-15 20:20 | NUR ---
RECEIVED TRACH PT WITH SHILEY SIZE 6 XLT SECURED WITH TRACH TIE. PT ON VENT SETTINGS ORDERED. VENT PLUGGED INTO RED OUTLET; ALARMS FUNCTIONING AND AUDIBLE; BVM AT BEDSIDE; HOB>30; AND RHONCHI BREATH SOUNDS. NO RESPIRATORY DISTRESS NOTED. SP02 100%. TX GIVEN ORDER. WILL CONTINUE TO MONITOR PT.
[2019-08-15] MEDS: ALBUMIN HUMAN 25% 50 ML IV SCH (20:32)
--- NOTE | 2019-08-15 21:22 | NUR ---
PT AWAKE. ORAL CARE PROVIDED. PT REPOSITIONED. VITAL SIGNS STABLE. NO DISTRESS NOTED. FLACC 0. HOB 30 DEGREES. BED LOCKED IN LOWEST POSITION.
[2019-08-15] MEDS ORDERED: TPN PER PHARMACY MC PRN (22:15)
--- NOTE | 2019-08-15 22:30 | NUR ---
OGT INSERTED. PT TOLERATED WELL. XRAY PLACEMENT CONFIRMED. OGT TO LOW INTERMITTENT SUCTION. NO SOB NOTED. VITAL SIGNS STABLE. HOB 30 DEGREES. BED LOCKED IN LOWEST POSITION.
--- NOTE | 2019-08-15 23:17 | NUR ---
PT HAS EYES CLOSED. PT REPOSITIONED. VITAL SIGNS STABLE. NO DISTRESS NOTED. FLACC 0. HOB 30 DEGREES. BED LOCKED IN LOWEST POSITION.
[2019-08-16] VITALS (99 sets, daily range): BP systolic 84–145; BP diastolic 52–83
--- NOTE | 2019-08-16 01:39 | NUR ---
PT HAS EYES CLOSED. VITAL SIGNS STABLE. NO DISTRESS NOTED. FLACC 0. HOB 30 DEGREES. BED LOCKED IN LOWEST POSITION.
[2019-08-16] MEDS: NOREPINEPHRINE 4 MG in DEXTROSE 5% 250 ML IV PRN ×3 (03:20→19:06)
--- NOTE | 2019-08-16 03:42 | NUR ---
ORAL CARE PROVIDED. PT REPOSITIONED. PT HAS EYES CLOSED. VITAL SIGNS STABLE. NO SOB NOTED. FLACC 0. HOB 30 DEGREES. BED LOCKED IN LOWEST POSITION.
[2019-08-16] MEDS: NACL 0.9% 1,000 ML IV SCH ×4 (04:56→20:00)
[2019-08-16] MEDS: ALBUMIN HUMAN 25% 50 ML IV SCH ×2 (05:09→12:43)
[2019-08-16] MEDS: MIDODRINE 5 MG TAB GT SCH ×3 (05:09→20:12)
[2019-08-16] MEDS: HYDROcodone/APAP 5/325 MG 1 TAB TAB GT PRN ×2 (05:38→17:09)
--- NOTE | 2019-08-16 05:40 | NUR ---
PT AWAKE, EYES OPEN. FLACC 7. UNEASY AND FREQUENT FROWNING. NORCO GIVEN.
[2019-08-16] MEDS: FOAM DRESSING TP SCH (05:53)
[2019-08-16] MEDS: THERAHONEY GEL 42.5 GM TP SCH (05:53)
[2019-08-16] MEDS: ACETYLCYSTEINE 10% (100 MG/ML) 100 MG/ML VIAL INH SCH ×3 (07:18→19:30)
[2019-08-16] MEDS: ALBUTEROL SULFATE/IPRATROPIU 3 ML SOL IH PRN ×2 (07:18→16:18)
--- NOTE | 2019-08-16 07:20 | NUR ---
REPORT GIVEN TO AM NURSE AND ENDORSED PT FOR CONTINUITY OF CARE.
--- NOTE | 2019-08-16 08:00 | NUR ---
RECEIVED REPORT FROM GUY BROWN, PT IS AWAKE. FOLLOWS COMMANDS, MOUTHS WORDS, PT IS QUADRIPLEGIC. TRACH TO VENT TV 450, FI02 35%, 20/MIN. AC 20, PEEP 5. RHONCHI ON AUSCULTATION. DENIES ANY DIFFICULTY IN BREATHING. SUCTIONED VIA TRACH AND ORALLY SMALL AMT WHITISH SECRETIONS. 02 SAT 99% TO 100%. HOB KEPT ELEVATED 30 DEGREES. NPO EXCEPT MEDS. WILL START TPN TONIGHT. GT TO DRAINAGE BAG WITH SMALL YELLOWISH DRAINAGE. NO LEAKING NOTED AT G TUBE SITE. OGT TO LOW INT. SUCTION ALSO WITH SMALL YELLOWISH DRAINAGE. COLOSTOMY DRAINING MODERATE AMOUNT OF DARK RED DRAINAGE. IV 0.9NS INFUSING AT 100 ML/HR AND LEVOPHED AT 9 MCG/MIN VIA RT ARM MIDLINE. IV SITE SITE CLEAR.
[2019-08-16 08:35] LABS: HEMATOCRIT 26.6 % (36-52); HEMOGLOBIN 8.2 g/dL (12.0-18.0); MEAN CORPUSCULAR HEMOGLOBIN 29 pg (27-31); MEAN CORPUSCULAR HGB CONC 31 g/dL (33-37); MEAN CORPUSCULAR VOLUME 93.3 fL (80-94); PLATELET COUNT (AUTO) 527 K/uL (140-450); RED BLOOD CELL COUNT(AUTO) 2.85 MIL/uL (4.20-6.10); RED CELL DISTRIBUTION WIDTH 15.2 % (11.6-13.7); WHITE BLOOD COUNT (AUTO) 24.4 K/uL (4.8-10.8)
[2019-08-16] MEDS: ZINC SULF 220 MG CAP GT SCH (08:38)
[2019-08-16] MEDS: ASCORBIC ACID 500 MG TAB GT SCH (08:38)
[2019-08-16] MEDS: METOCLOPRAMIDE 10 MG/2 ML INJ VIAL IVP SCH ×3 (08:38→17:09)
[2019-08-16] MEDS: PANTOPRAZOLE 40 MG INJ VIAL IVP SCH ×2 (08:38→20:13)
[2019-08-16] MEDS: DOCUSATE SODIUM 100 MG GELCAP PO SCH (08:39)
[2019-08-16] MEDS: MEROPENEM 1,000 MG in NACL 0.9% 100 ML IV SCH ×2 (08:39→20:13)
[2019-08-16 08:41] LABS: ANION GAP 19.5 (8-16); CREATININE 1.5 mg/dL (0.7-1.3)
--- NOTE | 2019-08-16 08:45 | NUR ---
DR. GAGNON NOTIFY OF BLOODY DRAINAGE FROM COLOSTOMY, LOVENOX HELD. NOTIFIED ALSO OF LIQUID STOOLS. ALONZO MESSER.
[2019-08-16] MEDS: Z-GUARD PASTE TP SCH (08:55)
[2019-08-16] MEDS: ENOXAPARIN 40 MG/0.4 ML SYR SUBQ SCH (09:00)
--- NOTE | 2019-08-16 09:15 | NUR ---
DR. GAGNON NOTIFIED OF CBC AND BMP RESULTS, WBC 24.4 K+2.5. NOTIFIED ALSO OF BLOODY DRAINAGE FROM THE COLOSTOMY. ORDERS RECEIVED. LOVENOX HELD.
[2019-08-16 09:16] LABS: POTASSIUM 2.5 mmol/L (3.5-5.1)
[2019-08-16 09:41] LABS: LYMPHOCYTES % (MANUAL) 8 % (20-46); MONOCYTES % (MANUAL) 8 % (5-12)
--- NOTE | 2019-08-16 10:00 | NUR ---
LARGE AMT. WHITISH SECRETIONS AROUND TRACH STOMA. TRACH CARE DONE.
[2019-08-16 10:21] LABS: CHOL/HDL RATIO 5.5 (1-4.5)
[2019-08-16] MEDS: KCL 20 MEQ/WATER INJ PREMIX 100 ML IV SCH ×4 (10:22→16:38)
--- NOTE | 2019-08-16 10:22 | NUR ---
K RIDER 40 MEQ STARTED AT 50 ML/HR.
--- NOTE | 2019-08-16 11:17 | NUR ---
FIO2 TITRATED TO 35%. WILL CONTINUE TO MONITOR.
--- NOTE | 2019-08-16 11:20 | NUR ---
PT ASLEEP AT THIS TIME NOT IN ANY DISTRESS. VENT PARAMETER WITHIN NORMAL LIMITS. WILL CONTINUE TO MONITOR.
--- NOTE | 2019-08-16 12:00 | NUR ---
COLOSTOMY DRAINAGE RUST COLORED. IN SR WITHOUT ECTOPICS.
[2019-08-16 12:54] LABS: MAGNESIUM 1.5 mg/dL (1.8-2.4); PHOSPHORUS 5.9 mg/dL (2.5-4.9)
[2019-08-16] MEDS ORDERED: INSULIN LISPRO SLIDING SCALE 100 UNITS/ML VIAL SUBQ PRN (13:15)
--- NOTE | 2019-08-16 15:00 | NUR ---
DR. GAGNON HERE TO SEE AND EXAMINE PT.
--- NOTE | 2019-08-16 17:09 | NUR ---
C/O GENERALIZED PAIN 03/25. NORCO GIVEN ORDERED. REPOSITIONED.
[2019-08-16] MEDS: BLOOD GLUCOSE MONITORING 1 DEV DEV MC SCH (17:32)
--- NOTE | 2019-08-16 18:00 | NUR ---
DENIES ANY DISCOMFORTS AT THIS TIME. DOZING ON AND OFF.
--- NOTE | 2019-08-16 18:45 | NUR ---
LEVOPHED AT 5 MCG/MIN AT THIS TIME. BP 99/63. SR WITHOUT ECTOPICS. TRACH TO VENT SAME SETTINGS.
[2019-08-16] MEDS: VANCOMYCIN 1,000 MG in DEXTROSE 5% 250 ML IV SCH (18:59)
--- NOTE | 2019-08-16 19:00 | NUR ---
ASSUMED CARE OF PT.INITIAL ASSESSMENT COMPLETED.SR ON MONITOR.PT ABLE TO MOUTH WORDS NEEDS.SHAKES /NODS HEAD TO QUESTIONS.TRACH TO VENT FIO2 35% TV475 AC 20 PEEP 5.TRACHEOSTOMY SITE STILL LEAKING WITH MODERATE AMT OF CLEAR TO WHITE SECRETIONS SUCTIONED.WITH OGT ALREADY IN PLACE TO DRAINAGE BAG/GRAVITY WITH SMALL AMT OF STOMACH CONTENT NOTED.WITH PROLAPSE COLOSTOMY WITH COLOSTOMY BAG ALSO NOTED DRAINING MODERATE AMT OF GREENISH/KAYLIN COLORED OUTPUT.PT NPO EXCEPT MEDS.WITH BARR CATHETER TO DRAINAGE BAG DRAINING SMALL AMT OF YELLOW URINE.PT WITH MULTIPLE PRESSURE ULCERS NOTED WITH DRY AND INTACT DRESSINGS.SEE WOUND ASSESSMENT.PT SHOOK HEAD WHEN ASKED IF IN PAIN.REPOSITIONED.
[2019-08-16] MEDS: AMINO ACIDS IV SCH ×4 (19:44)
[2019-08-16] MEDS: DEXTROSE IV SCH ×4 (19:44)
[2019-08-16] MEDS: [UNRECOGNIZED DRUG - OTHER] IV SCH ×4 (19:44)
[2019-08-16] MEDS: MULTIVITAMIN IV SCH ×4 (19:44)
--- NOTE | 2019-08-16 20:00 | NUR ---
ORAL CARE RENDERED.PT ON DAILY PROTONIX FOR GI PROPHYLAXIS AND LOVENOX FOR DVT PROPHYLAXIS.REPOSITIONED.
[2019-08-16] MEDS: PIPERACILLIN/TAZOBACTAM 3.375 GM in DEXTROSE 5% 50 ML IV SCH (20:13)
--- NOTE | 2019-08-16 22:10 | NUR ---
PT TRANSFERRED TO LOW AIR LOSS MATTRESS
--- NOTE | 2019-08-16 22:15 | NUR ---
REPORT GIVEN TO SHANE BROWN FOR CONTINUITY OF CARE
[2019-08-17] VITALS (102 sets, daily range): BP systolic 72–145; BP diastolic 45–85
[2019-08-17] MEDS: HYDROcodone/APAP 5/325 MG 1 TAB TAB GT PRN (03:31)
[2019-08-17] MEDS: MIDODRINE 5 MG TAB GT SCH ×3 (05:21→22:26)
[2019-08-17] MEDS: BLOOD GLUCOSE MONITORING 1 DEV DEV MC SCH ×4 (05:23→18:07)
[2019-08-17] MEDS: PIPERACILLIN/TAZOBACTAM 3.375 GM in DEXTROSE 5% 50 ML IV SCH ×3 (05:23→21:00)
--- NOTE | 2019-08-17 08:12 | NUR ---
RN AND PULP TESTER AT BEDSIDE FOR PATIENT OHYSICAL HYGIENE AND REPOSITION RN INFUSION TO ATTEMPT ASSESSMENT AND HHN THERAPY AT A LATER TIME
[2019-08-17] MEDS: NOREPINEPHRINE 4 MG in DEXTROSE 5% 250 ML IV PRN ×2 (08:21→17:20)
[2019-08-17 08:56] LABS: HEMOGLOBIN 9.4 g/dL (12.0-18.0); MEAN CORPUSCULAR HEMOGLOBIN 29 pg (27-31)
--- NOTE | 2019-08-17 09:00 | NUR ---
O2 SAT 100%. RT LOWER THE FIO2 TO 30%. WILL CONTINUE TO MONITOR.
[2019-08-17 09:01] LABS: HEMATOCRIT 30.7 % (36-52); MEAN CORPUSCULAR HGB CONC 31 g/dL (33-37); MEAN CORPUSCULAR VOLUME 93.9 fL (80-94); PLATELET COUNT (AUTO) 505 K/uL (140-450); RED BLOOD CELL COUNT(AUTO) 3.27 MIL/uL (4.20-6.10); RED CELL DISTRIBUTION WIDTH 15.3 % (11.6-13.7)
[2019-08-17] MEDS: ZINC SULF 220 MG CAP GT SCH (09:04)
[2019-08-17] MEDS: ASCORBIC ACID 500 MG TAB GT SCH (09:04)
[2019-08-17] MEDS: METOCLOPRAMIDE 10 MG/2 ML INJ VIAL IVP SCH ×3 (09:05→17:21)
[2019-08-17] MEDS: MEROPENEM 1,000 MG in NACL 0.9% 100 ML IV SCH (09:05)
[2019-08-17] MEDS: PANTOPRAZOLE 40 MG INJ VIAL IVP SCH ×2 (09:05→22:27)
[2019-08-17] MEDS: Z-GUARD PASTE TP SCH (09:07)
[2019-08-17] MEDS: THERAHONEY GEL 42.5 GM TP SCH (09:07)
[2019-08-17] MEDS: FOAM DRESSING TP SCH (09:07)
[2019-08-17 09:08] LABS: ANION GAP 17.7 (8-16); CARBON DIOXIDE 19.7 mmol/L (21-32); CREATININE 1.5 mg/dL (0.7-1.3); POTASSIUM 3.4 mmol/L (3.5-5.1)
--- NOTE | 2019-08-17 09:10 | NUR ---
PAGED DR. CRUZ REGARDING DISLODGED G-TUBE. AWAITING CALL BACK.
[2019-08-17] MEDS: ENOXAPARIN 40 MG/0.4 ML SYR SUBQ SCH (09:11)
[2019-08-17 09:12] LABS: MAGNESIUM 1.1 mg/dL (1.8-2.4); PHOSPHORUS 4.1 mg/dL (2.5-4.9)
[2019-08-17 09:18] LABS: WHITE BLOOD COUNT (AUTO) 26.5 K/uL (4.8-10.8)
[2019-08-17 09:19] LABS: EOSINOPHILS % (MANUAL) 5 % (0-4); LYMPHOCYTES % (MANUAL) 2 % (20-46); MONOCYTES % (MANUAL) 2 % (5-12)
[2019-08-17] MEDS: ACETYLCYSTEINE 10% (100 MG/ML) 100 MG/ML VIAL INH SCH ×3 (09:35→20:08)
[2019-08-17] MEDS: ALBUTEROL SULFATE/IPRATROPIU 3 ML SOL IH PRN ×3 (09:35→20:08)
--- NOTE | 2019-08-17 09:35 | NUR ---
RECEIVED ON A miacosaAPE R860 PLUGGED INTO RED OUTLET TOLERATING WELL WITHOUT ADVERSE REACTIONS NOTED TO A SHILEY XLT #6 AIRWAY SECURED WITH A RAMESH TRACH TIE CUFF PRESSURE CHECKED NOTED AMBU BAG NOTED AT HOB RESTING COMFORTABLY WITHOUT DISTRESS NOTED GOOD EQUAL CHEST RISE TRACHEAL SUCTION WITH NO RETURN STOMA SUCTIONING FOR LARGE THICK PALE TO CLEAR SECRETIONS AIRWAY PATENT Addendum: 08/17/19 at 1028 by Gokul Ortiz RT SATURATION 100% ON FIO2 OF 35% TITRATED FIO2 TO 30% BESSY/RN NOTIFIED
--- NOTE | 2019-08-17 10:05 | NUR ---
DR. CRUZ CALLED BACK. PER DR. CRUZ, COVER THE G-TUBE SITE WITH DRY DRESSING AT THIS TIME. STEPHANIE DOHERTY AWARE.
--- NOTE | 2019-08-17 11:15 | NUR ---
SBP IN 80'S. LEVOPHED DRIP INCREASE TO 9 MCG/MIN. WILL CONTINUE TO MONITOR.
[2019-08-17] MEDS ORDERED: MAG SULF 2000 MG/WATER PREMIX 50 ML IV SCH (12:00)
--- NOTE | 2019-08-17 12:00 | NUR ---
REASSESSMENT DONE. NEURO STATUS STILL THE SAME. NO SIGNS OF PAIN OR AGITATION NOTED. TOLERATING CURRENT VENTILATOR SETTINGS WELL. O2 SAT 100%. SR ON MONITOR. SBP IN 90'S-130'S. NO ECTOPY NOTED. HOB ELEVATED. UPDATED OF PLAN OF CARE. WILL CONTINUE TO MONITOR.
--- NOTE | 2019-08-17 12:06 | NUR ---
RESTING WELL NO PULMONARY DISTRESS NOTED GOOD CHEST RISE
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
[2019-08-17] MEDS: NACL 0.9% IRR 250 ML BOTTLE IR SCH (13:26)
--- NOTE | 2019-08-17 14:00 | NUR ---
RESTING IN BED. NO SIGNS OF PAIN OR AGITATION NOTED. TOLERATING VENTILATOR WELL. O2 SAT 100%. ST ON MONITOR. SBP IN 90'S-100'S. NO ECTOPY NOTED. HOB ELEVATED. WILL CONTINUE TO MONITOR.
--- NOTE | 2019-08-17 14:03 | NUR ---
STABLE NOSOB NOTED DEEP TRACHEAL SUCTION FOR NO RETURN STOMA SUCTION FOR MODERATE THICK YELLOW SECRETIONS AIRWAY PATENT ORAL SUCTION FOR SMALL FROTHY CLEAR SECRETIONS
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
--- NOTE | 2019-08-17 15:15 | NUR ---
DRESSING CHANGE DONE ON SACRUM, BILATERAL ISCHIUM, BILATERAL SHOULDER, GT SITE, AND RIGHT HEEL. GIVEN ALSO PARTIAL BATH. TOLERATED THE PROCEDURE WELL.
[2019-08-17] MEDS ORDERED: diphenhydrAMINE 12.5 MG/5 ML UDC GT PRN (15:55)
--- NOTE | 2019-08-17 16:00 | NUR ---
REASSESSMENT DONE. NEURO STATUS UNCHANGED. NO SIGNS OF PAIN OR AGITATION NOTED. TOLERATING CURRENT VENTILATOR SETTINGS WELL. O2 SAT 100%. SR ON MONITOR. SBP IN 80'S-140'S. NO ECTOPY NOTED. HOB ELEVATED. UPDATED OF PLAN OF CARE. WILL CONTINUE TO MONITOR.
--- NOTE | 2019-08-17 16:07 | NUR ---
NO EVIDENCE OF RESPIRATORY DISTRESS NOTED GOOD CHEST RISE DEEP TRACHEAL SUCTION FOR NO RETURN STOMA SUCTION FOR MODERATE THICK PALE YELLOW SECRETIONS AIRWAY PATENT Addendum: 08/17/19 at 1624 by Gokul Ortiz RT SATURATION 100% ON FIO2 OF 30% POST HH THERAPY TITRATED FIO2 TO 28% BESSY/STEPHANIE NOTIFIED
--- NOTE | 2019-08-17 16:15 | NUR ---
SBP IN 70'S-80'S. LEVOPHED DRIP INCREASE TO 11 MCG/MIN. WILL CONTINUE TO MONITOR.
--- NOTE | 2019-08-17 16:23 | NUR ---
O2 SAT 100%. RT LOWER THE FIO2 TO 28%. WILL CONTINUE TO MONITOR.
--- NOTE | 2019-08-17 17:45 | NUR ---
STABLE NO PULMONARY DISTRESS NOTED GOOD EQUAL CHEST RISE DEEP TRACHEAL SUCTION FOR SMALL THICK PALE YELLOW SECRETIONS STOMA SUCTIONING FOR SMALL THICK PALE YELLOW SECRETIONS AIRWAY PATENT
--- NOTE | 2019-08-17 18:00 | NUR ---
RESTING IN BED. NO SIGNS OF PAIN OR AGITATION NOTED. TOLERATING VENTILATOR WELL. O2 SAT 100%. SR ON MONITOR. SBP IN 80'S-90'S. NO ECTOPY NOTED. HOB ELEVATED. WILL CONTINUE TO MONITOR.
[2019-08-17] MEDS: VANCOMYCIN 1,000 MG in DEXTROSE 5% 250 ML IV SCH (19:07)
--- NOTE | 2019-08-17 20:29 | NUR ---
RECEIVED PATIENT TRACH TO MECHANICAL VENTILATOR AT DOCUMENTED SETTINGS. VENT CHECK DONE. VENT PLUGGED INTO RED OUTLET WITH WHEELS LOCKED. VENT ALARMS ON AND AUDIBLE. AMBU BAG AT [facility]. AIRWAY SECURE AND PATENT. SUCTIONED SMALL AMOUNT OF THICK, YELLOW SECTIONS. CLEANED MODERATE AMOUNT OF THICK, YELLOW SECRETIONS AROUND TRACH STOMA. SCHEDULED BREATHING TREATMENT ADMINISTERED. PRN BRONCHODILATOR ADMINISTERED WITH MUCOLYTIC. TOLERATED TREATMENTS WELL WITHOUT ADVERSE SIDE EFFECTS. NO ACUTE RESPIRATORY DISTRESS NOTED. WILL CONTINUE TO MONITOR.
[2019-08-17] MEDS: DEXTROSE IV SCH ×4 (20:41)
[2019-08-17] MEDS: [UNRECOGNIZED DRUG - OTHER] IV SCH ×4 (20:41)
[2019-08-17] MEDS: MULTIVITAMIN IV SCH ×4 (20:41)
[2019-08-17] MEDS: AMINO ACIDS IV SCH ×4 (20:41)
[2019-08-17] MEDS ORDERED: PIPERACILLIN/TAZOBACTAM 3.375 GM VIAL IV ONE (22:28)
[2019-08-18] VITALS (89 sets, daily range): BP systolic 71–141; BP diastolic 40–82
[2019-08-18] MEDS: BLOOD GLUCOSE MONITORING 1 DEV DEV MC SCH ×5 (00:04→23:17)
[2019-08-18] MEDS: NOREPINEPHRINE 4 MG in DEXTROSE 5% 250 ML IV PRN ×3 (01:13→20:43)
[2019-08-18] MEDS ORDERED: PIPERACILLIN/TAZOBACTAM 3.375 GM VIAL IV ONE (04:38)
[2019-08-18] MEDS: MIDODRINE 5 MG TAB GT SCH ×3 (05:00→20:27)
[2019-08-18] MEDS: PIPERACILLIN/TAZOBACTAM 3.375 GM in DEXTROSE 5% 50 ML IV SCH ×3 (05:59→20:27)
[2019-08-18] MEDS: ACETYLCYSTEINE 10% (100 MG/ML) 100 MG/ML VIAL INH SCH ×3 (06:50→19:06)
--- NOTE | 2019-08-18 06:50 | NUR ---
REC'D PT ON [place] VENT SETTINGS AC 20 VT 475 PEEP 5 FIO2 28% alarms on and audible and ambu bag at hob vent is plugged into red outlet, no hhn given due to meds not available in pixis, b\s are coarse bilaterally, sxn pt small amt of yellow secretions, pt is trach with shiley xlt 6 and pt is sleeping with no signs of distress noted at this time
--- NOTE | 2019-08-18 09:30 | NUR ---
REPORT RECEIVED FROM 7PM RN.
[2019-08-18 10:05] LABS: ANION GAP 19.2 (8-16); CARBON DIOXIDE 19.6 mmol/L (21-32); CREATININE 1.2 mg/dL (0.7-1.3)
[2019-08-18 10:09] LABS: HEMATOCRIT 25.7 % (36-52); HEMOGLOBIN 8.1 g/dL (12.0-18.0); MAGNESIUM 1.5 mg/dL (1.8-2.4); MEAN CORPUSCULAR HEMOGLOBIN 29 pg (27-31); MEAN CORPUSCULAR HGB CONC 32 g/dL (33-37); MEAN CORPUSCULAR VOLUME 92.9 fL (80-94); PHOSPHORUS 1.7 mg/dL (2.5-4.9); PLATELET COUNT (AUTO) 477 K/uL (140-450); RED BLOOD CELL COUNT(AUTO) 2.76 MIL/uL (4.20-6.10); RED CELL DISTRIBUTION WIDTH 15.6 % (11.6-13.7); WHITE BLOOD COUNT (AUTO) 18.6 K/uL (4.8-10.8)
[2019-08-18 10:10] LABS: POTASSIUM 2.8 mmol/L (3.5-5.1)
--- NOTE | 2019-08-18 10:14 | NUR ---
PATIENT RESTING WELL IN BED, REPORT WAS GIVEN TO THE ON COMING STAFF RUKHSANA BROWN FOR CONTINUED EXPERT CARE
[2019-08-18 10:39] LABS: BASOPHILS % (MANUAL) 0 % (0-2); EOSINOPHILS % (MANUAL) 7 % (0-4); LYMPHOCYTES % (MANUAL) 5 % (20-46); MONOCYTES % (MANUAL) 7 % (5-12)
--- NOTE | 2019-08-18 11:15 | NUR ---
PATIENT W/ VOMITUS OF TUBE FEEDING DR GLASER AND RESP AT , TUBE FEEDING HELD. RESPIRATORY DEEP SUCTIONED THE PATIENT. AT PRESENT IN NO APPARENT DISTRESS. Addendum: 08/18/19 at 1148 by Agency Tony BROWN RN entry error of above note, incorrect patient
--- NOTE | 2019-08-18 11:30 | NUR ---
PATIENT RESTING QUIETLY, ROUNDING WITH DR GLASER. AT PRESENT PATIENT IN NO APPARENT DISTRESS.
[2019-08-18] MEDS: ASCORBIC ACID 500 MG TAB GT SCH (13:03)
[2019-08-18] MEDS: ZINC SULF 220 MG CAP GT SCH (13:04)
[2019-08-18] MEDS: PANTOPRAZOLE 40 MG INJ VIAL IVP SCH ×2 (13:05→20:27)
[2019-08-18] MEDS: METOCLOPRAMIDE 10 MG/2 ML INJ VIAL IVP SCH ×3 (13:06→18:44)
[2019-08-18] MEDS: Z-GUARD PASTE TP SCH (13:08)
--- NOTE | 2019-08-18 13:30 | NUR ---
PATIENT RESTING QUIETLY, REPOSITIONED, TOLERATED WELL. NAD NOTED. RESPIRATORY IN ROOM
[2019-08-18] MEDS: ENOXAPARIN 40 MG/0.4 ML SYR SUBQ SCH (13:39)
--- NOTE | 2019-08-18 15:06 | NUR ---
08/18/19 RD FOLLOW UP COMPLETED PLEASE REFER TO NUTRITION ASSESSMENT UNDER CARE ACTIVITY FOR ESTIMATED NUTRITIONAL NEEDS. RECOMMEND TO GRADUALLY INCREASE TPN TO MEET AT LEAST 75% OF ESTIMATED KCAL AND PROTEIN GOAL (1395 KCAL AND 83 GM OF PROTEIN) -CURRENT TPN D10%, AA 3.25% AND LIPIDS 10% 120 ML AT 70 ML/HR IS DELIVERING 909 KCAL AND 55 GM OF PROTEIN. THIS IS MEETING <75% OF ESTIMATED NEEDS 2. IF/WHEN PT IS MEDICALLY STABLE TO BEGIN TUBE FEEDING, CONSIDER OSMOLITE 1.2 AT 70 ML/HR X 24 HOURS WITH 160 ML FREE WATER FLUSH Q4H. -THIS PROVIDES 1680 ML TOTAL VOLUME, 2016 KCAL, 84 GM PROTEIN, 1378 ML TOTAL FREE WATER. THIS WILL MEET 100% ESTIMATED KCAL NEEDS AND 84% ESTIMATED PROTEIN NEEDS; ADEQUATE. 3. CONTINUE VITAMIN C 500 MG DAILY FOR WOUND HEALING 4. RD TO FOLLOW-UP 2-3 DAYS, HIGH RISK TANO BONDS RD
[2019-08-18] MEDS: ALBUTEROL SULFATE/IPRATROPIU 3 ML SOL IH PRN ×2 (15:22→19:06)
--- NOTE | 2019-08-18 15:30 | NUR ---
PATIENT RESTING QUIETLY, REPOSITIONED, TOLERATED WELL. NAD NOTED. RESPIRATORY TREATMENT GIVEN, TOLERATED WELL
--- NOTE | 2019-08-18 17:30 | NUR ---
PATIENT RESTING QUIETLY, ASKED TO CALL HIS , CALLED, STATED SHE WAS DOING LAUNDRY , SHE WILL VISIT AFTER LAUNDRY COMPLETION. PATIENT BLOOD SUGAR DONE= 128 MG/DL. REPOSITIONED, TOLERATED WELL. NAD NOTED. COMFORT MEASURES-BLANKET, PT VOICED BEING COLD.
--- NOTE | 2019-08-18 17:30 | NUR ---
PATIENT RESTING QUIETLY, LINDA BED BATH COMPLETED: LINDA CARE, BARR CARE, MOUTH, AND LINEN CHANGE COMPLETED. REPOSITIONED, PATIENT TOLERATED WELL. NAD NOTED.
[2019-08-18] MEDS ORDERED: KCL 20 MEQ/WATER INJ PREMIX 200 ML IV SCH (18:30)
--- NOTE | 2019-08-18 18:50 | NUR ---
K RIDER 41 MEQ INFUSING AT 50ML/HR PER ORDERS.
--- NOTE | 2019-08-18 19:20 | NUR ---
REPORT TO 7PM RNJAN INFUSION IN PROGRESS ENDORSED TO 7P RN.
--- NOTE | 2019-08-18 19:20 | NUR ---
RECEIVED PATIENT TRACH TO MECHANICAL VENTILATOR AT DOCUMENTED SETTINGS. VENT CHECK DONE. VENT PLUGGED INTO RED OUTLET WITH WHEELS LOCKED. VENT ALARMS ON AND AUDIBLE. AMBU BAG AT [facility]. SUCTIONED LARGE AMOUNT OF THICK, YELLOW SECRETIONS AROUND TRACH STOMA. SCHEDULED BREATHING TREATMENT ADMINISTERED. PRN BRONCHODILATOR ADMINISTERED WITH MUCOLYTIC. TOLERATED TREATMENTS WELL WITHOUT ADVERSE SIDE EFFECTS. NO ACUTE RESPIRATORY DISTRESS NOTED AT THIS TIME. WILL CONTINUE TO MONITOR.
--- NOTE | 2019-08-18 19:30 | NUR ---
RECEIVED BEDSIDE REPORT FROM DAY SHIFT NURSE, PT STABLE, NO DISTRESS NOTED, MIDLINE TO R UPPER ARM, DOUBLE LUMEN, PATENT INTACT, INFUSING WELL, PT ON TRACH TO VENT, NO SOB NOTED, PT HAS MULTIPLE WOUND, DRESSING INTACT, OG TUBE IN PLACE, COLOSTOMY, BAG IN PLACE, BARR CATH IN PLACE, INITIAL ASSESSMENT DONE, ALL SAFETY PRECAUTION MET, CALL LIGHT WITHIN REACH, WILL CONTINUE TO MONITOR.
--- NOTE | 2019-08-18 19:48 | NUR ---
[place] BARRIOS COMPATIBILITY VERIFIED WITH ALICIA PHARMACIST; OK TO MIX WITH TPN LINE.
[2019-08-18] MEDS: NACL 0.9% 1,000 ML IV SCH (20:00)
[2019-08-18] MEDS ORDERED: NOREPINEPHRINE 4 MG/4 ML VIAL IV ONE (20:13)
[2019-08-18] MEDS: DEXTROSE IV SCH ×4 (20:26)
[2019-08-18] MEDS: [UNRECOGNIZED DRUG - OTHER] IV SCH ×4 (20:26)
[2019-08-18] MEDS: AMINO ACIDS IV SCH ×4 (20:26)
[2019-08-18] MEDS: MULTIVITAMIN IV SCH ×4 (20:26)
--- NOTE | 2019-08-18 20:27 | NUR ---
DUE MEDICATION ADMINISTERED, PT TOLERATED WELL, NO DISTRESS NOTED, CALL LIGHT WITHIN REACH.
--- NOTE | 2019-08-18 22:41 | NUR ---
PT SLEEPING, NO DISTRESS NOTED, CALL LIGHT WITHIN REACH, WILL CONTINUE TO MONITOR.
[2019-08-19] VITALS (107 sets, daily range): BP systolic 61–132; BP diastolic 42–85
[2019-08-19] MEDS: HYDROcodone/APAP 5/325 MG 1 TAB TAB GT PRN ×2 (00:26→13:41)
--- NOTE | 2019-08-19 00:26 | NUR ---
CHECKED ON PT, FLACC 6, PAIN MEDICATION ADMINISTERED, PT TOLERATED WELL, NO DISTRESS NOTED, CALL LIGHT WITHIN REACH, WILL CONTINUE TO MONITOR.
--- NOTE | 2019-08-19 02:08 | NUR ---
CHECKED ON PT, PT SLEEPING, NO DISTRESS NOTED, CALL LIGHT WITHIN REACH, WILL CONTINUE TO MONITOR.
[2019-08-19] MEDS ORDERED: NOREPINEPHRINE 4 MG/4 ML VIAL IV ONE (03:03)
[2019-08-19] MEDS: NOREPINEPHRINE 4 MG in DEXTROSE 5% 250 ML IV PRN ×3 (03:09→23:11)
--- NOTE | 2019-08-19 03:55 | NUR ---
NO DISTRESS NOTED, DRESSING TO R HEEL SATURATED, CHANGED, PT TOLERATED WELL, PICTURE TAKEN, CALL LIGHT WITHIN REACH, WILL CONTINUE TO MONITOR.
[2019-08-19] MEDS: PIPERACILLIN/TAZOBACTAM 3.375 GM in DEXTROSE 5% 50 ML IV SCH ×3 (05:06→20:07)
[2019-08-19] MEDS: MIDODRINE 5 MG TAB GT SCH ×3 (05:06→20:07)
[2019-08-19] MEDS: BLOOD GLUCOSE MONITORING 1 DEV DEV MC SCH ×3 (05:18→17:38)
--- NOTE | 2019-08-19 05:19 | NUR ---
DUE MEDICATION ADMINISTERED, PT TOLERATED WELL, BLOOD SUGAR TAKEN 113, PT RESTING, NO DISTRESS NOTED, CALL LIGHT WITHIN REACH, WILL CONTINUE TO MONITOR.
[2019-08-19 06:45] LABS: CREATININE 1.2 mg/dL (0.7-1.3)
[2019-08-19 06:50] LABS: MAGNESIUM 1.4 mg/dL (1.8-2.4); PHOSPHORUS 2.6 mg/dL (2.5-4.9)
[2019-08-19 06:58] LABS: ANION GAP 21.6 (8-16); POTASSIUM 3.6 mmol/L (3.5-5.1)
[2019-08-19] MEDS: ACETYLCYSTEINE 10% (100 MG/ML) 100 MG/ML VIAL INH SCH ×3 (07:11→19:30)
[2019-08-19] MEDS: ALBUTEROL SULFATE/IPRATROPIU 3 ML SOL IH PRN ×2 (07:12→15:14)
--- NOTE | 2019-08-19 07:12 | NUR ---
RECEIVED PT ON CARESCAPE ON DOCUMENTED SETTINGS, ALARMS ARE ON AND AUDIBLE, PTS TRACH SHILEY 6 XLT IS SECURE, PTIN HF ASLEEP. BS COARSE, HHN GIVEN I\L WITH 3 MG DUONEB AND 2 ML MUCOMYST, I\L SX AND ORAL SX COPIOUS YELLOW, BMV HOB ,VENT PLUGGED INTO RED OUTLET, WILL CONTINUE TO MONITOR
--- NOTE | 2019-08-19 07:19 | NUR ---
RECEIVED BEDSIDE REPORT FROM ANNETTE EAP COUNSELOR RN, FOR CONTINUITY OF CARE. PATIENT OPENS EYES SPONTANEOUSLY, ABLE TO MAKE NEEDS KNOWN AND FOLLOWS SOME COMMANDS. PATIENT SKIN IS WARM, DRY, NOT INTACT, HE HAS OPEN WOUND TO R. SHOULDER, PRESSURE WOUND TO L/R BUTTOCKS, SACROCOCCYX, AND R. HEEL. HE HAS PICC LINE TO FEDE MIDLINE. PATIENT IS ON TRACH TO VENT, BREATHING IS EVEN AND UNLABORED. HE IS ST ON MONITOR, FLACC 0. PATIENT HAS OGT IN PLACE TO LOW INTERMITTENT SUCTION. BARR CATHETER IN PLACE TO CLEAR LIGHT YELLOW URINE. HIS HOB IS 45 DEGREES, SIDE RAILS UP 3X, BED LOCKED IN LOW POSITION. NO SIGNS OF DISTRESS NOTED.
[2019-08-19] MEDS: ASCORBIC ACID 500 MG TAB GT SCH (08:45)
[2019-08-19] MEDS: FOAM DRESSING TP SCH (08:45)
[2019-08-19] MEDS: METOCLOPRAMIDE 10 MG/2 ML INJ VIAL IVP SCH ×3 (08:45→17:37)
[2019-08-19] MEDS: PANTOPRAZOLE 40 MG INJ VIAL IVP SCH ×2 (08:45→20:06)
[2019-08-19] MEDS: ZINC SULF 220 MG CAP GT SCH (08:45)
[2019-08-19] MEDS: Z-GUARD PASTE TP SCH (08:46)
[2019-08-19] MEDS: THERAHONEY GEL 42.5 GM TP SCH (08:46)
[2019-08-19] MEDS: ENOXAPARIN 40 MG/0.4 ML SYR SUBQ SCH (08:49)
--- NOTE | 2019-08-19 08:58 | NUR ---
DR. HUFFMAN IS HERE TO SEE AND EXAMINE PATIENT, STATES THAT PATIENT IS OKAY FROM [facility]PH[facility] STANDPOINT. WILL FOLLOW UP WITH ANY ORDERS
--- NOTE | 2019-08-19 10:05 | NUR ---
WOUND CARE EVAL DONE BY FORREST TRANSFER ENGINEER. PATIENT TOLERATED WELL
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
--- NOTE | 2019-08-19 11:46 | NUR ---
IS HERE TO SEE AND EXAMINE PATIENT, UPDATED ON PATIENT'S CONDITION. WILL FOLLOW UP ON ANY ORDERS.
--- NOTE | 2019-08-19 11:55 | NUR ---
PER DR. JOHNSTON, TITRATE LEVOPHED ACCORDING TO MAP OF 60 AND OK TO CONTINUE VANCO PER PHARMACY
[2019-08-19] MEDS ORDERED: VANCOMYCIN PER PHARMACY MC PRN (12:00)
[2019-08-19 12:10] LABS: HEMOGLOBIN 8.4 g/dL (12.0-18.0); MEAN CORPUSCULAR HEMOGLOBIN 29 pg (27-31); MEAN CORPUSCULAR HGB CONC 31 g/dL (33-37); MEAN CORPUSCULAR VOLUME 92.7 fL (80-94); PLATELET COUNT (AUTO) 503 K/uL (140-450); RED BLOOD CELL COUNT(AUTO) 2.92 MIL/uL (4.20-6.10); RED CELL DISTRIBUTION WIDTH 15.4 % (11.6-13.7)
[2019-08-19 12:25] LABS: WHITE BLOOD COUNT (AUTO) 20.5 K/uL (4.8-10.8)
[2019-08-19 12:38] LABS: EOSINOPHILS % (MANUAL) 6 % (0-4); LYMPHOCYTES % (MANUAL) 5 % (20-46); MONOCYTES % (MANUAL) 9 % (5-12)
[2019-08-19] MEDS ORDERED: ALGINATE DRESSING MC SCH (13:00)
[2019-08-19] MEDS: NACL 0.9% IRR 250 ML BOTTLE IR SCH (13:01)
--- NOTE | 2019-08-19 13:36 | NUR ---
ORAL CARE PROVIDED, SUCTIONED SECRETIONS IN TRACH AREA.
--- NOTE | 2019-08-19 17:54 | NUR ---
PATIENT TURNED AND REPOSITIONED, DENIES ANY PAIN, NO SIGNS OF DISTRESS NOTED.
--- NOTE | 2019-08-19 19:30 | NUR ---
RECEIVED REPORT FROM AM NURSE. PT AWAKE AND ABLE TO MAKE NEEDS KNOWN. SINUS RHYTHM ON MONITOR. TRACH TO VENT. ON ACVC SETTINGS, FIO2 28, TV 475, RATE 20, PEEP 5. LUNG SOUNDS AUSCULTATED, RHONCHI HEARD. PT ON LEVOPHED INFUSING AT 4 MCG/MIN, TPN INFUSING AT 70ML/HR, NS INFUSING AT 30ML/HR. IV SITE FEDE MIDLINE, INTACT, FLUSHED, PATENT. NPO AFTER MIDNIGHT. OGT TO LOW INTERMITTENT SUCTION, NO RESIDUALS ASPIRATED. ABDOMEN SOFT AND ROUND. BOWEL SOUNDS ACTIVE. GASTROSTOMY SITE TO DRAINAGE BAG. COLOSTOMY BAG IN PLACE. SKIN IS WARM AND DRY. MULTIPLE WOUNDS NOTED. SEE WOUND ASSESSMENT. BARR CATHETER IN PLACE. FLACC 0. HOB 30 DEGREES. BED LOCKED IN LOWEST POSITION.
--- NOTE | 2019-08-19 19:30 | NUR ---
CALLED PT'S , ADILENE TUTTLE TO OBTAIN CONSENT FOR PROCEDURE EGD WITH PEG. ADILENE SPOKE WITH DR. CRUZ, WHO IS IN THE UNIT. CONSENT CONFIRMED BY 2 RN'S. PROCEDURE SCHEDULED FOR TOMORROW.
[2019-08-19] MEDS: MULTIVITAMIN IV SCH ×4 (20:09)
[2019-08-19] MEDS: [UNRECOGNIZED DRUG - OTHER] IV SCH ×4 (20:09)
[2019-08-19] MEDS: DEXTROSE IV SCH ×4 (20:09)
[2019-08-19] MEDS: AMINO ACIDS IV SCH ×4 (20:09)
[2019-08-19] MEDS ORDERED: MAG SULF 2000 MG/WATER PREMIX 50 ML IV ONE (21:00)
--- NOTE | 2019-08-19 21:22 | NUR ---
PT AWAKE. PT REPOSITIONED. ORAL CARE PROVIDED. VITAL SIGNS STABLE. NO SOB NOTED. FLACC 0. HOB 30 DEGREES. BED LOCKED IN LOWEST POSITION. WILL CONTINUE TO MONITOR.
[2019-08-19] MEDS: NACL 0.9% 1,000 ML IV SCH (21:34)
--- NOTE | 2019-08-19 23:15 | NUR ---
PT AWAKE. VITAL SIGNS STABLE. PT REPOSITIONED. NO SOB NOTED. FLACC 0. HOB 30 DEGREES. BED LOCKED IN LOWEST POSITION. WILL CONTINUE TO MONITOR.
[2019-08-20] VITALS (8 sets, daily range): BP systolic 74–84; BP diastolic 54–57
[2019-08-20] MEDS: BLOOD GLUCOSE MONITORING 1 DEV DEV MC SCH
[2019-08-20] MEDS ORDERED: PIPERACILLIN/TAZOBACTAM 3.375 GM VIAL IV ONE (00:08)
--- NOTE | 2019-08-20 01:23 | NUR ---
PT HAS EYES CLOSED. RESPIRATIONS EVEN AND UNLABORED. VITAL SIGNS STABLE. WILL CONTINUE TO MONITOR.
[2019-08-20] MEDS: PIPERACILLIN/TAZOBACTAM 3.375 GM in DEXTROSE 5% 50 ML IV SCH (04:32)
[2019-08-20] MEDS: ALGINATE DRESSING MC SCH (09:00)
[2019-08-20] MEDS ORDERED: diphenhydrAMINE 50 MG/ML VIAL ONE (12:03)
[2019-08-20] MEDS ORDERED: MIDAZOLAM 2 MG/2 ML VIAL ONE (12:03)
[2019-08-20] MEDS ORDERED: fentaNYL 0.05 MG/ML VIAL ONE (12:03)
[2019-08-20] MEDS ORDERED: GLUCAGON 1 MG VIAL ONE (13:13)
[2019-08-21] VITALS (22 sets, daily range): BP systolic 76–154; BP diastolic 46–75
[2019-08-21] MEDS: ACETYLCYSTEINE 10% (100 MG/ML) 100 MG/ML VIAL INH SCH (06:29)
[2019-08-21] MEDS: METOCLOPRAMIDE 10 MG/2 ML INJ VIAL IVP SCH ×3 (08:43→17:00)
[2019-08-21] MEDS: ZINC SULF 220 MG CAP GT SCH (08:43)
[2019-08-21] MEDS: PANTOPRAZOLE 40 MG INJ VIAL IVP SCH ×2 (08:43→21:00)
[2019-08-21] MEDS: ENOXAPARIN 40 MG/0.4 ML SYR SUBQ SCH (08:47)
[2019-08-21] MEDS: ASCORBIC ACID 500 MG TAB GT SCH (08:47)
[2019-08-21] MEDS: NACL 0.9% IRR 250 ML BOTTLE IR SCH (13:00)
[2019-08-21] MEDS ORDERED: KCL 20 MEQ/WATER INJ PREMIX 200 ML IV ONE (18:03)
--- NOTE | 2019-08-21 19:30 | NUR ---
RECEIVED REPORT FROM AM NURSE, PT AT BED LETHARGIC, PERRL 3MM, BRISK, OPEN EYES SPONTANEOUSLY, PT TRACH TO VENT, BREATHING REGULARLY, UNLABORED, AC/VC FIO2 24% TV 475, RR 20, PEEP 5, LUNG SOUNDS RONCHI ON BILATERAL UPPER LOBES, DIMINISHED AT BASES, HEART RATE REGULAR S1S2 PRESENT, SINUS RHYTHM ON MONITOR, CAP REFILL <3S, PULSES 2+ BILATERAL UPPER AND LOWER EXTREMITIES, ABDOMEN, SOFT, ROUND, NONDISTENDED. NONTENDER, BOWEL SOUNDS ACTIVE IN ALL QUADRANTS, GTUBE IN PLACE, COLOSTOMY APPLIANCE IN PLACE, DRAINING BROWN, LIQUID STOOL, PROLAPSE COLON NOTED, RED AND PUFFY, BLADDER, SOFT, ROUND, NONDISTENDED, NONTENDER, BARR CATHETER IN PLACE, DRAINING CLEAR YELLOW URINE, PT HAS GENERALIZED WEAKNESS, PT SKIN WARM, DRY, NONINTACT, PT HAS LEFT SHOULDER OPEN WOUND, DRESSING IN PLACE, RIGHT SHOULDER OPEN WOUND, DRESSING IN PLACE, INTACT, DRY, BILATERAL BUTTOCK OPEN WOUND, DRESSING IN PLACE, DRY AND INTACT, SACRAL AREA HAS OPEN WOUND, OPTIFOAM DRESSING IN PLACE, DRY, INTACT, PT HAS RIGHT LEG OPEN WOUND, DRESSING IN PLACE, DRY AND INTACT, PT HAS RIGHT HEEL WOUND, HEALING, DRESSING IN PLACE, DRY AND INTACT, PT HAS RIGHT UPPER ARM MIDLINE, INFUSING TPN AT 70 ML/HR, NS AT 30 ML/HR. HOB 30 DEGREES, SIDE RAILS UP X2, BED AT LOWEST POSITION. .
[2019-08-21] MEDS: MULTIVITAMIN IV SCH ×4 (20:00)
[2019-08-21] MEDS: AMINO ACIDS IV SCH ×4 (20:00)
[2019-08-21] MEDS: [UNRECOGNIZED DRUG - OTHER] IV SCH ×4 (20:00)
[2019-08-21] MEDS: DEXTROSE IV SCH ×4 (20:00)
[2019-08-21] MEDS: NACL 0.9% 1,000 ML IV SCH (20:00)
[2019-08-21 20:11] LABS: ANION GAP 22.4 (8-16); CARBON DIOXIDE 16.8 mmol/L (21-32); CREATININE 1.1 mg/dL (0.7-1.3); PHOSPHORUS 3.3 mg/dL (2.5-4.9); POTASSIUM 3.2 mmol/L (3.5-5.1)
--- NOTE | 2019-08-21 20:30 | NUR ---
VAP ORAL CARE PERFORMED, SUCTIONED SCANT, WHITE, MUCOUS, PT TOLERATED PROCEDURE WELL. MEDICATIONS GIVEN.
[2019-08-21] MEDS: PIPERACILLIN/TAZOBACTAM 3.375 GM in DEXTROSE 5% 50 ML IV SCH (21:00)
[2019-08-21] MEDS: MIDODRINE 5 MG TAB GT SCH (21:00)
--- NOTE | 2019-08-21 21:00 | NUR ---
DR CRUZ AT BEDSIDE, REPLACED GTUBE WITH 28 BULGARIAN. PT TOLERATED WELL.
--- NOTE | 2019-08-21 23:54 | NUR ---
ABDOMEN XRAY RESULT RECEIVED. GTUBE WITHIN STOMACH.
[2019-08-22] VITALS (103 sets, daily range): BP systolic 81–146; BP diastolic 41–75
--- NOTE | 2019-08-22 02:00 | NUR ---
TUBE FEEDING OSMOLITE STARTED. RESIDUAL 0 ML.
[2019-08-22] MEDS: PIPERACILLIN/TAZOBACTAM 3.375 GM in DEXTROSE 5% 50 ML IV SCH ×3 (04:22→21:00)
[2019-08-22] MEDS: MIDODRINE 5 MG TAB GT SCH ×3 (04:23→21:00)
--- NOTE | 2019-08-22 04:37 | NUR ---
SUCTIONED PT WITH THICK WHITE MODERATE AMOUNT OF SPUTUM, MEDICATIONS GIVEN. WILL CONTINUE TO MONITOR.
[2019-08-22] MEDS: BLOOD GLUCOSE MONITORING 1 DEV DEV MC SCH ×4 (05:49→18:12)
[2019-08-22 06:01] LABS: ANION GAP 24.2 (8-16); CREATININE 1.3 mg/dL (0.7-1.3); POTASSIUM 4.2 mmol/L (3.5-5.1)
[2019-08-22 06:05] LABS: MAGNESIUM 1.7 mg/dL (1.8-2.4); PHOSPHORUS 5.2 mg/dL (2.5-4.9)
[2019-08-22] MEDS: ALBUTEROL SULFATE/IPRATROPIU 3 ML SOL IH PRN (06:32)
--- NOTE | 2019-08-22 06:33 | NUR ---
RECEIVED PT ON CARESCAPE ON DOCUMENTED SETTINGS, ALARMS ARE ON AND AUDIBLE, PTS TRACH SHILEY 6 XLT IS SECURE, PT IN HF ASLEEP, HHN GIVEN I\L WITH 3 MG DUONEB BMV HOB VENT PLUGGED INTO RED OUTLET, WILL CONTINUE TO MONITOR
[2019-08-22 06:41] LABS: BASOPHILS # (AUTO) 0.1 K/uL (0.00-0.22); BASOPHILS % (AUTO) 0.7 % (0.0-2.0); EOSINOPHILS # (AUTO) 0.7 K/uL (0-0.4); EOSINOPHILS % (AUTO) 4.7 % (0.0-4.0); HEMATOCRIT 31.2 % (36-52); HEMOGLOBIN 9.6 g/dL (12.0-18.0); LYMPHOCYTES # (AUTO) 1.6 K/uL (2.0-11.5); LYMPHOCYTES % (AUTO) 10.7 % (20.5-51.1); MEAN CORPUSCULAR HEMOGLOBIN 29 pg (27-31); MEAN CORPUSCULAR HGB CONC 31 g/dL (33-37); MEAN CORPUSCULAR VOLUME 93.2 fL (80-94); MONOCYTES # (AUTO) 1.4 K/uL (0.8-1.0); MONOCYTES % (AUTO) 9.8 % (1.7-9.3); NEUTROPHILS # (AUTO) 10.9 K/uL (1.8-7.7); NEUTROPHILS % (AUTO) 74.1 % (42.2-75.2); PLATELET COUNT (AUTO) 417 K/uL (140-450); RED BLOOD CELL COUNT(AUTO) 3.35 MIL/uL (4.20-6.10); RED CELL DISTRIBUTION WIDTH 15.8 % (11.6-13.7); WHITE BLOOD COUNT (AUTO) 14.7 K/uL (4.8-10.8)
--- NOTE | 2019-08-22 07:14 | NUR ---
RECEIVED BEDSIDE REPORT FROM CELY MEDIA CONSULTANT OUTSIDE SALES RN, FOR CONTINUITY OF CARE. PATIENT OPENS EYES SPONTANEOUSLY, ABLE TO MAKE SOME NEEDS KNOWN. PATIENT SKIN IS WARM, DRY, AFEBRILE, NOT INTACT. HE HAS PRESSURE INJURY TO R. HEEL, BILATERAL BUTTOCKS, AND SACROCOCCYX, HE HAS OPEN WOUND TO LEFT AND RIGHT SHOULDER AND R. LEG. PATIENT IS TRACH TO VENT, BREATHING IS EVEN AND UNLABORED. HE IS SR ON MONITOR, FLACC 0. HE HAS PEG TUBE IN PLACE TO FEEDING, BARR CATHETER IN PLACE. PATIENT HAS PROLAPSED COLOSTOMY. NO SIGNS OF DISTRESS AT THIS TIME. WILL CONTINUE TO MONITOR
--- NOTE | 2019-08-22 07:33 | NUR ---
CHANGE OF SHIFT REPORT GIVEN TO AM NURSE. PT AT STABLE CONDITION AT THIS TIME
[2019-08-22] MEDS: ASCORBIC ACID 500 MG TAB GT SCH ×2 (08:11→09:00)
[2019-08-22] MEDS: ZINC SULF 220 MG CAP GT SCH ×2 (08:12→09:00)
[2019-08-22] MEDS: METOCLOPRAMIDE 10 MG/2 ML INJ VIAL IVP SCH ×4 (08:12→16:38)
[2019-08-22] MEDS: PANTOPRAZOLE 40 MG INJ VIAL IVP SCH ×2 (08:12→21:00)
--- NOTE | 2019-08-22 08:17 | NUR ---
ORAL CARE GIVEN, PATIENT TOLERATED WELL
[2019-08-22] MEDS: ALGINATE DRESSING MC SCH (08:26)
[2019-08-22] MEDS: ENOXAPARIN 40 MG/0.4 ML SYR SUBQ SCH ×2 (08:30→09:00)
[2019-08-22] MEDS: Z-GUARD PASTE TP SCH ×2 (08:32→09:00)
[2019-08-22] MEDS: FOAM DRESSING TP SCH (08:32)
--- NOTE | 2019-08-22 10:12 | NUR ---
DR. VILA IS HERE TO SEE AND EXAMINE PATIENT, UPDATED ON PATIENT'S CONDITION. RECEIVED ORDER FOR MAG SULFATE 2GM DUE TO MG LEVEL OF 1.7
[2019-08-22] MEDS ORDERED: POTASSIUM CHLORIDE 10 MEQ TABER PO PRN (10:15)
[2019-08-22 10:17] LABS: BASOPHILS # (AUTO) 0.1 K/uL (0.00-0.22); BASOPHILS % (AUTO) 0.8 % (0.0-2.0); EOSINOPHILS # (AUTO) 1.2 K/uL (0-0.4); EOSINOPHILS % (AUTO) 6.8 % (0.0-4.0); HEMATOCRIT 31.6 % (36-52); HEMOGLOBIN 9.7 g/dL (12.0-18.0); LYMPHOCYTES # (AUTO) 1.6 K/uL (2.0-11.5); LYMPHOCYTES % (AUTO) 9.3 % (20.5-51.1); MEAN CORPUSCULAR HEMOGLOBIN 29 pg (27-31); MEAN CORPUSCULAR HGB CONC 31 g/dL (33-37); MONOCYTES # (AUTO) 1.4 K/uL (0.8-1.0); NEUTROPHILS # (AUTO) 13.3 K/uL (1.8-7.7); NEUTROPHILS % (AUTO) 75.1 % (42.2-75.2); PLATELET COUNT (AUTO) 468 K/uL (140-450); RED CELL DISTRIBUTION WIDTH 15.6 % (11.6-13.7); WHITE BLOOD COUNT (AUTO) 17.6 K/uL (4.8-10.8)
[2019-08-22] MEDS ORDERED: VANCOMYCIN 1,000 MG in DEXTROSE 5% 250 ML IV SCH (14:00)
--- NOTE | 2019-08-22 14:45 | NUR ---
PATIENT TURNED AND REPOSITIONED, TOLERATED WELL. NO RESIDUAL NOTED, INCREASED FEEDING AND DECREASED TPN.
[2019-08-22] MEDS: MAGNESIUM OXIDE 400 MG TAB PO PRN (16:39)
--- NOTE | 2019-08-22 17:37 | NUR ---
DR. CRUZ IS HERE, UPDATED ON PATIENT'S CONDITION, AWARE THAT THERE WAS NO LEAKING NOTICED AT THE GTUBE SITE.
--- NOTE | 2019-08-22 19:27 | NUR ---
ENDORSED CONTINUITY OF CARE TO BAR WELDER RN, NO DISTRESS AT THIS TIME
[2019-08-22] MEDS: MULTIVITAMIN IV SCH ×4 (20:00)
[2019-08-22] MEDS: NACL 0.9% 1,000 ML IV SCH (20:00)
[2019-08-22] MEDS: DEXTROSE IV SCH ×4 (20:00)
[2019-08-22] MEDS: [UNRECOGNIZED DRUG - OTHER] IV SCH ×4 (20:00)
[2019-08-22] MEDS: AMINO ACIDS IV SCH ×4 (20:00)
[2019-08-23] VITALS (104 sets, daily range): BP systolic 79–144; BP diastolic 38–85
[2019-08-23] MEDS: PIPERACILLIN/TAZOBACTAM 3.375 GM in DEXTROSE 5% 50 ML IV SCH ×3 (05:47→20:44)
[2019-08-23] MEDS: MIDODRINE 5 MG TAB GT SCH ×3 (05:48→20:45)
[2019-08-23] MEDS: BLOOD GLUCOSE MONITORING 1 DEV DEV MC SCH ×4 (05:53→17:55)
[2019-08-23 06:03] LABS: MAGNESIUM 1.8 mg/dL (1.8-2.4)
[2019-08-23 06:06] LABS: CARBON DIOXIDE 14.8 mmol/L (21-32); CREATININE 1.7 mg/dL (0.7-1.3); POTASSIUM 3.8 mmol/L (3.5-5.1)
--- NOTE | 2019-08-23 06:54 | NUR ---
RECEIVED PT ON CARESCAPE ON DOCUMENTED SETTINGS, ALARMS ARE ON AND AUDIBLE, PTS TRACH SHILEY 6 XLT IS SECURE, PT IN HF AWAKE BS COARSE, ORALLY SX COPIOUS YELLOW, BMV HOB, VENT PLUGGED INTO RED OUTLET, WILL CONTINUE TO MONITOR
--- NOTE | 2019-08-23 07:25 | NUR ---
RECEIVED BEDSIDE REPORT FROM NIGHT NURSE. PT IN AIR MATTRESS BED, QUADRIPLEGIC, C3/C4 INJURY. OX2, OPEN EYES TO NAME. LETHARGIC, PERRL 3MM, BRISK. TRACH TO VENT, AC/VC FIO2 24%, TV 475, RR 20, PEEP 5. LUNG SOUNDS COARSE, BREATHING EVEN AND UNLABORED, HOWEVER, TACHYPNEA. ST ON MONITOR, CAP REFILL <3S, PULSES 2+ BILATERAL UPPER AND LOWER EXTREMITIES, ABDOMEN, SOFT, NONTENDER, BOWEL SOUNDS ACTIVE. G TUBE FEEDING RUNNING OSMOLITE AT 70ML/HR, WATER FLUSH 160ML Q4H. COLOSTOMY BAG IN PLACE, DRAINING BROWN, LIQUID STOOL, PROLAPSE COLON NOTED. BARR CATHETER IN PLACE, DRAINING CLEAR YELLOW URINE. WOUND DRESSINGS IN PLACE. IV TO RIGHT UA, MIDLINE, NS AT 30 ML/HR, PATENT AND ASYMPTOMATIC. HOB 30 DEGREES, SIDE RAILS UP X2, BED AT LOWEST POSITION.
--- NOTE | 2019-08-23 08:58 | NUR ---
PATIENT DUE MEDICATIONS AND CARE WERE GIVEN. PATIENT MADE COMFORTABLE. REPORT WAS GIVEN TO THE ON COMING STAFF FOR CONTINUED EXPERT CARE.
[2019-08-23] MEDS: PANTOPRAZOLE 40 MG INJ VIAL IVP SCH ×2 (09:27→20:45)
[2019-08-23] MEDS: ZINC SULF 220 MG CAP GT SCH (09:27)
[2019-08-23] MEDS: ASCORBIC ACID 500 MG TAB GT SCH (09:27)
[2019-08-23] MEDS: METOCLOPRAMIDE 10 MG/2 ML INJ VIAL IVP SCH ×3 (09:27→17:33)
[2019-08-23] MEDS: Z-GUARD PASTE TP SCH (09:28)
[2019-08-23] MEDS: ENOXAPARIN 40 MG/0.4 ML SYR SUBQ SCH (09:35)
--- NOTE | 2019-08-23 09:45 | NUR ---
G TUBE RESIDUAL 10ML. SCHEDULED MEDS GIVEN.
--- NOTE | 2019-08-23 10:20 | NUR ---
FEEDING TUBE AND FORMULA BOTTLE CHANGED. SETTING RATE 70ML/HR, WATER FLUSH 160ML Q4H
--- NOTE | 2019-08-23 10:50 | NUR ---
DR VILA CAME AND ASSESSED PT.
[2019-08-23] MEDS ORDERED: HYDROcodone/APAP 5/325 MG 1 TAB TAB PO PRN (13:00)
--- NOTE | 2019-08-23 14:40 | NUR ---
PAGED ID DR PETE TO NOTIFY HIM ABOUT NEW CONSULT
--- NOTE | 2019-08-23 15:55 | NUR ---
DR CRUZ CAME AND SEEN PT.
[2019-08-23 17:17] LABS: ANION GAP 24.3 (8-16); POTASSIUM 3.3 mmol/L (3.5-5.1)
[2019-08-23 17:18] LABS: CREATININE 1.3 mg/dL (0.7-1.3); MAGNESIUM 1.9 mg/dL (1.8-2.4); PHOSPHORUS 5.4 mg/dL (2.5-4.9)
[2019-08-23] MEDS ORDERED: NOREPINEPHRINE 4 MG/4 ML VIAL IV ONE (17:30)
[2019-08-23] MEDS: NOREPINEPHRINE 4 MG in DEXTROSE 5% 250 ML IV PRN (17:40)
--- NOTE | 2019-08-23 17:47 | NUR ---
08/23/19 RD FOLLOW UP COMPLETED PLEASE REFER TO NUTRITION PROGRESS NOTE UNDER CARE ACTIVITY FOR ESTIMATED NUTRITION NEEDS. RD RECOMMENDATIONS: 1. RECOMMEND CONTINUE OSMOLITE 1.5 @70MLS/HR (NEW ORDER AND PT TOLERATING WELL); PROVIDES 100%+ OF ESTIMATED ENERGY AND PROTEIN NEEDS. 2. IF PT WEIGHT OR LABS WAS SIGNIFICANTLY CHANGING, AND/OR PT NOT TOLERATING TF, CONSIDER DECREASING RATE TO 60MLS/HR (2160KCALS, 90G PROTEIN - MEETS 100%) 3.CONTINUE VITAMIN C 500 MG DAILY FOR WOUND HEALING 4. RD TO FOLLOW-UP 2-3 DAYS, HIGH RISK SHELLIE QUARLES MBA, RD
--- NOTE | 2019-08-23 19:20 | NUR ---
RECEIVED REPORT FROM AM NURSE, PT AT BED AWAKE, PERRL 3MM, BRISK, OPENS EYES SPONTANEOUSLY, PT TRACH TO VENT, ON VENT SETTINGS AC/VC FIO2 24% TV 475 RR 30 PEEP 5, PT BREATHING REGULARLY, LUNG SOUNDS CLEAR THROUGHOUT, DIMINISHED AT BASES, HEART RATE REGULAR SINUS RHYTHM ON MONITOR, S1 S2 PRESENT, CAP REFILL <3S, PULSES 2+ BILATERAL UPPER AND LOWER EXTREMITIES, ABDOMEN SOFT, ROUND, NONDISTENDED, NONTENDER BOWEL SOUNDS ACTIVE IN ALL QUADRANTS, PT HAS GTUBE RUNNING OSMOLITE AT 70 ML/HR WITH WATER FLUSH AT 160 ML Q4H, PT HAS COLOSTOMY APPLIANCE IN PLACE, PROLAPSED COLON NOTED, RED, PUFFY, DRAINING BROWN, LIQUID STOOL, BLADDER, SOFT, ROUND, NONDISTENDED, NONTENDER, BARR CATHETER IN PLACE, DRAINING, CLEAR, YELLOW, URINE WITH SEDIMENTATION, PT HAS GENERALIZED WEAKNESS, SKIN, WARM, DRY, NONINTACT, PT HAS LEFT SHOULDER OPEN WOUND, DRESSING IN PLACE, RIGHT SHOULDER OPEN WOUND, DRESSING IN PLACE, INTACT, DRY, BILATERAL BUTTOCK OPEN WOUND, DRESSING IN PLACE, DRY AND INTACT, SACRAL AREA HAS OPEN WOUND, OPTIFOAM DRESSING IN PLACE, DRY, INTACT, PT HAS RIGHT LEG OPEN WOUND, DRESSING IN PLACE, DRY AND INTACT, PT HAS RIGHT HEEL WOUND, HEALING, DRESSING IN PLACE, DRY AND INTACT, PT HAS RIGHT UPPER ARM MIDLINE PERIPHERAL IV, RUNNING 0.9 % NS AT 30 ML/HR, LEVOPHED AT 4 MCG/MIN, HOB 30 DEGREES, SIDE RAILS UP X2, BED AT LOWEST POSITION. WILL CONTINUE TO MONITOR.
--- NOTE | 2019-08-23 19:45 | NUR ---
Received pt stable on vent support at documented settings, no resp distress or SOB noted at this time, Shiley 6 XLT trach secured/patent/midline, alarms set and audible, ambu bag at bedside, vent plugged into red outlet and wiped down, cont pulse ox on, will cont to monitor.
[2019-08-23] MEDS: NACL 0.9% 1,000 ML IV SCH (20:00)
[2019-08-23] MEDS: LINEZOLID 600MG PREMIX 300 ML IV SCH (20:45)
--- NOTE | 2019-08-23 21:05 | NUR ---
MEDICATIONS GIVEN, REPOSITIONED PT, VAP ORAL CARE PERFORMED, SUCTIONED SCANT WHITE MUCOUS, PT TOLERATED PROCEDURE WELL
--- NOTE | 2019-08-23 23:10 | NUR ---
VAP ORAL CARE PERFORMED, SUCTIONED SCANT WHITE MUCOUS, PT AT BED EYES CLOSED, BREATHING REGULARLY, TRACH TO VENT, WILL CONTINUE TO MONITOR
[2019-08-24] VITALS (66 sets, daily range): BP systolic 76–144; BP diastolic 49–79
--- NOTE | 2019-08-24 02:15 | NUR ---
REPOSITIONED PT. PT AT BED AWAKE, BREATHING REGULARLY ON TRACH TO VENT. WILL CONTINUE TO MONITOR.
[2019-08-24] MEDS: MIDODRINE 5 MG TAB GT SCH ×3 (04:48→20:37)
[2019-08-24] MEDS: PIPERACILLIN/TAZOBACTAM 3.375 GM in DEXTROSE 5% 50 ML IV SCH (04:49)
--- NOTE | 2019-08-24 05:24 | NUR ---
MEDICATIONS GIVEN. ADL PERFORMED. SUCTIONED PT. NO SECRETIONS. PT TOLERATED PROCEDURE WELL.
[2019-08-24] MEDS: BLOOD GLUCOSE MONITORING 1 DEV DEV MC SCH ×4 (06:12→18:24)
--- NOTE | 2019-08-24 06:35 | NUR ---
REC'D PT ON CARESCAPE VENT SETTINGS AC 20 VT 475 PEEP 5 FIO2 24% ALARMS ON AND AUDIBLE AND AMBU BAG AT SIDE OF VENT AND VENT IS PLUGGED INTO RED OUTLET, NO HHN NEEDED AT THIS TIME, SXN PT FROTHY SECRETIONS FROM MOUTH PT DIDNOT WANT TRACH TO BE SXN, B\S CLEAR BILATERALLY, PT IS TRACH WITH SHILEY 6 XLT
--- NOTE | 2019-08-24 07:05 | NUR ---
RECEIVED BEDSIDE REPORT FROM NIGHT NURSECELY. PT IN AIR MATTRESS BED, QUADRIPLEGIC, C3/C4 INJURY. OPEN EYES TO NAME. LETHARGIC, PERRL 3MM, BRISK. TRACH TO VENT, AC/VC FIO2 24%, TV 475, RR 20, PEEP 5. LUNG SOUNDS COARSE, BREATHING EVEN AND UNLABORED, HOWEVER, TACHYPNEA. SR ON MONITOR, CAP REFILL <3S, PULSES 2+ BILATERAL UPPER AND LOWER EXTREMITIES, ABDOMEN, SOFT, NONTENDER, BOWEL SOUNDS ACTIVE. G TUBE FEEDING RUNNING OSMOLITE AT 70ML/HR, WATER FLUSH 160ML Q4H. COLOSTOMY BAG IN PLACE, DRAINING BROWN, LIQUID STOOL, PROLAPSE COLON NOTED. BARR CATHETER IN PLACE, DRAINING CLEAR YELLOW URINE. WOUND DRESSINGS IN PLACE. IV TO RIGHT UA, MIDLINE, NS AT 30 ML/HR, PATENT AND ASYMPTOMATIC. HOB 30 DEGREES, SIDE RAILS UP X2, BED AT LOWEST POSITION.
--- NOTE | 2019-08-24 07:35 | NUR ---
CHANGE OF SHIFT REPORT GIVEN TO AM NURSE.
--- NOTE | 2019-08-24 08:20 | NUR ---
SPOKE WITH DR VILA OVER THE PHONE, ASKED IF HE WANTS LABS TODAY. DR VILA ORDERED CBC AND BMP.
[2019-08-24] MEDS: LINEZOLID 600MG PREMIX 300 ML IV SCH ×2 (09:13→20:38)
[2019-08-24] MEDS: ASCORBIC ACID 500 MG TAB GT SCH (09:13)
[2019-08-24] MEDS: PANTOPRAZOLE 40 MG INJ VIAL IVP SCH ×2 (09:13→20:37)
[2019-08-24] MEDS: METOCLOPRAMIDE 10 MG/2 ML INJ VIAL IVP SCH ×3 (09:13→17:57)
[2019-08-24] MEDS: ENOXAPARIN 40 MG/0.4 ML SYR SUBQ SCH (09:35)
[2019-08-24] MEDS: NOREPINEPHRINE 4 MG in DEXTROSE 5% 250 ML IV PRN (09:36)
[2019-08-24] MEDS: ZINC SULF 220 MG CAP GT SCH (10:01)
[2019-08-24 10:05] LABS: HEMATOCRIT 25.6 % (36-52); HEMOGLOBIN 7.8 g/dL (12.0-18.0); MEAN CORPUSCULAR HEMOGLOBIN 28 pg (27-31); MEAN CORPUSCULAR HGB CONC 31 g/dL (33-37); PLATELET COUNT (AUTO) 349 K/uL (140-450); RED BLOOD CELL COUNT(AUTO) 2.75 MIL/uL (4.20-6.10); RED CELL DISTRIBUTION WIDTH 16.4 % (11.6-13.7); WHITE BLOOD COUNT (AUTO) 17.9 K/uL (4.8-10.8)
[2019-08-24 10:29] LABS: ANION GAP 23.9 (8-16); CARBON DIOXIDE 15.9 mmol/L (21-32); CREATININE 2.1 mg/dL (0.7-1.3); POTASSIUM 3.8 mmol/L (3.5-5.1)
[2019-08-24] MEDS ORDERED: NACL 0.9% 1,000 ML IV SCH (10:30)
--- NOTE | 2019-08-24 10:35 | NUR ---
DR VILA CAME AND ASSESS PT. DR VILA ORDERED TO TITRATED DOWN LEVOPHED, AND GIVE 1L NS BOLUS NOW.
[2019-08-24 10:52] LABS: EOSINOPHILS % (MANUAL) 2 % (0-4); LYMPHOCYTES % (MANUAL) 8 % (20-46); MONOCYTES % (MANUAL) 10 % (5-12)
[2019-08-24] MEDS: SODIUM BICARBONATE 8.4% 100 MEQ in DEXTROSE 5% 1,000 ML IV SCH (12:49)
[2019-08-24] MEDS: FOAM DRESSING TP SCH (15:55)
[2019-08-24] MEDS: Z-GUARD PASTE TP SCH (15:55)
[2019-08-24] MEDS: ALGINATE DRESSING MC SCH (15:55)
[2019-08-24] MEDS: NACL 0.9% IRR 250 ML BOTTLE IR SCH (15:55)
--- NOTE | 2019-08-24 16:00 | NUR ---
WOUND DRESSING CHANGED, CLEANED WOUND WITH NS, PATTED DRY. PACKED WOUNDS WITH ALGINATE DRESSING. Z GUARD APPLIED TO SACRAL REDNESS. APPLIED OPTIFOAM. Addendum: 08/24/19 at 1922 by Anjum Laughlin RN APPLIED OPTIFOAM DRESSINGS TO ALL PRESSURE WOUNDS.
--- NOTE | 2019-08-24 19:20 | NUR ---
RECEIVED REPORT FROM AM NURSE, PT AT BED AWAKE, PERRL 3MM, BRISK, OPEN EYES SPONTANEOUSLY, HEART RATE REGULAR SINUS RHYTHM ON MONITOR, S1S2 PRESENT, CAP REFILL <3S, PULSES 2+ BILATERAL UPPER AND LOWER EXTREMITIES, PT BREATHING REGULARLY, TRACH TO VENT AT VENT SETTINGS AC/VC FIO2 24% TV 475 RR 20 FLOW 55 PEEP 5, LUNG SOUNDS CLEAR THROUGHOUT, DIMINISHED AT BASES, ABDOMEN SOFT, ROUND, NONDISTENDED, NONTENDER, BOWEL SOUNDS ACTIVE IN ALL QUADRANTS, PT HAS COLOSTOMY APPLIANCE IN PLACE, PROLAPSE COLON NOTED, RED AND PUFFY, DRAINING BROWN, LIQUID STOOL, PT BLADDER, SOFT, ROUND, NONDISTENDED, NONTENDER, PT HAS BARR CATHETER IN PLACE, DRAINING CLEAR, YELLOW, URINE, WITH SEDIMENTATION, PT IS QUADRIPLEGIC, SKIN NON INTACT, PT HAS LEFT SHOULDER OPEN WOUND, DRESSING IN PLACE, RIGHT SHOULDER OPEN WOUND, DRESSING IN PLACE, INTACT, DRY, BILATERAL BUTTOCK OPEN WOUND, DRESSING IN PLACE, DRY AND INTACT, SACRAL AREA HAS OPEN WOUND, OPTIFOAM DRESSING IN PLACE, DRY, INTACT, PT HAS RIGHT LEG OPEN WOUND, DRESSING IN PLACE, DRY AND INTACT, PT HAS RIGHT HEEL WOUND, HEALING, DRESSING IN PLACE, DRY AND INTACT, PT HAS RIGHT UPPER ARM MIDLINE PERIPHERAL IV RUNNING SODIUM BICARB AT 75 ML/HR, HOB 30 DEGREES, SIDE RAILS UP X2, BED AT LOWEST POSITION. WILL CONTINUE TO MONITOR.
[2019-08-24] MEDS: ACETYLCYSTEINE 10% (100 MG/ML) 100 MG/ML VIAL INH SCH (19:30)
--- NOTE | 2019-08-24 19:35 | NUR ---
RECEIVED PATIENT TRACH TO MECHANICAL VENTILATOR AT DOCUMENTED SETTINGS. VENT CHECK DONE. VENT ALARMS ON AND AUDIBLE. WILL CONTINUE TO MONITOR.
[2019-08-24] MEDS: DOCUSATE 100 MG/10 ML UDC GT SCH (20:36)
--- NOTE | 2019-08-24 21:00 | NUR ---
MEDICATIONS GIVEN. SUCTIONED PT. SUCTIONED SCANT WHITE MUCOUS, PT TOLERATED PROCEDURE WELL. REPOSITIONED PT.
[2019-08-24] MEDS: ALBUTEROL SULFATE/IPRATROPIU 3 ML SOL IH PRN (21:20)
--- NOTE | 2019-08-24 23:15 | NUR ---
PT AT BED EYES CLOSED. BREATHING REGULARLY. TRACH TO VENT. WILL CONTINUE TO MONITOR
[2019-08-25] VITALS (21 sets, daily range): BP systolic 71–129; BP diastolic 46–80
--- NOTE | 2019-08-25 00:25 | NUR ---
VAP ORAL CARE PERFORMED. SUCTIONED NO MUCOUS. PT TOLERATED PROCEDURE WELL. REPOSITIONED PT.
--- NOTE | 2019-08-25 03:05 | NUR ---
PT AT BEDSIDE. UPDATED REGARDING PT CONDITION.
--- NOTE | 2019-08-25 04:32 | NUR ---
VAP ORAL CARE PERFORMED. SUCTIONED SCANT WHITE MUCOUS ON MOUTH. PT TOLERATED PROCEDURE WELL. WILL CONTINUE TO MONITOR.
[2019-08-25] MEDS: MIDODRINE 5 MG TAB GT SCH ×3 (05:15→21:50)
[2019-08-25] MEDS: BLOOD GLUCOSE MONITORING 1 DEV DEV MC SCH ×4 (05:17→17:08)
[2019-08-25] MEDS ORDERED: SODIUM BICARBONATE 8.4% PFS 50 MEQ/50 ML SYR IVP ONE (05:59)
[2019-08-25 06:05] LABS: BASOPHILS # (AUTO) 0.1 K/uL (0.00-0.22); BASOPHILS % (AUTO) 1.4 % (0.0-2.0); EOSINOPHILS # (AUTO) 0.8 K/uL (0-0.4); EOSINOPHILS % (AUTO) 7.5 % (0.0-4.0); HEMATOCRIT 23.6 % (36-52); HEMOGLOBIN 7.4 g/dL (12.0-18.0); LYMPHOCYTES # (AUTO) 1.1 K/uL (2.0-11.5); MEAN CORPUSCULAR HEMOGLOBIN 29 pg (27-31); MEAN CORPUSCULAR HGB CONC 31 g/dL (33-37); MEAN CORPUSCULAR VOLUME 92.4 fL (80-94); MONOCYTES # (AUTO) 0.8 K/uL (0.8-1.0); MONOCYTES % (AUTO) 7.9 % (1.7-9.3); NEUTROPHILS # (AUTO) 7.8 K/uL (1.8-7.7); NEUTROPHILS % (AUTO) 73.2 % (42.2-75.2); PLATELET COUNT (AUTO) 282 K/uL (140-450); RED BLOOD CELL COUNT(AUTO) 2.55 MIL/uL (4.20-6.10); RED CELL DISTRIBUTION WIDTH 15.9 % (11.6-13.7); WHITE BLOOD COUNT (AUTO) 10.6 K/uL (4.8-10.8)
[2019-08-25 06:32] LABS: ALBUMIN 1.3 g/dL (3.4-5.0); ANION GAP 21.4 (8-16); CREATININE 2.2 mg/dL (0.7-1.3); POTASSIUM 3.4 mmol/L (3.5-5.1); TOTAL BILIRUBIN 0.2 mg/dL (0.0-1.0)
[2019-08-25] MEDS: ALBUTEROL SULFATE/IPRATROPIU 3 ML SOL IH PRN ×2 (06:35→19:31)
--- NOTE | 2019-08-25 06:35 | NUR ---
RECEIVED PT ON CARESCAPE ON DOCUMENTED SETTINGS, ALARMS ARE ON AND AUDIBLE, PTS TRACH SHILEY 6 XLT IS SECURE, PT IN HF QUIET, BS COARSE HHN GIVEN I\L WITH 3 MG DUONEB, BMV HBO, VENT PLUGGED INTO RED OUTLET, WILL CONTINUE TO MONITOR
--- NOTE | 2019-08-25 06:46 | NUR ---
PT AT BED EYES CLOSED BREATHING REGULARLY TRACH TO VENT. VS STABLE. WILL CONTINUE TO MONITOR
--- NOTE | 2019-08-25 07:07 | NUR ---
RECEIVED BEDSIDE REPORT FROM CELY ESTATE PLANNING COUNSELOR RN, FOR CONTINUITY OF CARE. PATIENT IS AAOX2,NONVERBAL, ABLE TO MAKE SOME NEEDS KNOWN. PATIENT SKIN IS WARM, DRY, NOT INTACT, HE HAS PRESSURE INJURY TO BILATERAL BUTTOCKS, SACROCOCCYX AND R. HEEL, HE HAS OPEN WOUND TO BILATERAL SHOULDERS AND R. LEG. PATIENT HAS FEDE MIDLINE, ASYMPTOMATIC AND PATENT. PATIENT IS TRACH TO VENT, SETTINGS ARE AC MODE, FIO2 24%, TV 475, PEEP 5, RATE 20, BREATHING IS EVEN AND UNLABORED. HE IS SR ON MONITOR, BP IS 80/46. PATIENT HAS PEG TUBE IN PLACE TO TUBE FEEDING. HE HAS PROLAPSE COLOSTOMY TO DRAINAGE. PATIENT HAS A BARR CATHETER IN PLACE. HOB IS 35 DEGREES, SIDE RAILS UP 3X, BED LOCKED IN LOW POSITION. NO SIGNS OF DISTRESS NOTED. WILL CONTINUE TO MONITOR
[2019-08-25] MEDS: LINEZOLID 600MG PREMIX 300 ML IV SCH ×2 (08:36→21:50)
[2019-08-25] MEDS: ENOXAPARIN 40 MG/0.4 ML SYR SUBQ SCH (08:36)
[2019-08-25] MEDS: METOCLOPRAMIDE 10 MG/2 ML INJ VIAL IVP SCH ×3 (08:37→17:09)
[2019-08-25] MEDS: ASCORBIC ACID 500 MG TAB GT SCH (08:37)
[2019-08-25] MEDS: DOCUSATE 100 MG/10 ML UDC GT SCH ×2 (08:37→21:50)
[2019-08-25] MEDS: PANTOPRAZOLE 40 MG INJ VIAL IVP SCH ×2 (08:37→21:51)
[2019-08-25] MEDS: ZINC SULF 220 MG CAP GT SCH (08:37)
[2019-08-25] MEDS: Z-GUARD PASTE TP SCH (08:38)
[2019-08-25] MEDS: SODIUM BICARBONATE 8.4% 100 MEQ in DEXTROSE 5% 1,000 ML IV SCH ×3 (08:38→21:52)
--- NOTE | 2019-08-25 09:15 | NUR ---
DR. HUFFMAN IS HERE TO SEE AND EXAMINE PATIENT, UPDATED ON PATIENT'S CONDITION. WILL FOLLOW UP ON ANY ORDERS.
--- NOTE | 2019-08-25 09:20 | NUR ---
DR. VILA IS HERE UPDATED ON PATIENT'S CONDITION. WILL FOLLOW UP ON ANY ORDERS.
--- NOTE | 2019-08-25 10:36 | NUR ---
PATIENT CLEANED AND REPOSITIONED, PATIENT TOLERATED WELL. VITALS STABLE NO SIGNS OF DISTRESS NOTED.
--- NOTE | 2019-08-25 12:01 | NUR ---
ORAL CARE PROVIDED, PATIENT TURNED AND REPOSITIONED. NO SIGNS OF DISTRESS NOTED.
--- NOTE | 2019-08-25 15:57 | NUR ---
PATIENT TURNED AND REPOSITIONED, VAP ORAL CARE PROVIDED, PATIENT TOLERATED WELL.
[2019-08-25] MEDS ORDERED: METOCLOPRAMIDE 10 MG/2 ML INJ VIAL ONE (17:03)
[2019-08-25] MEDS: PIPERACILLIN/TAZOBACTAM 3.375 GM in DEXTROSE 5% 50 ML IV SCH (17:09)
--- NOTE | 2019-08-25 17:58 | NUR ---
NO SIGNS OF DISTRESS AT THIS TIME
[2019-08-25] MEDS ORDERED: ALBUTEROL SULFATE/IPRATROPIU 3 ML SOL IH ONE (19:11)
--- NOTE | 2019-08-25 19:25 | NUR ---
CHANGE OF SHIFT REPORT GIVEN AT BEDSIDE BY DAY SHIFT NURSE MARY. PATIENT LYING IN BED TRACH TO VENT. ON MECHANICAL VENTILATOR. [id number]. PATIENT HAS RIGHT UPPER ARM MIDLINE. ASYMPT, PATENT AND INTACT. CLEAN AND DRY DRESSING. PERRL BILATERALLY. SR ON MONITOR. REGULAR HR. LUNG SOUNDS CLEAR. RESPIRATIONS SYMMETRICAL AND UNLABORED. GTUBE PRESENT RUNNING OSMEOLITE AT 70ML/HR WITH H20 FLUSH OF 160Q4H. BARR CATHETER PRESENT RUNNING LIGHT YELLOW URINE WITH SEDIMENT NOTED. PATIENT HAS RECTAL BAG OVER PROTRUDING OSTOMY SITE. MDS AWARE. PATIENT HAS BROWN LIQUID RUNNING IN TUBING. DRY AND INTACT DRESSING.BOWEL SOUNDS ACTIVE. PATIENT QUADRIPLEGIC. DRESSINGS DRY AND INTACT. PER DAY SHIFT NURSE, WOUNDS CHANGED AND CLEANED M//. PATIENT FLACC 0. ALL WOUNDS COVERED AT THIS TIME. IVF TO BE REPLACED ORDERED PER MD. BED IN LOWEST POSITION. SIDE RAILS UP. SPECIAL MATTRESS IN PLACE. WILL CONTINUE TO MONITOR. PER DAY SHIFT NURSE PATIENT TELE STATUS. AFEBRILE AT THIS TIME.
[2019-08-25] MEDS: ACETYLCYSTEINE 10% (100 MG/ML) 100 MG/ML VIAL INH SCH (19:30)
--- NOTE | 2019-08-25 19:45 | NUR ---
RT AT BEDSIDE
--- NOTE | 2019-08-25 19:49 | NUR ---
RECEIVED PATIENT TRACH SHILEY 6 XLT TO MECHANICAL VENTILATOR AT DOCUMENTED SETTINGS. VENT CHECK DONE. VENT ALARMS ON AND AUDIBLE. VENT PLUGGED INTO RED OUTLET WITH WHEELS LOCKED. AMBU BAG AT [facility]. ORDERED/SCHEDULED BREATHING TREATMENT ADMINISTERED AT THIS TIME. PRN BRONCHODILATOR GIVEN WITH MUCOLYTIC. AIRWAY SECURE AND PATENT. TRACHEALLY SUCTIONED SCANT AMOUNT OF THICK, YELLOW SECRETIONS. SUCTIONED LARGE AMOUNT OF THICK, YELLOW SECRETIONS AROUND TRACH STOMA. TRACH CARE DONE. ORAL VAP CARE DONE. NO ACUTE RESPIRATORY DISTRESS NOTED AT THIS TIME. WILL CONTINUE TO MONITOR.
--- NOTE | 2019-08-25 20:00 | NUR ---
VAP ORAL CARE DONE, REPOSITIONED
[2019-08-25 20:25] LABS: HEMATOCRIT 26.2 % (36-52); MEAN CORPUSCULAR HEMOGLOBIN 29 pg (27-31); MEAN CORPUSCULAR HGB CONC 31 g/dL (33-37); MEAN CORPUSCULAR VOLUME 93.4 fL (80-94); PLATELET COUNT (AUTO) 415 K/uL (140-450); RED CELL DISTRIBUTION WIDTH 15.7 % (11.6-13.7); WHITE BLOOD COUNT (AUTO) 15.9 K/uL (4.8-10.8)
[2019-08-25 20:26] LABS: BASOPHILS % (AUTO) 0.2 % (0.0-2.0); EOSINOPHILS % (AUTO) 6.6 % (0.0-4.0); LYMPHOCYTES # (AUTO) 1.4 K/uL (2.0-11.5); LYMPHOCYTES % (AUTO) 9.1 % (20.5-51.1); MONOCYTES # (AUTO) 1.3 K/uL (0.8-1.0); MONOCYTES % (AUTO) 8.1 % (1.7-9.3); NEUTROPHILS # (AUTO) 12.1 K/uL (1.8-7.7)
--- NOTE | 2019-08-25 20:30 | NUR ---
RT PRESENT AT BEDSIDE
--- NOTE | 2019-08-25 21:10 | NUR ---
PATIENT GIVEN MEDICATIONS ORDERED. TOLERATED WELL. NO RESIDUAL IN GTUBE FROM FEEDING. PATIENT STATES YES TO WANTING LIGHTS OFF AND TO REST PER NODDING HEAD YES. PATIENT ABLE TO STATE YES OR NO. ABLE TO FOLLOW COMMANDS. BED IN LOWEST POSITION. SIDE RAILS UP. WILL CONTINUE TO MONITOR. WHEN ASKED PATIENT IF HE IS OK PATIENT NODDED YES. FLACC O.
[2019-08-25] MEDS ORDERED: PANTOPRAZOLE 40 MG INJ VIAL ONE (21:43)
[2019-08-25] MEDS ORDERED: MIDODRINE 5 MG TAB ONE (21:45)
[2019-08-26] VITALS (11 sets, daily range): BP systolic 93–138; BP diastolic 53–84
--- NOTE | 2019-08-26 00:01 | NUR ---
VAP ORAL CARE PERFORMED. REPOSITIONED. NO S/S OF DISTRESS NOTED.
[2019-08-26] MEDS: PIPERACILLIN/TAZOBACTAM 3.375 GM in DEXTROSE 5% 50 ML IV SCH ×5 (00:50→23:46)
[2019-08-26] MEDS: BLOOD GLUCOSE MONITORING 1 DEV DEV MC SCH ×4 (00:50→18:54)
--- NOTE | 2019-08-26 01:53 | NUR ---
DR. SHORE AT PATIENT BEDSIDE. UPDATED MD ON PATIENT STATUS. MD LOOKED IN CHART. NOTIFIED MD OF MEDICATIONS. NO NEW ORDERS AT THIS TIME. AWARE OF CONTACT ISOLATION
--- NOTE | 2019-08-26 03:42 | NUR ---
VAP ORAL CARE PERFORMED. REPOSITIONED. PATIENT TEACHING DONE. PATIENT STATES HE UNDERSTANDS BY NOD OF HEAD. VSS. DENIES PAIN. FLACC 0. NO S/S OF DISTRESS NOTED. WILL CONTINUE TO MONITOR
[2019-08-26] MEDS ORDERED: MIDODRINE 5 MG TAB ONE (04:58)
[2019-08-26] MEDS: MIDODRINE 5 MG TAB GT SCH ×3 (05:06→21:12)
--- NOTE | 2019-08-26 05:38 | NUR ---
MORNING CARE PERFORMED. REPOSITIONED. MEDICATION ADMINISTRATION PER MD ORDERS. PATIENT TOLERATED WELL. NO SOB NOTED. NO S/S OF DISTRESS NOTED. WILL CONTINUE TO MONITOR. CATHETER CARE PERFORMED. RT AT BEDSIDE.
[2019-08-26] MEDS ORDERED: ALBUTEROL SULFATE/IPRATROPIU 3 ML SOL IH ONE (06:56)
[2019-08-26] MEDS: ACETYLCYSTEINE 10% (100 MG/ML) 100 MG/ML VIAL INH SCH ×3 (07:04→19:30)
--- NOTE | 2019-08-26 07:04 | NUR ---
RECEIVED ON A [employer] R860 VENTILATOR PLUGGED INTO RED OUTLET TOLERATING WELL WITHOUT ADVERSE REACTIONS NOTED TO A SHILEY XLT #6 AIRWAY SECURED WITH A RAMESH TRACH TIE CUFF PRESSURE CHECKED NOTED AMBU BAG AT [facility] NOTED RESTING WELL TACHYPNEIC GOOD CHEST RISE DEEP TRACHEAL SUCTION FOR SMALL THICK WHITE SECRETIONS STOMA SUCTIONS FOR MODERATE THICK WHITE TO CLEAR SECRETIONS AIRWAY PATENT
--- NOTE | 2019-08-26 07:04 | NUR ---
RECEIVED PATIENT FROM CAMILLA GLEASON OPERATOR RN, FOR CONTINUITY OF CARE. PATIENT IS AAOX2, ABLE TO MAKE SOME NEEDS KNOWN. PATIENT SKIN IS WARM, DRY, AFEBRILE, NOT INTACT, HE HAS PRESSURE INJURY TO BILATERAL BUTTOCKS, SACROCOCCYX, R. HEEL, AND OPEN WOUND TO LEFT AND RIGHT SHOULDER, AND R. LEG. PATIENT IS TRACH TO VENT, BREATHING IS EVEN AND UNLABORED. PATIENT HAS GT IN PLACE TO FEEDING. PATIENT HAS PROLAPSED COLOSTOMY WITH COLOSTOMY BAG TO DRAINAGE. PATIENT HAS BARR CATHETER IN PLACE TO CLEAR YELLOW URINE. HOB IS 35 DEGREES ELEVATED. NO SIGNS OF DISTRESS AT THIS TIME. WILL CONTINUE TO MONITOR
--- NOTE | 2019-08-26 07:25 | NUR ---
PATIENT VSS. NO SOB OR DISTRESS. ENDORSED CARE TO DAY NURSE.
--- NOTE | 2019-08-26 08:30 | NUR ---
DR. HUFFMAN IS HERE TO SEE PATIENT, UPDATED ON PATIENT'S CONDITION. STATES TO CONTINUE IVF. WILL FOLLOW UP ON ANY ORDERS
[2019-08-26] MEDS ORDERED: ASCORBIC ACID 500 MG TAB ONE (08:49)
[2019-08-26] MEDS ORDERED: ZINC SULF 220 MG CAP ONE (08:49)
[2019-08-26] MEDS ORDERED: METOCLOPRAMIDE 10 MG/2 ML INJ VIAL ONE (08:51)
[2019-08-26] MEDS ORDERED: PANTOPRAZOLE 40 MG INJ VIAL ONE ×2 (08:51→21:04)
[2019-08-26] MEDS ORDERED: ENOXAPARIN 40 MG/0.4 ML SYR SUBQ ONE (08:52)
[2019-08-26] MEDS: ASCORBIC ACID 500 MG TAB GT SCH (09:06)
[2019-08-26] MEDS: METOCLOPRAMIDE 10 MG/2 ML INJ VIAL IVP SCH ×3 (09:06→17:50)
[2019-08-26] MEDS: ZINC SULF 220 MG CAP GT SCH (09:06)
[2019-08-26] MEDS: DOCUSATE 100 MG/10 ML UDC GT SCH ×2 (09:06→21:12)
[2019-08-26] MEDS: LINEZOLID 600MG PREMIX 300 ML IV SCH ×2 (09:07→21:13)
[2019-08-26] MEDS: ALGINATE DRESSING MC SCH (09:07)
[2019-08-26] MEDS: Z-GUARD PASTE TP SCH (09:07)
[2019-08-26] MEDS: FOAM DRESSING TP SCH (09:07)
[2019-08-26] MEDS: PANTOPRAZOLE 40 MG INJ VIAL IVP SCH ×2 (09:07→21:13)
[2019-08-26] MEDS: ENOXAPARIN 40 MG/0.4 ML SYR SUBQ SCH (09:09)
--- NOTE | 2019-08-26 09:32 | NUR ---
STABLE EQUAL CHEST RISE NO RETURN ON INLINE SUCTIONING STOMA SUCTIONING FOR LARGE THICK PALE WHITE TO CLEAR SECRETIONS AIRWAY PATENT
--- NOTE | 2019-08-26 09:33 | NUR ---
TRANSFERRED PATIENT TO [facility] ROOM 122B VIA BED, ENDORSED CONTINUITY OF CARE TO JED JIMENES RN. NO SIGNS OF DISTRESS NOTED.
--- NOTE | 2019-08-26 09:34 | NUR ---
RECEIVED BEDSIDE REPORT FROM ICU NURSE. PATIENT IS AWAKE, PATIENT HAS TRACH, RT CONNECTED PATIENT TO VENT. PATIENT IS ABLE TO NOD YES AND NO AND ATTEMPT TO TALK, ATTEMPT TO READ HIS LIPS. HE WANTED TO BE SUCTIONED. HE IS BEDBOUND, FALL RISK PROTOCOL IN PLACE. SKIN HAS WOUNDS, SEE WOUND ASSESSMENT. FEDE MIDLINE, CLEAN, DRY AND INTACT. GTUBE IN PLACE. COLOTOMY AND BARR. WILL CONTINUE TO MONITOR THE PATIENT.
--- NOTE | 2019-08-26 09:35 | NUR ---
TRANSFERRED TO [facility] 122-B REMOVED PATIENT FROM VENTILATOR PLACED ON SUPPLEMENTAL OXYGENT AT 15 LPM VIA E-TANK TO AMBU BAG/IN LINE SUCTION CATHETER/TRACHEOSTOMY TUBE BAG DEPRESSION EVERY 6-8 SECONDS TOLERATED TRANSFER WELL WITHOUT ADVERSE REACTIONS NOTED SATURATION 100% HR 112
[2019-08-26 09:47] LABS: BASOPHILS # (AUTO) 0.2 K/uL (0.00-0.22); BASOPHILS % (AUTO) 1.5 % (0.0-2.0); EOSINOPHILS # (AUTO) 0.8 K/uL (0-0.4); EOSINOPHILS % (AUTO) 7.1 % (0.0-4.0); HEMATOCRIT 20.8 % (36-52); LYMPHOCYTES # (AUTO) 1.2 K/uL (2.0-11.5); LYMPHOCYTES % (AUTO) 10.2 % (20.5-51.1); MEAN CORPUSCULAR HEMOGLOBIN 29 pg (27-31); MEAN CORPUSCULAR HGB CONC 32 g/dL (33-37); MONOCYTES # (AUTO) 1.1 K/uL (0.8-1.0); MONOCYTES % (AUTO) 9.6 % (1.7-9.3); NEUTROPHILS # (AUTO) 8.4 K/uL (1.8-7.7); NEUTROPHILS % (AUTO) 71.6 % (42.2-75.2); PLATELET COUNT (AUTO) 289 K/uL (140-450); RED BLOOD CELL COUNT(AUTO) 2.29 MIL/uL (4.20-6.10); RED CELL DISTRIBUTION WIDTH 15.6 % (11.6-13.7); WHITE BLOOD COUNT (AUTO) 11.8 K/uL (4.8-10.8)
[2019-08-26 09:52] LABS: ANION GAP 17.8 (8-16); CARBON DIOXIDE 22.9 mmol/L (21-32); CREATININE 2.4 mg/dL (0.7-1.3); POTASSIUM 3.7 mmol/L (3.5-5.1)
[2019-08-26 09:56] LABS: MAGNESIUM 1.4 mg/dL (1.8-2.4); PHOSPHORUS 4.3 mg/dL (2.5-4.9)
[2019-08-26 09:57] LABS: HEMOGLOBIN 6.6 g/dL (12.0-18.0)
--- NOTE | 2019-08-26 11:00 | NUR ---
PATIENT IN NO DISTRESS. WILL CONTINUE TO MONITOR THE PATIENT
--- NOTE | 2019-08-26 12:08 | NUR ---
PATIENT IN NO DISTRESS. PATIENTS WANTED TO SPEAK TO HIM ON THE PHONE. PUT THE PHONE ON PATIENTS EAR TO SPEAK TO THE PATIENT. PATIENT SMIRKED. PER PATIENTS SHE WILL COME LATER TO VISIT HIM.
--- NOTE | 2019-08-26 12:10 | NUR ---
STABLE STOMA SUCTION FOR LARGE THICK WHITE TO CLEAR SECRETIONS AIRWAY PATENT
[2019-08-26] MEDS ORDERED: PRIMIDONE 50 MG TAB ONE (12:26)
[2019-08-26] MEDS: NACL 0.9% IRR 250 ML BOTTLE IR SCH (13:04)
[2019-08-26] MEDS: MAG SULF 2000 MG/WATER PREMIX 50 ML IV PRN (13:30)
--- NOTE | 2019-08-26 13:33 | NUR ---
PATIENT IN NO DISTRESS. ADMINISTERED MEDS, EDUCATED ON SIDE EFFECTS. PATIENT UNABLE TO VERBALIZED UNDERSTANDING BUT NODDED. CHECKED GTUBE PLACEMENT USING SWOOSH. SWOOSH HEARD. NO RESIDUAL. CRUSHED AND ADMINISTERED MEDS. FLUSHED BEFORE AND AFTER. PATIENT TOLERATED WELL. NEW FEEDING STARTED. WILL CONTINUE TO MONITOR THE PATIENT
--- NOTE | 2019-08-26 14:16 | NUR ---
08/26/19 RD FOLLOW UP COMPLETED PLEASE REFER TO NUTRITION ASSESSMENT UNDER CARE ACTIVITY FOR ESTIMATED NUTRITIONAL NEEDS. 1. CONTINUE OSMOLITE 1.5@70MLS/HR TOLERATED -THIS WILL PROVIDE A VOLUME OF 1680 ML, 2520 KCAL, AND 105 GM OF PROTEIN. IT MEETS 100% OF THE ESTIMATED ENERGY AND PROTEIN NEEDS. 2. CONTINUE FREE WATER FLUSH OF 160 Q4H 3. CONTINUE VITAMIN C AND ZINC FOR WOUND HEALING 4. RD TO FOLLOW-UP 2-3 DAYS, HIGH RISK SANJEEV VIVEROS RD
--- NOTE | 2019-08-26 14:20 | NUR ---
Multiple wounds responding to current treatment, no s/s of wound infection. Will continue same poc.
--- NOTE | 2019-08-26 15:10 | NUR ---
PATIENT IN NO DISTRESS. WILL CONTINUE TO MONITOR
[2019-08-26] MEDS ORDERED: ACETYLCYSTEINE 10% (100 MG/ML) 100 MG/ML VIAL ONE (15:37)
[2019-08-26] MEDS: ALBUTEROL SULFATE/IPRATROPIU 3 ML SOL IH PRN (15:43)
--- NOTE | 2019-08-26 15:43 | NUR ---
STABLE NO RESPIRATORY DISTRESS NOTED GOOD CHEST RISE AIRWAY PATENT
--- NOTE | 2019-08-26 17:05 | NUR ---
PATIENT IN NO DISTRESS. WILL CONTINUE TO MONITOR
--- NOTE | 2019-08-26 18:00 | NUR ---
ADMINISTERING BLOOD, PATIENTS VITALS ARE STABLE, TOLERATING WELL. WILL CONTINUE TO MONITOR THE PATIENT.
--- NOTE | 2019-08-26 19:05 | NUR ---
VITALS ARE STABLE. BLOOD STILL INFUSING. PER HOSPITAL POLICY DO NOT ADMINISTER MEDS W BLOOD TRANSFUSION. ENDORSED SIGNAL OPERATOR NURSE TO DO ZOSYN AFTER BLOOD TRANSFUSION, AND EXPLAINED THAT ANOTHER TRANSFUSION IS NEEDED. PER DR JULITO KNOX NEED CBC AFTER BLOOD HE ORDERED CBC TOMORROW. PATIENT ENDORSED IN STABLE CONDITION. GAVE BEDSIDE REPORT TO SIGNAL OPERATOR NURSE.
--- NOTE | 2019-08-26 19:15 | NUR ---
CHANGE OF SHIFT REPORT GIVEN AT BEDSIDE BY DAY SHIFT NURSE YUDY. PATIENT IN ROOM 122B. TELE STATUS. PATIENT LYING IN BED SUPINE. AWAKENS TO VOICE. ALERT TO NAME. APHASIC. RESPONDS TO YES OR NO QUESTIONS WITH HEAD NODS. ABLE TO MAKE NEEDS KNOWN BY HEAD NODS. ABLE TO FOLLOW COMMANDS WITH HEAD NODS. ORIENTED TO NAME. WHERE HE LIVES. WHEN ASKED. SMILING. WHEN ASKED IF OK, PATIENT NODS YES. TRACH TO VENT ON MECHANICAL VENTILATOR FIO2 24-VT 475-RR 20-FLOW 40-PEEP 5. DAY SHIFT NURSE STATES SBP IN 80s FOR HER TODAY. STATES APPEARS TO HAVE GOOSEBUMPS ON ARMS BUT THOSE WERE PRESENT PRIOR TO BLOOD TRANSFUSION AND ARE CONSTANT. AFEBRILE. NO IVF PER DAY NURSE. STATES THE FIRST UNIT OF TWO PRBC IS HANGING AT THIS TIME. ORDER VERIFIED WITH LAB AND IN CHART. CINSENT VERIFIED IN CHART.VSS. NO SOB. NO S/S OF DISTRESS NOTED. AFEBRILE. LUNGS CLEAR. HR REGULAR. PERRL BILATERALLY AND SYMMETRICAL. RESPIRATIONS SYMMETRICAL AND UNLABORED. ON TELE RN MED SURG. DAY SHIFT NURSE STATES SHE CHANGED ALL OF PATIENTS DRESSINGS. PATIENTS DRESSINGS ARE TO BE CHANGED M/W/F PER NURSE. ALL DRESSINGS DRY AND INTACT WITH NO LEAKING NOTED. PATIENT HAS GTUBE PRESENT WITH OSMOLITE 1.5 AT A RATE OF 70ML AND A WATER FLUSH OF 160Q4H. MIDLINE ON RIGHT UPPER ARM WITH DRY AND INTACT DRESSING. BOTH LINES FLUSHED WITH NS. PATENT AND INTACT. NO EDEMA NOTED. DAY NURSE ENDORSED TO GET SPECIAL MATTRESS. NOTIFIED HOUSEKEEPING WHO STATES SHE WILL NOTIFY ME WHEN READY TO TRANSFER BED. PER DAY SHIFT, STATES DR. VILA REFUSED TO FOLLOW UP CBC DRAW AFTER THE PRBC. AND OK TO DO AM. Addendum: 08/27/19 at 0228 by Shira Woodall RN SAVED PRIOR TO FINISHING, CONTINUED: DAY SHIFT NURSE STATES SHE REPLACED HIS MAGNESIUM LEVEL D/T LOW MAGNESIUM LEVEL. HEEL PROTECTORS PRESENT. PROLAPSED OSTOMY SITE NOTED AND MD AWARE. SEALED DRY AND INTACT RECTAL BAG IN PLACE AND FLOWING BROWN LIQUID BM. URINE IN BARR CATHETER PRESENT WITH SEDIMENT NOTED. BED IN LOWEST POSITION. SIDE RAILS UP. ON RN MED SURG AND HOOKED TO BP CUFF ON LEFT UPPER ARM. VSS. WILL CONTINUE TO MONITOR. NKA ALLERGIES NOTED AND FULL CODE ORDERS.
--- NOTE | 2019-08-26 19:30 | NUR ---
VAP ORAL CARE PERFORMED.PATIENT ASSISTED. PATIENT NODS HEAD "OK" WHEN ASKED IF HE IS OK AT THIS TIME. 98.4 108/70 100% 84 26 . NO SOB OR S/S OF DISTRESS NOTED. WILL CONTINUE TO MONITOR.
--- NOTE | 2019-08-26 19:30 | NUR ---
RECIEVED PT ON AC 20,475VT, +5, 24%. PT NOT GIVEN TX DUE TO MEDICATION NOT FOUND IN PIXUS. UNABLE TO ADMINISTER. PT RESTING COMFORTABLY ON CURRENT VENT SETTINGS. WILL CONT. TO MONITOR.
--- NOTE | 2019-08-26 20:00 | NUR ---
98/63 -100%-89-24. FLACC 0. ASKED HOUSEKEEPING FOR BED FROM ICU. STATES SHE WILL NOTIFY ME WHEN SHE IS READY WITH IT. 300 URINE OUTPUT NOTED IN BARR CATHETER BAG. YELLOW. WILL CONTINUE TO MONITOR. NO S/S OF DISTRESS NOTED.
--- NOTE | 2019-08-26 20:10 | NUR ---
1ST UNIT OF BLOOD ENDED. LUNGS STILL CLEAR. PATIENT NODS "OK" SMILING BIG. FLUSHED BOTH LINES WITH NS. 98.2-89-95/60-100% NOTIFIED CHARGE NURSE IT FINISHED AND TO GET 2ND UNIT OF PRBC.
--- NOTE | 2019-08-26 20:15 | NUR ---
PATIENT STATES "OK"VIA HEAD NOD WHEN ASKED IF OK AT THIS TIME BY NURSE. PATIENT SMILING. IBRAHIMA GONZALEZ AT BEDSIDE. UPDATED ON PATIENT STATUS. NO S/S OF DISTRESS NOTED. 98.1-98.69-100%-87 WILL CONTINUE TO MONITOR
--- NOTE | 2019-08-26 21:00 | NUR ---
SPOKE WITH CHARGE NURSE WHO STATES TO GIVE THE IV ANTIBIOTIC 1ST WELL OTHER MEDICATIONS BEFORE HANGING THE 2ND UNIT OF BLOOD.
--- NOTE | 2019-08-26 21:15 | NUR ---
2214 89/19-88-42-100% 2131 149/91-78 100% CHANGED BED SHEETS WITH COLLECTION ADVISOR ASSISTANCE. PATIENT VSS.TOLERATED WELL. 2136 133/83-94 100% 26 2140 96-102/66-98% 21 2144 85/60-90-98%-28 ASKED PATIENT IF HE WAS COLD "NO " [place] NO 2204 90/58-98%-90-98.1 2209 28-98/64-90-98% 22
--- NOTE | 2019-08-26 21:30 | NUR ---
CHEST XRAY DONE AT THIS TIME BY RADIOLOGY TECHS AT BEDSIDE. PATIENT CHECKED AFTER XRAY TECHS LEFT. FIXED BED.PREPARING TO GIVE MEDICATION. FEEDING TURNED OFF AT THIS TIME. FOUND THAT GTUBE WAS DISLODGED FROM GTUBE SITE. MILD AMOUNT OF YELLOW FEEDING SUBSTANCE EXITING GTUBE SITE AND GTUBE DISLODGED. CHARGE NURSE CALLED AND PLACED BACK IN BY CHARGE NURSE "DO NOT GIVE MEDS VIA GTUBE, CALL MD". MILD AMOUNT OF FRESH BLOOD ON OLD BANDAGE. NEW BANDAGE PLACED ON GTUBE AND NO DISCHARGE OR BLOOD NOTED. FLACC 0. FEEDING TURNED OFF. WILL CALL MD. VSS. PATIENT SHOWING NO S/S OF DISTRESS. MIDODRINE 10MG AND COLACE 100MG WASTED AT THIS TIME D/T GTUBE NOT IN USE. WILL CALL MD TO F/U ON ORDERS. BED CHANGED, CLEANED CHG WIPES USED. REPOSITIONED. GTUBE STILL INTACT. WILL CONTINUE TO MONITOR.
--- NOTE | 2019-08-26 22:20 | NUR ---
RT AT BEDSIDE
--- NOTE | 2019-08-26 22:30 | NUR ---
2229 CALLED JERI VILA. ON HOLD X 7 MINUTES 2236 CALLED [facility]. ON HOLD X MINUTES 2239 NO ANSWER. HUNG UP 2240 98%-88-82/52/22 PATIENT SLEEPING AT THIS TIME HOB ELEVATED 45 DEGREES 2240 CALLED JERI GARCÍA FOR DR. VILA AGAIN ON HOLD X8 MINUTES 2248 OH HOLD STILL, HUNG UP 2250 CALLED [facility], PER CRICKET, 2ND UNIT OF BLOOD READY 98-77/52-98%-89
--- NOTE | 2019-08-26 22:55 | NUR ---
DR. SOHRE AT BEDSIDE. POSSIBLE D/C ABTS DEPENDING ON VALUES. STATES OK TO GIVE MIDNIGHT DOSE OF ZOSYN PER MD ORDERS. UPDATED ABOUT PATIENT. AWARE NO IVF. NOTIFIED THAT ALL DRESSINGS CHANGED TODAY BY DAY NURSE. AWARE OF GTUBE DISLODGED. "IF LABS ARE OK I WILL D/C ANTIBIOTICS" WILL FOLLOW IF NEEDED.
--- NOTE | 2019-08-26 22:58 | NUR ---
CHARGE NURSE NOTIFIED OF LOW BP. WHEN AROUSED, BP GOES UP. PATIENT MAP CONTINUES TO STAY ABOVE 60. STATES TO CONTINUE CALLING MD. MADE C. NURSE AWARE MD NOT ANSWERING TO EVEN PAGE THEM. CONTINUE TO CALL PER CHARGE NURSE. ON HOLD X 4 MINUTES. NO ANSWER.
--- NOTE | 2019-08-26 23:04 | NUR ---
2307 98/72-98%- PATIENT CONTINUES TO SMILE AT NURSE "OK " WHEN ASKED IF OK PATIENT NODS HEAD YES. NOTIFIED CHARGE NURSE THAT BP INCREASED. AND NO ANSWER FROM [facility]. "LATER" PER CHARGE NURSE. NO OTHER NUMBERS AVAILABLE 2310- NOTIFIED DRY ICE MAKER THAT JERI GARCÍA IS NOT ANSWERING TO EVEN [facility]. HS. TRIED CALLING, STATES PHONE # IS NOT WORKING NUMBER AT THIS TIME. STATES TO CALL DR. CRUZ WHO PLACED THE GTUBE IN. STATED TO CALL DR. CRUZ THEN START 2ND BLOOD UNIT. 2314 DR. CRUZ PAGERobert. [place] [facility]. AWARE.
--- NOTE | 2019-08-26 23:16 | NUR ---
[facility]. ALSO TRYING TO CALL [facility]. NO ANSWER AT THIS TIME. 2323 DR. CARRION CONDITIONING COACH AND PAGED FOR [facility] BY [facility].
--- NOTE | 2019-08-26 23:33 | NUR ---
HOUSE SUP STATES CHARGE NURSE TO SPEAK TO DR WHEN CALLS BACK. STATED WAIT ON THE BLOOD UNTIL MD CALLS AND OK TO GIVE ZOSYN PER MD ORDERS AT THIS TIME.
--- NOTE | 2019-08-26 23:34 | NUR ---
DR. CARRION CALLED BACK. CHARGE NURSE GAVE PHONE TO NURSE. NOTIFIED MD OF DECREASED BP. MD STATES GIVE BLOOD TO INCREASE BP D/T THEM BEING FLUIDS. MADE AWARE THAT IVF NOT ASSIGNED TO PATIENT. MD STATES GIVE THE BLOOD. NOTIFIED MD THAT GTUBE DISLODGED FROM GTUBE SITE ON PATIENT BODY. MD MADE AWARE CHARGE NURSE PLACED IT BACK IN AND NEW DRESSING APPLIED. MD STATES ORDER A KUB IN AM TO CHECK PLACEMENT OF GTUBE. CHARGE NURSE STATES SHE WILL PLACE THE ORDER. MADE AWARE THAT MIDODRINE 10 MG VIA GTUBE SCHEDULED FOR 0500. STATES OK TO HOLD MIDODRINE 0500 VIA GTUBE. VSS AT THIS TIME. WILL CONTINUE TO MONITOR.
--- NOTE | 2019-08-26 23:50 | NUR ---
ZOSYN GIVEN. REPOSITIONED. VAP ORAL CARE PERFORMED. 97.7-86/61-24-89- 98% PATIENT SMILING AT NURSE. 2ND UNIT OF PRBC BEING INFUSED AT THIS TIME
[2019-08-27] VITALS: BP 96/68
--- NOTE | 2019-08-27 00:10 | NUR ---
@ LAB TO VERIFY CONSENT AND TRAFFIC ADMINISTRATOR 2ND UNIT OF BLOOD. 08/13 CONSENT STATES OK TO USE FOR SAME ADMISSION. COPY OF FINISHED 1ST BLOOD PAPERWORK GIVEN TO LAB. NO RXN NOTED. 2 UNITS ORDERED VERIFIED BY LAB AND SEEN ON COMPUTER WITH MD ORDER.
--- NOTE | 2019-08-27 00:20 | NUR ---
UPDATED HOUSE SUP ON BP. STATES " LONG MAP IS OK"
--- NOTE | 2019-08-27 00:30 | NUR ---
0030 SEE BLOOD TRANSFUSION PAPER IF NEEDED. 96/68-87-100%-24-97.6 WITH NURSE COLIN. STARTED 2ND UNIT OF BLOOD. DOUBLE CHECKED. LUNGS CLEAR. PATIENT STATES "OK" STARTING AT 60ML. BLOOD SUGAR CHECKED 77. NO ACTION NEEDED AT THIS TIME. SUCTIONED PT. VAP ORAL CARE DONE. REPOSITIONED. 0035 86/56 MAP 66-23-100%-87-NO LEAKAGE NOTED FROM GTUBE. SUCTIONED. PATIENT SMILING AT NURSE. 0045 97.8-100%-92/62-86-FLACC 0-CHANGED BLOOD TRANSFUSION TO 80ML
--- NOTE | 2019-08-27 01:10 | NUR ---
INCREASED BLOOD TRANSFUSION RATE TO 100 ML. PATIENT LUNGS CLEAR. NO CHILLS. NO SOB. NO S/S OF DISTRESS NOTED/ VITAL SIGNS HOLDING STABLE. AFEBRILE. WILL CONTINUE TO MONITOR. WHEN ASKED IF PATIENT IS OK, PATIENT NODS HEAD YES
--- NOTE | 2019-08-27 01:20 | NUR ---
0120 97/59-87-100%-24 0130 89/57-MAP 66-87 HR-28 0151 98.2-93/63-87-100%-22
--- NOTE | 2019-08-27 03:10 | NUR ---
031- BLOOD TRANSFUSION ENDED. CALLED RT FOR STANDBY ASSISTANCE TO CHANGE PATIENT TO SPECIAL BED. NO REACTION TO BLOOD TRANSFUSION OF 2ND UNIT NOTED. PATIENT STATES "OK" NODDED YES WHEN ASKED IF HE WAS FINE. MIDLINE FLUSHED FOR BOTH TUBINGS. 98.2-87-22-99/67. FLACC O. NO SOB NOTED. NO S/S OF DISTRESS. LUNGS CLEAR. PATIENT SUCTIONED VAP ORAL CARE PERFORMED. WILL CONTINUE TO MONITOR. VSS
--- NOTE | 2019-08-27 03:33 | NUR ---
STANDBY ASSISTANCE FOR BED CHANGE FOR PT. PT TOLERATED BED CHANGE WELL. NO RESP. DISTRESS NOTED AT THIS TIME. WILL CONT. TO MONITOR.
[2019-08-27 04:00] VITALS: BP 99/65
[2019-08-27] MEDS: MIDODRINE 5 MG TAB GT SCH ×3 (04:09→21:00)
--- NOTE | 2019-08-27 04:21 | NUR ---
URINE REMOVED FROM BARR CATHETER BAG BY [facility]F MECHANIC URINE 1200 YELLOW STOOL 200 BROWN AND LIQUID
--- NOTE | 2019-08-27 04:54 | NUR ---
RT AT BEDSIDE
--- NOTE | 2019-08-27 04:56 | NUR ---
LAB AT BEDSIDE. DRAWING BLOOD.
--- NOTE | 2019-08-27 05:45 | NUR ---
RADIOLOGY AT BEDSIDE. ASSISTED TECH IN POSITIONING OF PATIENT. 2 IMAGES TAKEN. PLACED PATIENT BACK INTO A COMFORTABLE POSITION. WHEN ASKED IF PATIENT IS OK , PATIENT NODDED YES. CHECKED GTUBE, STILL IN PLACE WITH A CLEAN DRESSING. RECTAL BAG OVER OSTOMY SITE STILL IN PLACE WITH A DRY AND INTACT DRESSING. BARR CATHETER STILL INTACT WITH NO LEAKING. BARR CARE PERFORMED DURING MORNING CARE. VAP ORAL CARE PERFORMED DURING MORNING CARE. PATIENT BED CHANGED AND CLEANED DURING MORNING CARE. TOLERATED WELL. VSS. NO SOB NOTED AND NO S/S OF DISTRESS NOTED. WILL CONTINUE TO MONITOR.
[2019-08-27] MEDS: BLOOD GLUCOSE MONITORING 1 DEV DEV MC SCH ×4 (05:58→18:20)
[2019-08-27] MEDS: PIPERACILLIN/TAZOBACTAM 3.375 GM in DEXTROSE 5% 50 ML IV SCH (05:58)
[2019-08-27 06:00] LABS: BASOPHILS # (AUTO) 0.2 K/uL (0.00-0.22); BASOPHILS % (AUTO) 1.2 % (0.0-2.0); EOSINOPHILS # (AUTO) 0.9 K/uL (0-0.4); HEMATOCRIT 27.1 % (36-52); HEMOGLOBIN 8.6 g/dL (12.0-18.0); LYMPHOCYTES # (AUTO) 1.3 K/uL (2.0-11.5); MEAN CORPUSCULAR HEMOGLOBIN 28 pg (27-31); MEAN CORPUSCULAR HGB CONC 32 g/dL (33-37); MEAN CORPUSCULAR VOLUME 86.8 fL (80-94); MONOCYTES # (AUTO) 1.7 K/uL (0.8-1.0); MONOCYTES % (AUTO) 10.8 % (1.7-9.3); NEUTROPHILS # (AUTO) 11.5 K/uL (1.8-7.7); PLATELET COUNT (AUTO) 287 K/uL (140-450); RED BLOOD CELL COUNT(AUTO) 3.12 MIL/uL (4.20-6.10); RED CELL DISTRIBUTION WIDTH 20.1 % (11.6-13.7); WHITE BLOOD COUNT (AUTO) 15.5 K/uL (4.8-10.8)
--- NOTE | 2019-08-27 06:10 | NUR ---
BLOOD SUGAR 64. WNL OF THE HUMALONG SCALE BUT WILL ENDORSE TO DAY SHIFT NURSE TO MONITOR.
--- NOTE | 2019-08-27 06:28 | NUR ---
PATIENT REPOSITIONED IN BED. STATES MORE COMFORTABLE. HEAD NOD YES. SMILING AT NURSE. SILENT LAUGH. SUCTIONED MOUTH. PATIENT NODS YES TO FEELING BETTER AFTER SUCTIONING MOUTH.
[2019-08-27 07:06] LABS: ALBUMIN 1.4 g/dL (3.4-5.0); ANION GAP 17.6 (8-16); CARBON DIOXIDE 24.7 mmol/L (21-32); CREATININE 2.5 mg/dL (0.7-1.3); POTASSIUM 4.3 mmol/L (3.5-5.1); TOTAL BILIRUBIN 0.5 mg/dL (0.0-1.0)
--- NOTE | 2019-08-27 07:25 | NUR ---
REPORT RECEIVED FROM BODY ENGINEER NURSE FOR CONTINUATION OF CARE. BED IN LOW POSITION, PATIENT IS VENTILATED, TUBING IS INTACT. IV LINES CHECKED, PATENT AND INFUSING 5 ML NS TKO. PATIENT IS HYPOTENSIVE, NO SIGNS OF DISTRESS NOTED. WILL CONTINUE TO MONITOR.
--- NOTE | 2019-08-27 07:50 | NUR ---
RECIVED PT ON VENT WITH SETTINGS CHARTED BREATH SOUNDS PRESENT BILAT TRACH SITE SECURE AMBU BAG AT BEDSIDE VENT PLUGGED INTO RED OUTLET WILL CONTINUE TO MONITOR PT ON VENT COARSE SXN PT WITH MOD AMT YELLOW SECS
[2019-08-27] MEDS: ALBUTEROL SULFATE/IPRATROPIU 3 ML SOL IH PRN ×2 (07:51→11:22)
[2019-08-27] MEDS: ACETYLCYSTEINE 10% (100 MG/ML) 100 MG/ML VIAL INH SCH (07:51)
[2019-08-27 08:00] VITALS: BP 77/48
[2019-08-27] MEDS: ENOXAPARIN 40 MG/0.4 ML SYR SUBQ SCH (09:00)
[2019-08-27] MEDS: ASCORBIC ACID 500 MG TAB GT SCH (09:00)
[2019-08-27] MEDS: ZINC SULF 220 MG CAP GT SCH (09:00)
[2019-08-27] MEDS: PANTOPRAZOLE 40 MG INJ VIAL IVP SCH ×2 (09:00→21:54)
[2019-08-27] MEDS: Z-GUARD PASTE TP SCH (09:00)
[2019-08-27] MEDS: DOCUSATE 100 MG/10 ML UDC GT SCH ×2 (09:00→21:00)
--- NOTE | 2019-08-27 09:30 | NUR ---
PATIENT IS NOT IN DISTRESS, G-TUBE IS OUT OF THE STOMA, DR. MELCHOR AWARE, UNABLE TO GIVE GTUBE MEDICATIONS AT THIS TIME. BED IS IN LOWEST POSITION. SUCTIONING IN THE ORALPHARYNX OF CLEAR FLUID. WILL CONTINUE TO MONITOR.
[2019-08-27] MEDS: DEXT 5% / NACL 0.9% 1,000 ML IV SCH (09:45)
[2019-08-27] MEDS: METOCLOPRAMIDE 10 MG/2 ML INJ VIAL IVP SCH ×3 (09:58→18:10)
--- NOTE | 2019-08-27 11:30 | NUR ---
PAGE SENT TO DR. CRUZ FOR FOLLOW UP WITH G-TUBE. LEAD VULCANIZING OPERATOR ASSESSED G-TUBE STOMA AND STATED THAT IT IS TOO LARGE FOR THE G-TUBE.
[2019-08-27 12:00] VITALS: BP 102/50
[2019-08-27] MEDS: MORPHINE SULFATE 2 MG/ML SYR IVP PRN (12:59)
--- NOTE | 2019-08-27 13:30 | NUR ---
SCHEDULED FOR SURGERY TOMORROW 08/28/[address] CRUZ FOR, CONSENT FOR SURGERY FROM RECEIVED. PAIN MEDICATIONS GIVEN THROUGH IV PUSH. BED IN LOWEST POSITION. WOUND DRESSINGS CHANGED. BED IS IN LOWEST POSITION, WILL CONTINUE TO MONITOR.
--- NOTE | 2019-08-27 15:43 | NUR ---
FREQUENT ROUNDING ON PT PT APPEARS STABLE AND IN NO APPARENT DISTRESS. ALL SAFETY MEASURES ARE IN PLACE TRACH TO VENT GTUBE OUT DR. CRUZ AWARE. DR. ALEXANDER AT BEDSIDE. ALL SAFETY MEASURES ARE IN PLACE WILL CONTINUE TO MONITOR
--- NOTE | 2019-08-27 17:45 | NUR ---
FREQUENT ROUNDS MADE, PATIENT IS OBSERVED WITH NO SIGNS OF DISTRESS, BED IN LOW POSITION. VENTILATOR TUBING CHECKED AND INTACT. IV INFUSING D5NS AT 75 ML/HR, TOLERATING WELL. BLOOD SUGAR IS 66. NO COVERAGE NEEDED. WILL CONTINUE TO MONITOR.
--- NOTE | 2019-08-27 17:51 | NUR ---
CONTINUED TO MONITOR PT ON VENT WITH SETTINGS CHARTED BREATH SOUNDS PRESENT COARSE TRACH SITE SECURE AMBU BAG AT BEDSIDE ENT PLUGGD INTO RED OUTLET
[2019-08-27 18:00] VITALS: BP 109/57
--- NOTE | 2019-08-27 19:25 | NUR ---
REPORT GIVEN TO FORM TAMPER OPERATOR NURSE FOR CONTINUATION OF CARE. BED IN LOW POSITION, CALL LIGHT ON. PATIENT SUCTIONED, SPO2 AT 100%. NO SIGNS OF DISTRESS NOTED.
--- NOTE | 2019-08-27 19:26 | NUR ---
REPORT RECEIVED FROM AM SHIFT NURSE FOR CONTINUITY OF CARE. WITH PT ON VENT AC 20, 475, +5, 24%. BED IN LOW POSITION, TUBING IS INTACT. WITH D5 NS AT 70ML/HR ON RIGHT PICC LINE DOUBLE LUMEN. IV LINES CHECKED, PATENT AND INFUSING PATIENT IS HYPOTENSIVE WITH 97/49MMHG, HR 80. NO SIGNS OF DISTRESS NOTED. WILL CONTINUE TO MONITOR.
--- NOTE | 2019-08-27 19:27 | NUR ---
ASKED THE PREVIOUS SHIFT WHY THERE ARE ORDERS TO TRANSFUSE THE BLOOD FROM DR. CRUZ, WHEN THERE ARE NO ORDERS IN YET FOR UMER BLOOD CLEES/ XMATCH FOR TONIGHT. PER PREVIOUS SHIFT THAT XMATCH WAS JUST DONE AT 1500 AND THAT LAB WILL CALL YPU IF BLOOD IS READY. INFORMED CHARGE NURSE, CHARGE NURSE NOTED HCT 8.6. SUGGESTED TO CALL DR. CRUZ TO VERIFY IF BLOOD IS TO BE TRANSFUSED TONIGHT OR JUST STANDBY FOR O.R.
--- NOTE | 2019-08-27 19:30 | NUR ---
RECIEVED PT ON VENT AC 20, 475, +5, 24%. PT APPEARS STABLE. PT TRACH WITH A 6 XLT SHILEY. WILL CONT. TO MONITOR.
--- NOTE | 2019-08-27 19:30 | NUR ---
WITH WOUND DRESSING FOR DECUBITUS ULCERS ON THE RIGHT SHOULDER; SACROCOCCYX, RIGHT AND LEFT BUTTOCKS RIGHT LEG, AND RIGHT HEEL, CHECKED SOILED EXCEPT FOR LEFT BUTTOCKS AND RIGHT SHOULDER. WILL DO DRESSING LATER
--- NOTE | 2019-08-27 21:34 | NUR ---
PT HAS NO GTUBE ACCESS; STILL FOR GT TUBE PLACEMENT CACHORRO W/ DR. CRUZ ( WITH OSTOMY)
[2019-08-27] MEDS ORDERED: PANTOPRAZOLE 40 MG INJ VIAL ONE (21:52)
--- NOTE | 2019-08-27 22:43 | NUR ---
PT TURNED AND CLEANED, OFFLOADED HEELS, PLACED PILLOWS UNDER CALVES; REPOSITIONED
[2019-08-27 23:29] VITALS: BP 97/49
--- NOTE | 2019-08-27 23:54 | NUR ---
CALLED THE PAGER NO. OF DR. CRUZ. LEFT A MESSAGE. CALLED THE [facility]- BUT LINE IS BUSY. SUGGEST TO CALL IN THE EARLY AM PER CHARGE NURSE.
[2019-08-28] VITALS (54 sets, daily range): BP systolic 64–125; BP diastolic 38–77
[2019-08-28] MEDS: DEXT 5% / NACL 0.9% 1,000 ML IV SCH (00:20)
[2019-08-28] MEDS: BLOOD GLUCOSE MONITORING 1 DEV DEV MC SCH ×5 (00:48→23:49)
[2019-08-28] MEDS: MORPHINE SULFATE 2 MG/ML SYR IVP PRN ×2 (00:56→14:15)
--- NOTE | 2019-08-28 01:00 | NUR ---
PT' S WOUND DRESSING DONE, SEROSANGUINEOUS AND SOME PURULENT DRAINAGE COMING OUT THE BUTTOCKS, DRESSED WITH CALCIUM ALGINATE AND WOUND TREATMENT PER WOUND ORDER
--- NOTE | 2019-08-28 01:02 | NUR ---
PT DOES NOT WANT MORPHOINE UNDO MEDS DONE- WASTED
--- NOTE | 2019-08-28 02:16 | NUR ---
PT TURNED AND CLEANED, OFFLOADED HEELS, PLACED PILLOWS UNDER CALVES; REPOSITIONED
--- NOTE | 2019-08-28 04:00 | NUR ---
NO CALL BACK FROM DR. CRUZ REGARDING THE BLOOD, WILL TRY AGAIN
[2019-08-28] MEDS: MIDODRINE 5 MG TAB GT SCH ×3 (04:01→21:00)
--- NOTE | 2019-08-28 04:02 | NUR ---
NO G TUBE- PROAMATINE NOT GIVEN
[2019-08-28 06:27] LABS: BASOPHILS # (AUTO) 0.2 K/uL (0.00-0.22); BASOPHILS % (AUTO) 2.1 % (0.0-2.0); EOSINOPHILS % (AUTO) 8.5 % (0.0-4.0); HEMATOCRIT 28.5 % (36-52); HEMOGLOBIN 9.1 g/dL (12.0-18.0); LYMPHOCYTES # (AUTO) 1.2 K/uL (2.0-11.5); LYMPHOCYTES % (AUTO) 10.5 % (20.5-51.1); MEAN CORPUSCULAR HEMOGLOBIN 28 pg (27-31); MEAN CORPUSCULAR HGB CONC 32 g/dL (33-37); MEAN CORPUSCULAR VOLUME 85.9 fL (80-94); MONOCYTES # (AUTO) 2.3 K/uL (0.8-1.0); MONOCYTES % (AUTO) 20.5 % (1.7-9.3); NEUTROPHILS # (AUTO) 6.7 K/uL (1.8-7.7); NEUTROPHILS % (AUTO) 58.4 % (42.2-75.2); PLATELET COUNT (AUTO) 273 K/uL (140-450); RED BLOOD CELL COUNT(AUTO) 3.32 MIL/uL (4.20-6.10); RED CELL DISTRIBUTION WIDTH 20.7 % (11.6-13.7); WHITE BLOOD COUNT (AUTO) 11.4 K/uL (4.8-10.8)
--- NOTE | 2019-08-28 06:52 | NUR ---
HOLLY JOHNSON'S NURSE CALLED REGARDING BLOOD TRANSFUSION.BECAUSE HGB WENT UP TO 9.1,HE SAID DON'T TRANSFUSE KEEP IT STANDBY.I CALLED LAB AND INFORMED THAT 1 UNIT PRBC IS ON STANDBY.
--- NOTE | 2019-08-28 07:00 | NUR ---
PT ALERT ORIENTED X 4, PT NONVERBAL ON VENT CAN VERBALIZE USING NO VOICE, LIP READING BY NURSE THAT HE WANTS TO BE SUCTIONED. PT WAS INFORMED THAT HIS SURGERY IS FOR 1330 TODAY. PT WAS SUCTIONED FREQUENTLY ALL THROUGHOUT THE SHIFT. ENDORSED IN STABLE CONDITION, AND THE WOUND DRESSING WAS DONE EXCEPT FOR RIGHT SHOULDER AND LEFT BUTTOCKS ( NOT SOILED) OTHER SITES, WERE CHANGED.
--- NOTE | 2019-08-28 07:10 | NUR ---
RECEIVED BEDSIDE REPORT FROM CATTLE MANAGER NURSE, PATIENT IS SLEEPING AT THE BEDSIDE.
[2019-08-28 07:33] LABS: ALBUMIN 1.3 g/dL (3.4-5.0); ANION GAP 18.4 (8-16); CARBON DIOXIDE 24.4 mmol/L (21-32); CREATININE 2.7 mg/dL (0.7-1.3); POTASSIUM 3.8 mmol/L (3.5-5.1); TOTAL BILIRUBIN 0.3 mg/dL (0.0-1.0)
[2019-08-28] MEDS: ALBUTEROL SULFATE/IPRATROPIU 3 ML SOL IH PRN (07:53)
--- NOTE | 2019-08-28 07:53 | NUR ---
RECEIVED ON A [employer]APE R860 VENTILATOR PLUGGED INTO RED OUTLET TOLERATING WELL WITHOUT ADVERSE REACTIONS NOTED TO A SHILEY XLT #6 AIRWAY SECURED WITH A RAMESH TRACH TIE CUFF PRESSURE CHECKED NOTED AMBU BAG AT BEDSIDE LOC AWAKE AND ALERT STABLE GOOD EQUAL CHEST RISE DEEP TRACHEAL SUCTION FOR NO RETURN STOMA SUCTION FOR COPIOUS THICK/MUCOID CLEAR TO PALE YELLOW SECRETIONS TRACH CARE DON AIRWAY PATENT
[2019-08-28] MEDS: DOCUSATE 100 MG/10 ML UDC GT SCH ×2 (09:00→21:00)
[2019-08-28] MEDS: Z-GUARD PASTE TP SCH (09:00)
[2019-08-28] MEDS: ASCORBIC ACID 500 MG TAB GT SCH (09:00)
[2019-08-28] MEDS: FOAM DRESSING TP SCH (09:00)
[2019-08-28] MEDS: METOCLOPRAMIDE 10 MG/2 ML INJ VIAL IVP SCH ×3 (09:00→17:09)
[2019-08-28] MEDS: ALGINATE DRESSING MC SCH (09:00)
[2019-08-28] MEDS: ZINC SULF 220 MG CAP GT SCH (09:00)
[2019-08-28] MEDS: ENOXAPARIN 40 MG/0.4 ML SYR SUBQ SCH (09:00)
[2019-08-28] MEDS: PANTOPRAZOLE 40 MG INJ VIAL IVP SCH ×2 (09:00→21:47)
--- NOTE | 2019-08-28 10:22 | NUR ---
REVIEWED TRACHEOSTOMY TUBE WITH DR. COLE VILA NEW ORDER: OK TO CHANGE TO LARGER SIZE #7 OR 8
--- NOTE | 2019-08-28 10:30 | NUR ---
DR VILA PAGED REGARDING PATIENT'S BP. 69/53. WITH PATIENT AT THE BEDSIDE. PENDING DR DE CALL BACK
--- NOTE | 2019-08-28 10:41 | NUR ---
AT THE BEDSIDE WITH PATIENT AND DR VILA, PER DR VILA TO TRANSFER TO ICU, SURGERY WILL NEED TO BE POSTPONE R/T B/P NOT STABLE, LEVOPHED WILL BE ORDERED AND UP TO 4LITERS OF NS AT 150ML/HR. RT CALLED FOR TRANSFER PATIENT. CHARGE NURSE NOTIFIED. WILL CALL OR REGARDING SURGERY CANCELATION.
--- NOTE | 2019-08-28 11:00 | NUR ---
RUKHSANA-OR CHARGE NURSE NOTIFIED REGARDING PT'S TRANSFER TO ICU. RUKHSANA WILL NOTIFY DR. CRUZ.
--- NOTE | 2019-08-28 11:02 | NUR ---
TRANSFERRED TO ICU-7 REMOVED FROM VENTILATOR PLACED ON SUPPLEMENTAL OXYGEN AT 15 LPM VIA E-TANK TO AMBU BAG/INLINE SUCTION CATHETER/TRACHEOSTOMY TUBE BAG DEPRESSION EVERY 6-8 SECONDS TOLERATED TRANSFER WELL WITHOUT ADVERSE REACTIONS NOTED SATURATION 100% HR 90'S
--- NOTE | 2019-08-28 11:05 | NUR ---
PATIENT TRANSFERRED TO ICU BED 7 WITHOUT ANY COMPLICATIONS, GAVE REPORT TO CHARGE NURSE ESTEBAN, CHART WAS GIVEN TO HER. QUESTIONS WERE ANSWERED WITH VERBALIZATION OF UNDERSTANDING OF PLAN OF CARE
--- NOTE | 2019-08-28 11:15 | NUR ---
STABLE NO EVIDENCE OF PULMONARY DISTRESS NOTED GOOD CHEST RISE AIRWAY PATENT
--- NOTE | 2019-08-28 11:20 | NUR ---
PT TRANSFERRED FROM TELE TO ICU 7. BEDSIDE REPORT RECEIVED FROM STEPHANIE CHURCH. BP 84/51 HR 91 RR 22 SPO2 100% ON TRACH TO VENT. PT AAOX4. DENIES PAIN. NO SIGNS OF DISTRESS NOTED AT THIS TIME. WILL ADMINISTER NS BOLUS ORDERED. SAFETY PRECAUTIONS IN PLACE. WILL CONTINUE TO MONITOR.
[2019-08-28] MEDS ORDERED: NACL 0.9% 4,000 ML IV SCH (11:50)
[2019-08-28] MEDS ORDERED: NACL 0.9% 1,000 ML IV SCH (11:50)
[2019-08-28] MEDS: NOREPINEPHRINE 4 MG in DEXTROSE 5% 250 ML IV PRN (12:06)
--- NOTE | 2019-08-28 12:07 | NUR ---
PT SEEN BY DR. HUFMFAN. UPDATES GIVEN ON PT'S CONDITION. WILL FOLLOW UP ON ORDERS.
--- NOTE | 2019-08-28 12:10 | NUR ---
VAP ORAL CARE GIVEN. AT BEDSIDE.
[2019-08-28] MEDS: NACL 0.9% IRR 250 ML BOTTLE IR SCH (12:23)
--- NOTE | 2019-08-28 13:58 | NUR ---
STABLE NO SOB NOTED GOOD CHEST RISE AND AERATION THROUGHOUT BILATERAL LUNG WHEELER AIRWAY PATENT
--- NOTE | 2019-08-28 14:02 | NUR ---
TURNED AND REPOSITIONED PT. TOLERATED WELL.
--- NOTE | 2019-08-28 14:20 | NUR ---
DR. CRUZ IN THE UNIT. UPDATES GIVEN ON PT'S CONDITION.
--- NOTE | 2019-08-28 16:00 | NUR ---
VAP ORAL CARE GIVEN. TURNED AND REPOSITIONED. PRESSURE AREAS OFF LOADED. HEELS PROTECTORS IN PLACE. NO SIGNS OF DISTRESS NOTED. SAFETY MEASURES ENSURED.
--- NOTE | 2019-08-28 18:02 | NUR ---
VENT CHECK COMPLETED, PT IN BED WATCHING TV NOT IN ANY DISTRESS. VENT ALARMS ON AND FUNCTIONING. TRACH IS SECURE WITH A PATENT AIRWAY.
--- NOTE | 2019-08-28 18:02 | NUR ---
REPOSITIONED PT. PRESSURE AREAS OFF LOADED. PT ON LEVOPHED DRIP. AWAKE AND ALERT, ABLE TO MAKE NEEDS KNOWN. WILL CONTINUE TO MONITOR.
--- NOTE | 2019-08-28 19:27 | NUR ---
REPORT GIVEN TO AIR ANTISUBMARINE OFFICER RN FOR CONTINUITY OF CARE. NO SIGNS OF ACUTE DISTRESS NOTED AT THIS TIME.
--- NOTE | 2019-08-28 19:30 | NUR ---
CHANGE OF SHIFT REPORT AT BEDSIDE BY DAY SHIFT NURSE VITA. PATIENT RUNNING D5 NS AT 100 ML/HR. PATIENT TRACH TO VENT. ALERT AND ORIENTED. UNABLE TO SPEAK BUT ABLE TO MOUTH WORDS AND NOD YES OR NO. VENT [phone] SR ON MONITOR. HR REGULAR. LUNGS CLEAR. RESPIRATIONS UNLABORED. PERRL. BOWEL SOUNDS ACTIVE. OSTOMY SITE WITH RECTAL BAG. NO BM NOTED. PATIENT NPO. NO GTUBE PRESENT. PER DAY SHIFT, CANCELED GTUBE PLACEMENT TODAY D/T BP UNSTABLE. ON LEVOPHED DRIP PER MD ORDERS AT [facility]. INCREASED WITH DAY SHIFT NURSE. PER RESIDENT MD MORATAYA, HOLD ALL GTUBE MEDS. PER DAY SHIFT NURSE, PER DR. CRUZ, HOLD THE BLOOD TRANSFUSIONS AT THIS TIME. STATED HGB OK. MIDLINE RIGHT UPPER ARM PATENT AND INTACT. SEE WOUND CARE NOTES. BARR PRESENT. YELLOW URINE. SPECIAL MATTRESS. ABLE TO MAKE NEEDS KNOWN. WILL CONTINUE TO MONITOR AT THIS TIME. NO S/S OF DISTRESS NOTED.
--- NOTE | 2019-08-28 21:00 | NUR ---
iv meds given per md orders. repositioned and tolerated well will continue to monitor
[2019-08-28] MEDS ORDERED: PANTOPRAZOLE 40 MG INJ VIAL ONE (21:32)
--- NOTE | 2019-08-28 22:10 | NUR ---
dr whatley called for new iv fluid order. call back at [phone]. states per iv spreadsheet. ok to continue to give d5 ns at 70ml/hr. verbal ok and read back confirmed.
[2019-08-28] MEDS ORDERED: DEXT 5% / NACL 0.9% 500 ML IV SCH (22:50)
[2019-08-29] VITALS (90 sets, daily range): BP systolic 87–167; BP diastolic 46–94
--- NOTE | 2019-08-29 | NUR ---
afebrile. repositioned. vap oral care performed. no s/s of distress. vss. will continue to monitor
[2019-08-29] MEDS: MIDODRINE 5 MG TAB GT SCH ×3 (00:57→21:24)
[2019-08-29] MEDS: DEXT 5% / NACL 0.9% 1,000 ML IV SCH ×2 (00:57→15:01)
[2019-08-29] MEDS ORDERED: NOREPINEPHRINE 4 MG/4 ML VIAL IV ONE (03:10)
[2019-08-29] MEDS: NOREPINEPHRINE 4 MG in DEXTROSE 5% 250 ML IV PRN ×2 (03:28→17:20)
--- NOTE | 2019-08-29 03:38 | NUR ---
vap oral care refused at this time. oral mouth suctioned. repositioned. states "im ok" "sleep" "lights off" vss. will continue to monitor. no s/s of distress noted
[2019-08-29] MEDS: BLOOD GLUCOSE MONITORING 1 DEV DEV MC SCH ×3 (06:21→18:29)
--- NOTE | 2019-08-29 06:31 | NUR ---
DR DURAN PRESENT AT BEDSIDE. PATIENT STRONGLY REFUSED MORNING CARE AT THIS TIME. REFUSED CATHETER CARE AT THIS TIME. MOUTHED WORDS "TOO COLD" ASKED IF WOULD LIKE TO DO IT LATER, PATIENT STRONGLY NODDED HEAD "YES". PATIENT GAVE OK TO FACE BEING CLEANED. ORAL CARE PERFORMED. PATIENT GIVEN EXTRA BLANKET. VSS. NO S/S OF DISTRESS NOTED. PATIENT MOUTHED "SLEEP". TURNED LIGHTS OFF. WILL CONTINUE TO MONITOR. BED IN LOWEST POSITION. SIDE RAILS UP. SAFETY MEASURES IN PLACE. WILL ENDORSE TO DAY SHIFT.
--- NOTE | 2019-08-29 06:37 | NUR ---
LAB AT BEDSIDE.
--- NOTE | 2019-08-29 06:49 | NUR ---
RADIOLOGY AT BEDSIDE
[2019-08-29 07:21] LABS: BASOPHILS # (AUTO) 0.2 K/uL (0.00-0.22); BASOPHILS % (AUTO) 1.2 % (0.0-2.0); EOSINOPHILS # (AUTO) 1.1 K/uL (0-0.4); EOSINOPHILS % (AUTO) 7.4 % (0.0-4.0); HEMOGLOBIN 8.4 g/dL (12.0-18.0); LYMPHOCYTES # (AUTO) 1.1 K/uL (2.0-11.5); LYMPHOCYTES % (AUTO) 7.9 % (20.5-51.1); MEAN CORPUSCULAR HEMOGLOBIN 27 pg (27-31); MEAN CORPUSCULAR HGB CONC 31 g/dL (33-37); MEAN CORPUSCULAR VOLUME 87.9 fL (80-94); MONOCYTES # (AUTO) 1.2 K/uL (0.8-1.0); MONOCYTES % (AUTO) 8.6 % (1.7-9.3); NEUTROPHILS # (AUTO) 10.8 K/uL (1.8-7.7); NEUTROPHILS % (AUTO) 74.9 % (42.2-75.2); PLATELET COUNT (AUTO) 317 K/uL (140-450); RED BLOOD CELL COUNT(AUTO) 3.07 MIL/uL (4.20-6.10); RED CELL DISTRIBUTION WIDTH 20.7 % (11.6-13.7); WHITE BLOOD COUNT (AUTO) 14.4 K/uL (4.8-10.8)
--- NOTE | 2019-08-29 07:30 | NUR ---
RECEIVED REPORT FROM CONSTRUCTION FRAMER RN. PT RESTING IN BED. OPENS EYES SPONTANEOUSLY, MOUTH WORDS NEEDS. SKIN DRY AND WARM TO TOUCH. ON LEVOPHED DRIP AT 5 MCG/MIN. ON TRACH TO VENT AC/VC FIO2 24% TV 475 RR 20 PEEP 5. LUNGS DIMINISHED. FEDE MIDLINE IN PLACE. GOOD BLOOD RETURNS. DRESSING INTACT. FLUSHED. ABDOMEN SOFT, FLAT AND NON-TENDER. ACTIVE BOWEL SOUND. OLD SURGICAL SCAR NOTED ON MID ABDOMEN. OLD G-TUBE OSTOMY COVERED WITH DRESSING. OVER PROLAPSED OSTOMY ON RLQ. F/C IN PLACE. DRESSING INTACT TO RLL. OPEN WOUND NOTED ON BL SHOULDER, SACRUM, BUTTOCK AND HEELS. HOB ELEVATED. BED IN LOW POSITION LOCKED. WILL CONTINUE TO MONITOR.
[2019-08-29 07:38] LABS: ALBUMIN 1.3 g/dL (3.4-5.0); ANION GAP 18.7 (8-16); CARBON DIOXIDE 22.3 mmol/L (21-32); CREATININE 2.5 mg/dL (0.7-1.3); MAGNESIUM 1.6 mg/dL (1.8-2.4); TOTAL BILIRUBIN 0.3 mg/dL (0.0-1.0)
[2019-08-29] MEDS: DOCUSATE 100 MG/10 ML UDC GT SCH ×3 (08:00→21:24)
[2019-08-29] MEDS: ASCORBIC ACID 500 MG TAB GT SCH ×2 (08:00→10:27)
--- NOTE | 2019-08-29 08:00 | NUR ---
DR. HUFFMAN FOR DR. CRUZ CAME INTO SEE PT. UPDATE PT STATUS. MADE AWARE OF HOLDING TUBE FEEDING AND G-TUBE MEDS. DR. HUFFMAN SAID IT'S WE NOT GONNA DO G-TUBE PLACEMENT UNTIL PT BECOME STABLE. IT'S OK TO INSERT NG-TUBE TEMPORARILY AND GIVE G-TUBE MEDS AND START TUBE FEEDING IF OKAY FORM PRIMARY DOCTOR PER DR. HUFFMAN. WILL FOLLOW UP WITH DR. DURAN.
[2019-08-29] MEDS: ZINC SULF 220 MG CAP GT SCH ×2 (08:01→10:27)
[2019-08-29] MEDS ORDERED: ENOXAPARIN 40 MG/0.4 ML SYR SUBQ ONE (08:31)
[2019-08-29] MEDS ORDERED: PANTOPRAZOLE 40 MG INJ VIAL ONE ×2 (08:32→21:20)
[2019-08-29] MEDS: METOCLOPRAMIDE 10 MG/2 ML INJ VIAL IVP SCH ×3 (08:37→17:17)
[2019-08-29] MEDS: PANTOPRAZOLE 40 MG INJ VIAL IVP SCH ×2 (08:37→21:24)
[2019-08-29] MEDS: Z-GUARD PASTE TP SCH (08:38)
[2019-08-29] MEDS: MORPHINE SULFATE 2 MG/ML SYR IVP PRN (08:38)
[2019-08-29] MEDS: ENOXAPARIN 40 MG/0.4 ML SYR SUBQ SCH (08:39)
--- NOTE | 2019-08-29 09:15 | NUR ---
DORI AND RECEIVED CALL FROM DR. DURAN. MADE AWARE OF DR. HUFFMAN'S RECOMMENDATION. DR. DURAN SAID OKAY TO INSERT NG-TUBE AND START G-TUBE MEDS AND TUBE FEEDING PER ORDER. ALSO MADE AWARE OF TODAY'S LAB RESULTS: ELEVATED WBC, MG 1.6 AND K 3.0. SAID GIVE POTASSIUM CHLORIDE 40 MEQ IV. Addendum: 08/29/19 at 1050 by Ely Lara RN ALSO MADE AWARE OF HB 8.4
[2019-08-29] MEDS ORDERED: KCL 20 MEQ/WATER INJ PREMIX 200 ML IV ONE (09:50)
[2019-08-29] MEDS ORDERED: ZINC SULF 220 MG CAP ONE (10:18)
[2019-08-29] MEDS ORDERED: ASCORBIC ACID 500 MG TAB ONE (10:19)
--- NOTE | 2019-08-29 10:25 | NUR ---
INSERT OG-TUBE. VERIFIED WITH CHARGE NURSE. NG-TUBE IN PLACE.
[2019-08-29] MEDS: MAGNESIUM OXIDE 400 MG TAB PO PRN (10:28)
--- NOTE | 2019-08-29 11:45 | NUR ---
VAP ORAL CARE PROVIDED. SUCTIONED PER NEED. RT AT THE BEDSIDE. REPOSITIONED. KEPT OFFLOADED PRESSURE AREAS. CONTINUE ON LEVOPHED DRIP.
--- NOTE | 2019-08-29 11:49 | NUR ---
PT SUCTIONED OBTAINED SMALL AMOUNT OF THICK WHITE SECRETIONS, AIRWAY IS PATENT AND TRACH IS SECURE. PT AWAKE NOT IN ANY DISTRESS. WILL CONTINUE TO MONITOR.
[2019-08-29] MEDS ORDERED: ACETAMINOPHEN 650 MG/20.3 ML UDC ONE (13:28)
[2019-08-29] MEDS: ACETAMINOPHEN 650 MG/20.3 ML UDC GT PRN (13:31)
--- NOTE | 2019-08-29 14:00 | NUR ---
MIDLINE DRESSING CHANGED. DRESSING INTACT.
--- NOTE | 2019-08-29 15:45 | NUR ---
VAP ORAL CARE PROVIDED. SUCTIONED. REPOSITIONED. TOLERATED WELL. NO SOB OR RESPIRATORY DISTRESS NOTED. CONTINUE ON LEVOPHED DRIP AT THE SAME RATE.
--- NOTE | 2019-08-29 15:55 | NUR ---
DORI AND RECEIVED CALL BACK FROM DR. MCGOVERN. MADE AWARE OF ELEVATED NA 150, BUN 47 AND CREATININE 2.5, LOW ALBUMIN 1.3. ORDERED TO SWITCH IVF TO D5%1/2 NS AT 70 ML/HR. WILL CARRYOUT ORDER. Addendum: 08/29/19 at 1951 by Ely Lara RN WRONG CHARTING.
--- NOTE | 2019-08-29 16:35 | NUR ---
PT EVALUATED BY DR. MENDOZA. MADE AWARE OF MORNING LAB RESULTS. ELEVATED NA, BUN, CR, AND ALBUMIN. ORDERED TO SWITCH IVF TO D5%1/2 NS AT 70 ML/HR. WILL CARRYOUT ORDER.
[2019-08-29] MEDS: DEXT 5% / NACL 0.45% 1,000 ML IV SCH (17:17)
--- NOTE | 2019-08-29 17:45 | NUR ---
PT AWAKE IN BED NOT IN ANY DISTRESS. TRACH IS SECURE WITH A PATENT AIRWAY. VENT ALARMS REMAIN ON AND FUNCTIONING.
--- NOTE | 2019-08-29 18:00 | NUR ---
PT EVALUATED BY DR. OH. BEE TO START OG-TUBE FEEDING AT THIS TIME.
--- NOTE | 2019-08-29 18:30 | NUR ---
RESIDUAL 0. STARTED OG-TUBE FEEDING.
--- NOTE | 2019-08-29 19:22 | NUR ---
RECEIVED PATIENT ON FROM DAY ON AC 63,[id number],+5,24%. ALARMS AUDIBLE AND WORKING. VENT PLUGGED INTO RED OUTLET. PT APPEARS STABLE ON CURRENT SETTINGS. WILL CONT. TO MONITOR.
--- NOTE | 2019-08-29 19:25 | NUR ---
ENDORSED TO FOSTER CARE WORKER RN FOR CONTINUITY OF CARE. PT STABLE AT THIS TIME.
--- NOTE | 2019-08-29 19:30 | NUR ---
RECEIVED REPORT FROM DAYSHIFT NURSE AT PATIENTS BEDSIDE. PATIENT AWAKE AND ALERT, OPENS EYES SPONTANEOUSLY, NOT ABLE TO MAKE FULL SENTENCES DUE TO TRACHEOSTOMY, BUT ABLE TO SAY SOME SIMPLE WORDS AND ABLE TO MOUTH ANY NEEDS. TRACH TO VENT DEPENDENT ON ACVC SETTINGS: FI02 24%, TV 475, RATE 20, PEEP 5. LUNGS SOUNDS ARE DIMINISHED, BREATHING IS UNLABORED, EQUAL CHEST RISE. SATURATIONS 98%, PRODUCTIVE COUGH NOTED, WITH WHITE CREAMY SECRETIONS. S1S2, SR ON MONITOR, PATIENT IS ON LEVOPHED DRIP AT 5MCG/KG/MIN-18.75 ML/HR. RIGHT UPPER ARM MIDLINE IN PLACE, DRESSING IS CLEAN AND INTACT, BOTH LUMENS FLUSHED WITHOUT SYMPTOMS. D5 1/2 NS INFUSING AT 70 ML /HR. PATIENT HAS OGT IN PLACE, CURRENTLY CONNECTED TO TUBE FEEDING. RIGHT LOWER QUADRANT OSTOMY IN PLACE, NOTICEABLE PROLAPSE NOTED. BROWN LIQUID STOOL NOTED IN OSTOMY DEVICE BAG. ABDOMEN IS FLAT, NONTENDER WITH ACTIVE BOWEL SOUNDS. LEFT UPPER QUADRANT DRESSING IN PLACE, RECENT GTUBE REMOVAL DUE TO LEAKAGE. SMALL AMOUNT OF FLUID/TUBE FEEDING LEAKING ONTO DRESSING. BARR CATHETER IN PLACE WITH CLOUDY YELLOW URINE IN BAG. DRESSINGS IN PLACE TO RIGHT LOWER LEG, BILATERAL SHOULDERS, MULTIPLE DRESSINGS TO SACRUM AREA AND BUTTOCKS, DEEP SEVERE PRESSURE INJURIES NOTED. SPECIALTY MATTRESS IN PLACE. BED IS IN LOWEST POSITION WITH SIDERAILS UP x3, HOB 30 DEGREES, CALL LIGHT WITHIN REACH, SAFETY ALARMS IN PLACE. WILL CONTINUE TO MONITOR.
--- NOTE | 2019-08-29 20:30 | NUR ---
CHECKED PATIENTS OGT FOR PLACEMENT, POSITIVE AIR CHECK/AUSCULTATION. NO RESIDUALS AT THIS TIME. AUDIBLE GURGLE SOUNDS FROM GTUBE SITE. ASSESSED GTUBE AND MODERATE AMOUNT OF LIQUID/TUBE FEEDING LEAKING, SALINAS PAD IS SOILED. STOPPED FEEDING AT THIS TIME. MD IS ALREADY AWARE, STANDING ORDER IS TO ADMINISTER MEDICATIONS VIA OGT AND START TUBE FEEDING BUT IF EXCESS LEAKAGE, OK TO STOP FEEDING. WILL FOLLOWUP WITH POSSIBLE TPN STARTING TOMORROW.
--- NOTE | 2019-08-29 22:20 | NUR ---
RESTING WELL IN BED, SPECIALTY MATTRESS IN PLACE, ABLE TO CHANGE PATIENTS POSITION. PILLOWS IN PLACE TO OFFLOAD PRESSURE SITES. HOB 30 DEGREES, BED IN LOWEST POSITION, SAFETY ALARMS IN PLACE. ALL NEEDS ARE MET AT THIS TIME.
[2019-08-30] VITALS (102 sets, daily range): BP systolic 73–171; BP diastolic 44–92
--- NOTE | 2019-08-30 00:05 | NUR ---
PROVIDED VAP ORAL CARE. PATIENT HAS SMALL AMOUNT OF THICK CREAMY SECRETIONS NOTED AT TRACH SITE. SUCTIONED AND CLEANED FACE AND NECK. PATIENT REFUSED LIP MOISTURIZER. BED IN LOWEST POSITION, HOB 30 DEGREES, SIDERAILS UPx3. WILL CONTINUE TO MONITOR.
[2019-08-30] MEDS: BLOOD GLUCOSE MONITORING 1 DEV DEV MC SCH ×4 (00:30→17:34)
--- NOTE | 2019-08-30 01:00 | NUR ---
ASSESSED SKIN AND PRESSURE INJURIES. ALL DRESSINGS ARE CLEAN, DRY, AND INTACT. REMOVED DRESSING AT GTUBE SITE, MODERATE AMOUNT OF WHITE, CREAMY, THICK SECRETIONS NOTED. CHANGED DRESSING AND SECURED WITH TAPE. READJUSTED AND TURNED PATIENT. TOLERATED WELL. ALL NEEDS MET AT THIS TIME, NO COMPLAINTS.
--- NOTE | 2019-08-30 01:40 | NUR ---
DR. PETE IN TO ASSESS PATIENT AND TO GET UPDATES. NO NEW ORDERS AT THIS TIME.
--- NOTE | 2019-08-30 02:25 | NUR ---
CALLED [facility] TO TRANSFER PT TO [facility] FOR MRI. [facility] WAS ABLE TO ACCOMMODATE THE PATIENT WITH RT AND RN WITHIN 45 MIN TO 1 HOUR. GAVE ALL THE INFORMATION OF THE PATIENT Addendum: 08/31/19 at 0211 by Alla Chi RN WRONG TIME
--- NOTE | 2019-08-30 03:25 | NUR ---
SPONGE BATH, BARR CARE, SKIN CARE, AND ORAL CARE PROVIDED. PATIENT TOLERATED WELL. REPLACED LINEN/GOWN/PILLOW CASES. PATIENT ON SPECIALTY MATTRESS. TURNED AND REPOSITIONED PATIENT, HEEL PROTECTORS IN PLACE, OFFLOADED PRESSURE SITES. NO COMPLAINTS AT THIS TIME.
[2019-08-30] MEDS ORDERED: PIPERACILLIN/TAZOBACTAM 3.375 GM VIAL IV ONE (04:47)
[2019-08-30] MEDS: MIDODRINE 5 MG TAB GT SCH ×3 (05:36→21:00)
--- NOTE | 2019-08-30 05:50 | NUR ---
ACCUCHECK COMPLETE, PATIENT CURRENTLY NOT ON ANY FEEDING DUE TO GTUBE SITE LEAKAGE. WILL FOLLOWUP WITH TPN IN A.M. IV FLUIDS- D5 1/2NS @ 70ML. BLOOD SUGAR 88. NO COVERAGE NEEDED. BARR CATHETER EMPTIED, CLOUDY YELLOW URINE NOTED, OUTPUT 200ML. PATIENT RESTING COMFORTABLY, ALL VITALS STABLE, ON LEVOPHED DRIP AT 5 MCG/KG/MIN, TRACH TO VENT WITH ACVC 2, FI02 24%, TV 475, PEEP 5. OSTOMY DEVICE STILL IN PLACE AND INTACT, MINIMAL OUTPUT. RIGHT UPPER ARM MIDLINE IN PLACE. DENIES PAIN. WILL CONTINUE TO MONITOR.
[2019-08-30] MEDS ORDERED: PIPERACILLIN/TAZOBACTAM 3.375 GM in DEXTROSE 5% 100 ML IV SCH (06:00)
[2019-08-30] MEDS ORDERED: NOREPINEPHRINE 4 MG/4 ML VIAL IV ONE (06:41)
[2019-08-30] MEDS: NOREPINEPHRINE 4 MG in DEXTROSE 5% 250 ML IV PRN (06:45)
--- NOTE | 2019-08-30 07:15 | NUR ---
RECEIVED BEDSIDE REPORT FROM DISC INSPECTOR RN EMORY. PT IN BED. EYES OPEN SPONTANEOUSLY. VITALS STABLE, ON LEVOPHED DRIP 3MCG/MIN. TRACH TO VENT, AC/VC FIO2 24%, VT 475, RATE 20, PEEP 5. SR ON MONITOR. NO ACUTE DISTRESS NOTED. AIR MATTRESS IN PLACE. BED LOCKED IS IN LOWEST POSITION, HOB 30 DEGREES, CALL LIGHT WITHIN REACH, SAFETY ALARMS IN PLACE. WILL CONTINUE TO MONITOR.
--- NOTE | 2019-08-30 07:30 | NUR ---
PT NOT RESPONDING TO HIS NAME, BUT EYES ARE OPEN. PUPILS 3MM, PERRL. LUNGS SOUNDS ARE RHONCHI. BOWEL SOUNDS ACTIVE. WITH WHITE AND YELLOW SECRETIONS FROM TRACHEOSTOMY SITE, SUCTION DONE. SR, S1S2, RADIAL AND PEDAL PULSES PALPABLE. PT RIGHT UPPER ARM MIDLINE IN PLACE, DRESSING IS CLEAN AND INTACT, D5 1/2 NS INFUSING AT 70 ML/HR AND LEVOPHED DRIP AT 3MCG/MIN. OGT AUSCULTATED, POSITIVE PLACEMENT, AND ASPIRATED, 0ML RESIDUAL. FEEDING WAS HELD SINCE LAST NIGHT DUE TO LEAKING AT OLD G TUBE SITE. RIGHT LOWER COLOSTOMY IN PLACE, PROLAPSE BOWEL NOTED, BROWN LIQUID STOOL NOTED. LEFT UPPER QUADRANT DRESSING FOR OLD G TUBE SITE, DRY AND CLEAN AT THIS TIME. BARR CATHETER IN PLACE DRAINING CLOUDY YELLOW URINE. WOUND DRESSINGS CLEAN AND INTACT. BARR CARE AND ORAL CARE DONE.
[2019-08-30 07:43] LABS: BASOPHILS # (AUTO) 0.2 K/uL (0.00-0.22); BASOPHILS % (AUTO) 1.2 % (0.0-2.0); EOSINOPHILS # (AUTO) 0.8 K/uL (0-0.4); EOSINOPHILS % (AUTO) 6.1 % (0.0-4.0); LYMPHOCYTES # (AUTO) 1.2 K/uL (2.0-11.5); LYMPHOCYTES % (AUTO) 9.8 % (20.5-51.1); MEAN CORPUSCULAR HEMOGLOBIN 28 pg (27-31); MEAN CORPUSCULAR HGB CONC 31 g/dL (33-37); MEAN CORPUSCULAR VOLUME 88.7 fL (80-94); MONOCYTES # (AUTO) 0.9 K/uL (0.8-1.0); MONOCYTES % (AUTO) 7.6 % (1.7-9.3); NEUTROPHILS # (AUTO) 9.3 K/uL (1.8-7.7); NEUTROPHILS % (AUTO) 75.3 % (42.2-75.2); PLATELET COUNT (AUTO) 340 K/uL (140-450); WHITE BLOOD COUNT (AUTO) 12.4 K/uL (4.8-10.8)
[2019-08-30 07:45] LABS: ANION GAP 19.6 (8-16); CARBON DIOXIDE 20.8 mmol/L (21-32); CREATININE 2.6 mg/dL (0.7-1.3); POTASSIUM 3.4 mmol/L (3.5-5.1)
--- NOTE | 2019-08-30 08:05 | NUR ---
PHONE CALL MADE TO [facility] UPHOLSTERY PARTS SORTER TWICE, SPOKE WITH NEWSPAPER DELIVERY COUNSELOR, UPHOLSTERY PARTS SORTER NOT AVAILABLE AT THIS TIME.NEWSPAPER DELIVERY COUNSELOR PAGED UPHOLSTERY PARTS SORTER. AWAITING REPLY
--- NOTE | 2019-08-30 08:10 | NUR ---
NOTICED PT TWITCHING HIS EYES AND HEART RATE ELEVATED TO 116. POSSIBLE SZ ACTIVITY LASTED FOR [address] DURAN BY PHONE. AND GOT ORDER FOR ATIVAN Q5MIN FOR SZ.
[2019-08-30] MEDS ORDERED: LORazepam 2 MG/ML VIAL ONE (08:24)
--- NOTE | 2019-08-30 08:30 | NUR ---
COLOSTOMY BAG IS LEAKING A LITTLE BIT, CLEANED SKIN AROUND THE SITE. CHANGED COLOSTOMY BAG AND PLACED A DRAINAGE BAG OVER THE OLD G TUBE SITE.
[2019-08-30] MEDS: METOCLOPRAMIDE 10 MG/2 ML INJ VIAL IVP SCH ×3 (08:44→17:55)
[2019-08-30] MEDS: DEXT 5% / NACL 0.45% 1,000 ML IV SCH (08:44)
[2019-08-30] MEDS: DOCUSATE 100 MG/10 ML UDC GT SCH ×2 (08:44→21:00)
--- NOTE | 2019-08-30 08:46 | NUR ---
08/30/19 RD FOLLOW UP COMPLETED PLEASE REFER TO NUTRITION PROGRESS NOTE UNDER CARE ACTIVITY FOR ESTIMATED NUTRITION NEEDS. RD RECOMMENDATIONS: 1. PER MD DISCRETION, WHEN MEDICALLY APPROPRIATE, RESUME OSMOLITE 1.5@70MLS/HR TOLERATED. -THIS WILL PROVIDE A VOLUME OF 1680 ML, 2520 KCAL, AND 105 GM OF PROTEIN. IT MEETS 100% OF THE ESTIMATED ENERGY AND PROTEIN NEEDS. 2. PER MD DISCRETION, WHEN MEDICALLY APPROPRIATE, RESUME CONTINUE FREE WATER FLUSH OF 160 Q4H (960 ML). 3. CONTINUE VITAMIN C AND ZINC FOR WOUND HEALING. 4. IF UNABLE TO RESUME TF, CONSIDER ALTERNATE ROUTE OF NUTRITON. 5. RD TO FOLLOW-UP 2-3 DAYS, HIGH RISK. MARRY WEAVER, MS, RDN
--- NOTE | 2019-08-30 08:50 | NUR ---
DR ELKE HUFFMAN CAME AND SEEN PT. ASKED IF WE CAN ORDER TPN, HE SAID YES.
[2019-08-30] MEDS ORDERED: TPN PER PHARMACY MC PRN (08:55)
[2019-08-30] MEDS ORDERED: PANTOPRAZOLE 40 MG INJ VIAL ONE (08:58)
[2019-08-30] MEDS ORDERED: ASCORBIC ACID 500 MG TAB ONE (08:58)
[2019-08-30] MEDS ORDERED: ZINC SULF 220 MG CAP ONE (08:58)
[2019-08-30] MEDS: POTASSIUM CHLORIDE 20% 40 MEQ/15 ML UDC GT PRN (09:02)
[2019-08-30] MEDS: ZINC SULF 220 MG CAP GT SCH (09:02)
[2019-08-30] MEDS: PANTOPRAZOLE 40 MG INJ VIAL IVP SCH ×2 (09:02→21:01)
[2019-08-30] MEDS: ASCORBIC ACID 500 MG TAB GT SCH (09:02)
[2019-08-30] MEDS ORDERED: PIPERACILLIN/TAZOBACTAM 3.375 GM in DEXTROSE 5% 50 ML IV SCH (10:22)
[2019-08-30] MEDS ORDERED: RENAL DOSING PER PHARMACY MC PRN (10:30)
[2019-08-30 11:40] LABS: MAGNESIUM 1.4 mg/dL (1.8-2.4); PHOSPHORUS 6.3 mg/dL (2.5-4.9)
[2019-08-30] MEDS: PIPERACILLIN/TAZOBACTAM 3.375 GM in DEXTROSE 5% 50 ML IV SCH ×2 (12:05→17:54)
--- NOTE | 2019-08-30 12:30 | NUR ---
SPOKE WITH DR DURAN OVER THE PHONE, RECOMMEND NEURO CONSULT AND HEAD CT. DR DURAN AGREED. ASKED DR DURAN IF HE WANT TO RENEW LOVENOX, HE SAID TO HOLD ON THAT RIGHT NOW. ORDERED NEURO CONSULT FOR DR TEAGUE.
[2019-08-30] MEDS ORDERED: POTASSIUM CHL 20 MEQ / DEXT 5% 1,000 ML IV SCH (12:35)
[2019-08-30] MEDS: LORazepam 2 MG/ML VIAL IVP PRN ×2 (12:55→18:46)
[2019-08-30] MEDS: MAG SULF 2000 MG/WATER PREMIX 50 ML IV PRN (13:00)
[2019-08-30] MEDS ORDERED: COMMUNICATION ORDER MC ONE (13:00)
--- NOTE | 2019-08-30 13:05 | NUR ---
TOOK PT TO CT SCAN. WITH RT JARROD.
[2019-08-30] MEDS ORDERED: POTASSIUM CHLORIDE 20 MEQ in DEXTROSE 5% 100 ML IV SCH (13:20)
--- NOTE | 2019-08-30 14:04 | NUR ---
PT HAS EYES OPEN BUT IS NOT ALERT. PT NOT IN RESPIRATORY DISTRESS/SOB. WILL CONTINUE TO MONITOR.
--- NOTE | 2019-08-30 14:47 | NUR ---
SPOKE WITH DR TEAGUE OVER THE PHONE. MADE HIM AWARE OF PT'S CONDITION AND LABS, AND SZ ACTIVITY. PT HAD EYES TWITCHING AND ELEVATED HEART RATE. PT ALSO BITES OGT THIS MORNING. ATIVAN WAS ORDERED BY DR DURAN Q5MING. OBTAINED ORDERS FROM DR TEAGUE. TO DO DEPAKOTE IVPB 500MG Q8H AND EEG.
[2019-08-30] MEDS ORDERED: VALPROATE SODIUM 500 MG in NACL 0.9% 100 ML IV SCH (15:17)
--- NOTE | 2019-08-30 16:00 | NUR ---
PT'S CAME AND REQUESTING TO HAVE PT TRANSFERRED TO [facility], BECAUSE SHE WANTS THE DOCTOR WHO PUT IN THE G TUBE ORIGINALLY TO FIX THE G TUBE PROBLEM.
--- NOTE | 2019-08-30 16:05 | NUR ---
PT'S STATES THAT SHE CALLED [facility] AND THAT SHE WAS TOLD TO HAVE PT TRANSFERRED, TO GO TO THE EMERGENCY ROOM. ASKED IF PT. HAS AN ACCEPTING PHYSICIAN. SHE ANSWERED YES. WHEN ASKED THE NAME AND PHONE NUMBER OF THE PERSON SHE SPOKE TO AT [facility] SHE BECAME VERY UPSET. STATES THAT SHE DOES NOT REMEMBER THE NAME OF THE PERSON SHE SPOKE TO AND TO JUST TRANSFER HER BUZZ. EXPLAINED TO THE THAT THERE IS A PROCESS WE HAVE TO FOLLOW WHEN WE TRANSFER PTS. TO A DIFFERENT HOSPITAL. DR. DURAN PAGED RE: 'S REQUEST TO TRANSFER HER .
--- NOTE | 2019-08-30 16:10 | NUR ---
SECURITY PRESENT IN ICU. SHELLEY, NURSING LINE HAUL TRUCK DRIVER HERE TO TALK TO THE .
--- NOTE | 2019-08-30 16:12 | NUR ---
SPOKE WITH DR DURAN OVER THE PHONE. MADE HIM AWARE PT'S WANTS PT TO BE TRANSFERRED TO [facility] WHERE HIS G TUBE WAS ORIGINALLY PLACED. DR DURAN SAID TO PUT IN TRANSFER ORDER FOR HIM.
--- NOTE | 2019-08-30 16:13 | NUR ---
DR. DURAN CALLED MADE AWARE OF 'S REQUEST TO TRANSFER PT. GAVE ORDER TO TRANSFER.
--- NOTE | 2019-08-30 16:15 | NUR ---
CALLED [facility]. NO ANSWER. UNABLE TO LEAVE MESSAGE. PAGED THEIR CANARY RAISER, MESSAGE LEFT.
--- NOTE | 2019-08-30 16:20 | NUR ---
PT'S INFORMED OF DR. DURAN'S TRANSFER ORDER.
--- NOTE | 2019-08-30 16:25 | NUR ---
PT'S CALM AT THIS TIME. SHELLEY REMAINS IN THE UNIT TALKING TO HER. AGREEABLE TO TRANSFER PT TOMORROW.
--- NOTE | 2019-08-30 16:25 | NUR ---
OBSTETRICAL ANESTHESIOLOGIST CAME AND STARTING THE TEST.
--- NOTE | 2019-08-30 17:20 | NUR ---
PT AWAKE NOT ALERT, NOT IN ANY DISTRESS AT THIS TIME. TRACH IS SECURE WITH A PATENT AIRWAY. VENT ALARMS ON AND FUNCTIONING.
--- NOTE | 2019-08-30 18:00 | NUR ---
EMPTIED G TUBE DRAINAGE BAG, 10ML ORANGE OUTPUT.
[2019-08-30] MEDS ORDERED: COMMUNICATION ORDER MC PRN (18:20)
--- NOTE | 2019-08-30 18:20 | NUR ---
DR DURAN CAME AND ASSESSED PT. DR DURAN WANTS TO DO MRI AND START ATIVAN DRIP 2MG/HR. ASKED IF DR DURAN WANTS TO DC OGT. DR DURAN ASKED IF PT HAS OTHER ACCESS, I ANSWERED NO, MADE DR DURAN AWARE WHAT GT MEDS PT IS CURRENTLY ON. DR DURAN SAID OK TO DC IT.
[2019-08-30] MEDS ORDERED: LORazepam 50 MG in NACL 0.9% 25 ML IV PRN ×2 (18:30→19:15)
--- NOTE | 2019-08-30 19:51 | NUR ---
PATIENT TURNED AND REPOSITIONED WITH RN AND CHARGE NURSE. ASSESSED PUPILS AND PERFORMED STERNAL RUB, PATIENT OPENED EYES BUT DID NOT USUALLY GRIMACE WITH REPOSITIONING. MADE EYE CONTACT FOR LESS THAN 10 SECONDS. PATIENT RECENTLY GIVEN ATIVAN LESS THAN AN HOUR AGO. WILL CONTINUE MONITORING.
[2019-08-30] MEDS ORDERED: INSULIN LISPRO SLIDING SCALE 100 UNITS/ML VIAL SUBQ PRN (20:00)
[2019-08-30] MEDS: MULTIVITAMIN-12 10 ML in DEXTROSE 50% 480 ML, AMINO ACIDS 8.5% 480 ML IV SCH ×3 (20:00)
--- NOTE | 2019-08-30 20:25 | NUR ---
PHONE CALL AGAIN TO THE [facility]; SPOKE WITH WHIT GOFF RN HEALTHCARE INSURANCE SALES AGENT.SHE SAID SHE IS NOT AWARE OF PT HAVING MRI IN THE [facility].IT NEEDS TO BE APPROVED.
--- NOTE | 2019-08-30 20:30 | NUR ---
PPN NOT YET STARTED. WAITING TO RECEIVE PPN TUBING FROM ROVING DEPARTMENT END FINDER.
[2019-08-30] MEDS: VALPROATE SODIUM 500 MG in NACL 0.9% 100 ML IV SCH (21:01)
--- NOTE | 2019-08-30 21:02 | NUR ---
PATIENT ONLY HAS ONE IV SITE, RIGHT UPPER ARM MIDLINE-DOUBLE LUMEN. PHARMACY CALLED TO CONFIRM, PATIENT CAN HAVE LEVOPHED AND ATIVAN DRIPS RUNNING AT SAME LINE WITH Y-EXTENSION SET (DOUBLE PORT). WILL CARRY OUT.
--- NOTE | 2019-08-30 21:07 | NUR ---
CALLED [facility] [phone] TO FOLLOW UP WITH MRI OF THE BRAIN; DELORES STATED WILL ASK RAD DEP FOR TERRAZZO INSTALLER; TOLD DELORES THAT TED THE RAD DIRECTOR APPROVED THE TERRAZZO INSTALLER TO DO IT. DELORES ALSO ASKED IF DR UGALDE CORPORATE MD APPROVED THE MRI. LOOKED AT THE ORDER, DR WHITE APPROVED THE MRI; LET DELORES KNOW. DELORES STATED THAT SHE WILL CALL BACK
--- NOTE | 2019-08-30 21:25 | NUR ---
CALLED [facility] TO TRANSFER PT TO [facility] FOR MRI. [facility] WAS ABLE TO ACCOMMODATE THE PATIENT WITH RT AND RN WITHIN 45 MIN TO 1 HOUR. GAVE ALL THE INFORMATION OF THE PATIENT
--- NOTE | 2019-08-30 21:30 | NUR ---
CALLED [facility] TO FOLLOW UP ON MRI, HS STATED THAT THE PRINT PRESS OPERATOR WAS NOT AVAILABLE ANYMORE FOR TONIGHT. WILL LET DR DURAN OR [facility] KNOW
--- NOTE | 2019-08-30 21:31 | NUR ---
Called [facility] and Dr Hamm was oncall. Let Dr Hamm know. Texted Dr Call and Dr Call ordered to tx pt for MRI to r/o stroke
--- NOTE | 2019-08-30 21:35 | NUR ---
CALLED [facility] TO PUT IT ON HOLD UNTIL FURTHER CALL
--- NOTE | 2019-08-30 22:00 | NUR ---
ALL WOUNDS ASSESSED, PHOTOGRAPPED, AND MEASURED. WILL ADD TO CHART. REPLACED ALL DRESSINGS. PACKED OPEN WOUNDS WITH ALGINATE DRESSING AND IN PLACE OPTIFOAM DRESSINGS. PATIENT TOLERATED WELL.
--- NOTE | 2019-08-30 23:16 | NUR ---
called [facility] [phone], talked to HS and stated no icu bed at this time
[2019-08-31] VITALS (106 sets, daily range): BP systolic 11–147; BP diastolic 54–88
[2019-08-31] MEDS ORDERED: BLOOD GLUCOSE MONITORING 1 DEV DEV MC SCH
--- NOTE | 2019-08-31 00:35 | NUR ---
CALLED AFTER HOURS PHARMACY AND SPOKE WITH DWAYNE. INFORMED HER THAT CURRENTLY PPN CANNOT BE STARTED D/T NO TUBING IS AVAILABLE. PER DWAYNE, SHE WOULD SUGGEST HOLDING THE PPN FOR NOW AND START WHEN TUBING IS AVAILABLE D/T CONCERN WITH PHLEBITIS.
[2019-08-31] MEDS: PIPERACILLIN/TAZOBACTAM 3.375 GM in DEXTROSE 5% 50 ML IV SCH ×4 (00:37→17:38)
[2019-08-31] MEDS: BLOOD GLUCOSE MONITORING 1 DEV DEV MC SCH ×4 (00:38→17:50)
--- NOTE | 2019-08-31 00:45 | NUR ---
PROVIDED VAP ORAL CARE, SMALL AMOUNT OF SECRETIONS SUCTIONED ORALLY AND AT TRACH SITE. PATIENT A LITTLE MORE ALERT, WITH ORAL CLEANING PATIENT IS TRYING TO CLOSE MOUTH TIGHT (WITHDRAWING TO LIGHT SUCTION). PATIENTS EYES ARE OPEN AND UNABLE TO TRACK BUT NO TWITCHING NOTED.
--- NOTE | 2019-08-31 02:14 | NUR ---
CALLED [facility] TO FOLLOW UP FOR MRI. DELORES KESSLER STATED THAT SHE WILL CALL IN AM TO LET ME KNOW FOR THE AVAILABILITY OF THE SHEET METAL WORKER MAINTENANCE
[2019-08-31] MEDS: DEXT 5% / NACL 0.45% 1,000 ML IV SCH ×2 (03:00→08:18)
--- NOTE | 2019-08-31 03:36 | NUR ---
OPENED DEVICE AT OLD GTUBE SITE, BAG IS COMPLETELY FULL OF GAS/AIR, RELEASED GAS AND EMPTIED BAG. SMALL AMOUNT OF ORANGE COLORED FLUID ( OLD MEDICATION) NOTED. BAG IS SECURED. OSTOMY DEVICE IN PLACE, MILKED TUBING, BROWN LIQUID STOOL NOTED, VERY SMALL AMOUNT. WILL CONTINUE TO MONITOR
[2019-08-31] MEDS: MIDODRINE 5 MG TAB GT SCH ×3 (04:54→21:00)
--- NOTE | 2019-08-31 05:02 | NUR ---
Giuliana KESSLER at [facility] called, stated that Yaa Rad Director will call the topography technician; and either Yaa or topography technician will let icu or hs in am know
[2019-08-31] MEDS: VALPROATE SODIUM 500 MG in NACL 0.9% 100 ML IV SCH ×3 (05:44→21:16)
[2019-08-31 07:18] LABS: ANION GAP 18.3 (8-16); CARBON DIOXIDE 21.5 mmol/L (21-32); CREATININE 2.6 mg/dL (0.7-1.3); POTASSIUM 3.8 mmol/L (3.5-5.1)
[2019-08-31 07:24] LABS: MAGNESIUM 1.6 mg/dL (1.8-2.4)
--- NOTE | 2019-08-31 07:30 | NUR ---
RECEIVED BEDSIDE REPORT FROM DEDICATED TRUCK DRIVER RN EMORY. PT EYES OPEN SPONTANEOUSLY. NO TRACKING. NO RESPONSE TO NAME STIMULI. BEDSIDE MONITOR SHOWS SR. TRACH TO VENT WITH SETTING FIO2=24%. ON LEVOPHED DRIP 3MCG/MIN ,ATIVAN 2 MG/HR AND D5 1/2 AT 70 CC/HR TO RIGHT UPPER ARM. PT HAS OSTOMY BAG IN PLACE AND F/C IN PLACE. PT HAD G-TUBE SITE WITH A HOLE COVERED WITH DRAINAGE BAG. SKIN NON INTACT( SEE WOUND ASSESSMENT)AIR MATTRESS IN PLACE. BED LOCKED IS IN LOWEST POSITION, HOB 30 DEGREES, CALL LIGHT WITHIN REACH, SAFETY ALARMS IN PLACE. WILL CONTINUE TO MONITOR. NO FEVER.
--- NOTE | 2019-08-31 07:45 | NUR ---
PER PM SHIFT RN. PT HAS PPN ORDER BUT DID NOT GIVE IT DUE TO NO TUBING AVAILABLE. CALLED [facility], PHARMACY, AND CENTRAL [facility] TO ASK FOR TUBING.
--- NOTE | 2019-08-31 08:05 | NUR ---
THE HOUSE CATRINA ROBERT CALLED PT. REGARDING PT. GO TO [facility] FOR MRI AND RETURN TO [facility]. SHE REFUSED TO HAVE HIM GO.
--- NOTE | 2019-08-31 08:10 | NUR ---
TALK TO RAMON THE AUTOMOBILE MECHANIC FROM [facility]. THE PROCEDURE IS CANCEL BECAUSE PT. DID NOT WANT HIM TO GO.
--- NOTE | 2019-08-31 08:13 | NUR ---
Spoke to the regarding transfer to [facility]. The refused her to get the MRI at [facility] and return back to [place]. The was yelling saying that she wants her to go to 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 I said we did contact [facility] and no bed available, she wants him to go to ER and the doctor can work on him until they have a bed available. I tried to explain that there is a process to follow, she started screaming. I informed her that [facility] transfer to get the MRI is cancelled and will inform leather case finisher.
--- NOTE | 2019-08-31 08:25 | NUR ---
Called [facility] and left a message for the nurse dock supervisor. to call back to coordinate the transfer.
--- NOTE | 2019-08-31 08:58 | NUR ---
DISCHARGE PLANNING: RECEIVED AN ORDER FOR PATIENT TO BE TRANSFERRED TO [facility] PER PATIENT'S REQUEST. CONTACTED ICU, ABLE TO SPEAK TO CHARGE NURSE ESTEBAN, SHE STATED PATIENT NEEDS AN MRI TO R/O STROKE AND WAS SUPPOSEDLY TRANSFERRED TO [facility] BUT PATIENT'S REFUSED. SHE WANTS THE PATIENT TO GO TO [facility] INSTEAD. CONTACTED AMY OF [facility] AT [phone], TO INFORM HER OF THE ORDER. SHE STATED TO FAX REFERRAL TO [facility]. CONTACTED PATIENT'S ADILENE TUTTLE AT [phone], NO ANSWER. LEFT MESSAGE. REFERRAL SENT TO [facility] [phone], [facility] [phone] AND [facility] [phone]. WILL FOLLOW UP. Addendum: 08/31/19 at 1016 by Hyacinth Dykes RECEIVED A CALL BACK FROM PATIENT'S ADILENE, SHE STATED SHE WANTS [facility] NOTHING ELSE. SHE ALSO STATED THAT PATIENT HAD BEEN THERE AND DR. MANZANO KNOWS THE PATIENT VERY WELL "I DON'S WANT ANY DOCTOR SECOND GUESSING AGAIN, MY 'S COLOSTOMY IS NOT LOOKING GOOD AND DR. MANZANO CAN FIX THAT ONE. JUST SHIP HIM BACK TO [facility]. IF YOU CAN TAKE HIM TO THE EMERGENCY ROOM THEY WILL TAKE CARE OF IT." INFORM HER THAT PER [facility], THERE IS NO ICU BED AVAILABLE AT THE MOMENT, AND I ALREADY SENT THEM THE REFERRAL. I ALSO INFORMED HER THAT PER THE INSURANCE TO SEND REFERRAL TO [facility] AND [facility]. SHE AGAIN SAID "I WANT MY TRANSFERRED ONLY IN [facility]." CONTACTED AMY OF [facility] AND MADE HER AWARE OF PATIENT'S 'S DECISION. CONTACTED DR DURAN AT [phone], NO ANSWER. LEFT MESSAGE. Addendum: 08/31/19 at 1131 by Hyacinth Dykes CM RECEIVED A CALL BACK FROM DR. DURAN. HE STATED THE MAIN REASON FOR TRANSFER IS FOR MRI OF THE BRAIN. I INFORMED HIM THAT PATIENT'S WANTS [facility] ONLY BECAUSE OF THE COLOSTOMY. HE STATED THE PRIORITY IS THE MRI. CONTACTED [facility] AT [phone]. SHE STATED THEIR ICU IS TIGHT RIGHT NOW BUT WILL KEEP THE PATIENT ON THEIR LIST. CONTACTED PATIENT'S ADILENE AT [phone], I INFORMED HER THAT [facility] DOES NOT HAVE A BED AT THIS TIME. I ALSO INFORMED HER THAT I SPOKE TO DR DURAN AND THE MAIN REASON FOR TRANSFER IS FOR MRI OF THE BRAIN. SHE ALSO STATED "WHY CAN'T YOU TAKE THE PATIENT TO THE EMERGENCY ROOM?" I EXPLAINED TO HER THAT IT DOES NOT WORK THAT WAY, THAT WE HAVE A PROCESS. ABLE TO VERBALIZE UNDERSTANDING. I ALSO EXPLAINED TO HER THAT PATIENT NEEDS MRI AND IF SHE IS AGREEABLE THE PATIENT WILL HAVE THE PROCEDURE DONE IN ANOTHER FACILITY AND WILL COME BACK HERE, SHE STATED "OK". CHARGE NURSE ESTEBAN MADE AWARE. Addendum: 08/31/19 at 1143 by Hyacinth Dykes CM CONTACTED [facility] AT [phone], NO ANSWER. LEFT MESSAGE. WILL FOLLOW UP. Addendum: 08/31/19 at 1152 by Hyacinth Dykes CM PER CHARGE NURSE ORELLANA, SHE RECEIVED A CALL FROM SEWING MACHINE ASSEMBLERKENDRICK NAVARRO FROM [facility] STATING THAT HE IS NOT COMFORTABLE DOING AN MRI TO TRACH TO VENT PATIENT AND WITH DRIP. HE ALSO STATED THAT IT WILL AFFECT THE RESULTS WELL. Addendum: 08/31/19 at 1326 by Hyacinth Dykes CM RECEIVED A CALL FROM PATIENT'S ADILENE, SCREAMING, YELLING AND ACCUSING ME OF LYING TO HER. SHE STATED SHE CONTACTED THE RADIO NEWS WRITER AT [facility] AND TOLD HER THAT THEY HAVE PLENTY OF BEDS. I TOLD HER THAT I SPOKE TO [facility] RETINAL ANGIOGRAPHER. IF SHE WANTS SHE CAN CONTACT SHANNON AND DISCUSS HER CONCERNS WITH HER. PROVIDED HER OF THE LATTER'S PHONE NUMBER. Addendum: 08/31/19 at 1332 by Hyacinth Dykes CM 1315: CONTACTED [facility] AT [phone] AND ASKED TO BE TRANSFERRED TO [facility], ABLE TO SPEAK TO ALEX. HE STATED HE [place] ME WITH THE PRE SCHED[place]ING DEPT AT [phone]. ABLE TO SPEAK TO NOE, SHE STATED SHE IS NOT ABLE TO PROVIDE ME A SCHEDULE UNLESS I HAVE AN AUTH FROM [facility]. AMY OF [facility] MADE AWARE. PROVIDED HER OF PRE SCHEDULING DEPT'S NUMBER. SHE PROVIDED ME WITH TRANSPORT AUTH [id number]. Addendum: 08/31/19 at 1348 by Hyacinth Dykes CM PER AMY OF [facility], AUTH FOR [id number]. SHE STATED THAT SHE IS ABLE TO GET AN MRI SCHEDULE AT [facility] ON SEP 07, 2019. SHE ALSO STATED TO CALL [phone] EXT [facility] TO RESCHEDULE FOR AN URGENT APPOINTMENT. CONTACTED THE PROVIDED NUMBER, ABLE TO SPEAK TO HEATHER AND GOT TRANSFERRED TO [facility]. PER [facility] TO RESCHEDULE APPOINTMENT I HAVE TO CALL [facility] SERVICES SCHEDULING DEPT AT [phone]. CONTACTED THE PROVIDED NUMBER, NO ANSWER. LEFT MESSAGE. Addendum: 08/31/19 at 1530 by Hyacinth Dykes CM CONTACTED PRE SCHEDULING APPOINTMENT DEPT AT [facility] AGAIN, ABLE TO SPEAK TO WILLY. I REQUESTED IF WE CAN RESCHEDULE TO MRI TO URGENT, SHE STATED THEY DO NOT HAVE AN OPENING ANYMORE. SHE CONFIRMED THAT PATIENT IS SCHEDULED FOR SEP 07, 2019 AT 0600. EMBALMER ASSISTANT WEI MADE AWARE. Addendum: 08/31/19 at 1549 by Hyacinth Dykes CM CONTACTED [facility] MRI DEPARTMENT [phone], ABLE TO SPEAK TO [facility]. SHE STATED WE DO NOT HAVE A CONTRACT WITH THEM. CONTACTED [facility] AGAIN, NO ANSWER. LEFT MESSAGE. Addendum: 08/31/19 at 1632 by [address] Dykes CM DR. DURAN MADE AWARE OF PATIENT'S MRI SCHEDULE AT [facility] ON SEP 07, 2019, HE STATED PATIENT NEEDS MRI DONE. CONTACTED PATIENT'S ADILENE MADE HER AWARE OF THE PROCEDURE. SHE STATED TO GO AHEAD. PER AMY OF [facility], TO GO AHEAD AND FAX IT OVER TO [facility]. CONTACTED [facility] AT [phone], ABLE TO SPEAK TO [facility] REGARDING INQUIRY. SHE PROVIDED ME WITH FAX NUMBER [phone]. REFERRAL SENT. CONTACTED [facility] AT [facility], SHE STATED THEY DO NOT HAVE A BED AT THIS TIME BUT WILL KEEP THE PATIENT ON THEIR LIST. STEPHANIE MONROY OF ICU MADE AWARE. Addendum: 08/31/19 at 1636 by Hyacinth Dykes CM RETINAL ANGIOGRAPHER MADE AWARE. Addendum: 09/01/19 at 0818 by Hyacinth Dykes CM CONTACTED JOAQUIM OF [facility], NO BED AVAILABLE AT THIS TIME. Addendum: 09/01/19 at 0829 by Hyacinth Dykes PER [facility] AT [phone], THEIR CRITICAL CARE IS FULL AT THIS TIME. Addendum: 09/01/19 at 0901 by Hyacinth Dykes CM CONTACTED [facility] AT [phone], ABLE TO SPEAK TO AL REGARDING REFERRAL. SHE STATED THAT STEPHANIE MONROY CANCELLED THE REFERRAL YESTERDAY RE: BED AT [facility]. I INFORMED HER IF SHE CAN REOPEN THE REFERRAL. SHE STATED SHE WILL NEED A NEW ORDER FOR IN PATIENT TRANSFER. CONTACTED DR. DURAN AND IS AGREEABLE TO SEND REFERRAL TO [facility] FOR HIGHER LEVEL OF CARE IN PATIENT RE: BRAIN MRI AND SURGICAL CONSULT FOR G TUBE REPLACEMENT. PRIMARY STEPHANIE MERCEDES MADE AWARE. Addendum: 09/01/19 at 1034 by Hyacinth Dykes CM 1010: SPOKE TO KADEEM AT [facility], NO ICU BED AT THIS TIME. I INQUIRE FOR GISELA, SHE STATED THEY DO NOT HAVE GISELA. 1030: RECEIVED A CALL FROM [facility], SHE STATED SHE SPOKE WITH DR. DURAN REGARDING THE CASE. SHE STATED DR. DURAN IS AGREEABLE TO HAVE THE PATIENT TRANSFERRED TO [facility] FOR MRI IN PATIENT WHILE WAITING FOR THE RESULTS. IF RESULTS ARE NEGATIVE TO TRANSFER THE PATIENT BACK TO [place], IF NOT PATIENT WILL STAY IN PATIENT AT [facility]. SHE ALSO STATED SHE WILL FAX OVER THE TRANSFER AGREEMENT. PRIMARY RN MARY MADE AWARE. Addendum: 09/01/19 at 1036 by Hyacinth Dykes CM PER PATIENT CASE MANAGER, PATIENT'S IS AGREEABLE. Addendum: 09/01/19 at 1256 by Hyacinth Dykes CM RECEIVED A CALL FROM JOAQUIM OF [facility], SHE STATED THEY CAN DO THE MRI AND PATIENT IS COMING BACK AFTER THE PROCEDURE. SHE ALSO STATED THAT IT IS A 10 MIN PROCEDURE, I CAN SET UP A WAIT AND RETURN FOR THE AMBULANCE. SHE ALSO PROVIDED ME [facility] NURSE CONTACT INFO [phone]. CONTACTED SHANE AT THE PROVIDED NUMBER, HE STATED THEY ONLY NEED THE MRI CHECKLIST AND CRITICAL CARE TRANSPORT NURSE TO STAY DURING THE PROCEDURE. CONTACTED [facility] AT [phone], ABLE TO SPEAK TO HERIBERTO. SHE CONFIRMED THAT THE TRANSPORT NURSE IS ABLE TO STAY DURING THE PROCEDURE. PROVIDED HER OF THE TRANSPORT AUTH. SHIPMASTER WILL BE BETWEEN 45-[address] PRIMARY RN AND DR. DURAN MADE AWARE. PATIENT'S ADILENE MADE AWARE AND IS AGREEABLE. Addendum: 09/02/19 at 1450 by Hyacinth Dykes CM 1129: CONTACTED DR. DURAN REGARDING LTAC EVALUATION. HE STATED OK BUT NEED MORE CLARIFICATION ON THE PATIENT'S NEURO STATUS FROM DR. TEAGUE. PER DR. TEAGUE, NOT READY FOR LTAC EVAL. PATIENT NEEDS TO BE OFF ATIVAN DRPAZ FIRST. Addendum: 09/03/19 at 1342 by Hyacinth Dykes STILL IN ICU, TRACH TO VENT FIO2 24%. CURRENT LABS INCLUDE WBC 25.7, H/H 9.4/31.0, NA/K 149/3.3, BUN/CREA 19/2.2 AND MAG 1.7. NEPHRO, NEURO, ID AND SURGICAL CONSULTS IN PLACE. PER NEURO CAN WEAN OFF ATIVAN AND TO CONT VPA AND ONCE SEIZURE FREE FOR 24H OK TO D/C FROM NEURO STANDPOINT. CM WILL CONTINUE TO FOLLOW FOR DC NEEDS. Addendum: 09/04/19 at 1545 by Hyacinth Dykes 1332: PER DR. DURAN, MAY DO LTAC EVAL THIS OR SATURDAY, WE HAVE TO MONITOR HIS NEURO STATUS FOR NOW AND SEE HOW THE PATIENT PROGRESSES. AND IF HE DOES NOT HE MAY NEED A HIGHER LEVEL OF CARE. PRIMARY RN MADE AWARE. Addendum: 09/06/19 at 1514 by Ramo Cowan SS JESÚS received order for patient to be transferred to [facility] per 's request. JESÚS contacted Roll Cutter Shannon [phone]. Per Shannon, [facility] does not have any beds available in ICU at this time. Shannon also stated that Dr. Manzano is unable to see patients in the ICU due to physician not being an box sealing inspector. JESÚS will follow up as needed. Addendum: 09/07/19 at 1040 by Hyacinth Dykes CM 914: CONTACTED [facility]'S RETINAL ANGIOGRAPHER AT [phone], NO ANSWER. LEFT MESSAGE 1035: [facility] AGA[facility], NO ANSWER. LEFT MESSAGE. RECEIVED A CALL FROM SHANNON RETINAL ANGIOGRAPHER OF [facility]. SHE STATED NO ICU BEDS AT THIS TIME. NEW PACKET SENT TO [phone]. Addendum: 09/07/19 at 1416 by Hyacinth Dykes CM RECEIVED AN ORDER FOR TRANSFER TO [facility]. CONTACTED [facility] RETINAL ANGIOGRAPHER, NO ANSWER. LEFT MESSAGE. Addendum: 09/07/19 at 1511 by Hyacinth Dykes CM SPOKE TO DR. CARRION REGARDING DC PLAN. HE STATED PATIENT MEET LTAC CRITERIA HOWEVER FAMILY IS REQUESTING THE PATIENT TO BE TRANSFERRED TO [facility]. HE ALSO STATED THAT PER THERE IS AN ACCEPTING DOCTOR AT [facility] AND HE TRIED CALLING THE NUMBER AND IT WAS A PAGER. CONTACTED PATIENT'S ADILENE AT [phone], INFORMED HER THAT PER SHANNON AT [facility], NO ICU BEDS AT THIS TIME AND THEY DO NOT DO TRACH TO VENT ON THEIR TELE FLOOR. SHE STARTED SCREAMING AND YELLING BLAMING US FOR NOT DOING ANYTHING. I INFORMED HER THAT I WAS THE ONE WORKING ON HER 'S CASE AND THE LAST TIME I SPOKE TO HER, SHE SPECIFICALLY STATED THAT SHE WANTED HER TO BE TRANSFERRED TO [facility]. SHE SAID I WAS LYING, THAT SHE NEVER SAID THAT. I ASKED HER TO CONFIRM IF IT IS OK FOR US TO SEND INQUIRY TO [facility], [facility] AND [facility]. SHE SAID OK. DISCUSSED DC PLAN WITH DR. CARRION, HE STATED TO GO AHEAD WITH INQUIRY TO THE ABOVE MENTIONED FACILITIES. REFERRAL SENT TO [facility], [facility] AND [facility]. CM WILL FOLLOW UP. Addendum: 09/07/19 at 1611 by Hyacinth Dykes PER AMY OF [facility], SHE WILL NOT AUTHORIZE LATERAL TRANSFER BUT WILL DISCUSS IT WITH DR. CARRION. AND WILL CALL ME BACK. RECEIVED A CALL FROM AMY, STATING THAT PER DR. CARRION, PATIENT NEED TO BE TRANSFERRED TO HIGHER LEVEL FOR NEUROLOGICAL EVALUATION AND PEG PLACEMENT. Addendum: 09/07/19 at 1641 by Hyacinth Dykes CM PER EARLY PHONE CONVERSATION WITH THE , SHE STATED "WHY ARE YOU GUYS KEPT ON CALLING ME. BECKIE CAN CALL THE BROTHER AND THE SISTER WELL. I AM AT WORK AND I AM GOING TO LOSE MY JOB BECAUSE YOU GUYS ARE ALWAYS CALLING ME." CONTACTED PATIENT'S BROTHER WILLY US AT [phone] TO PROVIDE UPDATE. I ALSO INQUIRED ABOUT POWER OF ALL SOURCE COLLECTION MANAGER AND HEALTHCARE DECISION MAKER. HE STATED "THERE IS NO WRITTEN ONE, EITHER ME OR HER CAN MAKE DECISIONS." MADE HIM AWARE OF THE DC PLAN, HE STATED HE IS OK FOR HIS BROTHER TO BE TRANSFERRED OUT TO ANOTHER FACILITY. Addendum: 09/07/19 at 1647 by Hyacinth Dykes CM RECEIVED A CALL FROM CELY OF [facility], TO GATHER MORE INFORMATION. PROVIDED HER OF THE INFORMATION SHE NEEDED. I ALSO PROVIDED HER OF DR. CARRION AND UNIT'S PHONE NUMBER. Addendum: 09/08/19 at 0926 by Hyacinth Dykes CONTACTED [facility] TO FOLLOW UP REFERRAL. PER CHASITY AT TRANSFER CENTER, NO BEDS AVAILABLE AT THIS TIME AND THEY ARE ON LEVEL 3 FOR 2 DAYS NOW. [facility]ITY IS KIND ENOUGH TO STILL GATHER PATIENT'S INFO TO PUT ON THEIR LIST. HE ALSO STATED, THEY WILL UPDATE US EVERY 4 HOURS FOR BED AVAILABILITY. RECEIVED A CALL FROM MARLENE OF [facility], SHE STATED THEY DO NOT HAVE AN ACCEPTING PHYSICIAN AND NO BEDS AVAILABLE AT THIS TIME. SHE ALSO STATED THIS REFERRAL SEEMS TO BE A LATERAL TRANSFER. I INFORMED HER THAT PER DR. CARRION PATIENT NEEDS NEURO EVALUATION AND SURGICAL CONSULT FOR THE G TUBE. SHE STATED NO BEDS AT THIS TIME. CM WILL FOLLOW UP. Addendum: 09/08/19 at 1323 by Hyacinth Dykes CM RECEIVED A CALL FROM ELVIS OF [facility] TRANSFER [place], NO BEDS AT THIS TIME. WILL CALL AGAIN IN 4 HOURS FOR BED UPDATE. Addendum: 09/08/19 at 1630 by Elenita Anders CM DC PLANNING PER DR CARRION ORDER LTAC EVAL NOTIFIED AYANA FREGOSO TO EVALUATE PATIENT. CM TO FOLLOW Addendum: 09/10/19 at 1029 by Hyacinth Dykes CM PATIENT IS STILL IN ICU, CHRONIC TRACH TO VENT FIO2 24%. ON LEVOPHED DRIP. STILL ON ZOSYN, AMIKACIN, TPN, MICAFUNGIN IV. PER YULISA, STILL WAITING FOR LTAC AUTH. CONTACTED AMY OF [facility], SHE STATED SHE WILL CONTACT DR. CARRION TO CONFIRM ORDER. WILL FOLLOW UP. Addendum: 09/10/19 at 1120 by Hyacinth Dykes CM RECEIVED A CALL FROM [facility], NO ICU BEDS STILL. WILL CALL AGAIN IN 4 HOURS FOR BED UPDATES. RECEIVED A CALL FROM AMY [facility], REQUESTING FOR CLINICAL UPDATES. LATEST CLINICALS SENT. Addendum: 09/10/19 at 1318 by Hyacinth Dykes CM CONTACTED AMY [facility], PROVIDED WITH AUTH FOR LTAC (ZENOBIA LAINEZ) [id number] AND TRANSPORT AUTH [id number]. YULISA MADE AWARE. PRIMARY RN MADE AWARE. Addendum: 09/10/19 at 1328 by Hyacinth Dykes CM CONTACTED PATIENT'S BROTHER WILLY US AND PATIENT'S ADILENE TUTTLE REGARDING [facility] ACCEPTING THE PATIENT. BOTH ABLE TO VERBALIZE UNDERSTANDING. Addendum: 09/10/19 at 1511 by Hyacinth Dykes PER AYANA [place], PATIENT WILL GO TO [facility] ROOM 503. NUMBER TO CALL FOR REPORT [phone]. CONTACTED [facility] AT [phone], ABLE TO SPEAK TO MARIELY REGARDING TRANSPORT. PROVIDED HER WITH [facility] TRANSPORT AUTH. SHIPMASTER WILL BE AT 1930. PRIMARY RN MADE AWARE. PATIENT'S ADILENE MADE AWARE OF THE TRANSFER. CONTACTED PATIENT'S BROTHER WILLY, NO ANSWER. LEFT MESSAGE.
[2019-08-31] MEDS: FOAM DRESSING TP SCH (09:00)
[2019-08-31] MEDS: ASCORBIC ACID 500 MG TAB GT SCH (09:00)
[2019-08-31] MEDS: ZINC SULF 220 MG CAP GT SCH (09:00)
[2019-08-31] MEDS: DOCUSATE 100 MG/10 ML UDC GT SCH ×2 (09:00→21:00)
[2019-08-31] MEDS: ALGINATE DRESSING MC SCH (09:00)
[2019-08-31] MEDS: Z-GUARD PASTE TP SCH (09:00)
[2019-08-31] MEDS: PANTOPRAZOLE 40 MG INJ VIAL IVP SCH ×2 (10:16→21:57)
[2019-08-31] MEDS: METOCLOPRAMIDE 10 MG/2 ML INJ VIAL IVP SCH ×3 (10:17→17:49)
[2019-08-31] MEDS: NOREPINEPHRINE 4 MG in DEXTROSE 5% 250 ML IV PRN (10:25)
--- NOTE | 2019-08-31 11:30 | NUR ---
RAMON THE AGILE TEST LEAD CALLED AND ABOUT PATIENT CONDITION.HE SAID THAT PT ON VENTILATOR AND AND ALSO ON MEDICAL IV DRIP HE UNCOMFORTABLE TO DO IT, AND HE DID NOT THINK THAT THIS SITUATION HE IS NOT ABLE TO DO IT K
--- NOTE | 2019-08-31 11:40 | NUR ---
CALL AND INFORM THE PATIENT THAT RAMON THE AMPOULE EXAMINER SAID THAT HE IS UNCOMFORTABLE TO DO THIS MRI BECAUSE IS INTUBATED ON THE VENTILATOR AND IV MEDICAL DRIP. SHE GET UPSET SCREAMING AND YELLING SAID ALL BAD WORD AND SAID WHY DON 'T YOU SEND THE PATIENT TO [facility].
[2019-08-31] MEDS: NACL 0.9% IRR 250 ML BOTTLE IR SCH (13:39)
[2019-08-31] MEDS: LORazepam 50 MG in NACL 0.9% 25 ML IV PRN (13:51)
[2019-08-31] MEDS ORDERED: DEXTROSE 10% 1,000 ML IV SCH (14:55)
[2019-08-31] MEDS: MULTIVITAMIN-12 10 ML in DEXTROSE 50% 480 ML, AMINO ACIDS 8.5% 480 ML IV SCH ×3 (15:31)
--- NOTE | 2019-08-31 15:38 | NUR ---
NO DISTRESS NOTED GOOD CHEST RISE TRACHEAL SUCTION WITH NO RETURN STOMA SUCTION FOR LARGE THICK YELLOW SECRETIONS
--- NOTE | 2019-08-31 16:00 | NUR ---
NOTIFIED DR. DURAN THE NG TUBE CAN NOT PASS THROUGH THE TRACH. PER DR. DURAN. DO NOT INSERT NG TUBE. DR. DURAN ORDERED TO CANCEL IVF. WILL CARRY OUT.
--- NOTE | 2019-08-31 17:28 | NUR ---
CALLED DR DURAN, MADE HIM AWARE [facility] HAS BED AVAILABLE BUT WANTS TO HEAR FROM DR. DURAN. ASKED DR DURAN TO CALL [facility] AND ASKED FOR NURSING HISTORIOGRAPHY TEACHER SANCHEZ. DR DURAN SAID ALRIGHT.
--- NOTE | 2019-08-31 17:50 | NUR ---
DR DURAN CALLED, SAID HE ALREADY CALLED [facility] CONNOLLY AND HE WANTS TO REPEAT CT HEAD TONIGHT. I MADE HIM AWARE THAT PT'S WANTS TO KNOW WHAT PROMISE GRIFFITH WILL DO FOR THE PT. PROVIDED DR DURAN WITH ADILENE'S PHONE NUMBER AND DR DURAN SAID WILL CALL HER.
--- NOTE | 2019-08-31 18:00 | NUR ---
CALLED [phone], SPOKE TO MERE. ASKED FOR IN PATIENT TRANSFER. TOLD HER DR DURAN WANTS TO DO MRI NOW AND OUR FACILITY DON'T HAVE ONE. MERE SAID THEY CAN'T GIVE US A BED JUST BECAUSE PT NEEDS MRI. Addendum: 08/31/19 at 1821 by Anjum Laughlin RN [facility] AT [facility]
--- NOTE | 2019-08-31 19:44 | NUR ---
CALLED NURSING STONE POLISHER HAND FERNANDO AT [facility]. NO BED AVAILABLE FOR ICU TONIGHT. DR DURAN DID CALL THEM TODAY. AND THEY HAVE ACCEPTING MD DR RITTER AT [facility].
--- NOTE | 2019-08-31 20:15 | NUR ---
PATIENT SEEN WITH EYES OPEN, UNABLE TO MAKE EYE CONTACT, PERRL, SLUGGISH 3MM. PATIENT IS NONVERBAL, CANNOT FOLLOW SIMPLE COMMANDS. TRACH TO VENT DEPENDENT, ACVC 20, FI02 24%, TV 475, PEEP 5. LUNG SOUNDS SLIGHTLY DIMINISHED AT RIGHT UPPER LOBE, CLEAR ON LEFT LOBES, DIMINISHED AT BASES. S1S2, SR ON MONITOR. PATIENT IS ON LEVOPHED DRIP AT 3MCG/KG/MIN-11.25 ML/HR. ATIVAN DRIP ALSO IN PLACE AT 2 MG/HR. RIGHT UPPER ARM PICC IN PLACE WITH DOUBLE LUMEN, INFUSING AND FLUSHED, NO SYMPTOMS. PPN INFUSING AT 40ML/HR. ABDOMEN IS FLAT AND NONTENDER. 2 SURGICAL WOUNDS NOTED WITH COLLECTION DEVICES IN PLACE, RIGHT LOWER QUADRANT, OSTOMY PROLAPSED, SMALL AMOUNT OF LIQUID BROWN STOOL NOTED. LEFT UPPER QUADRANT IS OLD GTUBE REMOVED WITH SMALL OPEN WOUND. SMALL AMOUNT OF SECRETIONS. BAG INFLATES FROM GAS. BARR CATHETER IN PLACE, CLOUDY YELLOW URINE NOTED. MULTIPLE PRESSURE INJURIES, BILATERAL SHOULDERS, SACRUM, BILATERAL BUTTOCKS, RIGHT LOWER LEG, AND LEFT HEEL. ALL DRESSINGS ARE DRY AND INTACT, FOUL ODOR NOTED. HEEL PROTECTORS IN PLACE. BED IN LOWEST POSITION, SIDERAILS UP. HOB 30 DEGREES, SPECIALTY MATTRESS IN PLACE. WILL CONTINUE TO MONITOR.
--- NOTE | 2019-08-31 21:00 | NUR ---
VAP ORAL CARE PROVIDED. SLIGHT FACIAL GRIMACING NOTED. PATIENT NONVERBAL, EYES OPEN BUT UNABLE TO TRACK AND MAKE EYE CONTACT. SUCTIONED AT TRACH SITE WITH SMALL AMOUNT OF CREAMY SECRETIONS NOTED. SPECIALTY MATTRESS IN PLACE, SAFETY ALARMS CHECKED, USED ASSISTED LEFT/RIGHT TURNING POSITION. SIDE RAILS UP x3, HOB 30 DEGREES. WILL CONTINUE TO MONITOR.
--- NOTE | 2019-08-31 22:13 | NUR ---
PPN INFUSING, OK TO TEMPORARILY REMOVE PPN WHEN IV ANTIBIOTICS ARE ADMINISTERED. ADVISED NOT TO MIX MEDICATIONS WITH PPN LINE. PATIENT STABLE, FLACC 0. ALL NEEDS MET
[2019-09-01] VITALS (92 sets, daily range): BP systolic 61–144; BP diastolic 40–107
--- NOTE | 2019-09-01 | NUR ---
VAP ORAL CARE PROVIDED, SUCTIONED SMALL AMOUNT OF SECRETIONS. AT TRACH, MODERATE AMOUNT OF WHITE CREAMY SECRETIONS NOTED. PATIENT ON SPECIALTY MATTRESS, CONFIRMED SIDERAILS UP AND HOB GREATER THAN 30 DEGREES, ABLE TO REPOSITION.
--- NOTE | 2019-09-01 02:06 | NUR ---
PATIENT SEEN WITH VISIBLE CHEST RISE, NO SIGN OF SHORTNESS OF BREATH OR DISTRESS, PATIENTS TEMPERATURE IS LOW, ADDED EXTRA BLANKETS. SKIN FEELS SLIGHTLY COOL TO TOUCH. EYES SLIGHTLY OPEN. EYES REACTIVE TO LIGHT.
[2019-09-01] MEDS: VALPROATE SODIUM 500 MG in NACL 0.9% 100 ML IV SCH ×3 (05:00→20:50)
[2019-09-01] MEDS: MIDODRINE 5 MG TAB GT SCH ×3 (05:00→20:52)
--- NOTE | 2019-09-01 05:45 | NUR ---
PATIENT TAKEN TO CT WITH RN, RAG GRADER, RT, AND EMT. PATIENT CONTINUED ON LEVOPHED DRIP. PATIENT BAGGED AT TRACH WITH OXYGEN TANK. NO INCIDENTS NOTED.
[2019-09-01] MEDS: BLOOD GLUCOSE MONITORING 1 DEV DEV MC SCH ×5 (06:00→23:54)
[2019-09-01] MEDS: PIPERACILLIN/TAZOBACTAM 3.375 GM in DEXTROSE 5% 50 ML IV SCH ×6 (06:00→23:54)
--- NOTE | 2019-09-01 06:10 | NUR ---
PATIENT BACK TO ICU 7, CONNECTED TO VENTILATOR, SETTINGS ACVC 20, FI02 24%, TV 475, PEEP 5 . SATURATIONS 100%. CONNECTED TO SONOSCOPE OPERATOR AND ATIVAN DRIP AND LEVOPHED AT 3 MCG/MIN/KG. ALL VITALS STABLE, PATIENT OPENS EYES BUT STILL NOT RESPONSIVE. FACIAL GRIMACING NOTED. SAFETY ALARMS IN PLACE, HOB 30 DEGREES
--- NOTE | 2019-09-01 06:30 | NUR ---
DINING CAR CONDUCTOR AT BEDSIDE
--- NOTE | 2019-09-01 07:30 | NUR ---
RECEIVED BEDSIDE REPORT FROM PALLIATIVE MEDICINE PHYSICIAN STEPHANIE CAT. PT EYES OPEN SPONTANEOUSLY. NO TRACKING. BEDSIDE MONITOR SHOWS SR. TRACH TO VENT WITH SETTING FIO2=24%. ON LEVOPHED DRIP 3MCG/MIN ,ATIVAN 2 MG/HR TO RIGHT UPPER ARM. PT HAS OSTOMY BAG IN PLACE AND F/C IN PLACE. G-TUBE SITE WITH A HOLE COVERED WITH DRAINAGE BAG. SKIN NON INTACT( SEE WOUND ASSESSMENT)AIR MATTRESS IN PLACE. BED LOCKED IS IN LOWEST POSITION, HOB 30 DEGREES, CALL LIGHT WITHIN REACH, SAFETY ALARMS IN PLACE. WILL CONTINUE TO MONITOR. NO FEVER.
--- NOTE | 2019-09-01 07:30 | NUR ---
RECEIVED PT ON CARESCAPE, ON DOCUMENTED SETTINGS, ALARMS ARE ON AND AUDIBLE, PTS TRACH SHILEY 6 XLT IS SECURE, PT IN HF ASLEEP, BS MICHAEL, BMV HOB, VENT PLUGGED INTO RED OUTLET WILL CONTINUE TO MONITOR
--- NOTE | 2019-09-01 07:45 | NUR ---
DR. DURAN CAME IN TO CHECK PT. PER DR. DURAN, TURN OFF ATIVAN DRIP TO CHECK PT MENTAL STATUS.
[2019-09-01] MEDS: NOREPINEPHRINE 4 MG in DEXTROSE 5% 250 ML IV PRN ×2 (07:58→18:41)
[2019-09-01] MEDS: METOCLOPRAMIDE 10 MG/2 ML INJ VIAL IVP SCH ×3 (08:30→17:16)
[2019-09-01] MEDS: Z-GUARD PASTE TP SCH (08:30)
[2019-09-01] MEDS: PANTOPRAZOLE 40 MG INJ VIAL IVP SCH ×2 (08:30→20:50)
[2019-09-01] MEDS: ASCORBIC ACID 500 MG TAB GT SCH (08:31)
[2019-09-01] MEDS: ZINC SULF 220 MG CAP GT SCH (08:31)
[2019-09-01] MEDS: DOCUSATE 100 MG/10 ML UDC GT SCH ×2 (08:31→20:51)
[2019-09-01] MEDS ORDERED: NACL 0.9% 1,000 ML IV SCH (09:00)
--- NOTE | 2019-09-01 09:00 | NUR ---
ENDORSED PT TO NURSE MARY.
--- NOTE | 2019-09-01 09:00 | NUR ---
DR. HUFFMAN NEPHRO CAME IN TO CHECK PT, UPDATED PT HAD 500 CC URINE OUTPUT DURING IN FLIGHT CREW MEMBER AND PT DOES NOT HAVE IVF ORDER. PER DR. HUFFMAN, GIVE PT 0.9 NS 1 L BOLUS, CARRIED OUT.
[2019-09-01 09:09] LABS: ANION GAP 23.2 (8-16); CARBON DIOXIDE 17.4 mmol/L (21-32); CREATININE 2.6 mg/dL (0.7-1.3); POTASSIUM 3.6 mmol/L (3.5-5.1)
--- NOTE | 2019-09-01 09:20 | NUR ---
RECEIVED PHONE CALL FROM [facility] [phone] REGARDING TRANSFERRING. CALLED PT'S ADILENE ASKED DOES SHE AGREE TO TRANSFER HER TO [facility] FOR MRI AND G-TUBE REPLACEMENT. ADILENE SAID YES. CASE MANAGEMENT MADE AWARE AT BED HUDDLE.
--- NOTE | 2019-09-01 11:54 | NUR ---
BLOOD GLUCOSE CHECKED, 85, NO INSULIN COVERAGE NEEDED
--- NOTE | 2019-09-01 13:50 | NUR ---
NOTIFIED DR. DURAN PT OFF ATIVAN SINCE THIS MORNING PER HIS ORDER, PT 'S MENTAL STATUS DOES NOT CHANGE NO MATTER ON OR OFF ATIVAN DRIP. PT STILL UNABLE TO FOLLOW COMMANDS. MADE AWARE [facility]SPORT[facility] TEAM IS HERE TO TRANSFER TO [facility] FOR MRI .
--- NOTE | 2019-09-01 13:52 | NUR ---
MAHSA IS HERE TO SUPERVISOR STONE PATIENT FOR MRI AT [facility], PATIENT'S , ADILENE WAS CALLED AND MADE AWARE OF SITUATION, SHE GIVES CONSENT FOR MRI, ALL QUESTIONS AND CONCERNS ANSWERED.
--- NOTE | 2019-09-01 14:14 | NUR ---
PATIENT IS OFF UNIT TO GO TO [facility] FOR MRI, NO SIGNS OF DISTRESS NOTED.
[2019-09-01 14:39] LABS: MAGNESIUM 1.5 mg/dL (1.8-2.4); PHOSPHORUS 6.1 mg/dL (2.5-4.9)
--- NOTE | 2019-09-01 16:40 | NUR ---
PATIENT IS BACK FROM [facility] ([facility]), TOLERATED PROCEDURE WELL. NO SIGNS OF DISTRESS ACCORDING TO FOUNDATION RELATIONS MANAGER.
--- NOTE | 2019-09-01 18:01 | NUR ---
PATIENT TURNED AND REPOSITIONED, TOLERATED WELL.
--- NOTE | 2019-09-01 19:13 | NUR ---
ENDORSED CONTINUITY OF CARE TO PATRICE UNDERGROUND MINE MACHINERY MECHANIC RN. NO SIGNS OF DISTRESS NOTED.
--- NOTE | 2019-09-01 19:15 | NUR ---
RECEIVED PT FROM MARY BROWN. PT IS LETHARGIC. PERRL. R/L PUPPILS 3MM, BRISK. PT IS TRACH TO VENT ON ACVC SETTINGS. FIO2 24, TV 475, RATE 20, PEEP 5. SINUS RHYTHM ON MONITOR. RESPIRATIONS EVEN AND UNLABORED. NO SOB NOTED. MIDLINE ON RIGHT UPPER ARM. INTACT, FLUSHED, PATENT. PT ON TPN 40ML/HR. LEVOPHED INFUSING AT 6MCG/MIN, 22.5ML/HR. GTUBE DRAINAGE BAG NOTED ON RIGHT ABDOMEN. PROLAPSED COLOSTOMY ON LEFT ABDOMEN. BARR CATHETER IN PLACE. GENERALIZED WEAKNESS. SKIN IS NON INTACT, MULTIPLE WOUNDS NOTED. SEE WOUND ASSESSMENT. HOB 30 DEGREES. BED LOCKED IN LOWEST POSITION.
--- NOTE | 2019-09-01 20:05 | NUR ---
RECEIVED PT ON AC 20,475,+5,24%. ALARMS AUDIBLE AND WORKING. TRACH IS SECURED. VENT PLUGGED INTO RED OUTLET. [employer] AT HEAD OF BED. WILL CONT. TO MONITOR
[2019-09-01] MEDS: MULTIVITAMIN-12 10 ML in DEXTROSE 50% 480 ML, AMINO ACIDS 8.5% 480 ML IV SCH ×3 (20:49)
--- NOTE | 2019-09-01 21:50 | NUR ---
ORDERED MEDICATIONS GIVEN. HELD COLACE AND MIDODRINE BECAUSE NO NGT OR GTUBE IN PLACE AT THIS TIME.
[2019-09-02] VITALS (104 sets, daily range): BP systolic 84–155; BP diastolic 52–94
--- NOTE | 2019-09-02 01:16 | NUR ---
PAGED ALLERGY NURSE DR. DURAN TWICE. NO CALL BACK AT THIS TIME.
--- NOTE | 2019-09-02 01:45 | NUR ---
INSERTED OGT. TAPED AND SECURED. PT TOLERATED WELL. POSITIVE PLACEMENT ON AUSCULTATION.
--- NOTE | 2019-09-02 02:20 | NUR ---
SPOKE WITH DR DURAN. UPDATED MD REGARDING BLOOD GLUCOSE LEVEL TRENDING DOWN, CURRENTLY 61. RECEIVED ORDERS TO INCREASE D5 1/2 NS TO 50 ML/HR.
[2019-09-02] MEDS ORDERED: DEXT 5% / NACL 0.45% 1,000 ML IV SCH (02:35)
[2019-09-02] MEDS: VALPROATE SODIUM 500 MG in NACL 0.9% 100 ML IV SCH ×3 (04:22→21:38)
[2019-09-02] MEDS: MIDODRINE 5 MG TAB GT SCH ×3 (04:25→21:00)
--- NOTE | 2019-09-02 04:45 | NUR ---
PT HAS EYES CLOSED. NO SOB NOTED. RESPIRATIONS EVEN AND UNLABORED. WILL CONTINUE TO MONITOR.
[2019-09-02] MEDS: PIPERACILLIN/TAZOBACTAM 3.375 GM in DEXTROSE 5% 50 ML IV SCH ×3 (05:36→18:11)
--- NOTE | 2019-09-02 06:00 | NUR ---
ORDERED MEDICATIONS GIVEN. SAFETY PRECAUTIONS IN PLACE. HOB 30 DEGREES. BED LOCKED IN LOWEST POSITION.
[2019-09-02] MEDS: BLOOD GLUCOSE MONITORING 1 DEV DEV MC SCH ×3 (06:32→18:46)
[2019-09-02] MEDS: NOREPINEPHRINE 4 MG in DEXTROSE 5% 250 ML IV PRN ×2 (06:40→16:57)
[2019-09-02 07:02] LABS: ALBUMIN 1.2 g/dL (3.4-5.0); CARBON DIOXIDE 17.5 mmol/L (21-32); CREATININE 2.5 mg/dL (0.7-1.3); POTASSIUM 3.5 mmol/L (3.5-5.1); TOTAL BILIRUBIN 0.2 mg/dL (0.0-1.0)
[2019-09-02 07:05] LABS: HEMOGLOBIN 9.4 g/dL (12.0-18.0); MEAN CORPUSCULAR HEMOGLOBIN 27 pg (27-31); MEAN CORPUSCULAR HGB CONC 30 g/dL (33-37); MEAN CORPUSCULAR VOLUME 90.1 fL (80-94); PLATELET COUNT (AUTO) 391 K/uL (140-450); RED BLOOD CELL COUNT(AUTO) 3.44 MIL/uL (4.20-6.10); RED CELL DISTRIBUTION WIDTH 20.9 % (11.6-13.7)
--- NOTE | 2019-09-02 07:15 | NUR ---
RECEIVED REPORT FROM TRACK GRINDER OPERATOR RN. PT RESTING IN BED. OPENS EYES UP ON CALLING, DOES NOT FOLLOW COMMAND. SKIN DRY AND WARM TO TOUCH. ST ON MONITOR. ON LEVOPHED DRIP AT 6 MCG/MIN. ON TRACH TO VENT AC/VC FIO2 24% TV 475 RR 20 PEEP 5. LUNGS CLEAR. FEDE MIDLINE IN PLACE. GOOD BLOOD RETURNS. DRESSING INTACT. FLUSHED. TPN INFUSING AT 40 ML/HR, D5% 1/2 NS INFUSING AT 50 ML/HR. ABDOMEN SOFT, FLAT AND NON-TENDER. ACTIVE BOWEL SOUND. OLD SURGICAL SCAR NOTED ON MID ABDOMEN. OLD G-TUBE OSTOMY ON LUQ LEAKING ACTIVELY. OG-TUBE IN PLACE. POSITIVE PLACEMENT. OVER PROLAPSED OSTOMY ON RLQ DRAINING GREENISH STOOL ON BAG. F/C IN PLACE. DRESSING INTACT TO RLL. OPEN WOUND NOTED ON BL SHOULDER, SACRUM, BUTTOCK AND HEELS. HOB ELEVATED. BED IN LOW POSITION LOCKED. WILL CONTINUE TO MONITOR.
[2019-09-02 07:33] LABS: WHITE BLOOD COUNT (AUTO) 25.7 K/uL (4.8-10.8)
--- NOTE | 2019-09-02 07:35 | NUR ---
DR DURAN EVALUATED PT. UPDATED PT STATUS. MADE AWARE ABOUT MORNING RESULTS AND HOLDING OG-TUBE MEDS DUE TO ACTIVE LEAKAGE FROM OLD OG-TUBE OSTOMY SITE. SAID OKAY TO HOLD. WILL FOLLOW UP ON ORDER.
--- NOTE | 2019-09-02 07:43 | NUR ---
PT EVALUATED BY DR. CRUZ. MADE AWARE OF PT STATUS ON HOLDING OG-TUBE MEDS. SAID OK. NO NEW ORDER AT THIS TIME.
--- NOTE | 2019-09-02 07:54 | NUR ---
RECEIVED PT ON [place] ON DOCUMENTED SETTINGS, ALARMS ARE ON AND AUDIBLE, PTS TRACH SHILEY 6 XLT IS SECURE, PT IN HF QUIET, SX MOD WHITE STOMA SITE, BMV HOB, VENT PLUGGED INTO RED OUTLET, WILL CONTINUE TO MONITOR
[2019-09-02] MEDS: DOCUSATE 100 MG/10 ML UDC GT SCH ×2 (08:04→21:00)
--- NOTE | 2019-09-02 08:05 | NUR ---
PAGED DR. PETE FOR ELEVATED WBC WAITING FOR CALL BACK.
[2019-09-02] MEDS: ASCORBIC ACID 500 MG TAB GT SCH (08:06)
[2019-09-02] MEDS: ZINC SULF 220 MG CAP GT SCH (08:06)
--- NOTE | 2019-09-02 08:14 | NUR ---
PAGED DR. DURAN TO RELAY MRI RESULT. WAITING FOR CALL BACK.
--- NOTE | 2019-09-02 08:18 | NUR ---
RECEIVED CALL FROM DR. DURAN. READ MRI RESULT TO HIM. ORDERED TO START ATIVAN DRIP AT 2 MG/HR. WILL CARRYOUT ORDER.
[2019-09-02] MEDS: PANTOPRAZOLE 40 MG INJ VIAL IVP SCH ×2 (08:40→21:38)
[2019-09-02] MEDS: METOCLOPRAMIDE 10 MG/2 ML INJ VIAL IVP SCH ×3 (08:41→16:55)
[2019-09-02] MEDS: FOAM DRESSING TP SCH (08:42)
[2019-09-02] MEDS: ALGINATE DRESSING MC SCH (08:42)
[2019-09-02] MEDS: Z-GUARD PASTE TP SCH (08:43)
[2019-09-02] MEDS: LORazepam 50 MG in NACL 0.9% 25 ML IV PRN (09:26)
[2019-09-02 09:30] LABS: LYMPHOCYTES % (MANUAL) 6 % (20-46); MONOCYTES % (MANUAL) 8 % (5-12)
[2019-09-02] MEDS ORDERED: MAG SULF 2000 MG/WATER PREMIX 50 ML IV ONE (10:05)
--- NOTE | 2019-09-02 10:06 | NUR ---
CALLED AND SPOKE WITH DR. TEAGUE. READ MRI RESULT AND MADE AWARE OF ATIVAN DRIP STARTED PER DR. DURAN. SAID OK. NOTHING URGENT AT THIS TIME PER DR. TEAGUE.
--- NOTE | 2019-09-02 10:25 | NUR ---
CALLED DR. PETE OFFICE # [phone]. SPOKE TO THE MONEY ROOM SUPERVISOR. SHE SAID FAX THE LAB RESULT SHE WILL LET THE DOCTOR SEE THE RESULT. FAXED THE LAB RESULT TO THE DR. PETE'S OFFICE#[phone].
[2019-09-02] MEDS ORDERED: VANCOMYCIN PER PHARMACY MC PRN (11:10)
[2019-09-02] MEDS ORDERED: VANCOMYCIN 1,000 MG in DEXTROSE 5% 250 ML IV SCH (12:00)
--- NOTE | 2019-09-02 12:05 | NUR ---
DR. TEAGUE CALLED. MADE AWARE OF CASE MANAGEMENT CONCERN REGARDING [facility] EVAL. DOCTOR SAID HE WILL BE HERE TO SEE THE PT FIRST. FAMILY MADE AWARE.
--- NOTE | 2019-09-02 12:10 | NUR ---
NO SOB OR RESPIRATORY DISTRESS NOTED. CONTINUE ON LEVOPHED DRIP AND ATIVAN DRIP AT THE SAME RATE. IV SITE INTACT. VAP ORAL CARE PROVIDED. REPOSITIONED. FAMILY AT THE BEDSIDE.
[2019-09-02] MEDS: NACL 0.9% IRR 250 ML BOTTLE IR SCH (12:16)
--- NOTE | 2019-09-02 13:03 | NUR ---
PT NOTED WITH TWITCHING RIGHT HAND AND HEAD. CONTINUE ON ATIVAN DRIP AT 2MG/HR. DEPACON ADMINISTERED PER SCHEDULED. CONTINUE ON SEIZURE PRECAUTION. BED IN LOW POSITION LOCKED. FAMILY AT THE BEDSIDE.
--- NOTE | 2019-09-02 14:00 | NUR ---
CHANGED PT TO APRV DUE TO CONT. HIGH PIP I TIME 0.80 RR 20 VT 475 PEEP 5 FIO2 24
[2019-09-02 14:02] LABS: MAGNESIUM 1.9 mg/dL (1.8-2.4); PHOSPHORUS 4.6 mg/dL (2.5-4.9)
--- NOTE | 2019-09-02 15:56 | NUR ---
Received call from Dr. Rico. made aware of morning lab results. Ordered CBC tomorrow. Will carryout the order.
--- NOTE | 2019-09-02 16:15 | NUR ---
NO SOB OR RESPIRATORY DISTRESS NOTED. NO TWITCHING OF HEAD OR HAND NOTED AT THIS TIME. CONTINUE ON LEVOPHED DRIP. IV SITE INTACT. VAP ORAL CARE PROVIDED. HOB ELEVATED. BED IN LOW POSITION, LOCKED. ON SEIZURE PRECAUTIONS.
--- NOTE | 2019-09-02 16:36 | NUR ---
09/02/19 RD FOLLOW UP COMPLETED PLEASE REFER TO NUTRITION ASSESSMENT UNDER CARE ACTIVITY FOR ESTIMATED NUTRITIONAL NEEDS. CONTINUE PPN AND GRADUALLY INCREASE TO MEET >75% OF ESTIMATED NEEDS. -D10, AA 3.25% @ 40ML/HR, TOTAL CALORIES 451.2 AND 31.2 GM PROTEIN. PER MD DISCRETION, WHEN MEDICALLY APPROPRIATE, RESUME OSMOLITE 1.5@70MLS/HR TOLERATED. -THIS WILL PROVIDE A VOLUME OF 1680 ML, 2520 KCAL, AND 105 GM OF PROTEIN. IT MEETS 100% OF THE ESTIMATED ENERGY AND PROTEIN NEEDS. 3. PER MD DISCRETION, WHEN MEDICALLY APPROPRIATE, RESUME CONTINUE FREE WATER FLUSH OF 160 Q4H (960 ML). 4. CONTINUE VITAMIN C AND ZINC FOR WOUND HEALING. 5. RD TO FOLLOW-UP 2-3 DAYS, HIGH RISK. TANO BONDS RD
[2019-09-02] MEDS: NACL 0.45% 1,000 ML IV SCH (16:55)
--- NOTE | 2019-09-02 17:23 | NUR ---
Urine collected and taken to the lab.
--- NOTE | 2019-09-02 18:00 | NUR ---
SR ON MONITOR. NO SOB OR RESPIRATORY DISTRESS NOTED. SPO2 99%. CONTINUE ON LEVOPHED DRIP AND ATIVAN DRIP. IV SITE INTACT. OFFLOADED PRESSURE AREAS. ON SEIZURE PRECAUTION.
[2019-09-02 18:10] LABS: BILIRUBIN,URINE NEGATIVE (NEGATIVE); BLOOD, URINE 2+ (NEGATIVE); COLOR,URINE YELLOW (YELLOW); LEUKOCYTE ESTERASE ,URINE 3+ (NEGATIVE); NITRITE, URINE NEGATIVE (NEGATIVE); PH,URINE 5.5 (5.0-9.0); UGLUCOSE NEGATIVE (NEGATIVE)
[2019-09-02] MEDS ORDERED: DEXTROSE 50% 50 ML SYR IVP PRN (18:25)
[2019-09-02 18:37] LABS: APPEARANCE,URINE CLOUDY (CLEAR)
[2019-09-02 18:38] LABS: RBC,URINE 0-5 /HPF (0-5); WBC,URINE 20-60 /HPF (0-5); YEAST,URINE Many /HPF (None Seen)
[2019-09-02] MEDS: DEXTROSE 50% 50 ML SYR IVP PRN (18:46)
--- NOTE | 2019-09-02 19:10 | NUR ---
REPORT GIVEN TO LABEL DESIGNER RN FOR CONTINUITY OF CARE. PT STABLE.
--- NOTE | 2019-09-02 19:19 | NUR ---
RECEIVED PT ON AC-PRVC, RATE OF 20, VT 475, I TIME 0.80, +5, 24% FIO2. PT APPEARS STABLE AND COMFORTABLE. NO RESP DISTRESS NOTED AND NO PRN TX INDICATED AT THIS TIME. WILL CONT. TO MONITOR.
--- NOTE | 2019-09-02 19:30 | NUR ---
RECEIVED PT FROM ANA MARÍA BROWN. PT IS LETHARGIC. PERRL. PUPPILS, 4MM, BRISK. PT IS ETT TO VENT. ON ACVC SETTINGS. FIO2 24, TV 475, RATE 20, PEEP 5. NO SOB NOTED. RESPIRATIONS EVEN AND UNLABORED. SINUS RHYTHM ON MONITOR. DRAINAGE BAG ON L MID ABDOMEN. PROLASPED COLSTOMY ON R LOWER ADBOMEN. MIDLINE ON FEDE. TPN INFUSING AT 40ML/HR. ATIVAN INFUSING AT 2MG/HR. 0.45% NS INFUSING AT 100 ML/HR. OGT IN PLACE. BARR CATHETER IN PLACE. SKIN IS WARM AND DRY. SKIN IN NON INTACT. MULTIPLE WOUNDS NOTED. SEE WOUND ASSESSMENT. VITAL SIGNS STABLE. NO DISTRESS NOTED. HOB 30 DEGREES. BED LOCKED IN LOWEST POSITION.
[2019-09-02] MEDS: MULTIVITAMIN-12 10 ML in DEXTROSE 50% 480 ML, AMINO ACIDS 8.5% 480 ML IV SCH ×3 (19:38)
[2019-09-02] MEDS: ENOXAPARIN 30 MG/0.3 ML SYR SUBQ SCH (19:41)
--- NOTE | 2019-09-02 20:00 | NUR ---
ORDERED MEDICATIONS GIVEN. ORAL CARE PROVIDED. VITAL SIGNS STABLE. WILL CONTINUE TO MONITOR.
--- NOTE | 2019-09-02 22:30 | NUR ---
LOW BLOOD PRESSURE NOTED ON MONITOR. INCREASED LEVOPHED. SEE IV SPREADSHEET.
[2019-09-03] VITALS (99 sets, daily range): BP systolic 70–164; BP diastolic 46–97
[2019-09-03] MEDS: PIPERACILLIN/TAZOBACTAM 3.375 GM in DEXTROSE 5% 50 ML IV SCH ×5 (00:04→23:52)
[2019-09-03] MEDS: BLOOD GLUCOSE MONITORING 1 DEV DEV MC SCH ×6 (00:08→17:50)
--- NOTE | 2019-09-03 00:35 | NUR ---
ORDERED MEDICATIONS GIVEN. NO SOB OR DISTRESS NOTED. VITAL SIGNS STABLE. SAFETY PRECAUTIONS IN PLACE. WILL CONTINUE TO MONITOR.
--- NOTE | 2019-09-03 02:20 | NUR ---
PT REPOSITIONED. NO SOB OR DISTRESS NOTED. RESPIRATIONS EVEN AND UNLABORED. VITAL SIGNS STABLE. SAFETY PRECAUTIONS IN PLACE. WILL CONTINUE MONITOR.
[2019-09-03] MEDS: NOREPINEPHRINE 4 MG in DEXTROSE 5% 250 ML IV PRN ×2 (03:15→16:06)
[2019-09-03] MEDS: LORazepam 50 MG in NACL 0.9% 25 ML IV PRN (04:25)
--- NOTE | 2019-09-03 04:30 | NUR ---
CHANGED SOILED SACRAL WOUND DRESSINGS. SEE WOUND ASSESSMENT. SPONGE BATH PROVIDED. PT REPOSITIONED. HOB 30 DEGREES. BED LOCKED IN LOWEST POSITION. WILL CONTINUE TO MONITOR.
[2019-09-03] MEDS: MIDODRINE 5 MG TAB GT SCH ×3 (05:00→20:15)
[2019-09-03] MEDS: NACL 0.45% 1,000 ML IV SCH ×2 (05:08→08:27)
[2019-09-03] MEDS: VALPROATE SODIUM 500 MG in NACL 0.9% 100 ML IV SCH ×3 (05:09→20:15)
[2019-09-03 06:49] LABS: ANION GAP 21.9 (8-16); CARBON DIOXIDE 16.4 mmol/L (21-32); CREATININE 2.2 mg/dL (0.7-1.3); POTASSIUM 3.3 mmol/L (3.5-5.1)
--- NOTE | 2019-09-03 06:50 | NUR ---
BLOOD SUGAR CHECK AT 55. DEXTROSE PRN GIVEN. WILL CHECK BLOOD SUGAR IN 30 MINUTES.
[2019-09-03] MEDS: DEXTROSE 50% 50 ML SYR IVP PRN ×3 (06:51→17:16)
[2019-09-03 06:52] LABS: MAGNESIUM 1.7 mg/dL (1.8-2.4); PHOSPHORUS 3.4 mg/dL (2.5-4.9)
--- NOTE | 2019-09-03 07:15 | NUR ---
RECEIVED BEDSIDE REPORT FROM NEEDLE MOLDER RN JARRELL AND RN ANTONIO Ye. PT DOES NOT FOLLOW COMMANDS. EYES OPEN SPONTANEOUSLY. PERRL 3MM, BRISK. PT IS TRACH TO VENT, SHILEY 6, AC/VC, FIO2 24%, VT 475, RATE 20, PEEP 5. RESPIRATIONS RATE 24, EVEN. SR ON MONITOR. DRAINAGE BAG ON L MID ABDOMEN OLD G TUBE SITE, MINIMAL YELLOW DRAINAGE IN THE BAG. COLOSTOMY ON R LOWER ADBOMEN, PROLAPSED BOWEL NOTED. MIDLINE TO FEDE, ASYMPTOMATIC, + BLOOD RETURN. PPN INFUSING AT 40ML/HR. ATIVAN INFUSING AT 2MG/HR. 1/2 NS INFUSING AT 100 ML/HR. LEVOPHED INFUSING AT 6MCG/MIN. OGT AUSCULTATED, POSITIVE PLACEMENT. BARR CATHETER IN PLACE, DRAINING CLOUDY YELLOW URINE. SKIN IS WARM AND DRY. MULTIPLE PRESSURE WOUNDS, DRESSINGS CLEAN AND INTACT. HOB 30 DEGREES. BED LOCKED IN LOWEST POSITION.
--- NOTE | 2019-09-03 07:20 | NUR ---
BLOOD SUGAR RECHECKED. GLUCOSE LEVEL AT 103, WITHIN NORMAL RANGE. NO FURTHER ACTION TAKEN.
--- NOTE | 2019-09-03 07:30 | NUR ---
ENDORSED TO PORFIRIO BROWN FOR CONTINUITY OF CARE.
--- NOTE | 2019-09-03 07:40 | NUR ---
ASKED CHARGE NURSE ABOUT ATIVAN DRIP. LUX SAID DR DURAN TOLD SOMEONE TO HOLD IT WHEN HE WAS HERE CIRCLE SAW OPERATOR. FROM DR TEAGUE'S PROGRESS NOTES, HE WANTS TO WEAN OFF ATIVAN AND INCREASE VALPROIC ACID TO 1G IF SZ HAPPENS AGAIN.
--- NOTE | 2019-09-03 07:45 | NUR ---
RECEIVED PT ON VENT WITH SETTINGS CHARTED CHANGED PT TO AC DR DURAN BEDSIDE BREATH SOUNDS PRESENT COARSE SXN PT WITH MIN TO MOD AMT OFF WHITE SECS SECS ALSO COMMING OUT OF STOMA CLEAR WHITE AMBUBAG AT BEDSIDE WILL CONTINUE TO MONITOR PT ON VENT VENT PLUGGED INTO RED OUTLET
[2019-09-03] MEDS: PANTOPRAZOLE 40 MG INJ VIAL IVP SCH ×2 (08:26→20:15)
[2019-09-03] MEDS: MAGNESIUM OXIDE 400 MG TAB PO PRN (08:26)
[2019-09-03] MEDS: DOCUSATE 100 MG/10 ML UDC GT SCH ×2 (08:26→20:15)
[2019-09-03] MEDS: ASCORBIC ACID 500 MG TAB GT SCH (08:26)
[2019-09-03] MEDS: POTASSIUM CHLORIDE 20% 40 MEQ/15 ML UDC GT PRN (08:26)
[2019-09-03] MEDS: METOCLOPRAMIDE 10 MG/2 ML INJ VIAL IVP SCH ×3 (08:26→17:17)
[2019-09-03] MEDS: ZINC SULF 220 MG CAP GT SCH (08:26)
[2019-09-03] MEDS: Z-GUARD PASTE TP SCH (08:27)
--- NOTE | 2019-09-03 09:30 | NUR ---
SCHEDULED G TUBE MEDS GIVEN VIA OGT BY GRAVITY. Addendum: 09/03/19 at 1947 by Anjum Laughlin RN PRN POTASSIUM AND MG-OX WERE ALSO GIVEN.
--- NOTE | 2019-09-03 12:08 | NUR ---
EMPTIED G TUBE DRAINAGE BAG 120ML YELLOWISH OUTPUT.
--- NOTE | 2019-09-03 13:30 | NUR ---
CHANGED G TUBE DRAINAGE BAG, WOUND CARE PROVIDED. SEE WOUND ASSESSMENT.
--- NOTE | 2019-09-03 17:10 | NUR ---
CONTINUED TO MONITOR PT ON VENT WITH SETTINGS CHARTED BREATH SOUNDS PRESENT BILAT COARSE SXN PT WITH MIN AMT OFF WHITE SECS TRACH SITE SECURE AMBU BAG AT BEDSIDE VENT PLUGGED INTO RED OUTLET
--- NOTE | 2019-09-03 17:15 | NUR ---
SPOKE WITH DR DURAN, NOTIFIED HIM PT HAD 2ND HYPOGLYCEMIC EPISODE ON MY SHIFT, BLOOD SUGAR 50, WILL GIVE D50, RECOMMEND DR DURAN TO CHANGE IVF FROM 1/2 NS TO D5 1/2 NS, DR DURAN ORDERED D5 1/2NS 70ML/HR.
[2019-09-03] MEDS: DEXT 5% / NACL 0.45% 1,000 ML IV SCH (17:20)
--- NOTE | 2019-09-03 18:00 | NUR ---
G TUBE DRAINAGE BAG INFLATED WITH A LOT OF AIR. EMPTIED THE AIR.
--- NOTE | 2019-09-03 19:25 | NUR ---
RECEIVED REPORT FROM DAYSHIFT NURSE AT PATIENTS BEDSIDE. A.M NURSE AT BEDSIDE TO REPLACE PPN BAG. PATIENT ANOx0, OPENS EYES SPONTANEOUSLY, CANNOT MAKE EYE CONTACT, NONVERBAL, DOES NOT MAKE NEEDS KNOWN.PERRL, 3MM. TRACH TO VENT, ACVC 20, FI02 24%, TV 475, PEEP 5. LUNG SOUNDS CLEAR, VISIBLE CHEST RISE, SMALL AMOUNT OF SECRETIONS AT TRACH SITE. S1S2, SR ON MONITOR. ON LEVOPHED DRIP AT 4MCG/KG/MIN. BLOOD PRESSURE 101/68. CAP REFILL <3 SECONDS. SKIN IS WARM AND DRY, AFEBRILE. OGT IN PLACE, CLOSED TO PATIENT. RIGHT UPPER ARM MIDLINE IN PLACE, DOUBLE LUMEN. INFUSING PPN AT 70ML/HR, LEVOPHED AT 4MCG, AND D5 1/2 NS IVF @ 70 ML/HR. IV SITE IS CLEAN AND DRY. ABDOMEN IS SOFT AND NONTENDER. RIGHT LOWER QUADRANT HAS OSTOMY BAG IN PLACE WITH VISIBLE STOMY PROLAPSE. BAG HAS LIQUID BROWN STOOL NOTED. LEFT UPPER QUADRANT HAS SMALL OPEN SURGICAL WOUND FROM PREVIOUS GTUBE. COLLECTION BAG IN PLACE, SMALL AMOUNT OF LIQUID/SECRETIONS NOTED. BAG IS FILLING WITH AIR/GAS. BARR CATHETER IN PLACE, YELLOW URINE WITH SOME SEDIMENT/CLOUDINESS NOTED. MULTIPLE DRESSINGS AT BILATERAL SHOULDERS, BUTTOCKS, SACRUM, RIGHT LOWER LEG AND LEFT HEEL. PRESSURE ULCERS NOTED. HEEL PROTECTORS IN PLACE. PILLOWS IN PLACE TO OFFLOAD PRESSURE SITES. SPECIALTY MATTRESS IN PLACE WITH SEIZURE PRECAUTIONS-PADDED SIDERAILS. HOB 30 DEGREES AND SAFETY ALARMS IN PLACE. WILL CONTINUE TO MONITOR.
--- NOTE | 2019-09-03 20:05 | NUR ---
VAP ORAL CARE PROVIDED, FACIAL GRIMACING NOTED WITH CLEANING. PATIENT NOT ALERT, CANNOT MAKE NEEDS KNOWN. EYES OPEN, NO EYE CONTACT MADE. TURNED AND REPOSITIONED PATIENT. OFFLOADED PRESSURE SITES WITH PILLOWS.
[2019-09-03] MEDS: MULTIVITAMIN-12 10 ML in DEXTROSE 50% 760 ML, AMINO ACIDS 8.5% 760 ML, FAT EMULSION 20%... IV SCH ×4 (20:15)
[2019-09-03] MEDS: ENOXAPARIN 30 MG/0.3 ML SYR SUBQ SCH (20:16)
--- NOTE | 2019-09-03 21:20 | NUR ---
OGT IN PLACE AND SECURED, AIR CHECK AND AUSCULTATION CONFIRMED. NO RESIDUALS, PATIENT ON PPN FEEDING, SCHEDULED MEDICATIONS GIVEN.
--- NOTE | 2019-09-03 22:15 | NUR ---
VISIBLE CHEST RISE, NO SHORTNESS OF BREATH NOTED. EYES OPEN. FLACC 0. ON LEVOPHED DRIP AT 4MCG. USED SPECIALTY MATTRESS WITH TURN ASSIST, SIDERAILS UP, HOB 30 DEGREES. WILL CONTINUE TO MONITOR.
[2019-09-04] VITALS (105 sets, daily range): BP systolic 85–154; BP diastolic 20–96
--- NOTE | 2019-09-04 00:29 | NUR ---
BLOOD SUGAR CHECKED- FIRST READING IS 63, RECHECKED AND IT IS 70. NO NEED FOR COVERAGE AND STANDING ORDERS FOR D50 ONLY IF SUGAR LESS THAN 60. ALL NEEDS MET AT THIS TIME.
--- NOTE | 2019-09-04 02:05 | NUR ---
ORAL CARE PROVIDED, GIVEN LIP MOISTURIZER. PATIENT HAS EYES OPEN. NO SIGNS OF DISTRESS NOTED. PATIENT IS NOT MAKING CLICKING SOUNDS OR RESPONDING TO NAME OR LIGHT PAIN. TURN ASSIST MODE ON TO OFFLOAD PRESSURE AREAS. ALL VITALS WITHIN NORMAL RANGE.
--- NOTE | 2019-09-04 04:45 | NUR ---
GLAZE SPRAYER UNABLE TO GET BLOOD DRAW FOR SCHEDULED LABS. RN ATTEMPTED TO DRAW LABS FROM MIDLINE. FLUSHES WITHOUT SYMPTOMS BUT UNABLE TO DRAW ENOUGH BLOOD TO WASTE AND TO FILL SYNRINGES. TRIED REPOSITIONING AND TRYING OTHER LUMEN, UNSUCCESSFUL. OTHER GLAZE SPRAYER WILL TRY.
[2019-09-04] MEDS: VALPROATE SODIUM 500 MG in NACL 0.9% 100 ML IV SCH ×3 (04:48→21:00)
[2019-09-04] MEDS: MIDODRINE 5 MG TAB GT SCH ×3 (04:49→21:01)
[2019-09-04] MEDS: BLOOD GLUCOSE MONITORING 1 DEV DEV MC SCH ×3 (06:15→12:00)
--- NOTE | 2019-09-04 06:31 | NUR ---
ORAL CARE PROVIDED, SPONGE BATH, AND BARR CARE PROVIDED. PATIENT TOLERATED WELL. PATIENT SLIGHTLY ALERT TO VOICE. WHEN RN CALLED NAME, PATIENT LOOKED IN DIRECTION OF RN, EYE CONTACT LESS THAN 3 SECONDS, PATIENT BLINKS FREQUENTLY. REPLACED DRESSINGS TO BUTTOCKS AND SACRUM AND RIGHT HEEL. CHANGED GOWN AND LINEN. SIDERAILS UPx3, HOB 30 DEGREES, SAFETY ALARMS IN PLACE.
--- NOTE | 2019-09-04 07:30 | NUR ---
RECEIVED BEDSIDE REPORT FROM SCRUB TECHNICIAN RN EMORY. PT OPEN EYES SPONTANEOUSLY, DOES NOT FOLLOW COMMANDS. GRIMACING TO LIGHT PAIN. PERRL 3MM, BRISK. PT IS TRACH TO VENT, SHILEY 6, AC/VC, FIO2 24%, VT 475, RATE 20, PEEP 5. RESPIRATIONS RATE 26, EVEN, UNLABORED. SR ON MONITOR. DRAINAGE BAG ON L MID ABDOMEN OLD G TUBE SITE, MINIMAL YELLOW DRAINAGE IN THE BAG. COLOSTOMY ON R LOWER ABDOMEN, PROLAPSED BOWEL NOTED, BROWN LIQ STOOL. MIDLINE TO FEDE, ASYMPTOMATIC, + BLOOD RETURN. PPN INFUSING AT 70ML/HR. D5 1/2 NS INFUSING AT 100 ML/HR. DECREASED LEVOPHED TO 2MCG/MIN. OGT AUSCULTATED, POSITIVE PLACEMENT. BARR CATHETER IN PLACE, DRAINING CLOUDY YELLOW URINE. SKIN IS WARM AND DRY. MULTIPLE PRESSURE WOUNDS, DRESSINGS CLEAN AND INTACT. HOB 30 DEGREES. BED LOCKED IN LOWEST POSITION.
--- NOTE | 2019-09-04 07:52 | NUR ---
REECIVED PT ON VENT WITH SETTINGS CHARTED BREATH SOUNDS PRESENT BILAT COARSE SXN PT WITH MOD AMT SECS STOMA WELL CLEAR THICK TRACH SITE SECURE AMBU BAG AT BEDSIDE VENT PLUGGED INTO RED OUTLET WILL CONTINUE TO MONITOR PT ON VENT
[2019-09-04] MEDS ORDERED: VANCOMYCIN 1,000 MG in DEXTROSE 5% 250 ML IV SCH (08:00)
--- NOTE | 2019-09-04 08:10 | NUR ---
RINSED G TUBE SITE WITH NS, PATTED DRY, Z GUARD APPLIED. CHANGED G TUBE DRAINAGE BAG.
[2019-09-04 08:28] LABS: BASOPHILS # (AUTO) 0.1 K/uL (0.00-0.22); BASOPHILS % (AUTO) 0.7 % (0.0-2.0); EOSINOPHILS % (AUTO) 13.2 % (0.0-4.0); HEMATOCRIT 28.7 % (36-52); LYMPHOCYTES # (AUTO) 0.7 K/uL (2.0-11.5); LYMPHOCYTES % (AUTO) 4.5 % (20.5-51.1); MEAN CORPUSCULAR HEMOGLOBIN 28 pg (27-31); MEAN CORPUSCULAR HGB CONC 31 g/dL (33-37); MEAN CORPUSCULAR VOLUME 88.9 fL (80-94); MONOCYTES # (AUTO) 0.7 K/uL (0.8-1.0); MONOCYTES % (AUTO) 4.8 % (1.7-9.3); NEUTROPHILS # (AUTO) 11.4 K/uL (1.8-7.7); NEUTROPHILS % (AUTO) 76.8 % (42.2-75.2); PLATELET COUNT (AUTO) 329 K/uL (140-450); RED BLOOD CELL COUNT(AUTO) 3.23 MIL/uL (4.20-6.10); RED CELL DISTRIBUTION WIDTH 20.7 % (11.6-13.7); WHITE BLOOD COUNT (AUTO) 14.8 K/uL (4.8-10.8)
[2019-09-04 08:40] LABS: MAGNESIUM 1.8 mg/dL (1.8-2.4); PHOSPHORUS 2.1 mg/dL (2.5-4.9)
[2019-09-04 09:00] LABS: ALBUMIN 1.1 g/dL (3.4-5.0); ANION GAP 21.8 (8-16); CARBON DIOXIDE 16.2 mmol/L (21-32); TOTAL BILIRUBIN 0.2 mg/dL (0.0-1.0)
[2019-09-04] MEDS: DOCUSATE 100 MG/10 ML UDC GT SCH ×2 (09:00→21:00)
[2019-09-04] MEDS: METOCLOPRAMIDE 10 MG/2 ML INJ VIAL IVP SCH ×3 (09:12→18:07)
[2019-09-04] MEDS: ALGINATE DRESSING MC SCH (09:12)
[2019-09-04] MEDS: FOAM DRESSING TP SCH (09:12)
[2019-09-04] MEDS: Z-GUARD PASTE TP SCH (09:12)
[2019-09-04] MEDS: ZINC SULF 220 MG CAP GT SCH (09:12)
[2019-09-04] MEDS: PANTOPRAZOLE 40 MG INJ VIAL IVP SCH ×2 (09:12→21:00)
[2019-09-04] MEDS: ASCORBIC ACID 500 MG TAB GT SCH (09:12)
[2019-09-04] MEDS ORDERED: NOREPINEPHRINE 4 MG in DEXTROSE 5% 250 ML IV PRN (10:20)
--- NOTE | 2019-09-04 11:15 | NUR ---
PER CHARGE NURSE REQUEST TO EVALUATE RIGHT SHOULDER AND RIGHT HEEL WOUNDS: -RIGHT HEEL PRESSURE ULCER STAGE 4, 4X2.8CM, WOUND BED 100% PALE WHITE TISSUE, MOIST NO ODOR, LINDA WOUND SKIN SCALY AND INTACT -RIGHT SHOULDER PRESSURE ULCER STAGE 4, 6X3 CM DEPTH UTD, WITH UNDERMINING AROUND THE CLOCK WITH YELLOW SLOUGH AND EXTENDED TO WOUND EDGE WITH YELLOW SLOUGH, WOUND BED PALE PINK TISSUE, FOUL ODOR AFTER CLEANING, MODERATE AMOUNT PURULENT DRAINAGE, LINDA WOUND SKIN INTACT -RIGHT LATERAL LEG DRESSING CHANGED NO S/S OF INFECTION -SACRALCOCCYX, RIGHT AND LEFT ISCHIALS DRESSING DCI, PER CHARGE NURSE WOUND CARE WERE DONE LAST SHIFT. POC DISCUSSED WITH PRIMARY RN, WOUND CARE NURSE CONTACT DR. CRUZ OFFICE, MESSAGE LEFT TO JEANETTE TO REQUEST DEBRIDEMENT RIGHT SHOULDER AND RIGHT HEEL AND RECOMMEND CHANGE WOUND CARE TO THERAHONEY GEL DAILY
--- NOTE | 2019-09-04 11:56 | NUR ---
FORREST, WOUND CARE NURSE CALLED DR. HUFFMAN FOR WOUND DEBRIDEMENT, DR. HUFFMAN CALLED BACK STATED THAT HE WILL SEE THE PATIENT UNTIL THE PATIENT IS MORE STABLE.
[2019-09-04] MEDS: NACL 0.9% IRR 250 ML BOTTLE IR SCH (12:06)
[2019-09-04] MEDS: PIPERACILLIN/TAZOBACTAM 3.375 GM in DEXTROSE 5% 50 ML IV SCH ×2 (12:06→18:07)
[2019-09-04] MEDS ORDERED: ALGINATE DRESSING MC SCH (13:00)
[2019-09-04] MEDS ORDERED: POTASSIUM PHOSPHATE 15 MM in NACL 0.9% 250 ML IV SCH (13:00)
[2019-09-04] MEDS: DEXT 5% / NACL 0.45% 1,000 ML IV SCH (13:05)
[2019-09-04] MEDS: THERAHONEY GEL 42.5 GM TP SCH (13:49)
--- NOTE | 2019-09-04 15:00 | NUR ---
PAGED DR TEAGUE, REGARDING PLAN OF CARE.
--- NOTE | 2019-09-04 15:01 | NUR ---
09/04/19 RD FOLLOW UP COMPLETED PLEASE REFER TO NUTRITION ASSESSMENT UNDER CARE ACTIVITY FOR ESTIMATED NUTRITIONAL NEEDS. 1.CONTINUE TPN AND GRADUALLY INCREASE TO MEET >75% OF ESTIMATED NEEDS. -CURRENT TPN IS D10%, AA 3% @ 70ML/HR WITH LIPIDS 20% 150 ML 2. PER MD DISCRETION, WHEN MEDICALLY APPROPRIATE, RESUME OSMOLITE 1.5@70MLS/HR TOLERATED. -THIS WILL PROVIDE A VOLUME OF 1680 ML, 2520 KCAL, AND 105 GM OF PROTEIN. IT MEETS 100% OF THE ESTIMATED ENERGY AND PROTEIN NEEDS. 3. PER MD DISCRETION, WHEN MEDICALLY APPROPRIATE, RESUME CONTINUE FREE WATER FLUSH OF 160 Q4H (960 ML). 4. CONTINUE VITAMIN C AND ZINC FOR WOUND HEALING. 5. RD TO FOLLOW-UP 2-3 DAYS, HIGH RISK. TANO BONDS RD
--- NOTE | 2019-09-04 15:20 | NUR ---
SPOKE WITH DR TEAGUE, MADE HIM AWARE PT HAS BEEN OFF ATIVAN FOR MORE THAN 24HRS. NO SEIZURES, NO EYE TWITCHING OR PROLONGED ELEVATED HR NOTED, BUT PT STILL NOT FOLLOWING COMMANDS AND RIGHT ARM MUSCLE JUMPS. ASKED FOR POC. DR TEAGUE SAID OK TO EVAL FOR [facility] FROM HIS STANDPOINT. SPOKE WITH DR DURAN ABOUT POC. DR DURAN SAID TO MONITOR PT IF HIS MENTAL STATUS IMPROVE, HE CAN GO TO [facility], IF NOT IMPROVING IN A WEEK, PT MIGHT NEEDS HIGHER LEVEL OF CARE.
--- NOTE | 2019-09-04 17:46 | NUR ---
CONTINUED TO MONITOR PT ON VENT WITH SETTINGS CHARTED BREATH SOUNDS PRESENT BILAT COARSE SXN PT WITH MOD SECS VIA STOMA WHITE THICK TRACH SITE SECURE AMBU BAG AT BEDSIDE VENT PLUGGED INTO RED OUTLET
--- NOTE | 2019-09-04 18:05 | NUR ---
BLOOD SUGAR 84.
--- NOTE | 2019-09-04 19:10 | NUR ---
RECEIVED REPORT FROM AM NURSE. PT AT BED AWAKE, LETHARGIC, PERRL 3MM, BRISK, OPENS EYES SPONTANEOUSLY, HEART RATE REGULAR, SR ON MONITOR, S1S2 PRESENT, CAP REFILL <3S, PULSES 2+ BILATERAL UPPER AND LOWER EXTREMITIES, LUNG SOUNDS CLEAR, DIMINISHED AT BASES, PT BREATHING REGULARLY, TRACH TO VENT, SHILEY 6, AT VENT SETTINGS AC/VC 24% TV 475 RR 20 PEEP 5 FLOW 40, ABDOMEN, SOFT, SOUND, NONDISTENDED, BOWEL SOUNDS ACTIVE IN ALL QUADRANTS, PT HAS COLOSTOMY APPLIANCE IN PLACE, PROLAPSED COLON NOTED, RED, PUFFY, DRAINING BROWN, LIQUID STOOL, SKIN, WARM, DRY, NONINTACT, PT HAS LEFT SHOULDER OPEN WOUND, DRESSING IN PLACE, RIGHT SHOULDER OPEN WOUND, DRESSING IN PLACE, INTACT, DRY, BILATERAL BUTTOCK OPEN WOUND, DRESSING IN PLACE, DRY AND INTACT, SACRAL AREA HAS OPEN WOUND, OPTIFOAM DRESSING IN PLACE, DRY, INTACT, PT HAS RIGHT LEG OPEN WOUND, DRESSING IN PLACE, DRY AND INTACT, PT HAS RIGHT HEEL WOUND, HEALING, DRESSING IN PLACE, DRY AND INTACT, PT HAS RIGHT UPPER ARM MIDLINE PERIPHERAL IV, RUNNING D5 1/2 NS AT 70 ML/HR, PPN AT 70 ML/HR, LEVOPHED AT 2 MCG/MIN. HOB 30 DEGREES, SIDE RAILS UP X2, BED AT LOWEST POSITION. Addendum: 09/04/19 at 2221 by Rey Meza RN BLADDER, SOFT, ROUND, NONTENDER, NONDISTENDED, FC IN PLACE, DRAINING YELLOW, URINE WITH SEDIMENTATION.
[2019-09-04] MEDS: MULTIVITAMIN-12 10 ML in DEXTROSE 50% 760 ML, AMINO ACIDS 8.5% 760 ML, FAT EMULSION 20%... IV SCH ×4 (21:00)
[2019-09-04] MEDS: ENOXAPARIN 30 MG/0.3 ML SYR SUBQ SCH (21:03)
--- NOTE | 2019-09-04 21:05 | NUR ---
MEDICATIONS GIVEN. VAP ORAL CARE PERFORMED, SUCTIONED SCANT WHITE MUCOUS
--- NOTE | 2019-09-04 23:15 | NUR ---
REPOSITIONED PT. PT TOLERATED WELL.
[2019-09-05] VITALS (49 sets, daily range): BP systolic 103–160; BP diastolic 62–97
--- NOTE | 2019-09-05 00:25 | NUR ---
PT AT BED EYES CLOSED BREATHING REGULARLY. WILL CONTINUE TO MONITOR
[2019-09-05] MEDS: PIPERACILLIN/TAZOBACTAM 3.375 GM in DEXTROSE 5% 50 ML IV SCH ×4 (00:55→17:33)
--- NOTE | 2019-09-05 01:00 | NUR ---
PICC LINE INSERTED. PT TOLERATED PROCEDURE WELL.
[2019-09-05] MEDS ORDERED: VANCOMYCIN PER PHARMACY MC PRN (02:45)
--- NOTE | 2019-09-05 04:10 | NUR ---
PT AT BED EYES CLOSED, BREATHING REGULARLY TRACH TO VENT. WILL CONTINUE TO MONITOR.
[2019-09-05] MEDS: VALPROATE SODIUM 500 MG in NACL 0.9% 100 ML IV SCH ×3 (05:14→21:36)
[2019-09-05] MEDS: MIDODRINE 5 MG TAB GT SCH ×3 (05:14→21:36)
[2019-09-05] MEDS: DEXT 5% / NACL 0.45% 1,000 ML IV SCH ×2 (05:22→12:25)
[2019-09-05] MEDS: BLOOD GLUCOSE MONITORING 1 DEV DEV MC SCH ×3 (05:28→17:33)
--- NOTE | 2019-09-05 06:44 | NUR ---
RECEIVED PT DOCUMENTED SETTINGS, ALARMS ARE ON AND AUDIBLE, PTS TRACH RUSTAMLEY 6 XLT IS SECURE, BS MICHAEL PT IN HF, QUIET, BMV HOB, VENT PLUGGED INTO RED OUTLET, WILL CONTINUE TO MONITOR
--- NOTE | 2019-09-05 07:25 | NUR ---
RECEIVED BEDSIDE REPORT FROM CELY SURGICAL ASST RN, FOR CONTINUITY OF CARE. PATIENT OPENS EYES SPONTANEOUSLY, UNABLE TO FOLLOW COMMANDS OR MAKE NEEDS KNOWN. SKIN IS WARM, DRY, AFEBRILE, NOT INTACT. HE HAS PRESSURE ULCER TO SACROCOCCYX, BILATERAL BUTTOCKS, AND OPEN WOUND TO BILATERAL SHOULDERS, RIGHT HEEL AND RIGHT LEG. PATIENT HAS TRACH TO VENT, BREATHING IS EVEN AND UNLABORED. PATIENT IS SR ON MONITOR, FLACC 0. BP STABLE, PER SURGICAL ASST RN, PATIENT WAS OFF LEVOPHED AT 0620. PATIENT HAS OGT IN PLACE, HE HAS DRAINAGE BAG ON OLD GTUBE SITE. PATIENT HAS A PROLAPSED COLOSTOMY TO DRAINAGE BAG. HE HAS A BARR CATHETER IN PLACE. PATIENT HOB IS 30 DEGREES ELEVATED, SIDE RAILS UP 3X, BED LOCKED IN LOW POSITION. NO SIGNS OF DISTRESS AT THIS TIME.
--- NOTE | 2019-09-05 07:30 | NUR ---
REPORT GIVEN TO AM NURSE. PT AT STABLE CONDITION AT THIS TIME.
--- NOTE | 2019-09-05 08:11 | NUR ---
PATIENT TURNED AND REPOSITIONED FOR COMFORT, CHANGED DRESSINGS TO SACROCOCCYX AND BILATERAL BUTTOCKS. PATIENT TOLERATED WELL. NO SIGNS OF DISTRESS AT THIS TIME.
[2019-09-05 08:59] LABS: BASOPHILS # (AUTO) 0.1 K/uL (0.00-0.22); BASOPHILS % (AUTO) 0.6 % (0.0-2.0); EOSINOPHILS # (AUTO) 1.7 K/uL (0-0.4); EOSINOPHILS % (AUTO) 14.2 % (0.0-4.0); HEMATOCRIT 25.1 % (36-52); LYMPHOCYTES # (AUTO) 0.7 K/uL (2.0-11.5); MEAN CORPUSCULAR HEMOGLOBIN 28 pg (27-31); MEAN CORPUSCULAR HGB CONC 32 g/dL (33-37); MONOCYTES # (AUTO) 0.7 K/uL (0.8-1.0); MONOCYTES % (AUTO) 5.7 % (1.7-9.3); NEUTROPHILS # (AUTO) 8.6 K/uL (1.8-7.7); NEUTROPHILS % (AUTO) 73.5 % (42.2-75.2); PLATELET COUNT (AUTO) 295 K/uL (140-450); RED BLOOD CELL COUNT(AUTO) 2.85 MIL/uL (4.20-6.10); RED CELL DISTRIBUTION WIDTH 21.1 % (11.6-13.7); WHITE BLOOD COUNT (AUTO) 11.8 K/uL (4.8-10.8)
[2019-09-05] MEDS: DOCUSATE 100 MG/10 ML UDC GT SCH ×2 (09:15→21:35)
[2019-09-05] MEDS: PANTOPRAZOLE 40 MG INJ VIAL IVP SCH ×2 (09:15→21:37)
[2019-09-05] MEDS: ZINC SULF 220 MG CAP GT SCH (09:15)
[2019-09-05] MEDS: ASCORBIC ACID 500 MG TAB GT SCH (09:15)
[2019-09-05] MEDS: METOCLOPRAMIDE 10 MG/2 ML INJ VIAL IVP SCH ×3 (09:16→17:33)
[2019-09-05] MEDS: MICAFUNGIN SODIUM 100 MG in NACL 0.9% 100 ML IV SCH (09:16)
[2019-09-05] MEDS: Z-GUARD PASTE TP SCH (09:17)
[2019-09-05 09:43] LABS: ANION GAP 19.4 (8-16); CARBON DIOXIDE 17.1 mmol/L (21-32); CREATININE 1.7 mg/dL (0.7-1.3); POTASSIUM 4.5 mmol/L (3.5-5.1)
[2019-09-05 10:11] LABS: MAGNESIUM 1.8 mg/dL (1.8-2.4); PHOSPHORUS 2.1 mg/dL (2.5-4.9)
--- NOTE | 2019-09-05 10:15 | NUR ---
DR. CARRION IS HERE TO SEE AND EXAMINE PATIENT, UPDATED ON PATIENT'S CONDITION. RECEIVED ORDER FOR SCDS.
--- NOTE | 2019-09-05 11:45 | NUR ---
DR. HUYNH IS HERE TO SEE AND EXAMINE PATIENT, UPDATED ON PATIENT'S CONDITION. WILL FOLLOW UP ON ANY NEW ORDERS.
--- NOTE | 2019-09-05 12:01 | NUR ---
VAP ORAL CARE PROVIDED, PATIENT TOLERATED WELL.
[2019-09-05] MEDS: THERAHONEY GEL 42.5 GM TP SCH (12:25)
--- NOTE | 2019-09-05 13:02 | NUR ---
DR. CRUZ IS HERE TO SEE AND EXAMINE PATIENT, UPDATED ON PATIENT'S CONDITION. WILL FOLLOW UP ON ANY ORDERS
--- NOTE | 2019-09-05 13:48 | NUR ---
DR. DELONG IS HERE TO SEE AND EXAMINE PATIENT, UPDATED ON PATIENT'S CONDITION. WILL FOLLOW UP ON ANY ORDERS.
[2019-09-05] MEDS ORDERED: SODIUM PHOS / POTASSIUM PHOS 1 PKT PDR PO SCH (15:14)
--- NOTE | 2019-09-05 16:04 | NUR ---
VAP ORAL CARE PROVIDED, PATIENT TOLERATED WELL.
--- NOTE | 2019-09-05 18:05 | NUR ---
BLOOD SUGAR 84. Addendum: 09/07/19 at 0718 by Anjum Laughlin RN PLEASE DISCARD, WRONG DATE ENTERED
--- NOTE | 2019-09-05 19:38 | NUR ---
RECEIVED PT FROM AM SHIFT MOLDED GRID AND PARTS INSPECTOR. PT ON VENT SETTINGS ORDERED. PT IS TRACH WITH SHILEY SIZE 7XLT AND SECURED WITH TRACH TIE. NO RESPIRATORY DISTRESS NOTED AT THIS TIME. RHONCHI BREATH SOUNDS AND SP02 OF 100%.VENT PLUGGED IN RED OUTLET, BVM AT BEDSIDE, ALARMS SET AND AUDIBLE, HOB>30. SX SMALL YELLOW THICK SECRETIONS FROM TRACH. AIRWAY IS PATENT. WILL CONTINUE TO MONITOR PT
[2019-09-05] MEDS: MULTIVITAMIN-12 10 ML in DEXTROSE 50% 760 ML, AMINO ACIDS 8.5% 760 ML, FAT EMULSION 20%... IV SCH ×4 (21:30)
[2019-09-05] MEDS: ENOXAPARIN 30 MG/0.3 ML SYR SUBQ SCH (21:35)
[2019-09-06] VITALS (26 sets, daily range): BP systolic 88–146; BP diastolic 68–97
[2019-09-06] MEDS: PIPERACILLIN/TAZOBACTAM 3.375 GM in DEXTROSE 5% 50 ML IV SCH ×4 (00:42→17:35)
[2019-09-06] MEDS: DEXT 5% / NACL 0.45% 1,000 ML IV SCH ×2 (02:23→17:07)
[2019-09-06] MEDS: MIDODRINE 5 MG TAB GT SCH ×3 (05:00→20:32)
[2019-09-06] MEDS: VALPROATE SODIUM 500 MG in NACL 0.9% 100 ML IV SCH ×3 (05:49→20:32)
[2019-09-06] MEDS: BLOOD GLUCOSE MONITORING 1 DEV DEV MC SCH ×4 (06:00→17:56)
--- NOTE | 2019-09-06 07:00 | NUR ---
THE PT HELD HIS BLOOD PRESSURE TO THE POINT THAT I HELD HIS AM MIDODRINE. THE PT REMAINS STABLE ON VENTILATOR WITHOUT CHANGES IN SETTINGS THROUGHOUT THE SHIFT. HE IS MAKING GOOD URINE AND ALSO LIQUID STOOL THROUGH THE COLOSTOMY I GAVE REPORT TO THE SAME RN THAT I GOT REPORT FROM. THE PLAN IS TO PLACE A GTUBE AND TO REVISE THE BOWEL THAT IS PROTRUDING THROUGH THE COLOSTOMY. SEE VS FLOWSHEET- MEDS ETC.
[2019-09-06 07:07] LABS: BASOPHILS # (AUTO) 0.1 K/uL (0.00-0.22); BASOPHILS % (AUTO) 0.9 % (0.0-2.0); EOSINOPHILS # (AUTO) 1.6 K/uL (0-0.4); HEMATOCRIT 20.2 % (36-52); MEAN CORPUSCULAR HEMOGLOBIN 28 pg (27-31); MEAN CORPUSCULAR HGB CONC 32 g/dL (33-37); MEAN CORPUSCULAR VOLUME 89.5 fL (80-94); MONOCYTES # (AUTO) 0.9 K/uL (0.8-1.0); MONOCYTES % (AUTO) 7.3 % (1.7-9.3); NEUTROPHILS # (AUTO) 9.4 K/uL (1.8-7.7); PLATELET COUNT (AUTO) 275 K/uL (140-450); RED BLOOD CELL COUNT(AUTO) 2.26 MIL/uL (4.20-6.10); RED CELL DISTRIBUTION WIDTH 21.1 % (11.6-13.7)
[2019-09-06 07:10] LABS: HEMOGLOBIN 6.4 g/dL (12.0-18.0)
--- NOTE | 2019-09-06 07:11 | NUR ---
RECEIVED BEDSIDE REPORT FROM NONI MOTORBOAT OPERATOR RN, FOR CONTINUITY OF CARE. PATIENT OPENS EYES SPONTANEOUSLY, DOES NOT MAKE NEEDS KNOWN OR FOLLOWS COMMANDS. PATIENT SKIN IS WARM, DRY, AFEBRILE, NOT INTACT. HE HAS PRESSURE INJURY TO SACROCOCCYX, LEFT AND RIGHT BUTTOCKS, LEFT AND RIGHT SHOULDER, RIGHT LEG, RIGHT HEEL. HE HAS PICC LINE TO CRYSTAL, ASYMPTOMATIC AND PATENT. PATIENT IS TRACH TO VENT, SETTINGS ARE AC MODE, FIO2 24%, TV 475, RATE 20, PEEP 5. PATIENT IS SR ON MONITOR, FLACC 0. PATIENT HAS OGT IN PLACE, DRAINAGE BAG TO OLD GTUBE SITE IN LUQ, DRAINAGE BAG TO PROLAPSED COLOSTOMY IN RLQ. PATIENT HAS BARR CATHETER IN PLACE. HOB IS 35 DEGREES ELEVATED, SIDE RAILS UP 3X, BED LOCKED IN LOW POSITION. NO SIGNS OF DISTRESS AT THIS TIME, WILL CONTINUE TO MONITOR
[2019-09-06 07:22] LABS: CREATININE 1.6 mg/dL (0.7-1.3); POTASSIUM 4.6 mmol/L (3.5-5.1)
[2019-09-06 07:23] LABS: EOSINOPHILS % (AUTO) 12.1 % (0.0-4.0); LYMPHOCYTES % (AUTO) 7.4 % (20.5-51.1); NEUTROPHILS % (AUTO) 72.3 % (42.2-75.2)
--- NOTE | 2019-09-06 07:24 | NUR ---
REC'D PT ON CARESCAPE VENT SETTINGS AC20 VT 475 PEEP 5 FIO2 24% ALARMS ON AND AUDIBLE AND AMBU BAG AT SIDE OF VENT AND VENT IS PLUGGED INTO RED OUTLET, SXN PT MODERATE AMT OF THICK YELLOW SECRETIONS B\S ARE RHONCHI BILATERALLY, PT IS TRACH WITH SHILEY 6XLT AND PT IS RESTING WILL CONTINUE TO MONITOR PT
[2019-09-06 07:29] LABS: ANION GAP 21.2 (8-16); CARBON DIOXIDE 17.4 mmol/L (21-32)
[2019-09-06 07:32] LABS: MAGNESIUM 1.9 mg/dL (1.8-2.4); PHOSPHORUS 2.1 mg/dL (2.5-4.9)
[2019-09-06 07:34] LABS: ANION GAP 21.2 (8-16); CARBON DIOXIDE 17.4 mmol/L (21-32); CREATININE 1.6 mg/dL (0.7-1.3); POTASSIUM 4.6 mmol/L (3.5-5.1)
--- NOTE | 2019-09-06 07:45 | NUR ---
CALLED DR. CARRION REGARDING PATIENT'S HGB 6.4, RECEIVED ORDER FOR 2 UNITS PRBCS.
[2019-09-06] MEDS: PANTOPRAZOLE 40 MG INJ VIAL IVP SCH ×2 (08:14→20:33)
[2019-09-06] MEDS: METOCLOPRAMIDE 10 MG/2 ML INJ VIAL IVP SCH ×3 (08:14→17:35)
[2019-09-06] MEDS: DOCUSATE 100 MG/10 ML UDC GT SCH ×2 (08:14→20:32)
[2019-09-06] MEDS: Z-GUARD PASTE TP SCH (08:15)
[2019-09-06] MEDS: ASCORBIC ACID 500 MG TAB GT SCH (08:15)
[2019-09-06] MEDS: ZINC SULF 220 MG CAP GT SCH (08:15)
--- NOTE | 2019-09-06 08:57 | NUR ---
SCHEDULED MEDS ADMINISTERED, PATIENT TOLERATED WELL. PATIENT TURNED AND REPOSITIONED FOR COMFORT, ORAL CARE GIVEN. NO SIGNS OF DISTRESS AT THIS TIME
[2019-09-06] MEDS: MICAFUNGIN SODIUM 100 MG in NACL 0.9% 100 ML IV SCH (09:43)
--- NOTE | 2019-09-06 10:58 | NUR ---
ADILENE, PATIENT'S GIRLFRIEND CALLED, STATES THAT SHE WANTS PATIENT TO GO TO [facility] WHERE SHE WORKS.
[2019-09-06] MEDS ORDERED: VANCOMYCIN PER PHARMACY MC PRN (11:15)
--- NOTE | 2019-09-06 12:28 | NUR ---
DR. CARRION IS HERE TO SEE AND EXAMINE PATIENT, UPDATED ON PATIENT'S CONDITION. RECEIVED ORDER FOR OCCULT BLOOD.
--- NOTE | 2019-09-06 12:45 | NUR ---
PATIENT STARTED ON TRANSFUSION OF ONE UNIT OF BLOOD, NO SIGNS OF DISTRESS OR REACTION AT THIS TIME
[2019-09-06] MEDS: THERAHONEY GEL 42.5 GM TP SCH (13:16)
--- NOTE | 2019-09-06 15:10 | NUR ---
BLOOD TRANSFUSION COMPLETE, PATIENT TOLERATED WELL. NO SIGNS OF REACTION OR DISTRESS DURING TRANSFUSION NOTED. WILL CONTINUE TO MONITOR
--- NOTE | 2019-09-06 16:00 | NUR ---
STARTED PATIENT'S TRANSFUSION OF 2ND UNIT OF BLOOD, PATIENT HAS NO SIGNS OF REACTION OR DISTRESS AT THIS TIME.
--- NOTE | 2019-09-06 18:55 | NUR ---
2ND UNIT OF BLOOD TRANSFUSED, PATIENT TOLERATED WELL. NO SIGNS OF REACTION OR DISTRESS OBSERVED.
--- NOTE | 2019-09-06 19:00 | NUR ---
RECEIVED BEDSIDE REPORT FROM DAY SHIFT RN. PATIENT ON CONTACT PRECAUTIONS. TRACH TO VENT FIO2 24%. V/S STABLE. PATIENT DOES NOT TRACK OR FOLLOW COMMANDS. PERRLA SIZE 4 BILATERALLY. HAS PROLAPSE COLOSTOMY. BARR CATH IN PLACE. DRAINING CLEAR YELLOW URINE. LEFT UPPER ARM PICC TPN INFUSING AT 70 ML/HR AND D5 1/2 NS INFUSING AT 70 ML/HR. MULTIPLE WOUNDS NOTED. BED IN LOWEST POSITION. WILL CONTINUE TO MONITOR.
--- NOTE | 2019-09-06 19:35 | NUR ---
RECEIVED PT FROM AM SHIFT MACHINE MILKER. PT ON VENT SETTINGS ORDERED. PT IS TRACH WITH SHILEY SIZE 6 XLT AND SECURED WITH TRACH TIE. NO RESPIRATORY DISTRESS NOTED AT THIS TIME. RHONCHI BREATH SOUNDS AND SP02 OF 100%.VENT PLUGGED IN RED OUTLET, BVM AT BEDSIDE, ALARMS SET AND AUDIBLE, HOB>30. SX SMALL YELLOW THICK SECRETIONS FROM TRACH. AIRWAY IS PATENT. WILL CONTINUE TO MONITOR PT
[2019-09-06] MEDS: MULTIVITAMIN-12 10 ML in DEXTROSE 50% 760 ML, AMINO ACIDS 8.5% 760 ML, FAT EMULSION 20%... IV SCH ×4 (20:33)
[2019-09-06] MEDS: ENOXAPARIN 30 MG/0.3 ML SYR SUBQ SCH (20:34)
--- NOTE | 2019-09-06 21:30 | NUR ---
DUE MEDICATIONS GIVEN. ORAL CARE PROVIDED. BLEEDING GUMS NOTED.
--- NOTE | 2019-09-06 22:45 | NUR ---
RT REPORTED THAT ER DR WILL CHANGE TRACH TO A DIFFERENT SIZE DUE TO LEAKING AROUND TRACHEOTOMY.
[2019-09-06] MEDS: ALBUTEROL SULFATE/IPRATROPIU 3 ML SOL IH PRN (23:21)
[2019-09-07] VITALS (24 sets, daily range): BP systolic 90–179; BP diastolic 59–104
--- NOTE | 2019-09-07 00:10 | NUR ---
PATIENT REPOSITIONED FOR COMFORT. ORAL CARE PROVIDED. WILL CONTINUE TO MONITOR
[2019-09-07] MEDS: BLOOD GLUCOSE MONITORING 1 DEV DEV MC SCH ×4 (00:20→17:17)
[2019-09-07] MEDS: PIPERACILLIN/TAZOBACTAM 3.375 GM in DEXTROSE 5% 50 ML IV SCH ×4 (00:20→17:17)
[2019-09-07] MEDS: DEXT 5% / NACL 0.45% 1,000 ML IV SCH (00:20)
--- NOTE | 2019-09-07 02:00 | NUR ---
PATIENT SUCTIONED AROUND STOMA. THICK GREENISH SECRETIONS NOTED.
[2019-09-07] MEDS: ALBUTEROL SULFATE/IPRATROPIU 3 ML SOL IH PRN (03:55)
--- NOTE | 2019-09-07 03:55 | NUR ---
RT AT BEDSIDE PROVIDING TRACH CARE.
[2019-09-07] MEDS: VALPROATE SODIUM 500 MG in NACL 0.9% 100 ML IV SCH ×3 (04:44→20:59)
[2019-09-07] MEDS: MIDODRINE 5 MG TAB GT SCH ×3 (04:45→20:59)
--- NOTE | 2019-09-07 06:00 | NUR ---
REPOSITIONED PATIENT FOR COMFORT
[2019-09-07 06:38] LABS: MAGNESIUM 2.1 mg/dL (1.8-2.4)
[2019-09-07 06:39] LABS: ANION GAP 21.2 (8-16); CARBON DIOXIDE 16.3 mmol/L (21-32); CREATININE 1.5 mg/dL (0.7-1.3); POTASSIUM 4.5 mmol/L (3.5-5.1)
[2019-09-07 06:54] LABS: BASOPHILS # (AUTO) 0.1 K/uL (0.00-0.22); BASOPHILS % (AUTO) 0.7 % (0.0-2.0); EOSINOPHILS # (AUTO) 1.2 K/uL (0-0.4); EOSINOPHILS % (AUTO) 9.3 % (0.0-4.0); HEMATOCRIT 33.4 % (36-52); HEMOGLOBIN 10.7 g/dL (12.0-18.0); LYMPHOCYTES # (AUTO) 1.2 K/uL (2.0-11.5); LYMPHOCYTES % (AUTO) 9.1 % (20.5-51.1); MEAN CORPUSCULAR HEMOGLOBIN 29 pg (27-31); MEAN CORPUSCULAR HGB CONC 32 g/dL (33-37); MEAN CORPUSCULAR VOLUME 89.1 fL (80-94); MONOCYTES # (AUTO) 1.2 K/uL (0.8-1.0); MONOCYTES % (AUTO) 8.9 % (1.7-9.3); NEUTROPHILS # (AUTO) 9.6 K/uL (1.8-7.7); PLATELET COUNT (AUTO) 242 K/uL (140-450); RED BLOOD CELL COUNT(AUTO) 3.75 MIL/uL (4.20-6.10); RED CELL DISTRIBUTION WIDTH 18.6 % (11.6-13.7); WHITE BLOOD COUNT (AUTO) 13.3 K/uL (4.8-10.8)
--- NOTE | 2019-09-07 07:00 | NUR ---
ENDORSED PATIENT TO DAY SHIFT NURSE FOR CONTINUITY OF CARE
[2019-09-07 07:10] LABS: PHOSPHORUS 3.7 mg/dL (2.5-4.9)
--- NOTE | 2019-09-07 07:10 | NUR ---
RECEIVED PT ON CARESCAPE ON DOCUMENTED SETTINGS,ALARMS ARE ON AND AUDIBLE, PTS TRACH SHILEY 6 XLT IS SECURE, PT IN HF QUIET, BS MICHAEL, BMV HOB, VENT PLUGGED INTO RED OUTLET, WILL CONTINUE TO MONITOR
--- NOTE | 2019-09-07 07:15 | NUR ---
RECEIVED BEDSIDE REPORT FROM DECORATIVE ENGRAVER APPRENTICE RN SUMMER. PT HAS EYES OPEN, DOES NOT RESPOND TO HIS NAME. PT CLOSES EYES WHEN I CLEANING HIS FACE. DOES NOT FOLLOW COMMANDS. PERRL 3MM, BRISK. PT IS TRACH TO VENT, SHILEY 6, AC/VC, FIO2 24%, VT 475, RATE 20, PEEP 5. RESPIRATIONS RATE 32, EVEN. SR ON MONITOR. DRAINAGE BAG ON L ABDOMEN OLD G TUBE SITE, MINIMAL YELLOW DRAINAGE IN THE BAG. COLOSTOMY ON R LOWER ABDOMEN, PROLAPSED BOWEL NOTED. PICC TO CRYSTAL, ASYMPTOMATIC, + BLOOD RETURN. PPN INFUSING AT 70ML/HR. D5 1/2 NS INFUSING AT 70 ML/HR. OGT AUSCULTATED, POSITIVE PLACEMENT. BARR CATHETER IN PLACE, DRAINING CLOUDY YELLOW URINE. SKIN IS WARM AND DRY. MULTIPLE PRESSURE WOUNDS, WILL CHANGE DRESSING TODAY. HOB 35 DEGREES, ON AIR MATTRESS. BED LOCKED IN LOWEST POSITION.
[2019-09-07] MEDS: FOAM DRESSING TP SCH (09:00)
[2019-09-07] MEDS: DOCUSATE 100 MG/10 ML UDC GT SCH ×2 (09:00→20:59)
[2019-09-07] MEDS: PANTOPRAZOLE 40 MG INJ VIAL IVP SCH ×2 (09:13→20:59)
[2019-09-07] MEDS: ASCORBIC ACID 500 MG TAB GT SCH (09:14)
[2019-09-07] MEDS: MICAFUNGIN SODIUM 100 MG in NACL 0.9% 100 ML IV SCH (09:14)
[2019-09-07] MEDS: METOCLOPRAMIDE 10 MG/2 ML INJ VIAL IVP SCH ×3 (09:14→17:16)
[2019-09-07] MEDS: ZINC SULF 220 MG CAP GT SCH (09:14)
--- NOTE | 2019-09-07 09:30 | NUR ---
OGT RESIDUAL 10ML. SCHEDULE MEDS GIVEN VIA GRAVITY.
--- NOTE | 2019-09-07 10:35 | NUR ---
ASKED [place] RT ABOUT IF WE CAN SWITCH PT'S TRACH TO A LARGER SIZE. VIRGINIA SAID THEY WERE NOT ABLE TO FIND SIZE 7. SHE WILL GO TO [facility] AGAIN TO CHECK.
[2019-09-07] MEDS: ALGINATE DRESSING MC SCH (10:40)
[2019-09-07] MEDS: Z-GUARD PASTE TP SCH (10:40)
[2019-09-07] MEDS ORDERED: VANCOMYCIN 750 MG in DEXTROSE 5% 250 ML IV SCH (11:00)
[2019-09-07] MEDS: NACL 0.9% IRR 250 ML BOTTLE IR SCH (12:41)
[2019-09-07] MEDS: THERAHONEY GEL 42.5 GM TP SCH (12:41)
--- NOTE | 2019-09-07 13:10 | NUR ---
WOUND DRESSINGS CHANGED. CLEANED WITH NS, PATTED DRY, PACKED WITH ALGINATE AND COVERED WITH OPTIFOAM.
--- NOTE | 2019-09-07 13:30 | NUR ---
DR CARRION CAME AND ASSESSED PT. DR CARRION SPOKE WITH PT'S ADILENE. DR CARRION RECOMMENDED LUMBAR PUNCTURE, HOWEVER, ADILENE REFUSED. PT'S WANTS TO PT BE TRANSFERRED TO [facility].
[2019-09-07] MEDS: DEXTROSE 5% 1,000 ML IV SCH (14:06)
--- NOTE | 2019-09-07 15:52 | NUR ---
09/07/19 RD FOLLOW UP COMPLETED PLEASE REFER TO NUTRITION ASSESSMENT UNDER CARE ACTIVITY FOR ESTIMATED NUTRITIONAL NEEDS. 1. CONTINUE TPN D15%, AA 4.25% @ 70ML/HR WITH LIPIDS 20% 150 ML -THIS IS PROVIDING 1441 KCAL AND 71 GM OF PROTEIN WHICH MEETS 87% OF KCAL NEEDS AND 85% OF ESTIMATED PROTEIN NEEDS 2. PER MD DISCRETION, WHEN MEDICALLY APPROPRIATE, RESUME OSMOLITE 1.5 @ 70MLS/HR TOLERATED. -THIS WILL PROVIDE A VOLUME OF 1680 ML, 2520 KCAL, AND 105 GM OF PROTEIN. IT MEETS 100% OF THE ESTIMATED ENERGY AND PROTEIN NEEDS. 3. PER MD DISCRETION, WHEN MEDICALLY APPROPRIATE, RESUME CONTINUE FREE WATER FLUSH OF 160 Q4H (960 ML). 4. CONTINUE VITAMIN C AND ZINC FOR WOUND HEALING. 5. RD TO FOLLOW-UP 2-3 DAYS, HIGH RISK. TANO [address]ON[address] RD
--- NOTE | 2019-09-07 19:15 | NUR ---
RECEIVED REPORT FROM DAYSHIFT NURSE AT PATIENTS BEDSIDE. CHART REVIEW COMPLETE. PATIENT IS ANOx0, OPENS EYES SPONTANEOUSLY, CANNOT MAKE EYE CONTACT OR TRACK, FREQUENT BLINKING NOTED, PERRL 3MM. PATIENT IS TRACH TO VENT DEPENDENT. ACVC 20, FI02 24%, TV 475, PEEP 5. SATURATION 97%. SECRETIONS AT TRACH SITE NOTED, WHITE AND CREAMY, SUCTIONED. S1S2, SINUS RHYTHM ON MONITOR. AFEBRILE. LEFT UPPER ARM PICC LINE IN PLACE, DOUBLE LUMEN, FLUSHED WITHOUT SYMPTOMS. INFUSING D5 @ 75 ML, AND TPN FEEDING @ 70ML. OGT IN PLACE. CLOSED TO PATIENT. ABDOMEN IS FLAT AND NONTENDER, ACTIVE BOWEL SOUNDS. COLLECTION BAG AT LEFT UPPER QUADRANT WITH OLD GTUBE, SMALL AMOUNT OF YELLOW SECRETIONS IN BAG. RIGHT LOWER QUADRANT COLOSTOMY BAG WITH OBVIOUS PROLAPSE, LIQUID BROWN STOOL IN BAG. BARR CATHETER IN PLACE, YELLOW URINE AND CLOUDY/SEDIMENT NOTED. SKIN NOT INTACT, BILATERAL PRESSURE INJURIES TO SHOULDERS, BUTTOCKS, HEELS, AND SACRUM AND RIGHT LOWER LEG. DRESSINGS ARE DRY AND INTACT, ALL REPLACED PRIOR TO START OF SHIFT. SPECIALTY MATTRESS IN PLACE. HOB 30 DEGREES, SIDERAILS UP, SAFETY ALARMS IN PLACE. WILL CONTINUE CLOSE MONITORING.
[2019-09-07] MEDS: MULTIVITAMIN-12 10 ML in DEXTROSE 50% 760 ML, AMINO ACIDS 8.5% 760 ML, FAT EMULSION 20%... IV SCH ×8 (20:00→20:58)
--- NOTE | 2019-09-07 20:00 | NUR ---
RECEIVED PT ON CURRENT SETTINGS. ALARMS ARE ON AND AUDIBLE. BRAKES ARE ON. VENT IS PLUGGED INTO RED OUTLET. AMBU BAG AT BEDSIDE. NO RESP DISTRESS NOTED AT THIS TIME. WILL CONTINUE TO MONITOR.
[2019-09-07] MEDS: ENOXAPARIN 30 MG/0.3 ML SYR SUBQ SCH (21:01)
--- NOTE | 2019-09-07 21:15 | NUR ---
OGT IN PLACE, CONFIRMED PLACEMENT BY AIR CHECK/AUSCULTATION . SCHEDULED MEDICATIONS GIVEN.
--- NOTE | 2019-09-07 22:02 | NUR ---
PATIENTS VENT ALARMING WITH HIGH PEAK PRESSURES. SUCTIONED AT TRACH SITE. SMALL AMOUNT OF SECRETIONS NOTED-WHITE AND CREAMY. PROVIDED VAP ORAL CARE. PATIENT WITHDRAWS TO LIGHT PAIN (ORAL CARE) RESPIRATIONS ARE ELEVATED IN 30'S, ACVC 20. SATURATIONS 96%. SUCTIONED ORALLY. WILL CONTINUE TO MONITOR. WILL MAKE RT AWARE.
--- NOTE | 2019-09-07 23:15 | NUR ---
SPOKE WITH RT's IN REGARDS TO CHANGING TRACH TUBE/SIZE DUE TO TUBE BEING TOO SMALL. RT CONFIRMED THERE IS ONE TUBE SIZE 7 IN STOCK, AND CONFIRMED ER DOCTOR WILL COME TO CHANGE ETT WHEN AVAILABLE.
[2019-09-08] VITALS (21 sets, daily range): BP systolic 92–156; BP diastolic 60–90
[2019-09-08] MEDS: PIPERACILLIN/TAZOBACTAM 3.375 GM in DEXTROSE 5% 50 ML IV SCH ×4 (00:05→17:12)
[2019-09-08] MEDS: BLOOD GLUCOSE MONITORING 1 DEV DEV MC SCH ×4 (00:05→17:17)
--- NOTE | 2019-09-08 00:10 | NUR ---
AIR MATTRESS IN PLACE, CONFIRMED SIDERAILS UP AND HOB 30 DEGREES. TURN ASSIST ON. REALIGNED HEAD AND BODY FOR PROPER PLACEMENT. HEEL PROTECTORS REINFORCED.
--- NOTE | 2019-09-08 01:22 | NUR ---
PHONE CALL FROM LUX, TRANSFER CENTER NURSE OF [place].QUESTIONS ANSWERED, PER LUX, NO CONTACT ISOLATION ROOM AT THIS TIME, SHE SAID SHE WILL HAVE A DOCTOR CONTACT OUT DOCTOR IN AM. EMORY BROWN AWARE
--- NOTE | 2019-09-08 03:45 | NUR ---
OPENED DRAINAGE BAG AT PREVIOUS GTUBE SITE TO ALLOW AIR/GAS TO BE RELEASED. MINIMAL SECRETIONS NOTED. MECHANICAL VENT ALARMING- TIDAL VOLUME NOT BEING DELIVERED, RT AWARE, RT AT BEDSIDE. PATIENT SUCTIONED AND PROVIDED VAP ORAL CARE. SATURATIONS ABOVE 95%, LUNG SOUNDS COARSE, PATIENT TACHYPNEIC, RESPIRATIONS IN 30'S. RT AWARE.
--- NOTE | 2019-09-08 04:35 | NUR ---
DR MAYS CHANGED PATIENT'S TRACH TO A SHILEY 7 XLT WITHOUT INCIDENT. CONFIRMED LOCATION THROUGH AUSCULTATION. BILATERAL GOOD CHEST RISE. PT SATURATION IS 97% HR 88.
[2019-09-08] MEDS: VALPROATE SODIUM 500 MG in NACL 0.9% 100 ML IV SCH ×3 (05:03→20:06)
[2019-09-08] MEDS: MIDODRINE 5 MG TAB GT SCH ×3 (05:03→20:06)
[2019-09-08 05:52] LABS: CREATININE 1.5 mg/dL (0.7-1.3)
[2019-09-08 05:53] LABS: BASOPHILS # (AUTO) 0.1 K/uL (0.00-0.22); BASOPHILS % (AUTO) 0.5 % (0.0-2.0); EOSINOPHILS # (AUTO) 1.3 K/uL (0-0.4); EOSINOPHILS % (AUTO) 9.6 % (0.0-4.0); HEMATOCRIT 33.5 % (36-52); HEMOGLOBIN 10.8 g/dL (12.0-18.0); LYMPHOCYTES # (AUTO) 1.4 K/uL (2.0-11.5); LYMPHOCYTES % (AUTO) 9.9 % (20.5-51.1); MEAN CORPUSCULAR HEMOGLOBIN 29 pg (27-31); MEAN CORPUSCULAR HGB CONC 32 g/dL (33-37); MEAN CORPUSCULAR VOLUME 89.5 fL (80-94); MONOCYTES # (AUTO) 1.1 K/uL (0.8-1.0); MONOCYTES % (AUTO) 8.1 % (1.7-9.3); NEUTROPHILS # (AUTO) 9.9 K/uL (1.8-7.7); NEUTROPHILS % (AUTO) 71.9 % (42.2-75.2); PLATELET COUNT (AUTO) 203 K/uL (140-450); RED BLOOD CELL COUNT(AUTO) 3.74 MIL/uL (4.20-6.10); RED CELL DISTRIBUTION WIDTH 19.5 % (11.6-13.7); WHITE BLOOD COUNT (AUTO) 13.8 K/uL (4.8-10.8)
[2019-09-08 05:59] LABS: MAGNESIUM 2.1 mg/dL (1.8-2.4); PHOSPHORUS 3.9 mg/dL (2.5-4.9)
--- NOTE | 2019-09-08 06:10 | NUR ---
SPONGE BATH, BARR CARE, AND REPOSITIONING PROVIDED. PATIENT TOLERATED FAIRLY. MINOR FACIAL GRIMACING NOTED, NO EYE CONTACT BUT EYES OPEN. NONVERBAL. COLOSTOMY BAG FLUSHED WITH 20 ML NS AND TUBING MILKED. SLIGHT LEAKAGE NOTED, BAG REINFORCED. COLLECTION BAG AT PREVIOUS GTUBE SITE ALSO REINFORCED AND BAG FILLS UP IMMEDIATELY WITH AIR. PROVIDED VAP ORAL CARE. TPN CONTINUES TO INFUSE AT 70 ML. IV FLUIDS AT 75 ML/HR. TRACH TO VENT, SETTINGS SAME START OF SHIFT. CHANGED DRESSINGS AT SACRUM AND BUTTOCKS. SECURED TAPE AT OGT. HOB 30 DEGREES, FLACC 0.
[2019-09-08 06:15] LABS: CARBON DIOXIDE 15.2 mmol/L (21-32); POTASSIUM 4.5 mmol/L (3.5-5.1)
[2019-09-08 06:16] LABS: ANION GAP 22.3 (8-16)
--- NOTE | 2019-09-08 07:30 | NUR ---
RECEIVED BEDSIDE REPORT FROM BREWERY REPRESENTATIVE NURSE, PT IS OPEN EYES ONLY, APHASIC, PERRL, VSS, FLACC 0, NO S/S OF DISTRESS, TRACH TO VENT WITH AC SETTING: FIO2 24, VT 475, R 20, PEEP 5, DIMINISHED LUNG SOUNDS HALEIGH. TRACH SITE LEAKING NOTED, MD AWARE, SR ON ACUTE CARE NURSE, GENERALIZED EDEMA TO ALL EXTREMITIES. SOFT ABD WITH HYPOACTIVE BOWEL SOUNDS, OGT IN PLACE, NO RESIDUALS AT THIS TIME. BARR CATHETER IN PLACE WITH SEDIMENT YELLOW URINE VIA GRAVITY. COLONSTOMY IN PLACE WITH GREENISH YELLOW BM DRAINING VIA GRAVITY. BEDBOUND, UNABLE TO MOVE ALL EXTREMITIES NOTED, SKIN IS WARM AND DRY TO TOUCH, OPEN WOUND PRESENT (SEE WOUND ASSESSMENT), PICC LINE TO CRYSTAL, PATENT, RUNNING TPN AT 70ML/HR, AND D5W AT 75 ML/HR. ORAL CARE PROVIDED, HOB ELEVATED TO 30 DEGREES, SAFETY MEASURES IN PLACE, POSITION CHANGED FOR OFF LOAD PRESSURE. WILL CONTINUE TO MONITOR.
--- NOTE | 2019-09-08 09:30 | NUR ---
SCHEDULED MEDICATION GIVEN, PATIENT TOLERATED WELL.
[2019-09-08] MEDS: ZINC SULF 220 MG CAP GT SCH (09:36)
[2019-09-08] MEDS: METOCLOPRAMIDE 10 MG/2 ML INJ VIAL IVP SCH ×3 (09:36→17:12)
[2019-09-08] MEDS: PANTOPRAZOLE 40 MG INJ VIAL IVP SCH ×2 (09:36→20:06)
[2019-09-08] MEDS: DOCUSATE 100 MG/10 ML UDC GT SCH ×2 (09:36→20:06)
[2019-09-08] MEDS: ASCORBIC ACID 500 MG TAB GT SCH (09:37)
[2019-09-08] MEDS: Z-GUARD PASTE TP SCH (09:37)
[2019-09-08] MEDS: DEXTROSE 5% 1,000 ML IV SCH ×2 (09:37→15:55)
[2019-09-08] MEDS: MICAFUNGIN SODIUM 100 MG in NACL 0.9% 100 ML IV SCH (09:38)
--- NOTE | 2019-09-08 10:00 | NUR ---
[facility] AT BEDSIDE
--- NOTE | 2019-09-08 12:00 | NUR ---
NO S/S OF DISTRESS, VSS, FLACC 0, ORAL CARE PROVIDED, POSITION CHANGED FOR OFF LOAD PRESSURE.
[2019-09-08] MEDS: THERAHONEY GEL 42.5 GM TP SCH (13:22)
--- NOTE | 2019-09-08 14:20 | NUR ---
DR. CARRION CAME IN TO SEE PATIENT AT BEDSIDE, UPDATED PATIENT'S CONDITION, WILL FOLLOW UP WITH NEW ORDERS.
--- NOTE | 2019-09-08 16:00 | NUR ---
PM CARE AND ORAL CARE PROVIDED, BARR CARE DONE, PATIENT TOLERATED WELL, NO S/S OF DISTRESS, VSS, FLACC 0, POSITION CHANGED FOR OFF LOAD PRESSURE.
--- NOTE | 2019-09-08 19:21 | NUR ---
REPORT GIVEN TO LEARNING AND DEVELOPMENT SPECIALIST FOR CONTINUE OF CARE, PT IS IN STABLE CONDITION AT THIS TIME.
--- NOTE | 2019-09-08 19:30 | NUR ---
RECEIVED BSSR FROM FORREST BROWN. GSC 11. TRACH TO VENT WITH SETTINGS OF FIO2 24%, TV 475, AC 20, AND PEEP 5. COARSE CRACKLES HEARD IN THE BILATERAL UPPER LOBES AND DIMINISHED BREATH SOUNDS IN THE BILATERAL LOWER LOBES. ACTIVE BOWEL SOUNDS NOTED. COLOSTOMY BAG NOTED ON RLQ AND THERE IS A DRAINAGE BAG NOTED ON THE LLQ FROM G-TUBE SITE. DOUBLE LUMEN PICC IN CRYSTAL WITH PATIENT RECEIVING TPN AT 70 ML/HR IN THE PURPLE LUMEN AND D5W AT 75 ML/HR IN THE WHITE LUMEN. SITE IS CDI. BARR CATHETER IN PLACE DRAINING TO GRAVITY WITH MODERATE AMOUNT OF YELLOW URINE NOTED. PATIENT IS AFEBRILE AND VS WNL. REPOSITIONED PATIENT FOR COMFORT. HOB AT 30 DEGREES WITH BED IN LOWEST POSITION. CONTINUE TO MONITOR PATIENT.
--- NOTE | 2019-09-08 19:51 | NUR ---
Received pt stable on vent support at documented settings, suctioned small amount of thick yellow secretions, no resp distress or SOB noted at this time, Shiley 7 XLT trach secured/patent/midline, alarms set and audible, ambu bag at bedside, vent plugged into red outlet and wiped down, cont pulse ox on, will cont to monitor.
[2019-09-08] MEDS: MULTIVITAMIN-12 10 ML in DEXTROSE 50% 760 ML, AMINO ACIDS 8.5% 760 ML, FAT EMULSION 20%... IV SCH ×4 (19:58)
[2019-09-08] MEDS: ENOXAPARIN 30 MG/0.3 ML SYR SUBQ SCH (20:05)
--- NOTE | 2019-09-08 20:30 | NUR ---
VAP CARE RENDERED WITH BIOTENE. SCHEDULED MEDICATIONS GIVEN. TOLERATED WELL. VSS. HOB AT 30 DEGREES WITH BED IN LOWEST POSITION. CONTINUE TO MONITOR PATIENT.
--- NOTE | 2019-09-08 22:05 | NUR ---
PATIENT REPOSITIONED FOR COMFORT. VSS. HOB AT 30 DEGREES WITH BED IN LOWEST POSITION. CONTINUE TO MONITOR PATIENT.
[2019-09-09] VITALS (24 sets, daily range): BP systolic 72–149; BP diastolic 40–89
--- NOTE | 2019-09-09 | NUR ---
VAP CARE RENDERED WITH BIOTENE. REPOSITIONED FOR COMFORT. VSS. HOB AT 30 DEGREES WITH BED IN LOWEST POSITION. CONTINUE TO MONITOR PATIENT.
--- NOTE | 2019-09-09 02:00 | NUR ---
VAP CARE GIVEN WITH PERIDEX RINSE. TOLERATED WELL. VSS. REPOSITIONED PATIENT FOR COMFORT. HOB AT 30 DEGREES WITH BED IN LOWEST POSITION. CONTINUE TO MONITOR PATIENT.
[2019-09-09] MEDS ORDERED: AMIKACIN PER PHARMACY MC PRN (02:05)
[2019-09-09] MEDS: DEXTROSE 5% 1,000 ML IV SCH ×3 (03:00→21:30)
[2019-09-09] MEDS ORDERED: AMIKACIN 500 MG in DEXTROSE 5% 100 ML IV SCH (03:30)
[2019-09-09] MEDS ORDERED: AMIKACIN 500 MG/2 ML VIAL IV ONE (03:40)
[2019-09-09] MEDS: VALPROATE SODIUM 500 MG in NACL 0.9% 100 ML IV SCH ×3 (04:44→21:30)
--- NOTE | 2019-09-09 05:00 | NUR ---
COMPLETE CHG BATH RENDERED. CHANGED ALL BED LINENS AND GOWN. CHANGED ALL WOUND CARE DRESSINGS. KEEP SKIN DRY AND CLEAN. VAP CARE RENDERED. REPOSITIONED FOR COMFORT. VS WNL. HOB AT 30 DEGREES WITH BED IN LOWEST POSITION. CONTINUE TO MONITOR PATIENT.
[2019-09-09 05:52] LABS: BASOPHILS % (AUTO) 0.3 % (0.0-2.0); EOSINOPHILS # (AUTO) 1.2 K/uL (0-0.4); EOSINOPHILS % (AUTO) 8.9 % (0.0-4.0); HEMATOCRIT 31.8 % (36-52); HEMOGLOBIN 10.2 g/dL (12.0-18.0); LYMPHOCYTES # (AUTO) 1.2 K/uL (2.0-11.5); LYMPHOCYTES % (AUTO) 9.6 % (20.5-51.1); MEAN CORPUSCULAR HEMOGLOBIN 29 pg (27-31); MEAN CORPUSCULAR HGB CONC 32 g/dL (33-37); MEAN CORPUSCULAR VOLUME 90.3 fL (80-94); MONOCYTES # (AUTO) 1.1 K/uL (0.8-1.0); MONOCYTES % (AUTO) 8.4 % (1.7-9.3); NEUTROPHILS # (AUTO) 9.4 K/uL (1.8-7.7); NEUTROPHILS % (AUTO) 72.8 % (42.2-75.2); PLATELET COUNT (AUTO) 157 K/uL (140-450); RED BLOOD CELL COUNT(AUTO) 3.53 MIL/uL (4.20-6.10); RED CELL DISTRIBUTION WIDTH 19.7 % (11.6-13.7); WHITE BLOOD COUNT (AUTO) 12.9 K/uL (4.8-10.8)
[2019-09-09 05:55] LABS: ANION GAP 21.6 (8-16); CARBON DIOXIDE 15.8 mmol/L (21-32); CREATININE 1.4 mg/dL (0.7-1.3); POTASSIUM 4.4 mmol/L (3.5-5.1)
[2019-09-09 06:07] LABS: MAGNESIUM 2.1 mg/dL (1.8-2.4); PHOSPHORUS 3.3 mg/dL (2.5-4.9)
[2019-09-09] MEDS: MIDODRINE 5 MG TAB GT SCH ×3 (06:28→20:10)
[2019-09-09] MEDS: BLOOD GLUCOSE MONITORING 1 DEV DEV MC SCH ×4 (06:28→18:05)
[2019-09-09] MEDS: PIPERACILLIN/TAZOBACTAM 3.375 GM in DEXTROSE 5% 100 ML IV SCH ×2 (06:31→12:25)
--- NOTE | 2019-09-09 07:23 | NUR ---
RECEIVED BEDSIDE REPORT FROM CINDY CEO AND FOUNDER RN, FOR CONTINUITY OF CARE. PATIENT IS AWAKE, UNABLE TO MAKE NEEDS KNOWN, RESPONDS TO PAIN. PATIENT'S SKIN IS WARM, DRY, AFEBRILE, NOT INTACT, HE HAS PRESSURE INJURY TO L/R BUTTOCKS, SACROCOCCYX, L/R SHOULDER, R. LOWER LEG, R. HEEL. HE IS ON A WOUND MATTRESS, HEEL PROTECTORS IN PLACE. PATIENT HAS PICC LINE TO CRYSTAL. PATIENT IS TRACH TO VENT, SETTINGS ARE AC 20, FIO2 24%, TV 475, PEEP 5, TACHYPNEIC. HE IS SR ON MONITOR, FLACC 0. PATIENT HAS OGT IN PLACE. DRAINAGE BAG TO OLD GT SITE. HE HAS PROLAPSED COLOSTOMY WITH DRAINAGE BAG TO SITE. BARR CATHETER IN PLACE. HOB 30 DEGREES, SIDE RAILS UP 3X, BED LOCKED IN LOW POSITION. NO SIGNS OF DISTRESS NOTED. WILL CONTINUE TO MONITOR
--- NOTE | 2019-09-09 07:29 | NUR ---
pt [facility] from [facility] on ac 20,475,+5,24%. vent plugged into red outlet and alarms audible and working.bmv at head of bed. b/s were rhonchi. sat 98%. will cont to monitor..
--- NOTE | 2019-09-09 07:31 | NUR ---
ENDORSED CONTINUITY OF CARE TO DAY SHIFT RN.
--- NOTE | 2019-09-09 08:38 | NUR ---
VAP ORAL CARE, GIVEN. PATIENT TURNED AND REPOSITONED FOR COMFORT. NO SIGNS OF DISTRESS NOTED.
[2019-09-09] MEDS: ASCORBIC ACID 500 MG TAB GT SCH (09:14)
[2019-09-09] MEDS: ZINC SULF 220 MG CAP GT SCH (09:14)
[2019-09-09] MEDS: DOCUSATE 100 MG/10 ML UDC GT SCH ×2 (09:14→20:24)
[2019-09-09] MEDS: MICAFUNGIN SODIUM 100 MG in NACL 0.9% 100 ML IV SCH (09:15)
[2019-09-09] MEDS: ALGINATE DRESSING MC SCH (09:15)
[2019-09-09] MEDS: FOAM DRESSING TP SCH (09:15)
[2019-09-09] MEDS: LINEZOLID 600MG PREMIX 300 ML IV SCH ×2 (09:15→20:23)
[2019-09-09] MEDS: PANTOPRAZOLE 40 MG INJ VIAL IVP SCH ×2 (09:15→20:23)
[2019-09-09] MEDS: METOCLOPRAMIDE 10 MG/2 ML INJ VIAL IVP SCH ×3 (09:15→18:05)
[2019-09-09] MEDS: Z-GUARD PASTE TP SCH (09:16)
[2019-09-09] MEDS: NACL 0.9% IRR 250 ML BOTTLE IR SCH (12:26)
[2019-09-09] MEDS: THERAHONEY GEL 42.5 GM TP SCH (12:27)
--- NOTE | 2019-09-09 12:37 | NUR ---
DR. CARRION IS HERE TO SEE AND EXAMINE PATIENT, UPDATED ON PATIENT'S CONDITION. NO NEW ORDERS RECEIVED.
[2019-09-09] MEDS ORDERED: ACETAMINOPHEN 325 MG TAB ONE (14:30)
[2019-09-09] MEDS ORDERED: ACETAMINOPHEN 650 MG/20.3 ML UDC ONE (14:35)
[2019-09-09] MEDS: ACETAMINOPHEN 650 MG/20.3 ML UDC GT PRN (14:38)
--- NOTE | 2019-09-09 16:18 | NUR ---
CHANGED PATIENT'S DRAINAGE BAG FOR PROLAPSED COLOSTOMY, 340 OUTPUT NOTED
[2019-09-09] MEDS: PIPERACILLIN/TAZOBACTAM 3.375 GM in DEXTROSE 5% 50 ML IV SCH ×3 (18:05)
--- NOTE | 2019-09-09 18:19 | NUR ---
[facility] CALLED STATES THAT THEY HAVE A BED FOR PATIENT.
--- NOTE | 2019-09-09 19:10 | NUR ---
REPORT RECEIVED FROM AM NURSE AT BEDSIDE. PT IN STABLE CONDITION. AAOX1-2. INTRODUCED SELF TO PT. BOARD UDPATED. NO COMPLAINTS OF PAIN. NO SOB ON TRACH TO VENT. AFEBRILE. PT IS BEDBOUND. PT HAS PROLAPSED COLOSTOMY TO BAG. PT HAS BARR. VENT SETTINGS ARE AC20, FIO2 24, VT 475, PEEP 5. 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 IV SITE L UA DOUBLE LUMEN PICC RUNNING PPN@70ML/HR PATENT AND INTACT. SECOND LINE RUNNING D5W@75ML/HR PATENT AND INTACT. SKIN WARM, DRY, AND NOT INTACT DUE TO MULTIPLE WOUNDS. SEE WOUND NOTES. BED LOCKED IN LOW POSITION. CALL MCINTYRE WITHIN REACH. SAFETY PRECAUTION IN PLACE. ALL NEEDS MET AT THIS TIME.
[2019-09-09] MEDS: MULTIVITAMIN-12 10 ML in DEXTROSE 50% 760 ML, AMINO ACIDS 8.5% 760 ML, FAT EMULSION 20%... IV SCH ×4 (19:56)
--- NOTE | 2019-09-09 19:56 | NUR ---
PPN HUNG AND RUNNING. PT TOLERATING WELL.
--- NOTE | 2019-09-09 20:10 | NUR ---
PROATAMINE GIVEN THROUGH OG TUBE. PT TOLERATED WELL.
--- NOTE | 2019-09-09 20:15 | NUR ---
PT TO BE TRANSFERRED TO [facility] BUT BP WAS DECREASED@76/44. TRANSFER ON HOLD. PT GIVEN MIDODRINE. WILL REASSESS IN 1 HOUR THEN POSSIBLY TRANSFERRED TO TELE.
--- NOTE | 2019-09-09 20:23 | NUR ---
ZYVOX HUNG AND RUNNING. DOCUSATE GIVEN THROUGH OG TUBE. PROTONIX GIVEN IVP. LOVENOX GIVEN SUBQ. PT TOLERATED WELL.
--- NOTE | 2019-09-09 20:25 | NUR ---
RECEIVED PATIENT ON CURRENT SETTINGS: AC/VC 475 RATE 20 PEEP 5 FIO2 24%. PATIENT IS TRACH'D WITH A SIZE 7 XLT THAT IS SECURED WITH TRACH TIES AND PROTECTIVE GAUZE. STOMA HAS COPIUS AMOUNTS OF SECRETIONS THAT ARE THIN, AND PALE YELLOW. B/S: RHONCHI BILATERALLY. SUCTIONED PT AND RECEIVED SCANT TO NO SECRETIONS. VENT AND ALARM SETTINGS VERIFIED. AMBU BAG AT BEDSIDE.
[2019-09-09] MEDS: ENOXAPARIN 30 MG/0.3 ML SYR SUBQ SCH (20:33)
--- NOTE | 2019-09-09 21:30 | NUR ---
CARL HUNG AND RUNNING. PT TOLERATING WELL.
[2019-09-09] MEDS ORDERED: NOREPINEPHRINE 8 MG in DEXTROSE 5% 250 ML IV PRN (22:20)
[2019-09-09] MEDS ORDERED: NOREPINEPHRINE 4 MG/4 ML VIAL IV ONE (22:33)
--- NOTE | 2019-09-09 23:25 | NUR ---
ROUTINE VENT CHECK. NO CHANGES TO SETTINGS. PATIENT HAS COPIOUS AMOUNTS OF SECRETIONS FROM STOMA.
[2019-09-10] VITALS (91 sets, daily range): BP systolic 70–147; BP diastolic 39–94
--- NOTE | 2019-09-10 | NUR ---
PT REPOSITIONED. ORAL CARE PROVIDED. PT HAS EYES OPEN, TRACKING NOTED. PT ON LEVOPHED DRIP. WILL CONTINUE TO MONITOR.
[2019-09-10] MEDS: PIPERACILLIN/TAZOBACTAM 3.375 GM in DEXTROSE 5% 50 ML IV SCH ×4 (00:15→17:48)
[2019-09-10] MEDS: BLOOD GLUCOSE MONITORING 1 DEV DEV MC SCH ×4 (00:16→17:48)
--- NOTE | 2019-09-10 02:16 | NUR ---
PT HAS EYES OPEN, TRACKING NOTED. PT REPOSITIONED. TACHYPNEA ON MONITOR. SAFETY PRECAUTIONS IN PLACE. WILL CONTINUE TO MONITOR.
[2019-09-10] MEDS ORDERED: AMIKACIN 400 MG in DEXTROSE 5% 100 ML IV SCH (04:00)
--- NOTE | 2019-09-10 04:20 | NUR ---
PT REPOSITIONED. ORAL CARE PROVIDED. LABS DRAWN. SAFETY PRECAUTIONS IN PLACE. WILL CONTINUE TO MONITOR.
[2019-09-10] MEDS: VALPROATE SODIUM 500 MG in NACL 0.9% 100 ML IV SCH ×2 (05:12→13:27)
[2019-09-10] MEDS: MIDODRINE 5 MG TAB GT SCH ×2 (05:13→12:06)
--- NOTE | 2019-09-10 06:32 | NUR ---
BLOOD SUGAR CHECKED. ORDERED MEDICATIONS GIVEN. PT REPOSITIONED. TACHYPNEA ON MONITOR. SAFETY PRECAUTIONS IN PLACE. WILL CONTINUE TO MONITOR.
[2019-09-10 06:38] LABS: ANION GAP 23.1 (8-16); CARBON DIOXIDE 14.4 mmol/L (21-32); CREATININE 1.5 mg/dL (0.7-1.3); POTASSIUM 4.5 mmol/L (3.5-5.1)
[2019-09-10 06:45] LABS: MAGNESIUM 1.9 mg/dL (1.8-2.4)
[2019-09-10 06:57] LABS: BASOPHILS # (AUTO) 0.1 K/uL (0.00-0.22); BASOPHILS % (AUTO) 0.4 % (0.0-2.0); EOSINOPHILS # (AUTO) 1.2 K/uL (0-0.4); EOSINOPHILS % (AUTO) 6.6 % (0.0-4.0); HEMATOCRIT 33.7 % (36-52); HEMOGLOBIN 10.8 g/dL (12.0-18.0); LYMPHOCYTES # (AUTO) 0.8 K/uL (2.0-11.5); LYMPHOCYTES % (AUTO) 4.2 % (20.5-51.1); MEAN CORPUSCULAR HEMOGLOBIN 29 pg (27-31); MEAN CORPUSCULAR HGB CONC 32 g/dL (33-37); MEAN CORPUSCULAR VOLUME 90.1 fL (80-94); MONOCYTES # (AUTO) 1.7 K/uL (0.8-1.0); MONOCYTES % (AUTO) 9.4 % (1.7-9.3); NEUTROPHILS # (AUTO) 14.6 K/uL (1.8-7.7); NEUTROPHILS % (AUTO) 79.4 % (42.2-75.2); PLATELET COUNT (AUTO) 153 K/uL (140-450); RED BLOOD CELL COUNT(AUTO) 3.74 MIL/uL (4.20-6.10); RED CELL DISTRIBUTION WIDTH 20.3 % (11.6-13.7); WHITE BLOOD COUNT (AUTO) 18.4 K/uL (4.8-10.8)
--- NOTE | 2019-09-10 07:16 | NUR ---
RECEIVED BEDSIDE REPORT FROM YADY HOUSE SHORER RN, FOR CONTINUITY OF CARE. PATIENT IS AWAKE, UNRESPONSIVE, UNABLE TO MAKE NEEDS KNOWN. PATIENT'S SKIN IS WARM, DRY, AFEBRILE, NOT INTACT, HE HAS PRESSURE INJURY TO BILATERAL BUTTOCKS, SACROCOCCYX, BILATERAL SHOULDERS, R. LOWER LEG, R. HEEL. PATIENT HAS PICC LINE TO CRYSTAL, ASYMPTOMATIC AND PATENT.PATIENT HAS TRACH TO VENT, SETTINGS ARE AC 20, FIO2 24, TV 475, PEEP 5, HIS BREATHING IS EVEN AND LABORED, TACHYPNEIC, COARSE LUNG SOUNDS THROUGHOUT. PATIENT IS SR ON MONITOR, HE IS ON LEVOPHED DRIP AT 4MCG/KG/HR, BP IS 103/50. PATIENT HAS DRAINAGE BAG TO OLD GT SITE, HE HAS DRAINAGE BAG ON PROLAPSED COLOSTOMY TO DRAINAGE. PATIENT HAS BARR CATHETER IN PLACE TO CLOUDY YELLOW URINE. HOB IS 30 DEGREES, SIDE RAILS UP 3X, BED LOCKED IN LOW POSITION. WILL CONTINUE TO MONITOR.
--- NOTE | 2019-09-10 07:20 | NUR ---
REPORT GIVEN TO MARY BROWN FOR CONTINUITY OF CARE.
--- NOTE | 2019-09-10 07:29 | NUR ---
received pt from [facility] on ac 20,475,+5,24%. vent plugged into red outlet. bmv hung on the ventilator. alarms audible and wortking. pt saturation is good. b/s were course. will continue to monitor
[2019-09-10] MEDS: METOCLOPRAMIDE 10 MG/2 ML INJ VIAL IVP SCH ×3 (08:56→17:48)
[2019-09-10] MEDS: PANTOPRAZOLE 40 MG INJ VIAL IVP SCH (08:56)
[2019-09-10] MEDS: ASCORBIC ACID 500 MG TAB GT SCH (08:56)
[2019-09-10] MEDS: ZINC SULF 220 MG CAP GT SCH (08:56)
[2019-09-10] MEDS: DOCUSATE 100 MG/10 ML UDC GT SCH (08:56)
[2019-09-10] MEDS: LINEZOLID 600MG PREMIX 300 ML IV SCH (08:56)
[2019-09-10] MEDS: Z-GUARD PASTE TP SCH (08:57)
[2019-09-10] MEDS: MICAFUNGIN SODIUM 100 MG in NACL 0.9% 100 ML IV SCH (09:00)
--- NOTE | 2019-09-10 09:59 | NUR ---
SCHEDULED MEDS ADMINISTERED, PATIENT TOLERATED WELL. PATIENT'S DRAINAGE BAG ON PROLAPSED COLOSTOMY CHANGED. PATIENT TURNED AND REPOSITIONED FOR COMFORT. NO SIGNS DISTRESSED NOTED. WILL CONTINUE TO MONITOR
[2019-09-10] MEDS: THERAHONEY GEL 42.5 GM TP SCH (12:07)
--- NOTE | 2019-09-10 12:14 | NUR ---
PATIENT'S IS HERE TO SEE PATIENT, UPDATED ON PATIENT'S CONDITION AND PLAN OF CARE.
--- NOTE | 2019-09-10 13:54 | NUR ---
DR. CARRION IS HERE TO SEE AND EXAMINE PATIENT, UPDATED ON PATIENT'S CONDITION. AWARE THAT WE ARE WAITING FOR A BED IN [facility]
--- NOTE | 2019-09-10 15:50 | NUR ---
CALLED DR. TEAGUE, UPDATED ON PATIENT'S CONDITIONS, AWARE THAT PATIENT'S VALPORIC ACID LEVEL IS 37, RECEIVED ORDER FOR VALPORIC ACID 1000MG Q8H.
--- NOTE | 2019-09-10 15:57 | NUR ---
09/10/19 RD FOLLOW UP COMPLETED PLEASE REFER TO NUTRITION ASSESSMENT UNDER CARE ACTIVITY FOR ESTIMATED NUTRITIONAL NEEDS. 1.CONTINUE TPN D15%, AA 4.25% @ 70ML/HR WITH LIPIDS 20% 200 ML -THIS IS PROVIDING 1542.4 KCAL AND 71 GM OF PROTEIN WHICH MEETS 93% OF KCAL NEEDS AND 85% OF ESTIMATED PROTEIN NEEDS 2. PER MD DISCRETION, WHEN MEDICALLY APPROPRIATE, RESUME OSMOLITE 1.5 @70MLS/HR TOLERATED. -THIS WILL PROVIDE A VOLUME OF 1680 ML, 2520 KCAL, AND 105 GM OF PROTEIN.IT MEETS 100% OF THE ESTIMATED ENERGY AND PROTEIN NEEDS. 3. PER MD DISCRETION, WHEN MEDICALLY APPROPRIATE, RESUME CONTINUE FREE WATER FLUSH OF 160 Q4H (960 ML). 4. CONTINUE VITAMIN C AND ZINC FOR WOUND HEALING. 5. RD TO FOLLOW-UP 2-3 DAYS, HIGH RISK. [address]JEE[address]IVER[address] RD
--- NOTE | 2019-09-10 19:19 | NUR ---
RECEIVED REPORT FROM DAYSHIFT NURSE AT PATIENTS BEDSIDE. PATIENT IS AWAKE WITH EYES OPEN, BUT CANNOT MAKE NEEDS KNOWN OR FOLLOW COMMANDS. GRIMACES WITH PAIN. PUPILS EQUAL AND REACTIVE, 3MM. TRACH TO VENT, ACVC 20, FI02 24%, TV 475, PEEP 5. RESPIRATIONS ARE GREATER THAN 30, NO SIGNS OF DISTRESS OR SHORTNESS OF BREATH. S1S2, SR ON MONITOR. LEFT UPPER ARM PICC LINE IN PLACE, DOUBLE LUMEN, INTACT, FLUSHED WITHOUT SYMPTOMS. INFUSING TPN FEEDING AT 70ML/HR. D5W @ 75ML/HR. AND LEVOPHED AT 4 MCG/MIN/HR-7.5 ML/HR. BLOOD PRESSURE STABLE. AFEBRILE. SKIN NOT INTACT, MULTIPLE PRESSURE WOUNDS ON BILATERAL SHOULDERS, BUTTOCKS, HEELS, RIGHT LOWER LEG AND SACRUM. DRESSINGS CLEAN AND DRY. ABDOMEN IS FLAT AND NONTENDER. RIGHT LOWER QUADRANT COLOSTOMY IN PLACE WITH OBVIOUS PROLAPSE, GOOD PINK COLOR TO STOMA. LEFT UPPER QUADRANT WITH SMALL OPEN WOUND FROM PREVIOUS GTUBE PLACEMENT, COLLECTION BAG IN PLACE WITH MINIMAL AMOUNT OF SECRETIONS AND MODERATE GAS/AIR. FLATUS NOTED, AND ACTIVE BOWEL SOUNDS. COLOSTOMY SHOWS THICK SOFT BROWN STOOL. BARR CATHETER IN PLACE DRAINING YELOOW URINE WITH SEDIMENT/CLOUDINESS NOTED. PATIENT IS QUADRIPLEGIC, UNABLE TO MOVE UPPER AND LOWER EXTREMITIES, CANNOT ELECTRONIC BENCH TECHNICIAN HANDS. HOB 30 DEGREES WITH SIDERAILS UPx3, SPECIALTY MATTRESS IN PLACE. SAFETY ALARMS IN PLACE. WILL CONTINUE TO MONITOR.
--- NOTE | 2019-09-10 19:31 | NUR ---
ENDORSED CONTINUITY OF CARE TO STEPHANIE JACOBS FROM [facility]. PATIENT WILL BE GOING TO BED 503
--- NOTE | 2019-09-10 19:50 | NUR ---
[facility] HERE TO TRANSPORT PATIENT, ENDORSED CARE TO RN. TPN BAG EMPTY, SCANNED NEW BAG TO CONTINUE TPN FEEDING. DISCONNECT IV FLUIDS AND FLUSHED BOTH LUMENS AT LEFT UPPER ARM PICC LINE. PATIENT TRANSFERRED TO [facility] WITHOUT INCIDENT. Addendum: 09/10/19 at 2023 by Janet Roberts RN ENDORSED CARE TO APOLONIA BROWN.
[2019-09-10] MEDS: MULTIVITAMIN-12 10 ML in DEXTROSE 50% 760 ML, AMINO ACIDS 8.5% 760 ML, FAT EMULSION 20%... IV SCH ×4 (20:00)
--- NOTE | 2019-09-10 20:13 | NUR ---
PATIENT TRANSPORTED OUT OF ICU, LAST BLOOD PRESSURE 133/87, ON LEVOPHED DRIP AT 4/MCG/KG/MIN.
[2019-09-10] MEDS ORDERED: VALPROATE SODIUM 1,000 MG in NACL 0.9% 100 ML IV SCH (21:00)
[2019-09-11] MEDS ORDERED: AMIKACIN 400 MG in DEXTROSE 5% 100 ML IV SCH (04:00)
== END 2019-09-10 20:15 | DRG 720 ==
LOC: MED 16:41 → MTU 19:12 → MIC 08-14 00:41 → MTU 08-26 10:30 → MIC 08-28 11:09
PROVIDERS: ADMIT Internal Medicine Pulmonary Disease; ATTEND Internal Medicine Pulmonary Disease
PROC: 5A1955Z Respiratory Ventilation, Greater than 96 Consecutive Hours (ICD-10-PCS; principal; 2019-08-13)
PROC: 30233N1 Transfusion of Nonautologous Red Blood Cells into Peripheral Vein, Percutaneous Approach (ICD-10-PCS; 2019-08-13)
PROC: 0D9670Z Drainage of Stomach with Drainage Device, Via Natural or Artificial Opening (ICD-10-PCS; 2019-08-16)
PROC: 0DP68UZ Removal of Feeding Device from Stomach, Via Natural or Artificial Opening Endoscopic (ICD-10-PCS; 2019-08-28)
PROC: 0DH63UZ Insertion of Feeding Device into Stomach, Percutaneous Approach (ICD-10-PCS; 2019-08-28)
PROC: 02HV33Z Insertion of Infusion Device into Superior Vena Cava, Percutaneous Approach (ICD-10-PCS; 2019-09-03)
PROC: B548ZZA Ultrasonography of Superior Vena Cava, Guidance (ICD-10-PCS; 2019-09-03)
DX: A41.9 Sepsis, unspecified organism (principal); J96.20 Acute and chronic respiratory failure, unspecified whether with hypoxia or hypercapnia; N17.0 Acute kidney failure with tubular necrosis; G93.41 Metabolic encephalopathy; J95.851 Ventilator associated pneumonia; J18.9 Pneumonia, unspecified organism; R65.21 Severe sepsis with septic shock; J15.6 Pneumonia due to other Gram-negative bacteria; J15.1 Pneumonia due to Pseudomonas; K31.6 Fistula of stomach and duodenum; N18.6 End stage renal disease; L89.104 Pressure ulcer of unspecified part of back, stage 4; L89.154 Pressure ulcer of sacral region, stage 4; L89.894 Pressure ulcer of other site, stage 4; Z99.11 Dependence on respirator [ventilator] status; D63.8 Anemia in other chronic diseases classified elsewhere; E87.0 Hyperosmolality and hypernatremia; G40.901 Epilepsy, unspecified, not intractable, with status epilepticus; J43.9 Emphysema, unspecified; J96.21 Acute and chronic respiratory failure with hypoxia; K56.7 Ileus, unspecified; N39.0 Urinary tract infection, site not specified; R13.10 Dysphagia, unspecified; R53.2 Functional quadriplegia; D64.9 Anemia, unspecified; K94.23 Gastrostomy malfunction; Y83.8 Other surgical procedures as the cause of abnormal reaction of the patient, or of later complication, without mention of misadventure at the time of the procedure; Y82.8 Other medical devices associated with adverse incidents; R64 Cachexia; E87.6 Hypokalemia; Z74.01 Bed confinement status; Z87.891 Personal history of nicotine dependence; Z99.2 Dependence on renal dialysis
CPT/HCPCS: 36415; 36600; 51702; 70450; 71045; 74018; 80048; 80053; 80202; 81001; 82272; 82803; 82948; 83605; 83735; 83880; 84100; 84478; 85025; 85610; 85730; 86886; 86900; 86901; 86920; 87040; 87070; 87081; 87086; 87186; 87205; 89220; 93005; 94002; 94003; 94640; 95816; 99291; A4649; A9153; C1751; C9113; J0278; J1200; J1610; J1650; J1815; J2020; J2060; J2185; J2248; J2250; J2270; J2543; J2765; J3010; J3370; J3475; J3480; J3490; J7030; J7042; J7060; J7620; P9016; P9046; Q0092